=== PATIENT | male | born 1960 | race Caucasian/White ===

== ENCOUNTER 2019-08-05 07:46 | Day surgery (SDC) | payer MEDICARE, OTHER ==
[2019-08-03 12:14] VITALS: BMI 31.7
[~2019-08-05 07:46] MED LIST: LACTATED RINGERS 1,000 ML IV SCH
[2019-08-05 08:16] VITALS: TEMP 98.5
[2019-08-05] MEDS ORDERED: LABETALOL 5 MG/ML VIAL MDV IVP ONE (08:25)
[2019-08-05 08:26] LABS: Glucose,Whole Blood 126 mg/dL (75-99)
[2019-08-05] MEDS ORDERED: PROPOFOL 10 MG/ML 20 ML VIAL IV ONE (08:43)
[2019-08-05 09:18] VITALS: RESP 16
--- NOTE | 2019-08-05 09:23 | P.PCN ---
Date of Procedure: 08/05/19 Description of Procedure: BRIEF HISTORY: Patient is a 59-year-old pleasant male scheduled for an elective colonoscopy as a part of screening for malignant neoplasm of the colon. Last colonoscopy approximately 10 years ago. No change in bowel habits, blood per rectum or abdominal pain. PROCEDURE PERFORMED: Colonoscopy with polypectomy. PREOPERATIVE DIAGNOSIS: Screening for malignant neoplasm of the colon, last colonoscopy 10 years ago. ESTIMATED BLOOD LOSS: Minimal. IV sedation per Anesthesia. PROCEDURE: After informed consent was obtained, the patient, was brought into the endoscopy unit. IV sedation was administered by Anesthesia under continuous monitoring. Digital rectal examination was normal. Initially the Olympus CF-190 flexible video colonoscope was then inserted in the rectum, gradually advanced into the cecum without any difficulty. Careful examination was performed as the scope was gradually being withdrawn. Ileocecal valve and the appendiceal orifice were visualized and appeared normal. Prep was excellent. Mucosa of the cecum, ascending colon, transverse colon, descending colon, sigmoid colon, and rectum appeared normal. Diminutive 1 mm ileocecal valve polyp removed with cold forcep polypectomy. 2 mm sessile transverse colon polyp removed with cold forcep polypectomy. 2 mm sessile splenic flexure polyp removed with cold forcep polypectomy. 3 mm sigmoid colon sessile polyp removed with cold forcep polypectomy. A few small left-sided diverticula noted. Retroflexion was performed in the rectum and no lesions were seen. The patient tolerated the procedure well. IMPRESSION: 4 diminutive polyps measuring 1-3 mm in size removed from the ileocecal valve, transverse colon, splenic flexure and sigmoid with cold forcep polypectomy. Mild left colonic diverticulosis. RECOMMENDATIONS: Findings of this examination were discussed with the patient. Okay to resume diet. Okay to resume medications. Await pathology from polypectomies. Anticipate colonoscopy in 3-5 years pending pathology from polypectomies..
[2019-08-05 09:46] VITALS: BP 137/74; PULSE 82
== END 2019-08-05 10:02 | disposition home or self-care (01) ==
LOC: ORWHC2ENDO 07:46
PROVIDERS: ATTEND Internal Medicine
DX: Z12.11 Encounter for screening for malignant neoplasm of colon (principal); K63.5 Polyp of colon; D12.3 Benign neoplasm of transverse colon; D12.5 Benign neoplasm of sigmoid colon; K57.30 Diverticulosis of large intestine without perforation or abscess without bleeding; I10 Essential (primary) hypertension; E78.5 Hyperlipidemia, unspecified; J44.9 Chronic obstructive pulmonary disease, unspecified; Z87.891 Personal history of nicotine dependence; E11.9 Type 2 diabetes mellitus without complications; F32.9 Major depressive disorder, single episode, unspecified; Z79.899 Other long term (current) drug therapy
CPT/HCPCS: 88305; 45380; J2704

== ENCOUNTER 2021-06-20 09:05 | Inpatient (IN) | payer MEDICARE ==
--- NOTE | 2021-06-20 09:28 | ED ---
SOB HPI - General Chief Complaint: Shortness of Breath Stated Complaint: COPD Source: patient, EMS Mode of arrival: EMS Limitations: no limitations - History of Present Illness Initial Comments: 61-year-old male presents emergency Department with reported shortness of breath. He has a history of COPD, diabetes, hypertension. He reports that he became short of breath yesterday which was worse today. He was around his great grandson who is sick. Patient no longer smokes. Denies any chest pain. No previous history of cardiac disease. He has been using his albuterol inhaler with some improvement in his symptoms. Admits to a cough which is nonproductive. No fevers that he knows of. Upon arrival the patient is found to have a temperature. EMS provided him with 125 of Solu-Medrol into DuoNeb breathing treatments. They did not get an oxygen saturation on room air as the patient was having respiratory distress and was immediately placed on a nonrebreather. No other alleviating, precipitating modifying factors - Related Data Home Medications Medication Instructions Recorded Confirmed Albuterol Sulfate [Proair Hfa] 2 puff INHALATION RT-QID PRN 08/04/15 06/20/21 Atorvastatin [Lipitor] 80 mg PO HS 08/03/19 06/20/21 amLODIPine [Norvasc] 10 mg PO DAILY 08/03/19 06/20/21 Aspirin EC [Ecotrin Low Dose] 81 mg PO DAILY 06/20/21 06/20/21 Atenolol [Tenormin] 25 mg PO DAILY 06/20/21 06/20/21 lisinopriL [Zestril] 2.5 mg PO DAILY 06/20/21 06/20/21 Allergies Allergy/AdvReac Type Severity Reaction Status Date / Time No Known Allergies Allergy Verified 06/20/21 10:50 Review of Systems ROS Statement: Those systems with pertinent positive or pertinent negative responses have been documented in the HPI. ROS Other: All systems not noted in ROS Statement are negative. Past Medical History Past Medical History: COPD, Diabetes Mellitus, Hyperlipidemia, Hypertension Additional Past Medical History / Comment(s): DIET CONTROL DM History of Any Multi-Drug Resistant Organisms: None Reported Past Surgical History: Hernia Repair, Orthopedic Surgery Additional Past Surgical History / Comment(s): RT knee scope. COLONOSCOPY Past Anesthesia/Blood Transfusion Reactions: No Reported Reaction Past Psychological History: Depression Smoking Status: Former smoker Past Alcohol Use History: Occasional Past Drug Use History: None Reported - Past Family History Mother Family Medical History: No Reported History General Exam Limitations: no limitations Course Vital Signs 06/20/21 06/20/21 06/20/21 09:09 09:16 11:47 Temperature 101.3 F H 97.5 F L Pulse Rate 136 H 128 H 102 H Respiratory 28 H 28 H 22 Rate Blood Pressure 126/56 104/52 O2 Sat by Pulse 98 93 L 97 Oximetry 06/20/21 06/20/21 11:48 14:39 Temperature 97.5 F L 97.6 F Pulse Rate 85 Respiratory 22 24 Rate Blood Pressure 107/61 O2 Sat by Pulse 98 Oximetry Medical Decision Making - Medical Decision Making Upon arrival patient was placed into room 1. A thorough history and physical exam is performed. IV is established and laboratory studies were conducted. Patient was given a gram of Tylenol for his fever laboratory studies reviewed and demonstrated a white count of 16.1. D-dimer 2.76. Lactic acid 3.9. Troponin 0.063. BNP 493. Covid not tested. Chest x-ray was originally performed which demonstrates a left lower lobe infiltrate. Because of elevated d-dimer the patient does have a CT of his chest performed which demonstrates no evidence for embolism. Large area of airspace consolidation of the left lower lobe. Blood cultures obtained and the patient is started on Rocephin and azithromycin. I recommended admission to the hospital for breathing treatments, steroids and IV antibiotics for which the patient did agree to. Dr. March agreed to admit the patient. He is currently waiting on the floor in stable condition - Lab Data Result diagrams: 06/20/21 09:28 06/20/21 09:28 Lab Results 06/20/21 06/20/21 06/20/21 Range/Units 09:28 09:28 09:28 WBC 16.1 H (3.8-10.6) k/uL RBC 4.68 (4.30-5.90) m/uL Hgb 12.8 L (13.0-17.5) gm/dL Hct 39.9 (39.0-53.0) % MCV 85.3 (80.0-100.0) fL MCH 27.3 (25.0-35.0) pg MCHC 32.0 (31.0-37.0) g/dL RDW 14.0 (11.5-15.5) % Plt Count 274 (150-450) k/uL MPV 7.8 Neutrophils % 86 % Lymphocytes % 8 % Monocytes % 5 % Eosinophils % 0 % Basophils % 0 % Neutrophils # 13.8 H (1.3-7.7) k/uL Lymphocytes # 1.2 (1.0-4.8) k/uL Monocytes # 0.7 (0-1.0) k/uL Eosinophils # 0.1 (0-0.7) k/uL Basophils # 0.0 (0-0.2) k/uL PT 10.3 (9.0-12.0) sec INR 1.0 (<1.2) APTT 28.6 (22.0-30.0) sec D-Dimer 2.76 H (<0.60) mg/L FEU Sodium 133 L (137-145) mmol/L Potassium 3.8 (3.5-5.1) mmol/L Chloride 101 (98-107) mmol/L Carbon Dioxide 19 L (22-30) mmol/L Anion Gap 13 mmol/L BUN 20 (9-20) mg/dL Creatinine 1.45 H (0.66-1.25) mg/dL Est GFR (CKD-EPI)AfAm 60 (>60 ml/min/1.73 sqM) Est GFR (CKD-EPI)NonAf 52 (>60 ml/min/1.73 sqM) Glucose 243 H (74-99) mg/dL Lactic Ac Sepsis Rflx Plasma Lactic Acid [place] (0.7-2.0) mmol/L Calcium 8.8 (8.4-10.2) mg/dL Magnesium 1.8 (1.6-2.3) mg/dL Total Bilirubin 0.7 (0.2-1.3) mg/dL AST 27 (17-59) U/L ALT 19 (4-49) U/L Alkaline Phosphatase 91 (38-126) U/L Troponin I (0.000-0.034) ng/mL NT-Pro-B Natriuret Pep pg/mL Total Protein 6.3 (6.3-8.2) g/dL Albumin 3.3 L (3.5-5.0) g/dL Influenza Type A (PCR) (Not Detectd) Influenza Type B (PCR) (Not Detectd) RSV (PCR) (Not Detectd) SARS-CoV-2 (PCR) (Not Detectd) 06/20/21 06/20/21 06/20/21 Range/Units 09:28 09:28 09:28 WBC (3.8-10.6) k/uL RBC (4.30-5.90) m/uL Hgb (13.0-17.5) gm/dL Hct (39.0-53.0) % MCV (80.0-100.0) fL MCH (25.0-35.0) pg MCHC (31.0-37.0) g/dL RDW (11.5-15.5) % Plt Count (150-450) k/uL MPV Neutrophils % % Lymphocytes % % Monocytes % % Eosinophils % % Basophils % % Neutrophils # (1.3-7.7) k/uL Lymphocytes # (1.0-4.8) k/uL Monocytes # (0-1.0) k/uL Eosinophils # (0-0.7) k/uL Basophils # (0-0.2) k/uL PT (9.0-12.0) sec INR (<1.2) APTT (22.0-30.0) sec D-Dimer (<0.60) mg/L FEU Sodium (137-145) mmol/L Potassium (3.5-5.1) mmol/L Chloride (98-107) mmol/L Carbon Dioxide (22-30) mmol/L Anion Gap mmol/L BUN (9-20) mg/dL Creatinine (0.66-1.25) mg/dL Est GFR (CKD-EPI)AfAm (>60 ml/min/1.73 sqM) Est GFR (CKD-EPI)NonAf (>60 ml/min/1.73 sqM) Glucose (74-99) mg/dL Lactic Ac Sepsis Rflx Plasma Lactic Acid [place] 3.9 H* (0.7-2.0) mmol/L Calcium (8.4-10.2) mg/dL Magnesium (1.6-2.3) mg/dL Total Bilirubin (0.2-1.3) mg/dL AST (17-59) U/L ALT (4-49) U/L Alkaline Phosphatase (38-126) U/L Troponin I 0.060 H* (0.000-0.034) ng/mL NT-Pro-B Natriuret Pep 493 pg/mL Total Protein (6.3-8.2) g/dL Albumin (3.5-5.0) g/dL Influenza Type A (PCR) (Not Detectd) Influenza Type B (PCR) (Not Detectd) RSV (PCR) (Not Detectd) SARS-CoV-2 (PCR) (Not Detectd) 06/20/21 06/20/21 06/20/21 Range/Units 09:36 10: 13:00 WBC (3.8-10.6) k/uL RBC (4.30-5.90) m/uL Hgb (13.0-17.5) gm/dL Hct (39.0-53.0) % MCV (80.0-100.0) fL MCH (25.0-35.0) pg MCHC (31.0-37.0) g/dL RDW (11.5-15.5) % Plt Count (150-450) k/uL MPV Neutrophils % % Lymphocytes % % Monocytes % % Eosinophils % % Basophils % % Neutrophils # (1.3-7.7) k/uL Lymphocytes # (1.0-4.8) k/uL Monocytes # (0-1.0) k/uL Eosinophils # (0-0.7) k/uL Basophils # (0-0.2) k/uL PT (9.0-12.0) sec INR (<1.2) APTT (22.0-30.0) sec D-Dimer (<0.60) mg/L FEU Sodium (137-145) mmol/L Potassium (3.5-5.1) mmol/L Chloride (98-107) mmol/L Carbon Dioxide (22-30) mmol/L Anion Gap mmol/L BUN (9-20) mg/dL Creatinine (0.66-1.25) mg/dL Est GFR (CKD-EPI)AfAm (>60 ml/min/1.73 sqM) Est GFR (CKD-EPI)NonAf (>60 ml/min/1.73 sqM) Glucose (74-99) mg/dL Lactic Ac Sepsis Rflx Y Plasma Lactic Acid [place] 1.0 (0.7-2.0) mmol/L Calcium (8.4-10.2) mg/dL Magnesium (1.6-2.3) mg/dL Total Bilirubin (0.2-1.3) mg/dL AST (17-59) U/L ALT (4-49) U/L Alkaline Phosphatase (38-126) U/L Troponin I (0.000-0.034) ng/mL NT-Pro-B Natriuret Pep pg/mL Total Protein (6.3-8.2) g/dL Albumin (3.5-5.0) g/dL Influenza Type A (PCR) Not Detected (Not Detectd) Influenza Type B (PCR) Not Detected (Not Detectd) RSV (PCR) Not Detected (Not Detectd) SARS-CoV-2 (PCR) Not Detected (Not Detectd) - EKG Data EKG Comments: EKG demonstrates sinus tachycardia with a ventricular rate of 136. VT interval 1:30. QRS 98. QTC 445. No acute ST segment elevations or depressions. Disposition Clinical Impression: COPD exacerbation, CAP (community acquired pneumonia), NSTEMI (non-ST elevation myocardial infarction) Disposition: ADMITTED IP TO THIS HOSP Condition: Stable Is patient prescribed a controlled substance at d/c from ED?: No Decision to Admit Reason: Admit from EC Decision Date: 06/20/21 Decision Time: 13:20
[2021-06-20] MEDS ORDERED: ACETAMINOPHEN TAB 500 MG TAB PO STA (09:35)
[2021-06-20 09:45] LABS: Basophils % (A) 0 %; Eosinophils # (A) 0.1 k/uL (0-0.7); Eosinophils % (A) 0 %; HCT 39.9 % (39.0-53.0); HGB 12.8 gm/dL (13.0-17.5); Lymphocytes # (A) 1.2 k/uL (1.0-4.8); Lymphocytes % (A) 8 %; MCH 27.3 pg (25.0-35.0); MCV 85.3 fL (80.0-100.0); Mean Platelet Volume 7.8; Monocytes # (A) 0.7 k/uL (0-1.0); Monocytes % (A) 5 %; Neutrophils # (A) 13.8 k/uL (1.3-7.7); Neutrophils % (A) 86 %; Platelet Count 274 k/uL (150-450); RBC 4.68 m/uL (4.30-5.90); WBC 16.1 k/uL (3.8-10.6)
[2021-06-20 09:58] LABS: Albumin 3.3 g/dL (3.5-5.0); Calcium 8.8 mg/dL (8.4-10.2); Magnesium 1.8 mg/dL (1.6-2.3); Partial Thromboplastin Time 28.6 sec (22.0-30.0); Potassium 3.8 mmol/L (3.5-5.1); Prothrombin Time 10.3 sec (9.0-12.0); Total Bilirubin 0.7 mg/dL (0.2-1.3); Total Protein 6.3 g/dL (6.3-8.2)
--- NOTE | 2021-06-20 10:33 | XR ---
EXAMINATION TYPE: XR chest 2V DATE OF EXAM: 06/20/2021 COMPARISON: 08/04/2015 INDICATION: Difficulty breathing TECHNIQUE: Frontal and lateral views of the chest are obtained. FINDINGS: The heart size is normal. The pulmonary vasculature is normal. There is a left lower lobe infiltrate. Silhouetting the diaphragm is present.. IMPRESSION: 1. Left lower lobe infiltrate. Correlate for pneumonia. Follow-up is recommended.
--- NOTE | 2021-06-20 12:41 | CT ---
EXAMINATION TYPE: CT chest angio for PE DATE OF EXAM: 06/20/2021 COMPARISON: None HISTORY: Elevated d-dimer CT DLP: 405.3 mGycm CONTRAST: CT chest with contrast and 3D reconstruction with MIP imaging is performed with IV Contrast, patient injected with 64 mL of Isovue 370. Contrast-enhanced CT of the chest was performed through the course of the pulmonary arteries with maritza g and mediastinal window settings submitted. 3D reconstruction with MIP imaging was also performed. PULMONARY ARTERIES: The pulmonary arteries and their major tributaries are patent. I do not see justice dence for sizable filling defect to suggest pulmonary embolic process. LUNGS: Large area of airspace consolidation left lower lobe may reflect pneumonia or aspiration pneum onia. No evidence for atelectasis. No pulmonary nodule or mass is detected. No pleural effusion. MEDIASTINUM: Thoracic aorta is of normal caliber,however, evaluation is limited given timing of the contrast bolus. If there is concern for thoracic aortic pathology consider CHARLES. Correlate clinicall y . The heart is not enlarged. Subcarinal adenopathy measuring 3 cm. No mediastinal lymph nodes great er than 1cm. HILAR STRUCTURES: No evidence for mass. No hilar lymph nodes greater than 1 cm. UPPER ABDOMEN: No significant abnormality is seen. IMPRESSION: 1. No evidence for Pulmonary embolism at this time. 2.Large area of airspace consolidation left lower lobe may reflect pneumonia or aspiration pneumonia.
[2021-06-20] MEDS ORDERED: SODIUM CHLORIDE 0.9% 500 ML 500 ML IV ONE (13:13)
[2021-06-20] MEDS ORDERED: cefTRIAXone IN SWFI 1,000 MG/10 ML SYRINGE IVP STA (13:18)
[2021-06-20] MEDS ORDERED: AZITHROMYCIN 500 MG in SODIUM CHLORIDE 0.9% 250 ML IVPB STA (13:18)
[2021-06-20] MEDS ORDERED: NALOXONE 0.4 MG/ML 1 ML VIAL IV PRN (13:21)
[2021-06-20] MEDS ORDERED: LACTULOSE 20 GM/30 ML CUP PO PRN (13:33)
[2021-06-20] MEDS ORDERED: ALPRAZolam 0.25 MG TAB PO PRN (13:33)
[2021-06-20] MEDS ORDERED: ACETAMINOPHEN TAB 325 MG TAB PO PRN (13:33)
[2021-06-20] MEDS ORDERED: ONDANSETRON 4 MG/2 ML VIAL IVP PRN (13:33)
[2021-06-20] MEDS ORDERED: MELATONIN 3 MG TABLET PO PRN (13:33)
[2021-06-20] MEDS ORDERED: MAG HYDROX/AL HYDROX/SIMETH 30 ML CUP PO PRN (13:33)
[2021-06-20] MEDS ORDERED: MAGNESIUM HYDROXIDE 2,400 MG/10 ML CUP PO PRN (13:33)
[2021-06-20] MEDS ORDERED: CALCIUM CARBONATE 500 MG CHEWABLE PO PRN (13:33)
--- NOTE | 2021-06-20 13:47 | P.HPIM ---
History of Present Illness H&P Date: 06/20/21 Chief Complaint: Could not breathe This is a 61-year-old patient who follows with Dr. Romero. Chronic stable medical conditions include diabetes, hypertension, hyperlipidemia. Patient is a previous smoker. Non-COPD. Patient presents for 2 days of much worsening short of breath. Cough which is very congested not able to expectorate. Decreased appetite tired rundown. Having fevers. Patient did not take the COVID-19 vaccine. Patient is a complete by his son and [id number]. Feels tired and rundown. Had a fever of 101 in the ER. Review of systems: GEN.: Tired fever decreased appetite EYES: None HEENT: None NECK: None RESPIRATORY: Cough and wheezing short of breath CARDIOVASCULAR: No chest pain GASTROINTESTINAL: None GENITOURINARY: None MUSCULOSKELETAL: None LYMPHATICS: None HEMATOLOGICAL: None PSYCHIATRY: None NEUROLOGICAL: None Past medical history to include: COPD, diabetes, hypertension, 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 Smoked a pack a day for close to 50 years stopped about 2 years ago. Drinks alcohol very heavily on the weekends to the point of passing out Family history: Reviewed, noncontributory to presentation Physical examination: VITAL SIGNS: 101.3, 136, 28, 126/56, 93% on room air GENERAL: BMI 29.5, laying in bed, tired, short of breath. EYES: Pupils equal. Conjunctiva normal. HEENT: External appearance of nose and ears normal, oral cavity grossly normal. NECK: JVD not raised; masses not palpable. HEART: First and second heart sounds are normal; no edema. LUNGS: Respiratory rate increased, not able to speak in full sentences, decreased breath sound coarse crackles left base, wheezing. ABDOMEN: Soft, nontender, liver spleen not palpable, no masses palpable. PSYCH: Alert and oriented x3; mood and affect normal. NEUROLOGICAL: Cranial nerves grossly intact; no facial asymmetry, power and sensation grossly intact. LYMPHATICS: No lymph nodes palpable in the axilla and neck INVESTIGATIONS, reviewed in the clinical context: White count 16.1 hemoglobin 12.8 platelets 274 d-dimer 2.76 potassium 3.8 creatinine 1.45 lactic acid 3.9 Troponin I 0.060 Influenza type A, type B, RSV, COVID-19 [PCR]: I'll not detected EKG tracing personally reviewed by me-sinus tachycardia Chest x-ray film personally reviewed by me-left sided infiltrate CT chest angiogram: Negative for PE large area of airspace consolidation left lower lobe Assessment and plan: -Severe left lower lobe pneumonia, suspect gram-negative organism Start IV cefepime 1 g every 12. Sputum for Gram stain and culture. -Sepsis secondary to pneumonia IV fluids. Blood culture -Acute COPD exacerbation in a previous smoker DuoNeb every 4, IV and inhaled steroids, long-acting beta agonist -Hyperlipidemia Lipitor 80 mg daily at bedtime -Essential hypertension 6-2.5 mg daily, Tenormin 25 mg daily. Hold Norvasc -Likely myocarditis from the bacterial component of pneumonia Patient does not have cardiac symptoms. Order 2-D echocardiogram. IV cefepime. DuoNeb. IV and inhaled steroids. IV Solu-Medrol. Resume home medications. Hold Norvasc. Subcu Lovenox. 2-D echocardiogram. Care was discussed with patient and son at the bedside. Questions answered. Given the complexity and severity of patient's condition expect the patient to be in the hospital at least for 2 overnights Past Medical History Past Medical History: COPD, Diabetes Mellitus, Hyperlipidemia, Hypertension Additional Past Medical History / Comment(s): DIET CONTROL DM History of Any Multi-Drug Resistant Organisms: None Reported Past Surgical History: Hernia Repair, Orthopedic Surgery Additional Past Surgical History / Comment(s): RT knee scope. COLONOSCOPY Past Anesthesia/Blood Transfusion Reactions: No Reported Reaction Past Psychological History: Depression Smoking Status: Former smoker Past Alcohol Use History: Occasional Past Drug Use History: None Reported - Past Family History Mother Family Medical History: No Reported History Medications and Allergies Home Medications Medication Instructions Recorded Confirmed Type Albuterol Sulfate [Proair Hfa] 2 puff INHALATION RT-QID PRN 08/04/15 06/20/21 History Atorvastatin [Lipitor] 80 mg PO HS 08/03/19 06/20/21 History amLODIPine [Norvasc] 10 mg PO DAILY 08/03/19 06/20/21 History Aspirin EC [Ecotrin Low Dose] 81 mg PO DAILY 06/20/21 06/20/21 History Atenolol [Tenormin] 25 mg PO DAILY 06/20/21 06/20/21 History lisinopriL [Zestril] 2.5 mg PO DAILY 06/20/21 06/20/21 History Allergies Allergy/AdvReac Type Severity Reaction Status Date / Time No Known Allergies Allergy Verified 06/20/21 10:50 Physical Exam Vitals: Vital Signs Temp Pulse Resp BP Pulse Ox 06/20/21 11:48 97.5 F L 22 06/20/21 11:47 97.5 F L 102 H 22 104/52 97 06/20/21 09:16 128 H 28 H 93 L 06/20/21 09:09 101.3 F H 136 H 28 H 126/56 98 Intake and Output 06/19/21 06/20/21 06/20/21 22:59 06:59 14:59 Other: Weight 90.718 kg Results CBC & Chem 7: 06/20/21 09:28 06/20/21 09:28 Labs: Abnormal Lab Results - Last 24 Hours (Table) 06/20/21 06/20/21 06/20/21 Range/Units 09:28 09:28 09:28 WBC 16.1 H (3.8-10.6) k/uL Hgb 12.8 L (13.0-17.5) gm/dL Neutrophils # 13.8 H (1.3-7.7) k/uL D-Dimer 2.76 H (<0.60) mg/L FEU Sodium 133 L (137-145) mmol/L Carbon Dioxide 19 L (22-30) mmol/L Creatinine 1.45 H (0.66-1.25) mg/dL Glucose 243 H (74-99) mg/dL Plasma Lactic Acid [place] (0.7-2.0) mmol/L Troponin I (0.000-0.034) ng/mL Albumin 3.3 L (3.5-5.0) g/dL 06/20/21 06/20/21 Range/Units 09:28 09:28 WBC (3.8-10.6) k/uL Hgb (13.0-17.5) gm/dL Neutrophils # (1.3-7.7) k/uL D-Dimer (<0.60) mg/L FEU Sodium (137-145) mmol/L Carbon Dioxide (22-30) mmol/L Creatinine (0.66-1.25) mg/dL Glucose (74-99) mg/dL Plasma Lactic Acid [place] 3.9 H* (0.7-2.0) mmol/L Troponin I 0.060 H* (0.000-0.034) ng/mL Albumin (3.5-5.0) g/dL
[2021-06-20] MEDS: ENOXAPARIN 40 MG/0.4 ML SYRINGE SQ SCH (14:38)
[2021-06-20 14:51] LABS: Glucose,Whole Blood 277 mg/dL (75-99)
--- NOTE | 2021-06-20 14:51 | P.CRDCN ---
History of Present Illness History of present illness: HISTORY OF PRESENTING ILLNESS This is a pleasant 61-year-old male past medical history significant for non- obstructive coronary artery disease, COPD, former nicotine dependence, hypertension, dyslipidemia. He follows in the office with Dr. Wilder. We have been asked to see in consultation for elevated troponin. Patient presents emergency department with shortness of breath for the past 3 days. He also has has a non-productive cough and diaphoresis. He denies any sick contacts. On admission patient with fever 101.3F, tachycardiac 120s-130s, tachypneic, hypoxic on room air requiring oxygen. He denies any chills, chest pain, palpitations, light headedness, dizziness, syncope or near syncope. Denies symptoms of orthopnea or PND. He denies any history of SD, stroke, coronary artery d isease. He denies history of diabetes, Hgb A1C in 2013 5.8. He is a former smoker of 1.5PPD, quit 3 years ago. Occasionally drinks alcohol. DIAGNOSTICS EKG reveals sinus tachycardia, heart rate 136. Telemetry tracings indicate sinus mechanism HR 80s. CT chest was negative for pulmonary embolism, revealed a large area of consolidation left lower lobe may reflect pneumonia or aspiration pneumonia. Chest xray left lower lobe infiltrate Laboratory reviewed, WBC 16.1, hemoglobin 12.8, platelets 274, d-dimer 2.76, sodium 133, potassium 3.6, BUN 20, serum creatinine 1.45, glucose 243, lactate 3.9, troponin 0.06, proBNP 493, viral PCR negative Current home cardiac medications include lisinopril 2.5 mg daily, amlodipine 10 mg daily, atorvastatin 80 mg nightly, atenolol 25 mg daily, aspirin 81 mg daily Echocardiogram 2019 revealed EF of 5055 percent, trace mitral regurgitation, mild tricuspid regurgitation. Lexiscan stress test in the office revealed no evidence of ischemia. REVIEW OF SYSTEMS At the time of my exam: CONSTITUTIONAL: +fever +chills. CARDIOVASCULAR: Positive shortness of breath Denies chest pain, orthopnea, PND or palpitations. RESPIRATORY: +cough. GASTROINTESTINAL: Denies abdominal pain, diarrhea, constipation, nausea or vomiting. MUSCULOSKELETAL: Denies myalgias. NEUROLOGIC: Denies numbness, tingling, headacbe or weakness. ENDOCRINE: Denies fatigue, weight change, polydipsia or polyurina. GENITOURINARY: Denies burning, hematuria or urgency with micturation. HEMATOLOGIC: Denies history of anemia or bleeding. PHYSICAL EXAMINATION Blood pressure 104/52 HR 102, afebrile 97% on 3L nasal cannula CONSTITUTIONAL: No apparent distress, short of breath HEENT: Head is normocephalic. Pupils are equal, round. Sclerae anicteric. Mucous membranes of the mouth are moist. No JVD. No carotid bruit. CHEST EXAMINATION: Lungs are diminished bilateral crackles in bases to auscultation. No chest wall tenderness is noted on palpation or with deep breathing. HEART EXAMINATION: Regular rate and rhythm. S1, S2 heard. No murmurs, gallops or rub. ABDOMEN: Soft, nontender. Positive bowel sounds. EXTREMITIES: 2+ peripheral pulses, no lower extremity edema and no calf ten derness. SKIN: warm, diaphoretic NEUROLOGIC EXAMINATION: Patient is awake, alert and oriented x3. ASSESSMENT Elevated troponin Fever, Diaphoresis Lactic acidosis Elevated D dimer CT negative for PE Leukocytosis Left lower lobe consolidation seen on CT chest COPD Non-obstructive coronary artery disease Former nicotine dependence Hypertension Dyslipidemia PLAN Repeat EKG Trend troponin Obtain 2D echocardiogram Continue home aspirin, atenolol, statin, lisinopril. Further recommendations based on current medical course. Nurse Practitioner note has been reviewed, I agree with a documented findings and plan of care. Patient was seen and examined. Past Medical History Past Medical History: COPD, Diabetes Mellitus, Hyperlipidemia, Hypertension Additional Past Medical History / Comment(s): DIET CONTROL DM History of Any Multi-Drug Resistant Organisms: None Reported Past Surgical History: Hernia Repair, Orthopedic Surgery Additional Past Surgical History / Comment(s): RT knee scope. COLONOSCOPY Past Anesthesia/Blood Transfusion Reactions: No Reported Reaction Past Psychological History: Depression Smoking Status: Former smoker Past Alcohol Use History: Occasional Past Drug Use History: None Reported - Past Family History Mother Family Medical History: No Reported History Medications and Allergies Home Medications Medication Instructions Recorded Confirmed Type Albuterol Sulfate [Proair Hfa] 2 puff INHALATION RT-QID PRN 08/04/15 06/20/21 History Atorvastatin [Lipitor] 80 mg PO HS 08/03/19 06/20/21 History amLODIPine [Norvasc] 10 mg PO DAILY 08/03/19 06/20/21 History Aspirin EC [Ecotrin Low Dose] 81 mg PO DAILY 06/20/21 06/20/21 History Atenolol [Tenormin] 25 mg PO DAILY 06/20/21 06/20/21 History lisinopriL [Zestril] 2.5 mg PO DAILY 06/20/21 06/20/21 History Allergies Allergy/AdvReac Type Severity Reaction Status Date / Time No Known Allergies Allergy Verified 06/20/21 10:50 Physical Exam Vitals: Vital Signs Temp Pulse Resp BP Pulse Ox 06/20/21 11:48 97.5 F L 22 06/20/21 11:47 97.5 F L 102 H 22 104/52 97 06/20/21 09:16 128 H 28 H 93 L 06/20/21 09:09 101.3 F H 136 H 28 H 126/56 98 Intake and Output 06/19/21 06/20/21 06/20/21 22:59 06:59 14:59 Other: Weight 90.718 kg Results 06/20/21 09:28 06/20/21 09:28 Cardiac Enzymes 06/20/21 06/20/21 Range/Units 09:28 09:28 AST 27 (17-59) U/L Troponin I 0.060 H* (0.000-0.034) ng/mL Coagulation 06/20/21 Range/Units 09:28 PT 10.3 (9.0-12.0) sec APTT 28.6 (22.0-30.0) sec CBC 06/20/21 Range/Units 09:28 WBC 16.1 H (3.8-10.6) k/uL RBC 4.68 (4.30-5.90) m/uL Hgb 12.8 L (13.0-17.5) gm/dL Hct 39.9 (39.0-53.0) % Plt Count 274 (150-450) k/uL Comprehensive Metabolic Panel 06/20/21 Range/Units 09:28 Sodium 133 L (137-145) mmol/L Potassium 3.8 (3.5-5.1) mmol/L Chloride 101 (98-107) mmol/L Carbon Dioxide 19 L (22-30) mmol/L BUN 20 (9-20) mg/dL Creatinine 1.45 H (0.66-1.25) mg/dL Glucose 243 H (74-99) mg/dL Calcium 8.8 (8.4-10.2) mg/dL AST 27 (17-59) U/L ALT 19 (4-49) U/L Alkaline Phosphatase 91 (38-126) U/L Total Protein 6.3 (6.3-8.2) g/dL Albumin 3.3 L (3.5-5.0) g/dL Current Medications Generic Name Dose Route Start Last Admin Trade Name Freq PRN Reason Stop Dose Admin Acetaminophen 650 mg 06/20/21 13:33 Acetaminophen Tab 325 Mg Tab PO Q6HR PRN Mild Pain or Fever > 100.5 Al Hydroxide/Mg Hydroxide 15 ml 06/20/21 13:33 Mag Hydrox/Al Hydrox/Simeth 30 Ml Cup PO Q6HR PRN Indigestion Albuterol/Ipratropium 3 ml 06/20/21 16:00 Ipratropium-Albuterol 3 Ml Neb INHALATION RT-Q4H ENDY Albuterol/Ipratropium 3 ml 06/20/21 16:00 Ipratropium-Albuterol 3 Ml Neb INHALATION RT-Q4H ENDY Alprazolam 0.25 mg 06/20/21 13:33 Alprazolam 0.25 Mg Tab PO Q6HR PRN Anxiety Aspirin 81 mg 06/21/21 09:00 Aspirin 81 Mg PO DAILY ENDY Atenolol 25 mg 06/21/21 09:00 Atenolol 25 Mg Tab PO DAILY ENDY Atorvastatin Calcium 80 mg 06/20/21 21:00 Atorvastatin 80 Mg Tab PO HS ENDY Budesonide 1 mg 06/20/21 13:30 Budesonide 1 Mg/2 Ml Nebu INHALATION RT-BID [facility] Calcium Carbonate/Glycine 1,000 mg 06/20/21 13:33 Calcium Carbonate 500 Mg Chewable PO Q4HR PRN Dyspepsia Enoxaparin Sodium 40 mg 06/20/21 13:45 Enoxaparin 40 Mg/0.4 Ml Syringe SQ DAILY ENDY Formoterol Fumarate 20 mcg 06/20/21 13:30 Formoterol Fumarate 20 Mcg/2 Ml Nebu INHALATION RT-BID [facility] Azithromycin 500 mg/ Sodium 250 mls @ 250 mls/hr 06/20/21 13:18 Chloride IVPB 06/20/21 14:17 ONCE STA Cefepime HCl 1 gm/ Sodium 50 mls @ 12.5 mls/hr 06/20/21 16:00 Chloride IVPB Q12H [facility] Lactated Ringer's 1,000 mls @ 125 mls/hr 06/20/21 14:00 Lactated Ringers IV .Q8H [facility] Lactulose 20 gm 06/20/21 13:33 Lactulose 20 Gm/30 Ml Cup PO DAILY PRN Constipation Lisinopril 2.5 mg 06/21/21 09:00 Lisinopril 2.5 Mg Tab PO DAILY [facility] Magnesium Hydroxide 2,400 mg 06/20/21 13:33 Magnesium Hydroxide 2,400 Mg/10 Ml Cup PO DAILY PRN Constipation Melatonin 3 mg 06/20/21 13:33 Melatonin 3 Mg Tablet PO HS PRN Insomnia Methylprednisolone Sodium Succinate 40 mg 06/20/21 16:00 Methylprednisolone Sod Succi 40 Mg/Ml 1 Ml Vial IV Q8HR [facility] Naloxone HCl 0.2 mg 06/20/21 13:21 Naloxone 0.4 Mg/Ml 1 Ml Vial IV Q2M PRN Opioid Reversal Ondansetron HCl 4 mg 06/20/21 13:33 Ondansetron 4 Mg/2 Ml Vial IVP Q8HR PRN Nausea And Vomiting Intake and Output 06/19/21 06/20/21 06/20/21 22:59 06:59 14:59 Other: Weight 90.718 kg Patient Weight 06/21/21 06:59 Weight 90.718 kg 06/20/21 09:28 06/20/21 09:28
[2021-06-20] MEDS: FORMOTEROL FUMARATE 20 MCG/2 ML NEBU INHALATION SCH ×2 (15:26→19:09)
[2021-06-20] MEDS: BUDESONIDE 1 MG/2 ML NEBU INHALATION SCH ×2 (15:26→19:09)
[2021-06-20] MEDS ORDERED: IPRATROPIUM-ALBUTEROL 3 ML NEB INHALATION SCH (16:00)
[2021-06-20] MEDS: IPRATROPIUM-ALBUTEROL 3 ML NEB INHALATION SCH ×2 (16:18→19:09)
[2021-06-20 17:16] LABS: Glucose,Whole Blood 270 mg/dL (75-99)
[2021-06-20] MEDS: INSULIN ASPART (NovoLOG) 100 UNIT/ML VIAL SQ SCH ×2 (18:07→20:08)
[2021-06-20] MEDS: LACTATED RINGERS 1,000 ML IV SCH ×2 (18:36→21:07)
[2021-06-20] MEDS: methylPREDNISolone SOD SUCCI 40 MG/ML 1 ML VIAL IV SCH (18:36)
[2021-06-20] MEDS: CEFEPIME 1 GM in SODIUM CHLORIDE 0.9% 50 ML IVPB SCH (18:36)
--- NOTE | 2021-06-20 19:37 | P.CNPUL ---
History of Present Illness Consult date: 06/20/21 Reason for consult: dyspnea, cough, COPD, hypoxemia Chief complaint: Shortness of breath for 2 days History of present illness: Patient is a 61-year-old with extensive history of smoking and nicotine use stopped smoking 2 years ago otherwise he used to smoke one to 2 packs per day for about 25-30 year history of smoking, have extensive problems associated multiple medical illness, patient progressively got short of breath and last 2 days, started with upper respiratory type infection, started having congestion and cough which is mostly nonproductive, denies any fever or chills, on arrival patient has respiratory distress requiring nonrebreather mask however now currently decreased to 4 L nasal cannula more comfortable now, chest x-ray significant for left lower lobe pneumonia, computed tomography scan of the chest negative for pulmonary embolism however consistent with left lower lobe consolidation and pneumonia, on arrival patient has WBC count is 16,000, d-dimer elevated 2.76, glucose 243, lactic acidosis C.9, troponin 0.06 came down to 0.03 COVID-19 as well as influenza A and B are negative, currently patient is being treated with IV cephapirin and continuation of home medications as well as bronchodilators and IV steroids Review of Systems All systems: negative Past Medical History Past Medical History: COPD, Diabetes Mellitus, Hyperlipidemia, Hypertension Additional Past Medical History / Comment(s): DIET CONTROL DM History of Any Multi-Drug Resistant Organisms: None Reported Past Surgical History: Hernia Repair, Orthopedic Surgery Additional Past Surgical History / Comment(s): RT knee scope. COLONOSCOPY Past Anesthesia/Blood Transfusion Reactions: No Reported Reaction Smoking Status: Former smoker - Past Family History Mother Family Medical History: No Reported History Medications and Allergies Home Medications Medication Instructions Recorded Confirmed Type Albuterol Sulfate [Proair Hfa] 2 puff INHALATION RT-QID PRN 08/04/15 06/20/21 History Atorvastatin [Lipitor] 80 mg PO HS 08/03/19 06/20/21 History amLODIPine [Norvasc] 10 mg PO DAILY 08/03/19 06/20/21 History Aspirin EC [Ecotrin Low Dose] 81 mg PO DAILY 06/20/21 06/20/21 History Atenolol [Tenormin] 25 mg PO DAILY 06/20/21 06/20/21 History lisinopriL [Zestril] 2.5 mg PO DAILY 06/20/21 06/20/21 History Allergies Allergy/AdvReac Type Severity Reaction Status Date / Time No Known Allergies Allergy Verified 06/20/21 10:50 Physical Exam Vitals: Vital Signs Temp Pulse Pulse Resp BP BP Pulse Ox 06/20/21 19:29 82 06/20/21 19:10 82 06/20/21 17:29 96.6 F L 101 H 20 127/65 100 06/20/21 16:28 83 18 06/20/21 16:19 83 18 06/20/21 14:39 97.6 F 85 24 107/61 98 06/20/21 11:48 97.5 F L 22 06/20/21 11:47 97.5 F L 102 H 22 104/52 97 06/20/21 09:16 128 H 28 H 93 L 06/20/21 09:09 101.3 F H 136 H 28 H 126/56 98 Intake and Output 06/20/21 06/20/21 06/20/21 06:59 14:59 22:59 Intake Total 180 Balance 180 Intake: Oral 180 Other: Weight 90.718 kg 90.718 kg - Constitutional General appearance: average body habitus, cooperative, disheveled - EENT Eyes: EOMI, PERRLA Ears: bilateral: normal - Neck Carotids: bilateral: upstroke normal - Respiratory Respiratory: bilateral: diminished - Cardiovascular Rhythm: regular Heart sounds: normal: S1, S2 - Gastrointestinal General gastrointestinal: normal bowel sounds, soft - Neurologic Neurologic: CNII-XII intact - Musculoskeletal Musculoskeletal: gait normal, generalized weakness, strength equal bilaterally - Psychiatric Psychiatric: A&O x's 3, appropriate affect, intact judgment & insight Results - Laboratory Findings CBC and BMP: 06/20/21 09:28 06/20/21 09:28 PT/INR, D-dimer PT 10.3 sec (9.0-12.0) 06/20/21 09:28 INR 1.0 (<1.2) 06/20/21 09:28 D-Dimer 2.76 mg/L FEU (<0.60) H 06/20/21 09:28 Abnormal lab findings: Abnormal Labs 06/20/21 06/20/21 06/20/21 09:28 09:28 09:28 WBC 16.1 H Hgb 12.8 L Neutrophils # 13.8 H D-Dimer 2.76 H Sodium 133 L Carbon Dioxide 19 L Creatinine 1.45 H Glucose 243 H POC Glucose (mg/dL) Plasma Lactic Acid [place] Troponin I Albumin 3.3 L 06/20/21 06/20/21 06/20/21 09:28 09:28 14:50 WBC Hgb Neutrophils # D-Dimer Sodium Carbon Dioxide Creatinine Glucose POC Glucose (mg/dL) 277 H Plasma Lactic Acid [place] 3.9 H* Troponin I 0.060 H* Albumin 06/20/21 06/20/21 15:34 17:14 WBC Hgb Neutrophils # D-Dimer Sodium Carbon Dioxide Creatinine Glucose POC Glucose (mg/dL) 270 H Plasma Lactic Acid [place] Troponin I 0.043 H* Albumin - Diagnostic Findings Chest x-ray: report reviewed, image reviewed CT scan - chest: report reviewed, image reviewed (Finding as noted above) Assessment and Plan Assessment: Left lower lobe pneumonia likely community-acquired Sepsis due to left lower lobe pneumonia COPD Elevated troponin likely demand ischemia Uncontrolled diabetes with hyperglycemia Hypertension hypertensive cardiovascular disease Plan: IV antibiotics IV steroids Breathing treatments Continue home medications Continue sliding scale insulin Further recommendations pending plan of care as per clinical response of the patient would recommend outpatient evaluation for COPD and follow-up on left lower lobe pneumonia Time with Patient: Greater than 30
[2021-06-20 19:43] LABS: Glucose,Whole Blood 267 mg/dL (75-99)
[2021-06-20] MEDS: ATORVASTATIN 80 MG TAB PO SCH (20:08)
[2021-06-20] MEDS ORDERED: methylPREDNISolone SOD SUCCI 40 MG/ML 1 ML VIAL IV SCH (21:00)
[2021-06-21] MEDS: methylPREDNISolone SOD SUCCI 40 MG/ML 1 ML VIAL IV SCH ×2 (00:19→08:45)
[2021-06-21] MEDS: IPRATROPIUM-ALBUTEROL 3 ML NEB INHALATION SCH ×6 (01:44→21:10)
[2021-06-21 03:28] LABS: Chol/HDL Ratio 2.77 Ratio; HDL Cholesterol 35.8 mg/dL (40.00-60.00); LDL Cholesterol,Calculated 47.6 mg/dL (0.0-131.0); Triglycerides 78.3 mg/dL (0.00-149.00); VLDL Calculation 15.66 mg/dL (5.00-40.00)
[2021-06-21] MEDS: CEFEPIME 1 GM in SODIUM CHLORIDE 0.9% 50 ML IVPB SCH ×2 (04:47→17:16)
[2021-06-21] MEDS: LACTATED RINGERS 1,000 ML IV SCH ×3 (04:53→23:03)
[2021-06-21 06:12] LABS: Glucose,Whole Blood 253 mg/dL (75-99)
[2021-06-21] MEDS: INSULIN ASPART (NovoLOG) 100 UNIT/ML VIAL SQ SCH ×4 (06:17→20:07)
[2021-06-21 07:55] LABS: Basophils % (A) 0 %; Eosinophils # (A) 0.1 k/uL (0-0.7); Eosinophils % (A) 0 %; HCT 39.6 % (39.0-53.0); HGB 12.6 gm/dL (13.0-17.5); Lymphocytes # (A) 0.8 k/uL (1.0-4.8); Lymphocytes % (A) 4 %; MCH 27.5 pg (25.0-35.0); MCHC 31.9 g/dL (31.0-37.0); MCV 86.3 fL (80.0-100.0); Mean Platelet Volume 7.9; Monocytes # (A) 0.7 k/uL (0-1.0); Monocytes % (A) 3 %; Neutrophils # (A) 17.8 k/uL (1.3-7.7); Neutrophils % (A) 91 %; Platelet Count 283 k/uL (150-450); RBC 4.59 m/uL (4.30-5.90); RDW 13.9 % (11.5-15.5); WBC 19.6 k/uL (3.8-10.6)
[2021-06-21] MEDS: BUDESONIDE 1 MG/2 ML NEBU INHALATION SCH ×2 (07:55→21:09)
[2021-06-21] MEDS: FORMOTEROL FUMARATE 20 MCG/2 ML NEBU INHALATION SCH ×2 (07:55→21:10)
[2021-06-21 08:43] LABS: African American GFR (CKD) >90 (>60 ml/min/1.73 sqM); Anion Gap 10 mmol/L; Blood Urea Nitrogen 27 mg/dL (9-20); Carbon Dioxide 21 mmol/L (22-30); Chloride 106 mmol/L (98-107); Glucose 249 mg/dL (74-99); Non-African American GFR(CKD) >90 (>60 ml/min/1.73 sqM); Potassium 3.7 mmol/L (3.5-5.1); Sodium 137 mmol/L (137-145)
[2021-06-21] MEDS: ASPIRIN 81 MG PO SCH (08:44)
[2021-06-21] MEDS: atenoloL 25 MG TAB PO SCH (08:44)
[2021-06-21] MEDS: ENOXAPARIN 40 MG/0.4 ML SYRINGE SQ SCH (08:45)
--- NOTE | 2021-06-21 10:12 | ECHOF ---
Referral Reason:Positive troponin MEASUREMENTS -------- HEIGHT: 175.3 cm WEIGHT: 90.7 kg BP: IVSd: 1.1 cm (0.6 - 1.1) LVIDd: 4.0 cm (3.9 - 5.3) LVPWd: 1.7 cm (0.6 - 1.1) IVSs: 1.9 cm LVIDs: 2.5 cm LVPWs: 1.9 cm LAESV Index (A-L): 19.67 ml/m Ao Diam: 3.6 cm (2.0 - 3.7) AV Cusp: 2.0 cm (1.5 - 2.6) LA Diam: 3.0 cm (2.7 - 3.8) MV E Chung: 0.77 m/s MV DecT: 165 ms MV A Chung: 0.88 m/s MV E/A Ratio: 0.88 RAP: 5.00 mmHg RVSP: 21.98 mmHg FINDINGS -------- This was a technically adequate study. The left ventricular size is normal. There is borderline concentric left ventricular hypertrophy. Overall left ventricular systolic function is low-normal with, an EF between 50 - 55 %. The right ventricle is normal in size. The left atrial size is normal. Normal LA size by volume 22+/-6 ml/m2. The right atrial size is normal. The aortic valve is trileaflet and appears structurally normal. The mitral valve is normal. The mitral valve leaflets are mildly thickened. Mild mitral regurgita tion is present. The tricuspid valve appears structurally normal. Mild tricuspid regurgitation present. Right vent ricular systolic pressure is normal at < 35 mmHg. There is no pulmonic regurgitation present. The aortic root size is normal. IVC Not well visulized. There is no pericardial effusion. CONCLUSIONS -------- 1. The left ventricular size is normal. 2. There is borderline concentric left ventricular hypertrophy. 3. Overall left ventricular systolic function is low-normal with, an EF between 50 - 55 %. 4. The mitral valve leaflets are mildly thickened. 5. Mild mitral regurgitation is present. 6. Mild tricuspid regurgitation present. 7. There is no pericardial effusion. IMAGING SCHEDULER: Sarah Cade [facility]
--- NOTE | 2021-06-21 11:28 | P.PN ---
Subjective Progress Note Date: 06/21/21 Principal diagnosis: Left lower lobe pneumonia likely community-acquired Sepsis due to left lower lobe pneumonia COPD Elevated troponin likely demand ischemia Uncontrolled diabetes with hyperglycemia Hypertension hypertensive cardiovascular disease 06/21/2021, patient seen eval examined during the rounds labs reviewed medications reviewed care plan discussed, respiratory status remained stable, oxygen now down to 2 L, less cough and congestion breathing K more easier ho wever does get short of breath on activity and exertion, labs reviewed white cell count is up to 19,600 hemoglobin and hematocrit is 12 and 39 platelet count 2 83,000, sodium is 137 BUN/creatinine 27/0.88, lactic acid is down to 1, troponin normalized, white cell count up likely related to steroids, we will recommend to taper it down to once daily and check chest x-ray tomorrow Patient is a 61-year-old with extensive history of smoking and nicotine use stopped smoking 2 years ago otherwise he used to smoke one to 2 packs per day for about 25-30 year history of smoking, have extensive problems associated multiple medical illness, patient progressively got short of breath and last 2 days, started with upper respiratory type infection, started having congestion and cough which is mostly nonproductive, denies any fever or chills, on arrival patient has respiratory distress requiring nonrebreather mask however now currently decreased to 4 L nasal cannula more comfortable now, chest x-ray s ignificant for left lower lobe pneumonia, computed tomography scan of the chest negative for pulmonary embolism however consistent with left lower lobe consolidation and pneumonia, on arrival patient has WBC count is 16,000, d-dimer elevated 2.76, glucose 243, lactic acidosis C.9, troponin 0.06 came down to 0.03 COVID-19 as well as influenza A and B are negative, currently patient is being treated with IV cephapirin and continuation of home medications as well as bronchodilators and IV steroids Objective - Vital Signs Vital signs: Vital Signs Temp 97.1 F L 06/21/21 08:00 Pulse 104 H 06/21/21 11:12 Resp 22 06/21/21 04:00 BP 125/62 06/21/21 08:00 Pulse Ox 90 L 06/21/21 08:00 Intake & Output 06/20/21 06/21/21 06/21/21 18:59 06:59 18:59 Intake Total 180 118 Output Total 275 Balance 180 -157 Weight 90.718 kg 90 kg Intake: Oral 180 118 Output: Urine 275 Other: Voiding Method Urinal # Voids 1 - Exam - Constitutional General appearance: average body habitus, cooperative, disheveled - EENT Eyes: EOMI, PERRLA Ears: bilateral: normal - Neck Carotids: bilateral: upstroke normal - Respiratory Respiratory: bilateral: diminished - Cardiovascular Rhythm: regular Heart sounds: normal: S1, S2 - Gastrointestinal General gastrointestinal: normal bowel sounds, soft - Neurologic Neurologic: CNII-XII intact - Musculoskeletal Musculoskeletal: gait normal, generalized weakness, strength equal bilaterally - Psychiatric Psychiatric: A&O x's 3, appropriate affect, intact judgment & insight - Labs CBC & Chem 7: 06/21/21 07:30 06/21/21 07:30 Labs: Abnormal Lab Results - Last 24 Hours (Table) 06/20/21 06/20/21 06/20/21 Range/Units 14:50 15:34 15:34 WBC (3.8-10.6) k/uL Hgb (13.0-17.5) gm/dL Neutrophils # (1.3-7.7) k/uL Lymphocytes # (1.0-4.8) k/uL Carbon Dioxide (22-30) mmol/L BUN (9-20) mg/dL Glucose (74-99) mg/dL POC Glucose (mg/dL) 277 H (75-99) mg/dL Hemoglobin A1c 6.9 H (4.0-6.0) % Troponin I 0.043 H* (0.000-0.034) ng/mL HDL Cholesterol (40.00-60.00) mg/dL 06/20/21 06/20/21 06/20/21 Range/Units 15:34 17:14 19:42 WBC (3.8-10.6) k/uL Hgb (13.0-17.5) gm/dL Neutrophils # (1.3-7.7) k/uL Lymphocytes # (1.0-4.8) k/uL Carbon Dioxide (22-30) mmol/L BUN (9-20) mg/dL Glucose (74-99) mg/dL POC Glucose (mg/dL) 270 H 267 H (75-99) mg/dL Hemoglobin A1c (4.0-6.0) % Troponin I (0.000-0.034) ng/mL HDL Cholesterol 35.80 L (40.00-60.00) mg/dL 06/21/21 06/21/21 06/21/21 Range/Units 06:09 07:30 07:30 WBC 19.6 H (3.8-10.6) k/uL Hgb 12.6 L (13.0-17.5) gm/dL Neutrophils # 17.8 H (1.3-7.7) k/uL Lymphocytes # 0.8 L (1.0-4.8) k/uL Carbon Dioxide 21 L (22-30) mmol/L BUN 27 H (9-20) mg/dL Glucose 249 H (74-99) mg/dL POC Glucose (mg/dL) 253 H (75-99) mg/dL Hemoglobin A1c (4.0-6.0) % Troponin I (0.000-0.034) ng/mL HDL Cholesterol (40.00-60.00) mg/dL Assessment and Plan Assessment: Leukocytosis, likely related to steroids were tapered down Left lower lobe pneumonia likely community-acquired Sepsis due to left lower lobe pneumonia COPD Elevated troponin likely demand ischemia Uncontrolled diabetes with hyperglycemia Hypertension hypertensive cardiovascular disease Plan: Check follow-up chest x-ray tomorrow morning IV antibiotics IV steroids Breathing treatments Continue home medications Continue sliding scale insulin Further recommendations pending plan of care as per clinical response of the patient would recommend outpatient evaluation for COPD and follow-up on left lower lobe pneumonia Time with Patient: Greater than 30
[2021-06-21 11:54] LABS: Glucose,Whole Blood 276 mg/dL (75-99)
--- NOTE | 2021-06-21 12:19 | P.PN ---
Subjective This is a pleasant 61-year-old male past medical history significant for non- obstructive coronary artery disease (by Cath in 2000 40% stenosis in the proximal RCA), COPD, former nicotine dependence, hypertension, dyslipidemia. He follows in the office with Dr. Wilder. We have been asked to see in consultation for elevated troponin. Patient presented to the emergency department with shortness of breath, cough, fevers, and diaphoresis for the past 3 days. On admission patient with fever 101.3F, tachycardiac 120s-130s, tachypneic, hypoxic on room air requiring oxygen. Patient seen and examined at bedside, no distress. His breathing has improved. Echocardiogram revealed EF of 5055%, mild mitral and tricuspid regurgitation. Labs reviewed, WBC 19.6, hemoglobin 12.6, platelets 283, sodium 137, potassium 3.7, when necessary 27, serum creatinine 0.8. Troponin trend 0.06, 0.04, 0.023. Patient currently being treated with aspirin 81 mg daily, atenolol 25 mg daily, atorvastatin 80 mg nightly, IV cefepime, lisinopril 2.5 mg daily. Telemetry reviewed patient sinus tachycardia heart rate low 100s PHYSICAL EXAMINATION Blood pressure 125/62, afebrile oxygen saturations 90-95% on 2L nasal cannula CONSTITUTIONAL: No apparent distress, short of breath HEENT: Neck Supple no JVD CHEST EXAMINATION: Lungs are diminished bilateral crackles in bases to auscultation. HEART EXAMINATION: Regular rate and rhythm. S1, S2 heard. No murmurs, gallops or rub. ABDOMEN: Soft, nontender. Positive bowel sounds. EXTREMITIES: 2+ peripheral pulses, no lower extremity edema and no calf tenderness. SKIN: warm, diaphoretic NEUROLOGIC EXAMINATION: Patient is awake, alert and oriented x3. ASSESSMENT Elevated troponin, likely due to hypoxia from left lower lobe pneumonia, not indicative of acute coronary syndrome. Sinus tachycardia, due to infection Fever, Diaphoresis Lactic acidosis Elevated D dimer CT negative for PE Leukocytosis Left lower lobe consolidation seen on CT chest COPD Non-obstructive coronary artery disease Former nicotine dependence Hypertension Dyslipidemia PLAN We will continue present therapy with aspirin, atenolol, statin, lisinopril. From a cardiology perspective, no further workup or cardiac testing at this time. We will follow the patient as needed. Please reach out with any further questions or concerns. Patient to follow up outpatient with Dr. Wilder. Nurse Practitioner note has been reviewed, I agree with a documented findings and plan of care. Patient was seen and examined. Objective - Vital Signs Vital signs: Vital Signs Temp 97.1 F L 06/21/21 08:00 Pulse 105 H 06/21/21 11:29 Resp 22 06/21/21 04:00 BP 125/62 06/21/21 08:00 Pulse Ox 90 L 06/21/21 08:00 Intake & Output 06/20/21 06/21/21 06/21/21 18:59 06:59 18:59 Intake Total 180 118 Output Total 275 Balance 180 -157 Weight 90.718 kg 90 kg Intake: Oral 180 118 Output: Urine 275 Other: Voiding Method Urinal # Voids 1 - Labs CBC & Chem 7: 06/21/21 07:30 06/21/21 07:30 Labs: Abnormal Lab Results - Last 24 Hours (Table) 06/20/21 06/20/21 06/20/21 Range/Units 14:50 15:34 15:34 WBC (3.8-10.6) k/uL Hgb (13.0-17.5) gm/dL Neutrophils # (1.3-7.7) k/uL Lymphocytes # (1.0-4.8) k/uL Carbon Dioxide (22-30) mmol/L BUN (9-20) mg/dL Glucose (74-99) mg/dL POC Glucose (mg/dL) 277 H (75-99) mg/dL Hemoglobin A1c 6.9 H (4.0-6.0) % Troponin I 0.043 H* (0.000-0.034) ng/mL HDL Cholesterol (40.00-60.00) mg/dL 06/20/21 06/20/21 06/20/21 Range/Units 15:34 17:14 19:42 WBC (3.8-10.6) k/uL Hgb (13.0-17.5) gm/dL Neutrophils # (1.3-7.7) k/uL Lymphocytes # (1.0-4.8) k/uL Carbon Dioxide (22-30) mmol/L BUN (9-20) mg/dL Glucose (74-99) mg/dL POC Glucose (mg/dL) 270 H 267 H (75-99) mg/dL Hemoglobin A1c (4.0-6.0) % Troponin I (0.000-0.034) ng/mL HDL Cholesterol 35.80 L (40.00-60.00) mg/dL 06/21/21 06/21/21 06/21/21 Range/Units 06:09 07:30 07:30 WBC 19.6 H (3.8-10.6) k/uL Hgb 12.6 L (13.0-17.5) gm/dL Neutrophils # 17.8 H (1.3-7.7) k/uL Lymphocytes # 0.8 L (1.0-4.8) k/uL Carbon Dioxide 21 L (22-30) mmol/L BUN 27 H (9-20) mg/dL Glucose 249 H (74-99) mg/dL POC Glucose (mg/dL) 253 H (75-99) mg/dL Hemoglobin A1c (4.0-6.0) % Troponin I (0.000-0.034) ng/mL HDL Cholesterol (40.00-60.00) mg/dL Microbiology - Last 24 Hours (Table) 06/20/21 09:28 Blood Culture - Preliminary Blood No Growth after 24 hours
--- NOTE | 2021-06-21 12:32 | P.PN ---
Progress Note - Text Progress Note Date: 06/21/21 Chief Complaint: Could not breathe This is a 61-year-old patient who follows with Dr. Romero. Chronic stable medical conditions include diabetes, hypertension, hyperlipidemia. Patient is a previous smoker. Non-COPD. Patient presents for 2 days of much worsening short of breath. Cough which is very congested not able to expectorate. Decreased appetite tired rundown. Having fevers. Patient did not take the COVID-19 vaccine. Patient is a complete by his son and [id number]. Feels tired and rundown. Had a fever of 101 in the ER. Admitted with left lower lobe pneumonia, COPD exacerbation, sepsis. Started IV cefepime, Solu-Medrol, DuoNeb IV fluids. June 21: Cough shortness of breath present. Shade better. Tired. Appetite improving. Laying in bed. Review of systems: Was done for constitutional, cardiovascular, GI, pulmonary. relevant finding as above Active Medications Acetaminophen (Acetaminophen Tab 325 Mg Tab) 650 mg PO Q6HR PRN PRN Reason: Mild Pain or Fever > 100.5 Al Hydroxide/Mg Hydroxide (Mag Hydrox/Al Hydrox/Simeth 30 Ml Cup) 15 ml PO Q6HR PRN PRN Reason: Indigestion Albuterol/Ipratropium (Ipratropium-Albuterol 3 Ml Neb) 3 ml INHALATION RT-Q4H [facility] Last Admin: 06/21/21 11:10 Dose: 3 ml Documented by: Alprazolam (Alprazolam 0.25 Mg Tab) 0.25 mg PO Q6HR PRN PRN Reason: Anxiety Aspirin (Aspirin 81 Mg) 81 mg PO DAILY [facility] Last Admin: 06/21/21 08:44 Dose: 81 mg Documented by: Atenolol (Atenolol 25 Mg Tab) 25 mg PO DAILY [facility] Last Admin: 06/21/21 08:44 Dose: 25 mg Documented by: Atorvastatin Calcium (Atorvastatin 80 Mg Tab) 80 mg PO HS [facility] Last Admin: 06/20/21 20:08 Dose: 80 mg Documented by: Budesonide (Budesonide 1 Mg/2 Ml Nebu) 1 mg INHALATION RT-BID [facility] Last Admin: 06/21/21 07:55 Dose: 1 mg Documented by: Calcium Carbonate/Glycine (Calcium Carbonate 500 Mg Chewable) 1,000 mg PO Q4HR PRN PRN Reason: Dyspepsia Enoxaparin Sodium (Enoxaparin 40 Mg/0.4 Ml Syringe) 40 mg SQ DAILY [facility] Last Admin: 06/21/21 08:45 Dose: 40 mg Documented by: Formoterol Fumarate (Formoterol Fumarate 20 Mcg/2 Ml Nebu) 20 mcg INHALATION RT-BID [facility] Last Admin: 06/21/21 07:55 Dose: 20 mcg Documented by: Cefepime HCl 1 gm/ Sodium (Chloride) 50 mls @ 12.5 mls/hr IVPB Q12H [facility] Last Admin: 06/21/21 04:47 Dose: 12.5 mls/hr Documented by: Lactated Ringer's (Lactated Ringers) 1,000 mls @ 125 mls/hr IV .Q8H [facility] Last Admin: 06/21/21 12:27 Dose: 125 mls/hr Documented by: Insulin Aspart (Insulin Aspart (Novolog) 100 Unit/Ml Vial) 0 unit SQ ACHS [facility]; Protocol Last Admin: 06/21/21 12:27 Dose: 4 unit Documented by: Lactulose (Lactulose 20 Gm/30 Ml Cup) 20 gm PO DAILY PRN PRN Reason: Constipation Lisinopril (Lisinopril 2.5 Mg Tab) 2.5 mg PO DAILY [facility] Last Admin: 06/21/21 08:44 Dose: 2.5 mg Documented by: Magnesium Hydroxide (Magnesium Hydroxide 2,400 Mg/10 Ml Cup) 2,400 mg PO DAILY PRN PRN Reason: Constipation Melatonin (Melatonin 3 Mg Tablet) 3 mg PO HS PRN PRN Reason: Insomnia Methylprednisolone Sodium Succinate (Methylprednisolone Sod Succi 40 Mg/Ml 1 Ml Vial) 40 mg IV DAILY [facility] Naloxone HCl (Naloxone 0.4 Mg/Ml 1 Ml Vial) 0.2 mg IV Q2M PRN PRN Reason: Opioid Reversal Ondansetron HCl (Ondansetron 4 Mg/2 Ml Vial) 4 mg IVP Q8HR PRN PRN Reason: Nausea And Vomiting Past medical history to include: COPD, diabetes, hypertension, 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 Smoked a pack a day for close to 50 years stopped about 2 years ago. Drinks alcohol very heavily on the weekends to the point of passing out Family history: Reviewed, noncontributory to presentation Physical examination: VITAL SIGNS: 97.1, 128, 22, 125-62, 90% on 2 L GENERAL: Laying in bed, tired, awake EYES: Pupils equal. Conjunctiva normal. HEENT: External appearance of nose and ears normal, oral cavity grossly normal. NECK: JVD not raised; masses not palpable. HEART: First and second heart sounds are normal; no edema. LUNGS: Respiratory rate increased,, decreased breath sound coarse crackles left base, wheezing. ABDOMEN: Soft, nontender, liver spleen not palpable, no masses palpable. PSYCH: Alert and oriented x3; mood and affect normal. INVESTIGATIONS, reviewed in the clinical context: June 21: WBC 19.6 hemoglobin 12.6 platelets 23 potassium 3.7 creatinine 0.8 date Accu-Cheks 276 2-D echocardiogram: EF 55 and 55%. White count 16.1 hemoglobin 12.8 platelets 274 d-dimer 2.76 potassium 3.8 creatinine 1.45 lactic acid 3.9 Troponin I 0.060 Influenza type A, type B, RSV, COVID-19 [PCR]: I'll not detected EKG tracing personally reviewed by me-sinus tachycardia Chest x-ray film personally reviewed by me-left sided infiltrate CT chest angiogram: Negative for PE large area of airspace consolidation left lower lobe Assessment and plan: -Severe left lower lobe pneumonia, suspect gram-negative organism slow to respond IV cefepime 1 g every 12. Sputum for Gram stain and culture. -Sepsis secondary to pneumonia IV fluids. Blood culture -Troponin anemia due to hemodynamic this matched from sepsis. No clinical evidence of acute coronary syndrome 2-D echocardiogram shows no wall motion abnormality. Follow with cardiology -Acute COPD exacerbation in a previous smoker: Slow to respond DuoNeb every 4, IV and inhaled steroids, long-acting beta agonist -Hyperlipidemia Lipitor 80 mg daily at bedtime -Essential hypertension Zestril 2.5 mg daily, Tenormin 25 mg daily. Hold Norvasc -Likely myocarditis from the bacterial component of pneumonia Patient does not have cardiac symptoms. 2-D echo does not show any wall motion abnormalities. IV cefepime. DuoNeb. IV and inhaled steroids. IV Solu-Medrol. Care was discussed with the patient. Sit up in a chair as tolerated.
[2021-06-21 16:41] LABS: Glucose,Whole Blood 325 mg/dL (75-99)
[2021-06-21 19:44] LABS: Glucose,Whole Blood 270 mg/dL (75-99)
[2021-06-21] MEDS: ATORVASTATIN 80 MG TAB PO SCH (20:07)
[2021-06-22] MEDS: IPRATROPIUM-ALBUTEROL 3 ML NEB INHALATION SCH ×7 (00:26→23:08)
[2021-06-22] MEDS: CEFEPIME 1 GM in SODIUM CHLORIDE 0.9% 50 ML IVPB SCH ×2 (03:46→16:27)
[2021-06-22 05:59] LABS: Glucose,Whole Blood 252 mg/dL (75-99)
[2021-06-22] MEDS: INSULIN ASPART (NovoLOG) 100 UNIT/ML VIAL SQ SCH ×4 (06:05→20:38)
--- NOTE | 2021-06-22 07:01 | XR ---
EXAMINATION TYPE: XR chest 1V portable DATE OF EXAM: 06/22/2021 COMPARISON: 06/20/2021 INDICATION: Pneumonia TECHNIQUE: Single frontal view of the chest is obtained. FINDINGS: The heart size is normal. The pulmonary vasculature is normal. Mild infiltrates at the left base. There may be a small left pleural effusion. IMPRESSION: 1. Stable small left pleural effusion and left lower lobe infiltrate. Continued follow-up is recommen ded
[2021-06-22] MEDS: FORMOTEROL FUMARATE 20 MCG/2 ML NEBU INHALATION SCH ×2 (07:20→19:43)
[2021-06-22] MEDS: BUDESONIDE 1 MG/2 ML NEBU INHALATION SCH ×2 (07:20→19:43)
[2021-06-22] MEDS: ASPIRIN 81 MG PO SCH (10:16)
[2021-06-22] MEDS: methylPREDNISolone SOD SUCCI 40 MG/ML 1 ML VIAL IV SCH (10:16)
[2021-06-22] MEDS: ENOXAPARIN 40 MG/0.4 ML SYRINGE SQ SCH (10:16)
[2021-06-22] MEDS: LACTATED RINGERS 1,000 ML IV SCH ×2 (10:16→22:23)
[2021-06-22] MEDS: atenoloL 25 MG TAB PO SCH (10:16)
[2021-06-22 12:08] LABS: Glucose,Whole Blood 260 mg/dL (75-99)
--- NOTE | 2021-06-22 13:48 | P.PN ---
Subjective Progress Note Date: 06/22/21 Principal diagnosis: Left lower lobe pneumonia likely community-acquired Sepsis due to left lower lobe pneumonia COPD Elevated troponin likely demand ischemia Uncontrolled diabetes with hyperglycemia Hypertension hypertensive cardiovascular disease 07/23/2021, patient seen eval reexamined during the rounds labs reviewed medications reviewed care plan discussed, respiratory status remained stable, oxygen however continued to be 94% or greater, denies any chest pain breathing comfortably patient remains on antibiotics, all of chest x-ray revealed continue show a left lower lobe infiltrate and tiny left-sided effusion no plans for aggressive intervention if remains stable patient can be discharged the next 24 hours on oral antibiotics follow up on outpatient 06/21/2021, patient seen eval examined during the rounds labs reviewed medications reviewed care plan discussed, respiratory status remained stable, oxygen now down to 2 L, less cough and congestion breathing K more easier however does get short of breath on activity and exertion, labs reviewed white cell count is up to 19,600 hemoglobin and hematocrit is 12 and 39 platelet count 2 83,000, sodium is 137 BUN/creatinine 27/0.88, lactic acid is down to 1, troponin normalized, white cell count up likely related to steroids, we will recommend to taper it down to once daily and check chest x-ray tomorrow Patient is a 61-year-old with extensive history of smoking and nicotine use stopped smoking 2 years ago otherwise he used to smoke one to 2 packs per day for about 25-30 year history of smoking, have extensive problems associated multiple medical illness, patient progressively got short of breath and last 2 days, started with upper respiratory type infection, started having congestion and cough which is mostly nonproductive, denies any fever or chills, on arrival patient has respiratory distress requiring nonrebreather mask however now currently decreased to 4 L nasal cannula more comfortable now, chest x-ray significant for left lower lobe pneumonia, computed tomography scan of the chest negative for pulmonary embolism however consistent with left lower lobe consolidation and pneumonia, on arrival patient has WBC count is 16,000, d-dimer elevated 2.76, glucose 243, lactic acidosis C.9, troponin 0.06 came down to 0.03 COVID-19 as well as influenza A and B are negative, currently patient is being treated with IV cephapirin and continuation of home medications as well as bronchodilators and IV steroids Objective - Vital Signs Vital signs: Vital Signs Temp 97.9 F 06/22/21 12:00 Pulse 98 06/22/21 12:00 Resp 16 06/22/21 12:00 BP 127/69 06/22/21 12:00 Pulse Ox 94 L 06/22/21 12:00 Intake & Output 06/21/21 06/22/21 06/22/21 18:59 06:59 18:59 Intake Total 1118 960 Output Total 275 400 Balance 843 -400 960 Weight 90.7 kg Intake: Intake, IV Titration 1000 600 Amount Lactated Ringers 1,000 ml 1000 600 @ 125 mls/hr IV .Q8H [facility] Rx#:[id number] Oral 118 360 Output: Urine 275 400 Other: Voiding Method Urinal # Voids 1 - Exam - Constitutional General appearance: average body habitus, cooperative, disheveled - EENT Eyes: EOMI, PERRLA Ears: bilateral: normal - Neck Carotids: bilateral: upstroke normal - Respiratory Respiratory: bilateral: diminished - Cardiovascular Rhythm: regular Heart sounds: normal: S1, S2 - Gastrointestinal General gastrointestinal: normal bowel sounds, soft - Neurologic Neurologic: CNII-XII intact - Musculoskeletal Musculoskeletal: gait normal, generalized weakness, strength equal bilaterally - Psychiatric Psychiatric: A&O x's 3, appropriate affect, intact judgment & insight - Labs CBC & Chem 7: 06/21/21 07:30 06/21/21 07:30 Labs: Abnormal Lab Results - Last 24 Hours (Table) 06/21/21 06/21/21 06/22/21 Range/Units 16:27 19:42 05:57 POC Glucose (mg/dL) 325 H 270 H 252 H (75-99) mg/dL Procalcitonin (0.02-0.09) ng/mL 06/22/21 06/22/21 Range/Units 06:00 11:57 POC Glucose (mg/dL) 260 H (75-99) mg/dL Procalcitonin 4.53 H (0.02-0.09) ng/mL Microbiology - Last 24 Hours (Table) 06/20/21 09:28 Blood Culture - Preliminary Blood No Growth after 48 hours 06/20/21 09:28 Blood Culture - Preliminary Blood No Growth after 48 hours Assessment and Plan Assessment: Leukocytosis, likely related to steroids were tapered down Left lower lobe pneumonia likely community-acquired Sepsis due to left lower lobe pneumonia COPD Elevated troponin likely demand ischemia Uncontrolled diabetes with hyperglycemia Hypertension hypertensive cardiovascular disease Plan: Follow-up chest x-ray reviewed stable infiltrate and tiny effusion IV antibiotics can be switched. The time of discharge IV steroids can be switched to by mouth at this time of discharge Breathing treatments Continue home medications Continue sliding scale insulin Further recommendations pending plan of care as per clinical response of the patient would recommend outpatient evaluation for COPD and follow-up on left lower lobe pneumonia Time with Patient: Greater than 30
[2021-06-22 16:58] LABS: Glucose,Whole Blood 278 mg/dL (75-99)
--- NOTE | 2021-06-22 17:18 | P.PN ---
Progress Note - Text Progress Note Date: 06/22/21 Chief Complaint: Could not breathe This is a 61-year-old patient who follows with Dr. Romero. Chronic stable medical conditions include diabetes, hypertension, hyperlipidemia. Patient is a previous smoker. Non-COPD. Patient presents for 2 days of much worsening short of breath. Cough which is very congested not able to expectorate. Decreased appetite tired rundown. Having fevers. Patient did not take the COVID-19 vaccine. Presents with his son and [id number]. Feels tired and rundown. Had a fever of 101 in the ER. Admitted with left lower lobe pneumonia, COPD exacerbation, sepsis. Started IV cefepime, Solu-Medrol, DuoNeb IV fluids. June 21: Cough shortness of breath present. Shade better. Tired. Appetite improving. Laying in bed. June 22: Feeling better. Decreased cough. Breathing better. Eating some. Review of systems: Was done for constitutional, cardiovascular, GI, pulmonary. relevant finding as above Active Medications Acetaminophen (Acetaminophen Tab 325 Mg Tab) 650 mg PO Q6HR PRN PRN Reason: Mild Pain or Fever > 100.5 Al Hydroxide/Mg Hydroxide (Mag Hydrox/Al Hydrox/Simeth 30 Ml Cup) 15 ml PO Q6HR PRN PRN Reason: Indigestion Albuterol/Ipratropium (Ipratropium-Albuterol 3 Ml Neb) 3 ml INHALATION RT-Q4H [facility] Last Admin: 06/22/21 16:02 Dose: 3 ml Documented by: Alprazolam (Alprazolam 0.25 Mg Tab) 0.25 mg PO Q6HR PRN PRN Reason: Anxiety Aspirin (Aspirin 81 Mg) 81 mg PO DAILY [facility] Last Admin: 06/22/21 10:16 Dose: 81 mg Documented by: Atenolol (Atenolol 25 Mg Tab) 25 mg PO DAILY [facility] Last Admin: 06/22/21 10:16 Dose: 25 mg Documented by: Atorvastatin Calcium (Atorvastatin 80 Mg Tab) 80 mg PO HS [facility] Last Admin: 06/21/21 20:07 Dose: 80 mg Documented by: Budesonide (Budesonide 1 Mg/2 Ml Nebu) 1 mg INHALATION RT-BID [facility] Last Admin: 06/22/21 07:20 Dose: 1 mg Documented by: Calcium Carbonate/Glycine (Calcium Carbonate 500 Mg Chewable) 1,000 mg PO Q4HR PRN PRN Reason: Dyspepsia Enoxaparin Sodium (Enoxaparin 40 Mg/0.4 Ml Syringe) 40 mg SQ DAILY [facility] Last Admin: 06/22/21 10:16 Dose: 40 mg Documented by: Formoterol Fumarate (Formoterol Fumarate 20 Mcg/2 Ml Nebu) 20 mcg INHALATION RT-BID [facility] Last Admin: 06/22/21 07:20 Dose: 20 mcg Documented by: Cefepime HCl 1 gm/ Sodium (Chloride) 50 mls @ 12.5 mls/hr IVPB Q12H [facility] Last Admin: 06/22/21 16:27 Dose: 12.5 mls/hr Documented by: Lactated Ringer's (Lactated Ringers) 1,000 mls @ 125 mls/hr IV .Q8H [facility] Last Admin: 06/22/21 10:16 Dose: Not Given Documented by: Insulin Aspart (Insulin Aspart (Novolog) 100 Unit/Ml Vial) 0 unit SQ ACHS [facility]; Protocol Last Admin: 06/22/21 12:13 Dose: 4 unit Documented by: Lactulose (Lactulose 20 Gm/30 Ml Cup) 20 gm PO DAILY PRN PRN Reason: Constipation Lisinopril (Lisinopril 2.5 Mg Tab) 2.5 mg PO DAILY [facility] Last Admin: 06/22/21 10:16 Dose: 2.5 mg Documented by: Magnesium Hydroxide (Magnesium Hydroxide 2,400 Mg/10 Ml Cup) 2,400 mg PO DAILY PRN PRN Reason: Constipation Melatonin (Melatonin 3 Mg Tablet) 3 mg PO HS PRN PRN Reason: Insomnia Methylprednisolone Sodium Succinate (Methylprednisolone Sod Succi 40 Mg/Ml 1 Ml Vial) 40 mg IV DAILY [facility] Last Admin: 06/22/21 10:16 Dose: 40 mg Documented by: Naloxone HCl (Naloxone 0.4 Mg/Ml 1 Ml Vial) 0.2 mg IV Q2M PRN PRN Reason: Opioid Reversal Ondansetron HCl (Ondansetron 4 Mg/2 Ml Vial) 4 mg IVP Q8HR PRN PRN Reason: Nausea And Vomiting Past medical history to include: COPD, diabetes, hypertension, 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 Smoked a pack a day for close to 50 years stopped about 2 years ago. Drinks alcohol very heavily on the weekends to the point of passing out Family history: Reviewed, noncontributory to presentation Physical examination: VITAL SIGNS: 97.6, 89, 18, 135/71, 94% on 2 L GENERAL: Laying in bed, awake EYES: Pupils equal. Conjunctiva normal. HEENT: External appearance of nose and ears normal, oral cavity grossly normal. NECK: JVD not raised; masses not palpable. HEART: First and second heart sounds are normal; no edema. LUNGS: Respiratory rate increased,, decreased breath sound ABDOMEN: Soft, nontender, liver spleen not palpable, no masses palpable. PSYCH: Alert and oriented x3; mood and affect normal. INVESTIGATIONS, reviewed in the clinical context: June 22: Procalcitonin 4.53 June 21: WBC 19.6 hemoglobin 12.6 platelets 23 potassium 3.7 creatinine 0.8 date Accu-Cheks 276 2-D echocardiogram: EF 55 and 55%. White count 16.1 hemoglobin 12.8 platelets 274 d-dimer 2.76 potassium 3.8 creatinine 1.45 lactic acid 3.9 Troponin I 0.060 Influenza type A, type B, RSV, COVID-19 [PCR]: I'll not detected EKG tracing personally reviewed by me-sinus tachycardia Chest x-ray film personally reviewed by me-left sided infiltrate CT chest angiogram: Negative for PE large area of airspace consolidation left lower lobe Assessment and plan: -Severe left lower lobe pneumonia, suspect gram-negative organism improving IV cefepime 1 g every 12. Sputum for Gram stain and culture.: Pending -Sepsis secondary to pneumonia: Better IV fluids. Blood culture negative -Troponin anemia due to hemodynamic this matched from sepsis. No clinical evidence of acute coronary syndrome 2-D echocardiogram shows no wall motion abnormality. Follow with cardiology -Acute COPD exacerbation in a previous smoker: Improving DuoNeb 4 times a day, IV and inhaled steroids, long-acting beta agonist -Hyperlipidemia Lipitor 80 mg daily at bedtime -Essential hypertension Zestril 2.5 mg daily, Tenormin 25 mg daily. Hold Norvasc -Likely myocarditis from the bacterial component of pneumonia Patient does not have cardiac symptoms. 2-D echo does not show any wall motion abnormalities. IV cefepime. Decreased DuoNeb to 4 times a day. Decrease Solu-Medrol to 40 mg daily. Increase activity. DC IV fluids.
[2021-06-22 19:59] LABS: Glucose,Whole Blood 269 mg/dL (75-99)
[2021-06-22] MEDS: ATORVASTATIN 80 MG TAB PO SCH (20:38)
[2021-06-23] MEDS: CEFEPIME 1 GM in SODIUM CHLORIDE 0.9% 50 ML IVPB SCH ×2 (03:59→15:48)
[2021-06-23] MEDS: IPRATROPIUM-ALBUTEROL 3 ML NEB INHALATION SCH ×6 (04:37→23:16)
[2021-06-23 06:14] LABS: Glucose,Whole Blood 201 mg/dL (75-99)
[2021-06-23] MEDS: INSULIN ASPART (NovoLOG) 100 UNIT/ML VIAL SQ SCH ×4 (06:57→20:22)
[2021-06-23] MEDS: FORMOTEROL FUMARATE 20 MCG/2 ML NEBU INHALATION SCH ×2 (07:28→19:50)
[2021-06-23] MEDS: BUDESONIDE 1 MG/2 ML NEBU INHALATION SCH ×2 (07:28→19:50)
[2021-06-23] MEDS: atenoloL 25 MG TAB PO SCH (08:44)
[2021-06-23] MEDS: ASPIRIN 81 MG PO SCH (08:44)
[2021-06-23] MEDS: ENOXAPARIN 40 MG/0.4 ML SYRINGE SQ SCH (08:44)
[2021-06-23] MEDS: methylPREDNISolone SOD SUCCI 40 MG/ML 1 ML VIAL IV SCH (08:45)
[2021-06-23 09:26] LABS: Basophils % (A) 0 %; Eosinophils % (A) 0 %; HCT 38.2 % (39.0-53.0); HGB 12.2 gm/dL (13.0-17.5); Lymphocytes # (A) 2.2 k/uL (1.0-4.8); Lymphocytes % (A) 14 %; MCH 27.8 pg (25.0-35.0); MCHC 31.9 g/dL (31.0-37.0); Mean Platelet Volume 7.8; Monocytes % (A) 6 %; Neutrophils # (A) 12.4 k/uL (1.3-7.7); Neutrophils % (A) 78 %; Platelet Count 326 k/uL (150-450); RDW 14.3 % (11.5-15.5); WBC 15.9 k/uL (3.8-10.6)
[2021-06-23 12:08] LABS: Glucose,Whole Blood 202 mg/dL (75-99)
--- NOTE | 2021-06-23 15:12 | P.PN ---
Progress Note - Text Progress Note Date: 06/23/21 Chief Complaint: Could not breathe This is a 61-year-old patient who follows with Dr. Romero. Chronic stable medical conditions include diabetes, hypertension, hyperlipidemia. Patient is a previous smoker. Non-COPD. Patient presents for 2 days of much worsening short of breath. Cough which is very congested not able to expectorate. Decreased appetite tired rundown. Having fevers. Patient did not take the COVID-19 vaccine. Presents with his son and [id number]. Feels tired and rundown. Had a fever of 101 in the ER. Admitted with left lower lobe pneumonia, COPD exacerbation, sepsis. Started IV cefepime, Solu-Medrol, DuoNeb IV fluids. June 21: Cough shortness of breath present. Shade better. Tired. Appetite improving. Laying in bed. June 22: Feeling better. Decreased cough. Breathing better. Eating some. June 23: Cough. Not expectorating. Appetite not good. Did walk around the room. [id number] visiting. On 2 L of oxygen. Review of systems: Was done for constitutional, cardiovascular, GI, pulmonary. relevant finding as above Active Medications Acetaminophen (Acetaminophen Tab 325 Mg Tab) 650 mg PO Q6HR PRN PRN Reason: Mild Pain or Fever > 100.5 Al Hydroxide/Mg Hydroxide (Mag Hydrox/Al Hydrox/Simeth 30 Ml Cup) 15 ml PO Q6HR PRN PRN Reason: Indigestion Albuterol/Ipratropium (Ipratropium-Albuterol 3 Ml Neb) 3 ml INHALATION RT-Q4H [facility] Last Admin: 06/23/21 12:20 Dose: Not Given Documented by: Alprazolam (Alprazolam 0.25 Mg Tab) 0.25 mg PO Q6HR PRN PRN Reason: Anxiety Last Admin: 06/22/21 23:21 Dose: 0.25 mg Documented by: Aspirin (Aspirin 81 Mg) 81 mg PO DAILY [facility] Last Admin: 06/23/21 08:44 Dose: 81 mg Documented by: Atenolol (Atenolol 25 Mg Tab) 25 mg PO DAILY [facility] Last Admin: 06/23/21 08:44 Dose: 25 mg Documented by: Atorvastatin Calcium (Atorvastatin 80 Mg Tab) 80 mg PO HS [facility] Last Admin: 06/22/21 20:38 Dose: 80 mg Documented by: Budesonide (Budesonide 1 Mg/2 Ml Nebu) 1 mg INHALATION RT-BID [facility] Last Admin: 06/23/21 07:28 Dose: 1 mg Documented by: Calcium Carbonate/Glycine (Calcium Carbonate 500 Mg Chewable) 1,000 mg PO Q4HR PRN PRN Reason: Dyspepsia Enoxaparin Sodium (Enoxaparin 40 Mg/0.4 Ml Syringe) 40 mg SQ DAILY [facility] Last Admin: 06/23/21 08:44 Dose: 40 mg Documented by: Formoterol Fumarate (Formoterol Fumarate 20 Mcg/2 Ml Nebu) 20 mcg INHALATION RT-BID [facility] Last Admin: 06/23/21 07:28 Dose: 20 mcg Documented by: Cefepime HCl 1 gm/ Sodium (Chloride) 50 mls @ 12.5 mls/hr IVPB Q12H [facility] Last Admin: 06/23/21 03:59 Dose: 12.5 mls/hr Documented by: Insulin Aspart (Insulin Aspart (Novolog) 100 Unit/Ml Vial) 0 unit SQ ACHS [facility]; Protocol Last Admin: 06/23/21 12:19 Dose: 2 unit Documented by: Lactulose (Lactulose 20 Gm/30 Ml Cup) 20 gm PO DAILY PRN PRN Reason: Constipation Lisinopril (Lisinopril 2.5 Mg Tab) 2.5 mg PO DAILY [facility] Last Admin: 06/23/21 08:44 Dose: 2.5 mg Documented by: Magnesium Hydroxide (Magnesium Hydroxide 2,400 Mg/10 Ml Cup) 2,400 mg PO DAILY PRN PRN Reason: Constipation Melatonin (Melatonin 3 Mg Tablet) 3 mg PO HS PRN PRN Reason: Insomnia Methylprednisolone Sodium Succinate (Methylprednisolone Sod Succi 40 Mg/Ml 1 Ml Vial) 40 mg IV DAILY [facility] Last Admin: 06/23/21 08:45 Dose: 40 mg Documented by: Naloxone HCl (Naloxone 0.4 Mg/Ml 1 Ml Vial) 0.2 mg IV Q2M PRN PRN Reason: Opioid Reversal Ondansetron HCl (Ondansetron 4 Mg/2 Ml Vial) 4 mg IVP Q8HR PRN PRN Reason: Nausea And Vomiting Past medical history to include: COPD, diabetes, hypertension, 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 Smoked a pack a day for close to 50 years stopped about 2 years ago. Drinks alcohol very heavily on the weekends to the point of passing out Family history: Reviewed, noncontributory to presentation Physical examination: VITAL SIGNS: 96.9, 73, 18, 140s/69, 93% on 2 L GENERAL: Sitting up in a chair, awake EYES: Pupils equal. Conjunctiva normal. HEENT: External appearance of nose and ears normal, oral cavity grossly normal. NECK: JVD not raised; masses not palpable. HEART: First and second heart sounds are normal; no edema. LUNGS: Respiratory rate normal, decreased breath sound , left basal crackle ABDOMEN: Soft, nontender, liver spleen not palpable, no masses palpable. PSYCH: Alert and oriented x3; mood and affect normal. INVESTIGATIONS, reviewed in the clinical context: June 23: White count 15.9 hemoglobin 12.2 procalcitonin 2.44 June 22: Procalcitonin 4.53 June 21: WBC 19.6 hemoglobin 12.6 platelets 23 potassium 3.7 creatinine 0.8 date Accu-Cheks 276 2-D echocardiogram: EF 55 and 55%. White count 16.1 hemoglobin 12.8 platelets 274 d-dimer 2.76 potassium 3.8 creatinine 1.45 lactic acid 3.9 Troponin I 0.060 Influenza type A, type B, RSV, COVID-19 [PCR]: I'll not detected EKG tracing personally reviewed by me-sinus tachycardia Chest x-ray film personally reviewed by me-left sided infiltrate CT chest angiogram: Negative for PE large area of airspace consolidation left lower lobe Assessment and plan: -Severe left lower lobe pneumonia, suspect gram-negative organism improving IV cefepime 1 g every 12. Sputum for Gram stain and culture.: Pending -Sepsis secondary to pneumonia: Better IV fluids-stopped. Blood culture negative -Troponin anemia due to hemodynamic this matched from sepsis. No clinical evidence of acute coronary syndrome 2-D echocardiogram shows no wall motion abnormality. Follow with cardiology -Acute COPD exacerbation in a previous smoker: Improving DuoNeb 4 times a day, IV and inhaled steroids, long-acting beta agonist -Hyperlipidemia Lipitor 80 mg daily at bedtime -Essential hypertension Zestril 2.5 mg daily, Tenormin 25 mg daily. Hold Norvasc -Likely myocarditis from the bacterial component of pneumonia Patient does not have cardiac symptoms. 2-D echo does not show any wall motion abnormalities. IV cefepime. Continue other medications. Increase activity. We'll check tomorrow morning home oxygen with walking test. Discussed with the patient daughter the bedside.
[2021-06-23 16:47] LABS: Glucose,Whole Blood 263 mg/dL (75-99)
[2021-06-23 20:17] LABS: Glucose,Whole Blood 212 mg/dL (75-99)
[2021-06-23] MEDS: ATORVASTATIN 80 MG TAB PO SCH (20:22)
[2021-06-24 03:45] VITALS: RESP 15
[2021-06-24] MEDS: CEFEPIME 1 GM in SODIUM CHLORIDE 0.9% 50 ML IVPB SCH (03:54)
[2021-06-24] MEDS: IPRATROPIUM-ALBUTEROL 3 ML NEB INHALATION SCH ×3 (04:18→11:44)
[2021-06-24 06:40] VITALS: BP 118/61; TEMP 97.8
[2021-06-24 07:11] LABS: Glucose,Whole Blood 131 mg/dL (75-99)
[2021-06-24] MEDS: atenoloL 25 MG TAB PO SCH (08:06)
[2021-06-24] MEDS: ENOXAPARIN 40 MG/0.4 ML SYRINGE SQ SCH (08:06)
[2021-06-24] MEDS: ASPIRIN 81 MG PO SCH (08:06)
[2021-06-24] MEDS: INSULIN ASPART (NovoLOG) 100 UNIT/ML VIAL SQ SCH ×2 (08:06→12:03)
[2021-06-24] MEDS: methylPREDNISolone SOD SUCCI 40 MG/ML 1 ML VIAL IV SCH (08:07)
[2021-06-24] MEDS: FORMOTEROL FUMARATE 20 MCG/2 ML NEBU INHALATION SCH (08:07)
[2021-06-24] MEDS: BUDESONIDE 1 MG/2 ML NEBU INHALATION SCH (08:07)
[2021-06-24 11:38] LABS: Glucose,Whole Blood 233 mg/dL (75-99)
[2021-06-24 12:03] VITALS: PULSE 104
--- NOTE | 2021-06-24 16:03 | P.DS ---
Providers Date of admission: 06/20/21 13:22 Expected date of discharge: 06/24/21 Attending physician: Raheem March Consults: 06/20/21 13:21 Consult Physician Urgent Consulting Provider: [facility] Consult Reason/Comments: NSTEMI Do you want consulting provider notified?: Yes 06/20/21 13:49 Consult Physician Routine Consulting Provider: Hugo Ochoa Consult Reason/Comments: pneumonia Do you want consulting provider notified?: Yes Primary care physician: Evangelist [facility] Course: Chief Complaint: Could not breathe This is a 61-year-old patient who follows with Dr. Romero. Chronic stable medical conditions include diabetes, hypertension, hyperlipidemia. Patient is a previous smoker. Non-COPD. Patient presents for 2 days of much worsening short of breath. Cough which is very congested not able to expectorate. Decreased appetite tired rundown. Having fevers. Patient did not take the COVID-19 vaccine. Presents with his son and [id number]-mu-hoy. Feels tired and rundown. Had a fever of 101 in the ER. Admitted with left lower lobe pneumonia, COPD exacerbation, sepsis. Started IV cefepime, Solu-Medrol, DuoNeb IV fluids. June 21: Cough shortness of breath present. Shade better. Tired. Appetite improving. Laying in bed. June 22: Feeling better. Decreased cough. Breathing better. Eating some. June 23: Cough. Not expectorating. Appetite not good. Did walk around the room. Crnkllsb-mc-[id number] visiting. On 2 L of oxygen. June 24: Sitting up. Breathing better. Patient has oxygen at home. Eating better. Care was discussed. Questions answered. Discussion and discharge planning more than 35 minutes Consultation: Dr. 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 Smoked a pack a day for close to 50 years stopped about 2 years ago. Drinks alcohol very heavily on the weekends to the point of passing out Family history: Reviewed, noncontributory to presentation Physical examination: VITAL SIGNS: He 7.8, 69, 15, 118/61, 95% on 2 L GENERAL: Sitting up in a chair, awake EYES: Pupils equal. Conjunctiva normal. HEENT: External appearance of nose and ears normal, oral cavity grossly normal. NECK: JVD not raised; masses not palpable. HEART: First and second heart sounds are normal; no edema. LUNGS: Respiratory rate normal, decreased breath sound , mild basal crackles ABDOMEN: Soft, nontender, liver spleen not palpable, no masses palpable. PSYCH: Alert and oriented x3; mood and affect normal. INVESTIGATIONS, reviewed in the clinical context: June 24: Procalcitonin 1.25 June 23: White count 15.9 hemoglobin 12.2 procalcitonin 2.44 June 22: Procalcitonin 4.53 June 21: WBC 19.6 hemoglobin 12.6 platelets 23 potassium 3.7 creatinine 0.8 date Accu-Cheks 276 2-D echocardiogram: EF 55 and 55%. White count 16.1 hemoglobin 12.8 platelets 274 d-dimer 2.76 potassium 3.8 creatinine 1.45 lactic acid 3.9 Troponin I 0.060 Influenza type A, type B, RSV, COVID-19 [PCR]: I'll not detected EKG tracing personally reviewed by me-sinus tachycardia Chest x-ray film personally reviewed by me-left sided infiltrate CT chest angiogram: Negative for PE large area of airspace consolidation left lower lobe Assessment and plan: -Severe left lower lobe pneumonia, suspect gram-negative organism improving IV cefepime 1 g every 12. Ceftin 5 mg twice a day for 5 days -Sepsis secondary to pneumonia: Better IV fluids-stopped. Blood culture negative -Troponin anemia due to hemodynamic this matched from sepsis. No clinical evidence of acute coronary syndrome 2-D echocardiogram shows no wall motion abnormality. Follow with cardiology -Acute COPD exacerbation in a previous smoker: Improving DuoNeb 4 times a day, IV and inhaled steroids, long-acting beta agonist. Discharged on Symbicort, prednisone taper. -Hyperlipidemia Lipitor 80 mg daily at bedtime -Essential hypertension Zestril 2.5 mg daily, Tenormin 25 mg daily. Hold Norvasc -Chronic hypoxic respiratory failure from COPD Has 2 L of oxygen at home -Acute hypoxic respiratory failure, from pneumonia, POA Oxygen supplementation -Likely myocarditis from the bacterial component of pneumonia Patient does not have cardiac symptoms. 2-D echo does not show any wall motion abnormalities. Disposition: Home Patient Condition at Discharge: Stable Plan - Discharge Summary Discharge Rx Participant: No New Discharge Prescriptions: New Cefuroxime Axetil [Ceftin] 500 mg PO BID #10 tab Ipratropium-Albuterol Nebulize [Duoneb 0.5 mg-3 mg/3 ml Soln] 3 ml INHALATION TID #90 ml predniSONE 10 mg PO DAILY #30 tab Budesonide/Formoterol Fumarate [Symbicort 160-4.5 Mcg Inhaler] 1 puff INHALATION BID #10.2 gm Continue Albuterol Sulfate [Proair Hfa] 2 puff INHALATION RT-QID PRN PRN Reason: Shortness Of Breath Atorvastatin [Lipitor] 80 mg PO HS lisinopriL [Zestril] 2.5 mg PO DAILY Atenolol [Tenormin] 25 mg PO DAILY Aspirin EC [Ecotrin Low Dose] 81 mg PO DAILY Discontinued amLODIPine [Norvasc] 10 mg PO DAILY Discharge Medication List Albuterol Sulfate [Proair Hfa] 2 puff INHALATION RT-QID PRN 08/04/15 [History] Atorvastatin [Lipitor] 80 mg PO HS 08/03/19 [History] Aspirin EC [Ecotrin Low Dose] 81 mg PO DAILY 06/20/21 [History] Atenolol [Tenormin] 25 mg PO DAILY 06/20/21 [History] lisinopriL [Zestril] 2.5 mg PO DAILY 06/20/21 [History] Budesonide/Formoterol Fumarate [Symbicort 160-4.5 Mcg Inhaler] 1 puff INHALATION BID #10.2 gm 06/24/21 [Rx] Cefuroxime Axetil [Ceftin] 500 mg PO BID #10 tab 06/24/21 [Rx] Ipratropium-Albuterol Nebulize [Duoneb 0.5 mg-3 mg/3 ml Soln] 3 ml INHALATION TID #90 ml 06/24/21 [Rx] predniSONE 10 mg PO DAILY #30 tab 06/24/21 [Rx] Follow up Appointment(s)/Referral(s): Evangelist Romero DO [Primary Care Provider] - 1-2 days Hugo Ochoa MD [STAFF PHYSICIAN] - 1 Week Christiano Wilder MD [STAFF PHYSICIAN] - 3 Weeks Patient Instructions/Handouts: Heart Attack (DC), Pneumonitis (DC) Discharge Disposition: HOME SELF-CARE
== END 2021-06-24 13:50 | disposition home or self-care (01) | DRG 871 ==
LOC: EC 09:05 → 3SCARD 13:22 → 4SSUR 06-24 03:32
PROVIDERS: ADMIT Hospitalist; ATTEND Hospitalist
DX: A41.9 Sepsis, unspecified organism (principal); J18.9 Pneumonia, unspecified organism; J96.21 Acute and chronic respiratory failure with hypoxia; E87.2 Acidosis; J44.1 Chronic obstructive pulmonary disease with (acute) exacerbation; J44.0 Chronic obstructive pulmonary disease with (acute) lower respiratory infection; Z20.822 Contact with and (suspected) exposure to COVID-19; D64.9 Anemia, unspecified; E11.65 Type 2 diabetes mellitus with hyperglycemia; E78.5 Hyperlipidemia, unspecified; I11.9 Hypertensive heart disease without heart failure; I25.10 Atherosclerotic heart disease of native coronary artery without angina pectoris; Z79.82 Long term (current) use of aspirin; Z79.899 Other long term (current) drug therapy; Z87.891 Personal history of nicotine dependence; T38.0X5A Adverse effect of glucocorticoids and synthetic analogues, initial encounter; I51.4 Myocarditis, unspecified
CPT/HCPCS: 36415; 71045; 71046; 71275; 80048; 80053; 80061; 83036; 83605; 83735; 83880; 84145; 84484; 85025; 85379; 85610; 85730; 87040; 87070; 87077; 87186; 87205; 87636; 93005; 93306; 94640; 94760; 99285

== ENCOUNTER → 2021-08-02 | Outpatient (CLI) | payer MEDICARE ==
--- NOTE | 2021-08-02 08:32 | XR ---
EXAMINATION TYPE: XR chest 2V DATE OF EXAM: 08/02/2021 COMPARISON: 06/22/21 HISTORY: Shortness of breath TECHNIQUE: Frontal and lateral views of the chest are obtained. FINDINGS: Scattered senescent parenchymal changes noted. Hyperinflation compatible with COPD. Perihilar infiltrates. Heart size is stable. Mediastinal structures are stable and grossly unremarkable. No evidence for hilar prominence. Degenerative changes dorsal spine. IMPRESSION: 1. Perihilar infiltrates.
== END | disposition home or self-care (01) ==
LOC: RADXRMAIN 08:03
PROVIDERS: ATTEND Internal Medicine Sleep Medicine
DX: R91.8 Other nonspecific abnormal finding of lung field (principal)
CPT/HCPCS: 71046

== ENCOUNTER → 2021-10-05 | Outpatient (CLI) | payer MEDICARE ==
--- NOTE | 2021-10-05 10:07 | XR ---
EXAMINATION TYPE: XR chest 2V DATE OF EXAM: 10/05/2021 COMPARISON: 08/02/2021 INDICATION: History of pneumonia TECHNIQUE: Frontal and lateral views of the chest are obtained. FINDINGS: The heart size is normal. The pulmonary vasculature is normal. Minimal infiltrates near the left costophrenic angle. This may be a chronic change. Hyperinflation fl attening the diaphragms is present compatible with COPD.. IMPRESSION: 1. COPD. 2. Minimal increased density at the left costophrenic angle is present. This could be chronic scarrin g or small pleural effusion. Atelectasis could be considered. Follow-up can be performed as clinicall y indicated.
== END | disposition home or self-care (01) ==
LOC: RADXRMAIN 08:23
PROVIDERS: ATTEND Internal Medicine Sleep Medicine
DX: J44.9 Chronic obstructive pulmonary disease, unspecified (principal); R91.8 Other nonspecific abnormal finding of lung field
CPT/HCPCS: 71046

== ENCOUNTER → 2021-11-05 | Outpatient (CLI) | payer MEDICARE ==
--- NOTE | 2021-11-05 22:11 | CT ---
EXAMINATION TYPE: CT chest wo con DATE OF EXAM: 11/05/2021 COMPARISON: Chest x-ray October 05, 2021 and older studies. HISTORY: abnormal cxr CT DLP: 642 mGycm. Automated Exposure Control for Dose Reduction was Utilized. TECHNIQUE: CT scan of the thorax is performed without IV contrast. FINDINGS: LUNGS: Moderate underlying emphysematous change greatest in the upper lungs is redemonstrated. Mild t o moderate left greater than right bibasilar linear scarring is seen. Small nonspecific focus groundg lass opacity posterior right upper lung axial image 25. No pleural effusion or pneumothorax seen bila terally. No suspicious pulmonary masses. MEDIASTINUM: Lack of IV contrast is noted to limit evaluation for mediastinal and especially hilar ad enopathy. There are no definitive greater than 1 cm mediastinal lymph nodes. No cardiomegaly or per icardial effusion is seen. Coronary artery calcification is present which is noted marker for underly ing coronary artery disease. Enlarged main pulmonary artery at 3.3 cm suggesting underlying pulmonary artery hypertension is again seen. OTHER: Mild multilevel spurring in the spine. IMPRESSION: Moderate emphysematous change with [id number] left greater than right bibasilar mansoor ear scarring. Small focus of groundglass opacity posterior right upper lung could reflect acute infec tious process or developing infiltrate in the appropriate clinical setting. Correlate clinically.
== END | disposition home or self-care (01) ==
LOC: RADCTMAIN 18:03
PROVIDERS: ATTEND Internal Medicine Sleep Medicine
DX: J43.9 Emphysema, unspecified (principal); J98.4 Other disorders of lung
CPT/HCPCS: 71250

== ENCOUNTER 2021-12-09 17:27 | Inpatient (IN) | payer MEDICARE ==
[2021-12-09 17:39] LABS: Glucose,Whole Blood 127 mg/dL (75-99)
[2021-12-09] MEDS ORDERED: IPRATROPIUM-ALBUTEROL 3 ML NEB INHALATION STA (17:53)
[2021-12-09] MEDS ORDERED: SODIUM CHLORIDE 0.9% 2,000 ML IV ONE (17:53)
[2021-12-09] MEDS ORDERED: methylPREDNISolone SOD SUCCI 125 MG/2 ML VIAL IV STA (17:54)
[2021-12-09] MEDS ORDERED: MAGNESIUM SULFATE-D5W PMX 1 GM in DEXTROSE/WATER 1 100ML.BAG IVPB STA (17:54)
[2021-12-09] MEDS ORDERED: SODIUM CHLORIDE 0.9% 1,000 ML IV STA (17:54)
[2021-12-09] MEDS: NOREPINEPHRINE 4 MG in SODIUM CHLORIDE 0.9% 250 ML IV SCH (18:03)
[2021-12-09 18:13] LABS: HCT 44.1 % (39.0-53.0); HGB 13.9 gm/dL (13.0-17.5); Hypochromasia Slight; MCH 28.4 pg (25.0-35.0); MCHC 31.5 g/dL (31.0-37.0); MCV 90.2 fL (80.0-100.0); Mean Platelet Volume 8.1; Platelet Count 299 k/uL (150-450); RBC 4.89 m/uL (4.30-5.90); RDW 14.9 % (11.5-15.5); WBC 22.5 k/uL (3.8-10.6)
[2021-12-09 18:15] LABS: Albumin 3.4 g/dL (3.5-5.0); Calcium 7.7 mg/dL (8.4-10.2); Magnesium 1.9 mg/dL (1.6-2.3); Potassium 5.7 mmol/L (3.5-5.1); Total Bilirubin 0.7 mg/dL (0.2-1.3); Total Protein 6.2 g/dL (6.3-8.2)
[2021-12-09 18:21] LABS: Partial Thromboplastin Time 26.9 sec (22.0-30.0)
[2021-12-09] MEDS: SODIUM CHLORIDE 0.9% 1,000 ML IV SCH (18:30)
--- NOTE | 2021-12-09 18:35 | XR ---
EXAMINATION TYPE: XR chest 1V portable DATE OF EXAM: 12/09/2021 COMPARISON: 10/05/2021 HISTORY: Respiratory distress TECHNIQUE: Single view FINDINGS: There is a 6 cm patch of airspace infiltrate in the right mid lung field. There is also reuben e patchy infiltrate and atelectasis left lung base. There is elevated left diaphragm. There is mild b lunting of left costophrenic angle. Heart size is normal. No heart failure. IMPRESSION: Increasing bilateral infiltrates compared to old recent exam. This is likely related to p neumonia. No heart failure seen.
[2021-12-09] MEDS ORDERED: INSULIN REGULAR 100 UNIT/ML VIAL (IV) IV ONE (18:57)
[2021-12-09] MEDS ORDERED: DEXTROSE 50% SYRINGE 50 ML IVP STA (18:57)
[2021-12-09] MEDS ORDERED: SODIUM BICARB 8.4% 50 ML SYR (1 MEQ/ML) IV STA (18:58)
[2021-12-09 19:14] LABS: Band Neutrophils % 22 %; Lymphocytes # (M) 2.03 k/uL (1.0-4.8); Metamyelocytes # (M) 0.68 k/uL (0); Metamyelocytes % 3 %; Monocytes # (M) 2.25 k/uL (0-1.0); Neutrophils % (M) 57 %; Nucleated Red Blood Cells 0 /100 WBC (0-0); Total Cells Counted 200
[2021-12-09 19:15] LABS: Large Platelets Present; Poikilocytosis (M) Present; Toxic Vacuolation Present
[2021-12-09] MEDS ORDERED: AZITHROMYCIN 500 MG in SODIUM CHLORIDE 0.9% 250 ML IVPB STA (19:19)
[2021-12-09] MEDS ORDERED: cefTRIAXone IN SWFI 1,000 MG/10 ML SYRINGE IVP STA (19:19)
[2021-12-09 19:39] LABS: Amorphous Sediment,Urine Rare /hpf; Appearance,Urine Turbid (Clear); Bacteria,Urine Rare /hpf; Bilirubin,Urine Negative (Negative); Blood,Urine Small (Negative); Color,Urine Yellow; Glucose,Urine (UA) Trace (Negative); Ketones,Urine 1+ (Negative); Leukocyte Esterase,Urine Trace (Negative); Mucus,Urine Rare /hpf; Nitrite,Urine Negative (Negative); Protein,Urine 2+ (Negative); RBC,Urine 2 /hpf (0-5); Specific Gravity,Urine 1.027 (1.001-1.035); Urobilinogen,Urine <2.0 mg/dL (<2.0); WBC,Urine 11 /hpf (0-5)
--- NOTE | 2021-12-09 20:01 | ED ---
SOB HPI - General Chief Complaint: Shortness of Breath Stated Complaint: SOB Time Seen by Provider: 12/09/21 17:30 Source: EMS Mode of arrival: EMS Limitations: altered mental status - History of Present Illness Initial Comments: 61-year-old male with past medical history of COPD presents to the emergency room in with worsening shortness of breath. Family is at bedside and states that they last saw him well on Friday. Since the patient has been decompensating. He has been not getting out of bed, having worsening shortness of breath. EMS was called. Patient was on 2 L and found to be saturating 62%. EMS was unable to obtain a blood pressure on the patient's. He was minimally conscious and therefore bagged en route to the hospital. They additionally gave the patient's 0.3 mg of epi. Patient had a bronch on the by Dr. Ochoa. Family states he hasn't been eating, drinking or getting up to urinate. No fevers. No other alleviating, precipitating or modifying factors - Related Data Home Medications Medication Instructions Recorded Confirmed Albuterol Sulfate [Proair Hfa] 2 puff INHALATION RT-QID PRN 08/04/15 12/09/21 Atorvastatin [Lipitor] 80 mg PO HS 08/03/19 12/09/21 Aspirin EC [Ecotrin Low Dose] 81 mg PO DAILY 06/20/21 12/09/21 Atenolol [Tenormin] 25 mg PO DAILY 06/20/21 12/09/21 lisinopriL [Zestril] 2.5 mg PO DAILY 06/20/21 12/09/21 Ascorbic Acid [Vitamin C] 1,000 mg PO DAILY 11/28/21 12/09/21 Cholecalciferol (Vitamin D3) 75 mcg PO DAILY 11/28/21 12/10/21 [Vitamin D3 (3000 Iu)] Famotidine 20 mg PO BID 11/28/21 12/09/21 Ipratropium-Albuterol Nebulize 3 ml INHALATION RT-Q4H PRN 11/28/21 12/10/21 [Duoneb 0.5 mg-3 mg/3 ml Soln] Tiotropium Br/Olodaterol HCl 2 puff INHALATION RT-DAILY 11/28/21 12/10/21 [Stiolto Respimat Inhal [place]] metFORMIN HCL 500 mg PO BID 11/28/21 12/09/21 amLODIPine [Norvasc] 10 mg PO DAILY 12/09/21 12/09/21 Allergies Allergy/AdvReac Type Severity Reaction Status Date / Time No Known Allergies Allergy Verified 12/09/21 17:53 Review of Systems ROS Statement: Those systems with pertinent positive or pertinent negative responses have been documented in the HPI. ROS Other: All systems not noted in ROS Statement are negative. Past Medical History Past Medical History: COPD, Diabetes Mellitus, GERD/Reflux, Hyperlipidemia, Hypertension, Pneumonia Additional Past Medical History / Comment(s): DIET CONTROL DM, 2020 AND WAS HOSPITALIZED History of Any Multi-Drug Resistant Organisms: None Reported Past Surgical History: Hernia Repair, Orthopedic Surgery Additional Past Surgical History / Comment(s): RT knee scope. COLONOSCOPY Past Anesthesia/Blood Transfusion Reactions: No Reported Reaction Past Psychological History: Depression Smoking Status: Former smoker, Second hand smoke exposure Past Alcohol Use History: Occasional Past Drug Use History: None Reported - Past Family History Mother Family Medical History: No Reported History General Exam Limitations: altered mental status General appearance: lethargic, in distress Head exam: Present: atraumatic, normocephalic, normal inspection Eye exam: Present: normal appearance, PERRL, EOMI. Absent: scleral icterus, conjunctival injection, periorbital swelling ENT exam: Present: mucous membranes dry Neck exam: Present: normal inspection. Absent: tenderness, meningismus, lymphadenopathy Respiratory exam: Present: respiratory distress, rales, accessory muscle use, decreased breath sounds Cardiovascular Exam: Present: regular rate, normal rhythm, normal heart sounds. Absent: systolic murmur, diastolic murmur, rubs, gallop, clicks GI/Abdominal exam: Present: distended, tenderness (generalized) Extremities exam: Present: normal inspection, full ROM, normal capillary refill. Absent: tenderness, pedal edema, joint swelling, calf tenderness Back exam: Present: normal inspection Skin exam: Present: pallor, mottled (on abdomen) Course Vital Signs 12/09/21 12/09/21 12/09/21 17:28 17:40 17:44 Temperature Pulse Rate 90 89 87 Pulse Rate [ Software Requirements Engineer ] Respiratory 24 34 H 25 H Rate Blood Pressure 56/42 87/38 100/75 Blood Pressure [Right Arm] O2 Sat by Pulse 90 L 90 L Oximetry 12/09/21 12/09/21 12/09/21 17:55 17:58 17:59 Temperature Pulse Rate 84 Pulse Rate [ Software Requirements Engineer ] Respiratory Rate Blood Pressure 68/33 57/30 Blood Pressure [Right Arm] O2 Sat by Pulse Oximetry 12/09/21 12/09/21 12/09/21 18:05 18:14 18:30 Temperature Pulse Rate 82 85 86 Pulse Rate [ Software Requirements Engineer ] Respiratory 34 H 32 H 34 H Rate Blood Pressure 100/73 60/24 71/45 Blood Pressure [Right Arm] O2 Sat by Pulse 92 L 91 L 99 Oximetry 12/09/21 12/09/21 12/09/21 18:40 18:55 19:15 Temperature 96.4 F L Pulse Rate 85 83 93 Pulse Rate [ Software Requirements Engineer ] Respiratory 34 H 32 H 28 H Rate Blood Pressure 78/48 90/48 97/57 Blood Pressure [Right Arm] O2 Sat by Pulse 97 94 L 97 Oximetry 12/09/21 12/09/21 12/09/21 19:32 20:00 20:30 Temperature Pulse Rate 90 84 87 Pulse Rate [ Software Requirements Engineer ] Respiratory 35 H 35 H 40 H Rate Blood Pressure 81/56 87/61 84/66 Blood Pressure [Right Arm] O2 Sat by Pulse 97 95 94 L Oximetry 12/09/21 12/09/21 12/09/21 20:36 20:50 21:20 Temperature 98.4 F Pulse Rate 81 85 Pulse Rate [ 84 Software Requirements Engineer ] Respiratory 33 H 35 H 32 H Rate Blood Pressure 74/56 87/61 Blood Pressure 95/70 [Right Arm] O2 Sat by Pulse 93 L 94 L Oximetry 12/09/21 12/09/21 21:35 22:37 Temperature Pulse Rate 85 83 Pulse Rate [ Software Requirements Engineer ] Respiratory 35 H 36 H Rate Blood Pressure 79/61 99/57 Blood Pressure [Right Arm] O2 Sat by Pulse 94 L 94 L Oximetry Procedures - Central Line Placement Right Femoral Consent Obtained: verbal consent, emergent situation Patient Placed on Monitor/Pulse Ox: Yes Prep: mask, gown, gloves Central Line Prep: Chlorhexidine scrub Local Anesthesia Used: Lidocaine 1% Amount of Anesthesia Used (mls): 8 Ultrasound Used for Placement: Yes Central Line Lumen Inserted: triple Bloods Obtained for Lab: Yes Central Line Position: good blood return, all ports aspirated, flushed, capped, sutured in place with nylon Dressing Applied: Tegaderm Patient Tolerated Procedure: well, no complications Complications: none Medical Decision Making - Medical Decision Making Upon arrival patient was placed into trauma 1. A thorough history and physical exam was performed. Patient is being bagged by EMS. Evaluation does demonstrate that he is responsive to stimuli. will open his eyes. He does appear to be appropriate for BiPAP at this time which she is placed on. 2 IVs are established, 1 using US guidance in the right upper extremity. Patient is bolused 2 L of normal saline as he has no history of congestive heart failure. Accu-Chek is obtained. Patient is given a push doses of epi due to low blood pressure. Patient has a transient improvement in blood pressure with the fluid administration however blood pressures drop again. Labs are obtained and a chest x-ray is performed which demonstrates increasing bilateral infiltrates compared to old recent exam. Central line is placed in the right groin. Patient is started on levophed. Labs demonstrate a white count of 22.5. Blood cultures are obtained and the patient was given a dose of Rocephin and azithromycin. D-dimer is elevated at 3.57 however creatinine is [address] not able to be performed at this time. Page is placed. Patient continues on 103 mL of normal saline per hour. Potassium is 5.7. He is given 10 units of insulin and an amp of dextrose. One amp of bicarb additionally administered. Lactic acid is 8.1. Troponin 0.063. BNP 53,000. Patient reevaluated has marked improvement in mentation. Up and speaking with family. Appropriate at this time. He does report to some abdominal pain and therefore CT is performed without contrast which demonstrates dilated small bowel subjective of ileus or partial mechanical obstruction. Spoke Dr. March who agreed to admit the patient. Additionally spoke with Dr. Redman for ICU admission. Recent bronchitis demonstrates a few Gaby however Dr. Redman does not feel that the patient needs IV fungals. Dr. Montgomery placed on consult for small bowel obstruction. Patient admitted to the floor in stable condition with guarded prognosis. - Lab Data Result diagrams: 12/16/21 07:46 12/16/21 07:46 Lab Results 12/09/21 12/09/21 12/09/21 Range/Units 17:38 17:57 17:57 WBC 22.5 H (3.8-10.6) k/uL RBC 4.89 (4.30-5.90) m/uL Hgb 13.9 (13.0-17.5) gm/dL Hct 44.1 (39.0-53.0) % MCV 90.2 (80.0-100.0) fL MCH 28.4 (25.0-35.0) pg MCHC 31.5 (31.0-37.0) g/dL RDW 14.9 (11.5-15.5) % Plt Count 299 (150-450) k/uL MPV 8.1 Neutrophils % (Manual) 57 % Band Neuts % (Manual) 22 % Lymphocytes % (Manual) 9 % Monocytes % (Manual) 10 % Metamyelocytes % 3 % Neutrophils # (Manual) 17.70 H (1.3-7.7) k/uL Lymphocytes # (Manual) 2.03 (1.0-4.8) k/uL Monocytes # (Manual) 2.25 H (0-1.0) k/uL Metamyelocytes # (Man) 0.68 H (0) k/uL Nucleated RBCs 0 (0-0) /100 WBC Manual Slide Review Performed Toxic Vacuolation Present Large Platelets Present Hypochromasia Slight Poikilocytosis (manual Present PT 11.0 (9.0-12.0) sec INR 1.0 (<1.2) APTT 26.9 (22.0-30.0) sec D-Dimer 3.57 H (<0.60) mg/L FEU Sodium (137-145) mmol/L Potassium (3.5-5.1) mmol/L Chloride (98-107) mmol/L Carbon Dioxide (22-30) mmol/L Anion Gap mmol/L BUN (9-20) mg/dL Creatinine (0.66-1.25) mg/dL Est GFR (CKD-EPI)AfAm (>60 ml/min/1.73 sqM) Est GFR (CKD-EPI)NonAf (>60 ml/min/1.73 sqM) Glucose (74-99) mg/dL POC Glucose (mg/dL) 127 H (75-99) mg/dL POC Glu Rn Appeals ID McNeice, Nisa Lactic Ac Sepsis Rflx Plasma Lactic Acid [place] (0.7-2.0) mmol/L Calcium (8.4-10.2) mg/dL Magnesium (1.6-2.3) mg/dL Total Bilirubin (0.2-1.3) mg/dL AST (17-59) U/L ALT (4-49) U/L Alkaline Phosphatase (38-126) U/L Troponin I (0.000-0.034) ng/mL NT-Pro-B Natriuret Pep pg/mL Total Protein (6.3-8.2) g/dL Albumin (3.5-5.0) g/dL Urine Color Urine Appearance (Clear) Urine pH (5.0-8.0) Ur Specific [place] (1.001-1.035) Urine Protein (Negative) Urine Glucose (UA) (Negative) Urine Ketones (Negative) Urine Blood (Negative) Urine Nitrite (Negative) Urine Bilirubin (Negative) Urine Urobilinogen (<2.0) mg/dL Ur Leukocyte Esterase (Negative) Urine RBC (0-5) /hpf Urine WBC (0-5) /hpf Urine WBC Clumps (None) /hpf Amorphous Sediment (None) /hpf Urine Bacteria (None) /hpf Urine Mucus (None) /hpf 12/09/21 12/09/21 12/09/21 Range/Units 17:57 17:57 17:57 WBC (3.8-10.6) k/uL RBC (4.30-5.90) m/uL Hgb (13.0-17.5) gm/dL Hct (39.0-53.0) % MCV (80.0-100.0) fL MCH (25.0-35.0) pg MCHC (31.0-37.0) g/dL RDW (11.5-15.5) % Plt Count (150-450) k/uL MPV Neutrophils % (Manual) % Band Neuts % (Manual) % Lymphocytes % (Manual) % Monocytes % (Manual) % Metamyelocytes % % Neutrophils # (Manual) (1.3-7.7) k/uL Lymphocytes # (Manual) (1.0-4.8) k/uL Monocytes # (Manual) (0-1.0) k/uL Metamyelocytes # (Man) (0) k/uL Nucleated RBCs (0-0) /100 WBC Manual Slide Review Toxic Vacuolation Large Platelets Hypochromasia Poikilocytosis (manual PT (9.0-12.0) sec INR (<1.2) APTT (22.0-30.0) sec D-Dimer (<0.60) mg/L FEU Sodium 136 L (137-145) mmol/L Potassium 5.7 H (3.5-5.1) mmol/L Chloride 98 (98-107) mmol/L Carbon Dioxide 17 L (22-30) mmol/L Anion Gap 21 mmol/L BUN 60 H (9-20) mg/dL Creatinine 5.04 H (0.66-1.25) mg/dL Est GFR (CKD-EPI)AfAm 13 (>60 ml/min/1.73 sqM) Est GFR (CKD-EPI)NonAf 11 (>60 ml/min/1.73 sqM) Glucose 132 H (74-99) mg/dL POC Glucose (mg/dL) (75-99) mg/dL POC Glu Rn Appeals ID Lactic Ac Sepsis Rflx Plasma Lactic Acid [place] 8.1 H* (0.7-2.0) mmol/L Calcium 7.7 L (8.4-10.2) mg/dL Magnesium 1.9 (1.6-2.3) mg/dL Total Bilirubin 0.7 (0.2-1.3) mg/dL AST 47 (17-59) U/L ALT 30 (4-49) U/L Alkaline Phosphatase 126 (38-126) U/L Troponin I 0.063 H* (0.000-0.034) ng/mL NT-Pro-B Natriuret Pep pg/mL Total Protein 6.2 L (6.3-8.2) g/dL Albumin 3.4 L (3.5-5.0) g/dL Urine Color Urine Appearance (Clear) Urine pH (5.0-8.0) Ur Specific [place] (1.001-1.035) Urine Protein (Negative) Urine Glucose (UA) (Negative) Urine Ketones (Negative) Urine Blood (Negative) Urine Nitrite (Negative) Urine Bilirubin (Negative) Urine Urobilinogen (<2.0) mg/dL Ur Leukocyte Esterase (Negative) Urine RBC (0-5) /hpf Urine WBC (0-5) /hpf Urine WBC Clumps (None) /hpf Amorphous Sediment (None) /hpf Urine Bacteria (None) /hpf Urine Mucus (None) /hpf 12/09/21 12/09/21 12/09/21 Range/Units 17:57 18:31 19:20 WBC (3.8-10.6) k/uL RBC (4.30-5.90) m/uL Hgb (13.0-17.5) gm/dL Hct (39.0-53.0) % MCV (80.0-100.0) fL MCH (25.0-35.0) pg MCHC (31.0-37.0) g/dL RDW (11.5-15.5) % Plt Count (150-450) k/uL MPV Neutrophils % (Manual) % Band Neuts % (Manual) % Lymphocytes % (Manual) % Monocytes % (Manual) % Metamyelocytes % % Neutrophils # (Manual) (1.3-7.7) k/uL Lymphocytes # (Manual) (1.0-4.8) k/uL Monocytes # (Manual) (0-1.0) k/uL Metamyelocytes # (Man) (0) k/uL Nucleated RBCs (0-0) /100 WBC Manual Slide Review Toxic Vacuolation Large Platelets Hypochromasia Poikilocytosis (manual PT (9.0-12.0) sec INR (<1.2) APTT (22.0-30.0) sec D-Dimer (<0.60) mg/L FEU Sodium (137-145) mmol/L Potassium (3.5-5.1) mmol/L Chloride (98-107) mmol/L Carbon Dioxide (22-30) mmol/L Anion Gap mmol/L BUN (9-20) mg/dL Creatinine (0.66-1.25) mg/dL Est GFR (CKD-EPI)AfAm (>60 ml/min/1.73 sqM) Est GFR (CKD-EPI)NonAf (>60 ml/min/1.73 sqM) Glucose (74-99) mg/dL POC Glucose (mg/dL) (75-99) mg/dL POC Glu Rn Appeals ID Lactic Ac Sepsis Rflx Y Plasma Lactic Acid [place] (0.7-2.0) mmol/L Calcium (8.4-10.2) mg/dL Magnesium (1.6-2.3) mg/dL Total Bilirubin (0.2-1.3) mg/dL AST (17-59) U/L ALT (4-49) U/L Alkaline Phosphatase (38-126) U/L Troponin I (0.000-0.034) ng/mL NT-Pro-B Natriuret Pep 64044 pg/mL Total Protein (6.3-8.2) g/dL Albumin (3.5-5.0) g/dL Urine Color Yellow Urine Appearance Turbid (Clear) Urine pH 5.0 (5.0-8.0) Ur Specific [place] 1.027 (1.001-1.035) Urine Protein 2+ H (Negative) Urine Glucose (UA) Trace H (Negative) Urine Ketones 1+ H (Negative) Urine Blood Small H (Negative) Urine Nitrite Negative (Negative) Urine Bilirubin Negative (Negative) Urine Urobilinogen <2.0 (<2.0) mg/dL Ur Leukocyte Esterase Trace H (Negative) Urine RBC 2 (0-5) /hpf Urine WBC 11 H (0-5) /hpf Urine WBC Clumps Few H (None) /hpf Amorphous Sediment Rare H (None) /hpf Urine Bacteria Rare H (None) /hpf Urine Mucus Rare H (None) /hpf - EKG Data EKG Comments: EKG demonstrates sinus rhythm with a rate of 90. OR interval 167. QRS 110. QTC 433. No acute ST segment elevations or depressions Critical Care Time Critical Care Time: Yes Critical Care Time: 46 minutes Disposition Clinical Impression: NSTEMI (non-ST elevation myocardial infarction), BiPAP (biphasic positive airway pressure) dependence, CAP (community acquired pneumonia), Hypoxia, Severe sepsis, Lactic acidosis, Leukocytosis, COPD (chronic obstructive pulmonary disease), RAYMON (acute kidney injury) Disposition: ADMITTED IP TO THIS [facility] Condition: Serious Is patient prescribed a controlled substance at d/c from ED?: No Decision to Admit Reason: Admit from EC Decision Date: 12/09/21 Decision Time: 20:12
[2021-12-09] MEDS ORDERED: ACETAMINOPHEN TAB 325 MG TAB PO PRN (20:12)
[2021-12-09] MEDS ORDERED: NALOXONE 0.4 MG/ML 1 ML VIAL IV PRN (20:12)
[2021-12-09 21:22] LABS: ABG HCO3 19 mmol/L (21-25); ABG Oxygen Saturation 95.8 % (94-97); ABG PCO2 56 mmHg (35-45); ABG PO2 100 mmHg (83-108); ABG TCO2 21 mmol/L (19-24); Allen Test Performed? Yes
[2021-12-09 21:25] LABS: ABG PH 7.14 (7.35-7.45)
[2021-12-09] MEDS: PANTOPRAZOLE 40 MG/10 ML VIAL IVP SCH (22:29)
[2021-12-09] MEDS: PIPERACILLIN-TAZOBACTAM 3.375 GM in SODIUM CHLORIDE 0.9% 100 ML IVPB SCH (22:29)
--- NOTE | 2021-12-09 22:42 | CT ---
EXAMINATION TYPE: CT ChestAbdPelvis wo con DATE OF EXAM: 12/09/2021 COMPARISON: Chest CT scan 11/05/2021 HISTORY: Difficulty breathing. CT DLP: 1076.8 mGycm Automated exposure control for dose reduction was used. There is some patchy airspace consolidation and atelectasis right lung base. There is some mild atele ctasis and infiltrate left lung base. No pleural effusion. Heart size is fairly normal. No pericardia l effusion. There are no hilar masses. There is no mediastinal adenopathy. Thoracic aorta is atheroma tous. No pneumothorax. Liver spleen stomach pancreas and gallbladder appear intact. Bile ducts are not dilated. There is no adrenal mass. Kidneys show normal size and contour. There is no hydronephrosis. Ureters are not dilat ed. There is no retroperitoneal adenopathy. The bladder distends smoothly. There is Page catheter in the urinary bladder. Appendix is inferior and appears normal. There are multiple fluid-filled dilated small bowel loops in the midabdomen. Small bowel measures up to 4.1 cm. The terminal ileum does not appear dilated. Transition point not seen. The lumbar and thoracic vertebra. Tach. No compression fractures. Sternum is intact. The bony pelvis is intact. Hip joints are intact. No free air. There is no ascites. IMPRESSION: Patchy airspace consolidation consistent with multifocal pneumonia mainly in the right lower lobe. At herosclerotic vascular disease. Pulmonary infiltrates mostly new compared to old exam. Dilated small bowel suggestive of ileus or partial mechanical obstruction. Transition point not seen.
[2021-12-09 22:45] LABS: Potassium 4.5 mmol/L (3.5-5.1)
[2021-12-09 22:54] LABS: Calcium 5.8 mg/dL (8.4-10.2)
[2021-12-09 23:33] LABS: Glucose,Whole Blood 138 mg/dL (75-99)
[2021-12-09] MEDS: NOREPINEPHRINE 32 MG in SODIUM CHLORIDE 0.9% 218 ML IV SCH ×2 (23:52→23:53)
[2021-12-10] MEDS ORDERED: SODIUM BICARB 8.4% 50 ML SYR (1 MEQ/ML) IV STA (00:31)
[2021-12-10] MEDS: methylPREDNISolone SOD SUCCI 125 MG/2 ML VIAL IV SCH ×5 (00:48→23:32)
--- NOTE | 2021-12-10 00:53 | XR ---
EXAMINATION TYPE: XR chest 1V portable DATE OF EXAM: 12/10/2021 COMPARISON: Yesterday HISTORY: Respiratory distress TECHNIQUE: FINDINGS: There is patchy infiltrate and atelectasis at both lung bases. There are chest leads. Heart size is normal. Thoracic aorta is atheromatous. Bony thorax is intact. IMPRESSION: There is a changing pattern of patchy infiltrates in the lower lung valero which overall appear slightly worse than exam yesterday.
[2021-12-10] MEDS: SODIUM CHLORIDE 0.9% 1,000 ML IV SCH ×2 (03:11→10:45)
[2021-12-10 03:31] LABS: HCT 44.3 % (39.0-53.0); HGB 13.2 gm/dL (13.0-17.5); Hypochromasia Moderate; MCH 27.4 pg (25.0-35.0); MCHC 29.8 g/dL (31.0-37.0); Mean Platelet Volume 8.2; Platelet Count 300 k/uL (150-450); RBC 4.82 m/uL (4.30-5.90); RDW 14.8 % (11.5-15.5)
[2021-12-10 03:46] LABS: Band Neutrophils % 36 %; Neutrophils % (M) 56 %; Nucleated Red Blood Cells 0 /100 WBC (0-0); Total Cells Counted 200
[2021-12-10 03:47] LABS: Toxic Granulation Present
[2021-12-10 03:52] LABS: Calcium 6.5 mg/dL (8.4-10.2)
[2021-12-10 04:12] LABS: Potassium 6.4 mmol/L (3.5-5.1)
[2021-12-10] MEDS ORDERED: INSULIN REGULAR 100 UNIT/ML VIAL (IV) IV ONE ×2 (05:15→11:20)
[2021-12-10] MEDS ORDERED: CALCIUM GLUCONATE IN NACL 1 GM in SALINE 1 100ML.BAG IVPB ONE (05:15)
[2021-12-10] MEDS ORDERED: DEXTROSE 50% SYRINGE 50 ML IVP STA (05:15)
[2021-12-10 05:54] LABS: Glucose,Whole Blood 246 mg/dL (75-99)
[2021-12-10] MEDS: INSULIN ASPART (NovoLOG) 100 UNIT/ML VIAL SQ SCH ×4 (06:05→23:32)
--- NOTE | 2021-12-10 07:10 | XR ---
EXAMINATION TYPE: XR chest 1V portable DATE OF EXAM: 12/10/2021 HISTORY: Shortness of breath. COMPARISON: 12/10/2021 TECHNIQUE: Single view of the chest is submitted. FINDINGS: Demonstrated are scattered senescent parenchymal change. NG tube is seen coursing into the stomach. Basilar infiltrates persist without change. The heart is stable. Hilar and mediastinal structures are within normal limits. Degenerative changes are seen of the dorsal spine. IMPRESSION: 1. Basilar infiltrates persist without change.
[2021-12-10] MEDS: IPRATROPIUM-ALBUTEROL 3 ML NEB INHALATION PRN (08:22)
[2021-12-10] MEDS: NOREPINEPHRINE 4 MG in SODIUM CHLORIDE 0.9% 250 ML IV SCH (09:41)
--- NOTE | 2021-12-10 10:04 | P.CNPUL ---
History of Present Illness Consult date: 12/10/21 Requesting physician: Raheem March Reason for consult: dyspnea (shawn), COPD, hypoxemia, pneumonia, abnormal CXR/CT Chief complaint: Shortness of breath, pneumonia, acute kidney injury, sepsis, non-STEMI History of present illness: Pulmonary consult dated 12/10/2021. 61-year-old male, seen in the emergency department, on December 09. He apparently presented with mental status changes, and shortness of breath. The patient was last seen doing relatively well by his family, on last Friday. Apparently since the day after, , which was December 06, he been decompensating. He had worsening shortness of breath. Finally EMS was called. The patient was on 2 L, and his saturation was found to be 62%. There is no blood pressure that could be obtained on this patient. He was minimally conscious, and brought to the hospital. He received some epinephrine in route. Recently, he been seen by Dr. Ochoa and had a bronchoscopy. The patient is a heavy smoker and drinker. Currently, he is on saline at 130 mL an hour, and norepinephrine at about 28 mcg/m. He is receiving Zosyn. He is on BiPAP at 14/6 and 50%. I asked him about intubation and mechanical ventilation, he again said that he would not want those modalities. He has a history of COPD, diabetes, GERD, hyperlipidemia, hypertension, and pneumonia. Laboratory data includes a white count of 20, hemoglobin 13.2, and a normal platelet count. Sodium 137, potassium 6.4, chlorides 105, CO2 16, anion gap 16, BUN 68, and creatinine 4.61. His most recent lactic acid is 2.6. Calcium is 6.5. Chest x-ray shows some bibasilar infiltrates. CAT scan shows primarily patchy pneumonia in the right lower lobe. Review of Systems REVIEW OF SYSTEMS: CONSTITUTIONAL: Weakness. NEUROLOGIC: Mental status changes. HEENT: [ Negative.] CARDIAC: [Negative.] PULMONARY: Shortness of breath. GI: Poor oral intake. : [Negative.] RHEUMATOLOGIC: [ Negative.] IMMUNOLOGIC: [ Negative.] ENDOCRINE: [Negative. ] DERMATOLOGIC: [Negative.] Past Medical History Past Medical History: COPD, Diabetes Mellitus, GERD/Reflux, Hyperlipidemia, Hypertension, Pneumonia Additional Past Medical History / Comment(s): DIET CONTROL DM, 2020 AND WAS HOSPITALIZED History of Any Multi-Drug Resistant Organisms: None Reported Past Surgical History: Hernia Repair, Orthopedic Surgery Additional Past Surgical History / Comment(s): RT knee scope. COLONOSCOPY Past Anesthesia/Blood Transfusion Reactions: No Reported Reaction Past Psychological History: Depression Smoking Status: Former smoker, Second hand smoke exposure Past Alcohol Use History: Occasional Past Drug Use History: None Reported - Past Family History Mother Family Medical History: No Reported History Medications and Allergies Home Medications Medication Instructions Recorded Confirmed Type Albuterol Sulfate [Proair Hfa] 2 puff INHALATION RT-QID PRN 08/04/15 12/09/21 Hi story Atorvastatin [Lipitor] 80 mg PO HS 08/03/19 12/09/21 History Aspirin EC [Ecotrin Low Dose] 81 mg PO DAILY 06/20/21 12/09/21 History Atenolol [Tenormin] 25 mg PO DAILY 06/20/21 12/09/21 History lisinopriL [Zestril] 2.5 mg PO DAILY 06/20/21 12/09/21 History Ascorbic Acid [Vitamin C] 1,000 mg PO DAILY 11/28/21 12/09/21 History Cholecalciferol (Vitamin D3) 75 mcg PO DAILY 11/28/21 12/10/21 History [Vitamin D3 (3000 Iu)] Famotidine 20 mg PO BID 11/28/21 12/09/21 History Ipratropium-Albuterol Nebulize 3 ml INHALATION RT-Q4H PRN 11/28/21 12/10/21 History [Duoneb 0.5 mg-3 mg/3 ml Soln] Tiotropium Br/Olodaterol HCl 2 puff INHALATION RT-DAILY 11/28/21 12/10/21 History [Stiolto Respimat Inhal [place]] metFORMIN HCL 500 mg PO BID 11/28/21 12/09/21 History amLODIPine [Norvasc] 10 mg PO DAILY 12/09/21 12/09/21 History Allergies Allergy/AdvReac Type Severity Reaction Status Date / Time No Known Allergies Allergy Verified 12/09/21 17:53 Physical Exam Osteopathic Statement: *. No significant issues noted on an osteopathic structural exam other than those noted in the History and Physical/Consult. Vitals: Vital Signs Temp Pulse Pulse Resp BP BP Pulse Ox 12/10/21 09:41 83 19 107/63 94 L 12/10/21 08:29 80 12/10/21 08:22 83 12/10/21 04:00 98.7 F 80 33 H 98/56 96 12/10/21 00:10 98.4 F 83 31 H 92/45 94 L 12/09/21 22:37 83 36 H 99/57 94 L 12/09/21 21:35 85 35 H 79/61 94 L 12/09/21 21:20 85 32 H 87/61 94 L 12/09/21 20:50 81 35 H 74/56 93 L 12/09/21 20:36 98.4 F 84 33 H 95/70 12/09/21 20:30 87 40 H 84/66 94 L 12/09/21 20:00 84 35 H 87/61 95 12/09/21 19:32 90 35 H 81/56 97 12/09/21 19:15 96.4 F L 93 28 H 97/57 97 12/09/21 18:55 83 32 H 90/48 94 L 12/09/21 18:40 85 34 H 78/48 97 12/09/21 18:30 86 34 H 71/45 99 12/09/21 18:14 85 32 H 60/24 91 L 12/09/21 18:05 82 34 H 100/73 92 L 12/09/21 17:59 57/30 12/09/21 17:58 84 12/09/21 17:55 68/33 12/09/21 17:44 87 25 H 100/75 12/09/21 17:40 89 34 H 87/38 90 L 12/09/21 17:28 90 24 56/42 90 L Intake and Output 12/09/21 12/10/21 12/10/21 22:59 06:59 14:59 Intake Total 321.747 7131.171 260 Output Total 420 5 Balance 247.829 626.171 255 Intake: IV 1040 260 Sodium Chloride 0.9% 1, 1040 260 000 ml @ 130 mls/hr IV . Q7H42M [facility] Rx#:[id number] Intake, IV Titration 247.829 6.171 Amount Norepinephrine 4 mg In 247.829 6.171 Sodium Chloride 0.9% 250 ml @ 0.05 MCG/KG/MIN 16. 783 mls/hr IV .Q15H9M [facility] Rx#:[id number] Output: Gastric Drainage 300 Urine 120 5 Other: Voiding Method Indwelling Catheter Weight 88.1 kg 95 kg No acute distress, oriented 3. Currently on BiPAP. HEENT examination is grossly unremarkable. Neck supple. Full range of motion. No adenopathy thyromegaly or neck vein distention. Cardiovascular examination reveals regular rhythm rate. S1-S2 normal. No S3 or S4. No discernible murmur noted. Heart sounds are distant. Heart rate 83 bpm. Lungs reveal coarse diffuse rhonchi. Breath sounds equal. No wheezes. No crackles. Abdomen nontender. Slightly distended and tympanitic on percussion. Extremities are intact. No cyanosis clubbing or edema. Skin is without rash or lesion. Neurologic examination is brief but nonfocal. Results - Laboratory Findings CBC and BMP: 12/10/21 02:56 12/10/21 02:56 ABG ABG pH 7.14 (7.35-7.45) L* 12/09/21 21:15 ABG pCO2 56 mmHg (35-45) H 12/09/21 21:15 ABG pO2 100 mmHg (83-108) 12/09/21 21:15 ABG O2 Saturation 95.8 % (94-97) 12/09/21 21:15 PT/INR, D-dimer PT 11.0 sec (9.0-12.0) 12/09/21 17:57 INR 1.0 (<1.2) 12/09/21 17:57 D-Dimer 3.57 mg/L FEU (<0.60) H 12/09/21 17:57 Abnormal lab findings: Abnormal Labs 12/09/21 12/09/21 12/09/21 17:38 17:57 17:57 WBC 22.5 H MCHC Neutrophils # (Manual) 17.70 H Monocytes # (Manual) 2.25 H Metamyelocytes # (Man) 0.68 H D-Dimer 3.57 H ABG pH ABG pCO2 ABG HCO3 Sodium Potassium Chloride Carbon Dioxide BUN Creatinine Glucose POC Glucose (mg/dL) 127 H Plasma Lactic Acid [place] Calcium Troponin I Total Protein Albumin Urine Protein Urine Glucose (UA) Urine Ketones Urine Blood Ur Leukocyte Esterase Urine WBC Urine WBC Clumps Amorphous Sediment Urine Bacteria Urine Mucus 12/09/21 12/09/21 12/09/21 17:57 17:57 17:57 WBC MCHC Neutrophils # (Manual) Monocytes # (Manual) Metamyelocytes # (Man) D-Dimer ABG pH ABG pCO2 ABG HCO3 Sodium 136 L Potassium 5.7 H Chloride Carbon Dioxide 17 L BUN 60 H Creatinine 5.04 H Glucose 132 H POC Glucose (mg/dL) Plasma Lactic Acid [place] 8.1 H* Calcium 7.7 L Troponin I 0.063 H* Total Protein 6.2 L Albumin 3.4 L Urine Protein Urine Glucose (UA) Urine Ketones Urine Blood Ur Leukocyte Esterase Urine WBC Urine WBC Clumps Amorphous Sediment Urine Bacteria Urine Mucus 12/09/21 12/09/21 12/09/21 19:20 20:50 21:15 WBC MCHC Neutrophils # (Manual) Monocytes # (Manual) Metamyelocytes # (Man) D-Dimer ABG pH 7.14 L* ABG pCO2 56 H ABG HCO3 19 L Sodium Potassium Chloride Carbon Dioxide BUN Creatinine Glucose POC Glucose (mg/dL) Plasma Lactic Acid [place] 5.7 H* Calcium Troponin I Total Protein Albumin Urine Protein 2+ H Urine Glucose (UA) Trace H Urine Ketones 1+ H Urine Blood Small H Ur Leukocyte Esterase Trace H Urine WBC 11 H Urine WBC Clumps Few H Amorphous Sediment Rare H Urine Bacteria Rare H Urine Mucus Rare H 12/09/21 12/09/21 12/09/21 22:10 23:31 23:50 WBC MCHC Neutrophils # (Manual) Monocytes # (Manual) Metamyelocytes # (Man) D-Dimer ABG pH ABG pCO2 ABG HCO3 Sodium Potassium Chloride 108 H Carbon Dioxide 18 L BUN 56 H Creatinine 4.19 H Glucose 124 H POC Glucose (mg/dL) 138 H Plasma Lactic Acid [place] 4.5 H* Calcium 5.8 L* Troponin I Total Protein Albumin Urine Protein Urine Glucose (UA) Urine Ketones Urine Blood Ur Leukocyte Esterase Urine WBC Urine WBC Clumps Amorphous Sediment Urine Bacteria Urine Mucus 12/10/21 12/10/21 12/10/21 02:56 02:56 02:56 WBC 20.0 H MCHC 29.8 L Neutrophils # (Manual) 18.40 H Monocytes # (Manual) Metamyelocytes # (Man) D-Dimer ABG pH ABG pCO2 ABG HCO3 Sodium Potassium 6.4 H* Chloride Carbon Dioxide 16 L BUN 68 H Creatinine 4.61 H Glucose 167 H POC Glucose (mg/dL) Plasma Lactic Acid [place] 3.0 H* Calcium 6.5 L Troponin I Total Protein Albumin Urine Protein Urine Glucose (UA) Urine Ketones Urine Blood Ur Leukocyte Esterase Urine WBC Urine WBC Clumps Amorphous Sediment Urine Bacteria Urine Mucus 12/10/21 12/10/21 05:51 06:17 WBC MCHC Neutrophils # (Manual) Monocytes # (Manual) Metamyelocytes # (Man) D-Dimer ABG pH ABG pCO2 ABG HCO3 Sodium Potassium Chloride Carbon Dioxide BUN Creatinine Glucose POC Glucose (mg/dL) 246 H Plasma Lactic Acid [place] 2.6 H* Calcium Troponin I Total Protein Albumin Urine Protein Urine Glucose (UA) Urine Ketones Urine Blood Ur Leukocyte Esterase Urine WBC Urine WBC Clumps Amorphous Sediment Urine Bacteria Urine Mucus - Diagnostic Findings Chest x-ray: image reviewed CT scan - chest: image reviewed Assessment and Plan Assessment: Acute hypoxemic respiratory failure secondary to COPD exacerbation complicated by primarily right lower lobe pneumonia/questionable aspiration. Acute sepsis with septic shock. Acute kidney injury. Possible non-ST segment elevation myocardial infarction. Possible bowel obstruction. History of COPD with chronic hypoxemic respiratory failure. History of hyperlipidemia. History of hypertension. History of diabetes mellitus. History of depression. History of alcohol abuse. Plan: Plan dated 12/10/2021. Currently, the patient is getting BiPAP. In addition, he is getting Solu- Medrol, and antibiotics in the form of Zosyn. The patient has been seen by nephrology. The patient's on norepinephrine is at nearly 30 mcg/m, because of low blood pressure. The patient is getting GI and DVT prophylaxis. Additional recommendations and suggestions are forthcoming. His overall prognosis is poor. I did ask again about his CODE STATUS. He prefers not to be intubated or mech anically ventilated. Additional recommendations are forthcoming. Time with Patient: Greater than 30
[2021-12-10] MEDS: ENOXAPARIN 30 MG/0.3 ML SYRINGE SQ SCH (10:31)
[2021-12-10] MEDS: PANTOPRAZOLE 40 MG/10 ML VIAL IVP SCH (10:31)
[2021-12-10] MEDS: PIPERACILLIN-TAZOBACTAM 3.375 GM in SODIUM CHLORIDE 0.9% 100 ML IVPB SCH ×2 (10:31→20:34)
[2021-12-10] MEDS ORDERED: FUROSEMIDE 10 MG/ML 10 ML VIAL IV STA (10:53)
[2021-12-10 11:11] LABS: Glucose,Whole Blood 211 mg/dL (75-99)
[2021-12-10] MEDS: SODIUM CHLORIDE 0.45% 1,000 ML with SODIUM BICARB (1 MEQ/ML) 100 ML IV SCH ×2 (12:14)
--- NOTE | 2021-12-10 12:37 | P.GSCN ---
History of Present Illness Consult date: 12/10/21 History of present illness: The patient's a 61-year-old man who presented to the emergency room with decreased level of consciousness and shortness of breath. Evidently EMS was called and the patient was found to be markedly hypoxic and hypotensive. Severe lactic acidosis in the ER. Patient was treated medically and became more lucid. At that time he admitted to some abdominal discomfort. Family had stated that he wasn't eating and drinking well. A computed tomography scan of the abdomen was performed. This showed either ileus or partial bowel obstruction. The patient is answering appropriately today. He denies any abdominal pain. He is not sure whether he was having pain prior to admission. The patient has denied any pain to his nurse Review of Systems All systems: negative Past Medical History Past Medical History: COPD, Diabetes Mellitus, GERD/Reflux, Hyperlipidemia, Hypertension, Pneumonia Additional Past Medical History / Comment(s): DIET CONTROL DM, 2020 AND WAS HOSPITALIZED History of Any Multi-Drug Resistant Organisms: None Reported Past Surgical History: Hernia Repair, Orthopedic Surgery Additional Past Surgical History / Comment(s): RT knee scope. COLONOSCOPY Past Anesthesia/Blood Transfusion Reactions: No Reported Reaction Past Psychological History: Depression Smoking Status: Former smoker, Second hand smoke exposure Past Alcohol Use History: Occasional Past Drug Use History: None Reported - Past Family History Mother Family Medical History: No Reported History Medications and Allergies Home Medications Medication Instructions Recorded Confirmed Type Albuterol Sulfate [Proair Hfa] 2 puff INHALATION RT-QID PRN 08/04/15 12/09/21 History Atorvastatin [Lipitor] 80 mg PO HS 08/03/19 12/09/21 History Aspirin EC [Ecotrin Low Dose] 81 mg PO DAILY 06/20/21 12/09/21 History Atenolol [Tenormin] 25 mg PO DAILY 06/20/21 12/09/21 History lisinopriL [Zestril] 2.5 mg PO DAILY 06/20/21 12/09/21 History Ascorbic Acid [Vitamin C] 1,000 mg PO DAILY 11/28/21 12/09/21 History Cholecalciferol (Vitamin D3) 75 mcg PO DAILY 11/28/21 12/10/21 History [Vitamin D3 (3000 Iu)] Famotidine 20 mg PO BID 11/28/21 12/09/21 History Ipratropium-Albuterol Nebulize 3 ml INHALATION RT-Q4H PRN 11/28/21 12/10/21 History [Duoneb 0.5 mg-3 mg/3 ml Soln] Tiotropium Br/Olodaterol HCl 2 puff INHALATION RT-DAILY 11/28/21 12/10/21 History [Stiolto Respimat Inhal [place]] metFORMIN HCL 500 mg PO BID 11/28/21 12/09/21 History amLODIPine [Norvasc] 10 mg PO DAILY 12/09/21 12/09/21 History Allergies Allergy/AdvReac Type Severity Reaction Status Date / Time No Known Allergies Allergy Verified 12/09/21 17:53 Surgical - Exam Osteopathic Statement: *. No significant issues noted on an osteopathic structural exam other than those noted in the History and Physical/Consult. Vital Signs Pulse Resp BP Pulse Ox 90 24 56/42 90 L 12/09/21 17:28 12/09/21 17:28 12/09/21 17:28 12/09/21 17:28 - General Cooperative on BiPAP no distress - Neck trachea midline - Respiratory Rhonchi bilaterally without wheezing normal expansion - Cardiovascular Rhythm: regular Abnormal Heart Sounds: no systolic murmur - Abdomen Abdomen: soft, non tender, bowel sounds, no guarding, no rigid, no rebound, no distended - Psychiatric oriented to time, oriented to person, oriented to place, speech is normal Results - Labs 12/10/21 02:56 12/10/21 10:36 Abnormal Lab Results - Last 24 Hours (Table) 12/09/21 12/09/21 12/09/21 Range/Units 17:38 17:57 17:57 WBC 22.5 H (3.8-10.6) k/uL MCHC (31.0-37.0) g/dL Neutrophils # (Manual) 17.70 H (1.3-7.7) k/uL Monocytes # (Manual) 2.25 H (0-1.0) k/uL Metamyelocytes # (Man) 0.68 H (0) k/uL D-Dimer 3.57 H (<0.60) mg/L FEU ABG pH (7.35-7.45) ABG pCO2 (35-45) mmHg ABG HCO3 (21-25) mmol/L Sodium (137-145) mmol/L Potassium (3.5-5.1) mmol/L Chloride (98-107) mmol/L Carbon Dioxide (22-30) mmol/L BUN (9-20) mg/dL Creatinine (0.66-1.25) mg/dL Glucose (74-99) mg/dL POC Glucose (mg/dL) 127 H (75-99) mg/dL Plasma Lactic Acid [place] (0.7-2.0) mmol/L Calcium (8.4-10.2) mg/dL Troponin I (0.000-0.034) ng/mL Total Protein (6.3-8.2) g/dL Albumin (3.5-5.0) g/dL Urine Protein (Negative) Urine Glucose (UA) (Negative) Urine Ketones (Negative) Urine Blood (Negative) Ur Leukocyte Esterase (Negative) Urine WBC (0-5) /hpf Urine WBC Clumps (None) /hpf Amorphous Sediment (None) /hpf Urine Bacteria (None) /hpf Urine Mucus (None) /hpf 12/09/21 12/09/21 12/09/21 Range/Units 17:57 17:57 17:57 WBC (3.8-10.6) k/uL MCHC (31.0-37.0) g/dL Neutrophils # (Manual) (1.3-7.7) k/uL Monocytes # (Manual) (0-1.0) k/uL Metamyelocytes # (Man) (0) k/uL D-Dimer (<0.60) mg/L FEU ABG pH (7.35-7.45) ABG pCO2 (35-45) mmHg ABG HCO3 (21-25) mmol/L Sodium 136 L (137-145) mmol/L Potassium 5.7 H (3.5-5.1) mmol/L Chloride (98-107) mmol/L Carbon Dioxide 17 L (22-30) mmol/L BUN 60 H (9-20) mg/dL Creatinine 5.04 H (0.66-1.25) mg/dL Glucose 132 H (74-99) mg/dL POC Glucose (mg/dL) (75-99) mg/dL Plasma Lactic Acid [place] 8.1 H* (0.7-2.0) mmol/L Calcium 7.7 L (8.4-10.2) mg/dL Troponin I 0.063 H* (0.000-0.034) ng/mL Total Protein 6.2 L (6.3-8.2) g/dL Albumin 3.4 L (3.5-5.0) g/dL Urine Protein (Negative) Urine Glucose (UA) (Negative) Urine Ketones (Negative) Urine Blood (Negative) Ur Leukocyte Esterase (Negative) Urine WBC (0-5) /hpf Urine WBC Clumps (None) /hpf Amorphous Sediment (None) /hpf Urine Bacteria (None) /hpf Urine Mucus (None) /hpf 12/09/21 12/09/21 12/09/21 Range/Units 19:20 20:50 21:15 WBC (3.8-10.6) k/uL MCHC (31.0-37.0) g/dL Neutrophils # (Manual) (1.3-7.7) k/uL Monocytes # (Manual) (0-1.0) k/uL Metamyelocytes # (Man) (0) k/uL D-Dimer (<0.60) mg/L FEU ABG pH 7.14 L* (7.35-7.45) ABG pCO2 56 H (35-45) mmHg ABG HCO3 19 L (21-25) mmol/L Sodium (137-145) mmol/L Potassium (3.5-5.1) mmol/L Chloride (98-107) mmol/L Carbon Dioxide (22-30) mmol/L BUN (9-20) mg/dL Creatinine (0.66-1.25) mg/dL Glucose (74-99) mg/dL POC Glucose (mg/dL) (75-99) mg/dL Plasma Lactic Acid [place] 5.7 H* (0.7-2.0) mmol/L Calcium (8.4-10.2) mg/dL Troponin I (0.000-0.034) ng/mL Total Protein (6.3-8.2) g/dL Albumin (3.5-5.0) g/dL Urine Protein 2+ H (Negative) Urine Glucose (UA) Trace H (Negative) Urine Ketones 1+ H (Negative) Urine Blood Small H (Negative) Ur Leukocyte Esterase Trace H (Negative) Urine WBC 11 H (0-5) /hpf Urine WBC Clumps Few H (None) /hpf Amorphous Sediment Rare H (None) /hpf Urine Bacteria Rare H (None) /hpf Urine Mucus Rare H (None) /hpf 12/09/21 12/09/21 12/09/21 Range/Units 22:10 23:31 23:50 WBC (3.8-10.6) k/uL MCHC (31.0-37.0) g/dL Neutrophils # (Manual) (1.3-7.7) k/uL Monocytes # (Manual) (0-1.0) k/uL Metamyelocytes # (Man) (0) k/uL D-Dimer (<0.60) mg/L FEU ABG pH (7.35-7.45) ABG pCO2 (35-45) mmHg ABG HCO3 (21-25) mmol/L Sodium (137-145) mmol/L Potassium (3.5-5.1) mmol/L Chloride 108 H (98-107) mmol/L Carbon Dioxide 18 L (22-30) mmol/L BUN 56 H (9-20) mg/dL Creatinine 4.19 H (0.66-1.25) mg/dL Glucose 124 H (74-99) mg/dL POC Glucose (mg/dL) 138 H (75-99) mg/dL Plasma Lactic Acid [place] 4.5 H* (0.7-2.0) mmol/L Calcium 5.8 L* (8.4-10.2) mg/dL Troponin I (0.000-0.034) ng/mL Total Protein (6.3-8.2) g/dL Albumin (3.5-5.0) g/dL Urine Protein (Negative) Urine Glucose (UA) (Negative) Urine Ketones (Negative) Urine Blood (Negative) Ur Leukocyte Esterase (Negative) Urine WBC (0-5) /hpf Urine WBC Clumps (None) /hpf Amorphous Sediment (None) /hpf Urine Bacteria (None) /hpf Urine Mucus (None) /hpf 12/10/21 12/10/21 12/10/21 Range/Units 02:56 02:56 02:56 WBC 20.0 H (3.8-10.6) k/uL MCHC 29.8 L (31.0-37.0) g/dL Neutrophils # (Manual) 18.40 H (1.3-7.7) k/uL Monocytes # (Manual) (0-1.0) k/uL Metamyelocytes # (Man) (0) k/uL D-Dimer (<0.60) mg/L FEU ABG pH (7.35-7.45) ABG pCO2 (35-45) mmHg ABG HCO3 (21-25) mmol/L Sodium (137-145) mmol/L Potassium 6.4 H* (3.5-5.1) mmol/L Chloride (98-107) mmol/L Carbon Dioxide 16 L (22-30) mmol/L BUN 68 H (9-20) mg/dL Creatinine 4.61 H (0.66-1.25) mg/dL Glucose 167 H (74-99) mg/dL POC Glucose (mg/dL) (75-99) mg/dL Plasma Lactic Acid [place] 3.0 H* (0.7-2.0) mmol/L Calcium 6.5 L (8.4-10.2) mg/dL Troponin I (0.000-0.034) ng/mL Total Protein (6.3-8.2) g/dL Albumin (3.5-5.0) g/dL Urine Protein (Negative) Urine Glucose (UA) (Negative) Urine Ketones (Negative) Urine Blood (Negative) Ur Leukocyte Esterase (Negative) Urine WBC (0-5) /hpf Urine WBC Clumps (None) /hpf Amorphous Sediment (None) /hpf Urine Bacteria (None) /hpf Urine Mucus (None) /hpf 12/10/21 12/10/21 12/10/21 Range/Units 05:51 06:17 10:36 WBC (3.8-10.6) k/uL MCHC (31.0-37.0) g/dL Neutrophils # (Manual) (1.3-7.7) k/uL Monocytes # (Manual) (0-1.0) k/uL Metamyelocytes # (Man) (0) k/uL D-Dimer (<0.60) mg/L FEU ABG pH (7.35-7.45) ABG pCO2 (35-45) mmHg ABG HCO3 (21-25) mmol/L Sodium (137-145) mmol/L Potassium 5.3 H (3.5-5.1) mmol/L Chloride (98-107) mmol/L Carbon Dioxide (22-30) mmol/L BUN (9-20) mg/dL Creatinine (0.66-1.25) mg/dL Glucose (74-99) mg/dL POC Glucose (mg/dL) 246 H (75-99) mg/dL Plasma Lactic Acid [place] 2.6 H* (0.7-2.0) mmol/L Calcium (8.4-10.2) mg/dL Troponin I (0.000-0.034) ng/mL Total Protein (6.3-8.2) g/dL Albumin (3.5-5.0) g/dL Urine Protein (Negative) Urine Glucose (UA) (Negative) Urine Ketones (Negative) Urine Blood (Negative) Ur Leukocyte Esterase (Negative) Urine WBC (0-5) /hpf Urine WBC Clumps (None) /hpf Amorphous Sediment (None) /hpf Urine Bacteria (None) /hpf Urine Mucus (None) /hpf 12/10/21 Range/Units 11:10 WBC (3.8-10.6) k/uL MCHC (31.0-37.0) g/dL Neutrophils # (Manual) (1.3-7.7) k/uL Monocytes # (Manual) (0-1.0) k/uL Metamyelocytes # (Man) (0) k/uL D-Dimer (<0.60) mg/L FEU ABG pH (7.35-7.45) ABG pCO2 (35-45) mmHg ABG HCO3 (21-25) mmol/L Sodium (137-145) mmol/L Potassium (3.5-5.1) mmol/L Chloride (98-107) mmol/L Carbon Dioxide (22-30) mmol/L BUN (9-20) mg/dL Creatinine (0.66-1.25) mg/dL Glucose (74-99) mg/dL POC Glucose (mg/dL) 211 H (75-99) mg/dL Plasma Lactic Acid [place] (0.7-2.0) mmol/L Calcium (8.4-10.2) mg/dL Troponin I (0.000-0.034) ng/mL Total Protein (6.3-8.2) g/dL Albumin (3.5-5.0) g/dL Urine Protein (Negative) Urine Glucose (UA) (Negative) Urine Ketones (Negative) Urine Blood (Negative) Ur Leukocyte Esterase (Negative) Urine WBC (0-5) /hpf Urine WBC Clumps (None) /hpf Amorphous Sediment (None) /hpf Urine Bacteria (None) /hpf Urine Mucus (None) /hpf Diabetes panel 12/09/21 12/09/21 12/10/21 Range/Units 17:57 22:10 02:56 Sodium 136 L 139 137 (137-145) mmol/L Potassium 5.7 H 4.5 6.4 H* (3.5-5.1) mmol/L Chloride 98 108 H 105 (98-107) mmol/L Carbon Dioxide 17 L 18 L 16 L (22-30) mmol/L BUN 60 H 56 H 68 H (9-20) mg/dL Creatinine 5.04 H 4.19 H 4.61 H (0.66-1.25) mg/dL Glucose 132 H 124 H 167 H (74-99) mg/dL Calcium 7.7 L 5.8 L* 6.5 L (8.4-10.2) mg/dL AST 47 (17-59) U/L ALT 30 (4-49) U/L Alkaline Phosphatase 126 (38-126) U/L Total Protein 6.2 L (6.3-8.2) g/dL Albumin 3.4 L (3.5-5.0) g/dL 12/10/21 Range/Units 10:36 Sodium (137-145) mmol/L Potassium 5.3 H (3.5-5.1) mmol/L Chloride (98-107) mmol/L Carbon Dioxide (22-30) mmol/L BUN (9-20) mg/dL Creatinine (0.66-1.25) mg/dL Glucose (74-99) mg/dL Calcium (8.4-10.2) mg/dL AST (17-59) U/L ALT (4-49) U/L Alkaline Phosphatase (38-126) U/L Total Protein (6.3-8.2) g/dL Albumin (3.5-5.0) g/dL Calcium panel 12/09/21 12/09/21 12/10/21 Range/Units 17:57 22:10 02:56 Calcium 7.7 L 5.8 L* 6.5 L (8.4-10.2) mg/dL Albumin 3.4 L (3.5-5.0) g/dL Pituitary panel 12/09/21 12/09/21 12/10/21 Range/Units 17:57 22:10 02:56 Sodium 136 L 139 137 (137-145) mmol/L Potassium 5.7 H 4.5 6.4 H* (3.5-5.1) mmol/L Chloride 98 108 H 105 (98-107) mmol/L Carbon Dioxide 17 L 18 L 16 L (22-30) mmol/L BUN 60 H 56 H 68 H (9-20) mg/dL Creatinine 5.04 H 4.19 H 4.61 H (0.66-1.25) mg/dL Glucose 132 H 124 H 167 H (74-99) mg/dL Calcium 7.7 L 5.8 L* 6.5 L (8.4-10.2) mg/dL 12/10/21 Range/Units 10:36 Sodium (137-145) mmol/L Potassium 5.3 H (3.5-5.1) mmol/L Chloride (98-107) mmol/L Carbon Dioxide (22-30) mmol/L BUN (9-20) mg/dL Creatinine (0.66-1.25) mg/dL Glucose (74-99) mg/dL Calcium (8.4-10.2) mg/dL Adrenal panel 12/09/21 12/09/21 12/10/21 Range/Units 17:57 22:10 02:56 Sodium 136 L 139 137 (137-145) mmol/L Potassium 5.7 H 4.5 6.4 H* (3.5-5.1) mmol/L Chloride 98 108 H 105 (98-107) mmol/L Carbon Dioxide 17 L 18 L 16 L (22-30) mmol/L BUN 60 H 56 H 68 H (9-20) mg/dL Creatinine 5.04 H 4.19 H 4.61 H (0.66-1.25) mg/dL Glucose 132 H 124 H 167 H (74-99) mg/dL Calcium 7.7 L 5.8 L* 6.5 L (8.4-10.2) mg/dL Total Bilirubin 0.7 (0.2-1.3) mg/dL AST 47 (17-59) U/L ALT 30 (4-49) U/L Alkaline Phosphatase 126 (38-126) U/L Total Protein 6.2 L (6.3-8.2) g/dL Albumin 3.4 L (3.5-5.0) g/dL 12/10/21 Range/Units 10:36 Sodium (137-145) mmol/L Potassium 5.3 H (3.5-5.1) mmol/L Chloride (98-107) mmol/L Carbon Dioxide (22-30) mmol/L BUN (9-20) mg/dL Creatinine (0.66-1.25) mg/dL Glucose (74-99) mg/dL Calcium (8.4-10.2) mg/dL Total Bilirubin (0.2-1.3) mg/dL AST (17-59) U/L ALT (4-49) U/L Alkaline Phosphatase (38-126) U/L Total Protein (6.3-8.2) g/dL Albumin (3.5-5.0) g/dL - Imaging CT scan - abdomen: report reviewed, image reviewed Assessment and Plan (1) Pneumonia Current Visit: Yes Status: Acute Code(s): J18.9 - PNEUMONIA, UNSPECIFIED ORGANISM SNOMED Code(s): 169135000 (2) Ileus Current Visit: Yes Status: Acute Code(s): K56.7 - ILEUS, UNSPECIFIED SNOMED Code(s): 875865726 (3) RAYMON (acute kidney injury) Current Visit: Yes Status: Acute Code(s): N17.9 - ACUTE KIDNEY FAILURE, UNSPECIFIED SNOMED Code(s): 56701737 (4) Hypoxia Current Visit: Yes Status: Acute Code(s): R09.02 - HYPOXEMIA SNOMED Code(s): 290095457 (5) Lactic acidosis Current Visit: Yes Status: Acute Code(s): E87.2 - ACIDOSIS SNOMED Code(s): 56401269 (6) Severe sepsis Current Visit: Yes Status: Acute Code(s): A41.9 - SEPSIS, UNSPECIFIED ORGANISM; R65.20 - SEVERE SEPSIS WITHOUT SEPTIC SHOCK SNOMED Code(s): 54719459 (7) COPD exacerbation Current Visit: No Status: Acute Code(s): J44.1 - CHRONIC OBSTRUCTIVE PULMONARY DISEASE W (ACUTE) EXACERBATION SNOMED Code(s): 613946403 Plan: His abdomen is currently benign. The ileus seen on computed tomography scan is likely reactive to his pneumonia and severe sepsis. Recommend continue NG tube decompression until he medically stabilizes further. Patient's being treated appropriately medically. Currently nonsurgical. I will follow with you
--- NOTE | 2021-12-10 14:46 | P.NPCON ---
History of Present Illness - Reason for Consult acute renal failure - History of Present Illness Patient is a 61-year-old male who was admitted to the hospital with complaints of shortness of breath as well as mental status changes. Patient has been hypoxic and hypotensive. Currently maintained on levo fed No significant urine output noted Lactic acid has been elevated. Chest x-ray shows right lower lobe pneumonia Patient has received about 3 L of fluid bolus. He is currently maintained on BiPAP. CODE STATUS is no code no intubation. Serum creatinine was 4.6 mg/dL and potassium was elevated at 6.4. Patient has received IV treatment for hyperkalemia. Discussed renal replacement therapy with patient if needed and he is agreeable. Review of Systems As per HPI Past Medical History Past Medical History: COPD, Diabetes Mellitus, GERD/Reflux, Hyperlipidemia, Hypertension, Pneumonia Additional Past Medical History / Comment(s): DIET CONTROL DM, 2020 AND WAS HOSPITALIZED History of Any Multi-Drug Resistant Organisms: None Reported Past Surgical History: Hernia Repair, Orthopedic Surgery Additional Past Surgical History / Comment(s): RT knee scope. COLONOSCOPY Past Anesthesia/Blood Transfusion Reactions: No Reported Reaction Past Psychological History: Depression Smoking Status: Former smoker, Second hand smoke exposure Past Alcohol Use History: Occasional Past Drug Use History: None Reported - Past Family History Mother Family Medical History: No Reported History Medications and Allergies Home Medications Medication Instructions Recorded Confirmed Type Albuterol Sulfate [Proair Hfa] 2 puff INHALATION RT-QID PRN 08/04/15 12/09/21 History Atorvastatin [Lipitor] 80 mg PO HS 08/03/19 12/09/21 History Aspirin EC [Ecotrin Low Dose] 81 mg PO DAILY 06/20/21 12/09/21 History Atenolol [Tenormin] 25 mg PO DAILY 06/20/21 12/09/21 History lisinopriL [Zestril] 2.5 mg PO DAILY 06/20/21 12/09/21 History Ascorbic Acid [Vitamin C] 1,000 mg PO DAILY 11/28/21 12/09/21 History Cholecalciferol (Vitamin D3) 75 mcg PO DAILY 11/28/21 12/10/21 History [Vitamin D3 (3000 Iu)] Famotidine 20 mg PO BID 11/28/21 12/09/21 History Ipratropium-Albuterol Nebulize 3 ml INHALATION RT-Q4H PRN 11/28/21 12/10/21 History [Duoneb 0.5 mg-3 mg/3 ml Soln] Tiotropium Br/Olodaterol HCl 2 puff INHALATION RT-DAILY 11/28/21 12/10/21 History [Stiolto Respimat Inhal [place]] metFORMIN HCL 500 mg PO BID 11/28/21 12/09/21 History amLODIPine [Norvasc] 10 mg PO DAILY 12/09/21 12/09/21 History Allergies Allergy/AdvReac Type Severity Reaction Status Date / Time No Known Allergies Allergy Verified 12/09/21 17:53 Physical Exam Vitals: Vital Signs Temp Pulse Pulse Resp BP BP Pulse Ox 12/10/21 13:00 87 30 H 103/60 93 L 12/10/21 12:00 98.2 F 81 23 107/71 93 L 12/10/21 11:00 84 31 H 100/65 94 L 12/10/21 10:00 85 30 H 107/63 94 L 12/10/21 09:41 83 19 107/63 94 L 12/10/21 08:29 80 12/10/21 08:22 83 12/10/21 08:00 94 L 12/10/21 04:00 98.7 F 80 33 H 98/56 96 12/10/21 00:10 98.4 F 83 31 H 92/45 94 L 12/09/21 22:37 83 36 H 99/57 94 L 12/09/21 21:35 85 35 H 79/61 94 L 12/09/21 21:20 85 32 H 87/61 94 L 12/09/21 20:50 81 35 H 74/56 93 L 12/09/21 20:36 98.4 F 84 33 H 95/70 12/09/21 20:30 87 40 H 84/66 94 L 12/09/21 20:00 84 35 H 87/61 95 12/09/21 19:32 90 35 H 81/56 97 12/09/21 19:15 96.4 F L 93 28 H 97/57 97 12/09/21 18:55 83 32 H 90/48 94 L 12/09/21 18:40 85 34 H 78/48 97 12/09/21 18:30 86 34 H 71/45 99 12/09/21 18:14 85 32 H 60/24 91 L 12/09/21 18:05 82 34 H 100/73 92 L 12/09/21 17:59 57/30 12/09/21 17:58 84 12/09/21 17:55 68/33 12/09/21 17:44 87 25 H 100/75 12/09/21 17:40 89 34 H 87/38 90 L 12/09/21 17:28 90 24 56/42 90 L Intake and Output 12/09/21 12/10/21 12/10/21 22:59 06:59 14:59 Intake Total 868.795 4855.171 670 Output Total 420 30 Balance 247.829 626.171 640 Intake: IV 1040 670 Sodium Chloride 0.45% 1, 150 000 ml @ 75 mls/hr IV . [id number] ENDY with Sodium Bicarb (1 Meq/ml) 100 ml Rx#:[id number] Sodium Chloride 0.9% 1, 1040 520 000 ml @ 130 mls/hr IV . Q7H42M ENDY Rx#:[id number] Intake, IV Titration 247.829 6.171 Amount Norepinephrine 4 mg In 247.829 6.171 Sodium Chloride 0.9% 250 ml @ 0.05 MCG/KG/MIN 16. 783 mls/hr IV .Q15H9M ENDY Rx#:[id number] Output: Gastric Drainage 300 Urine 120 30 Other: Voiding Method Indwelling Catheter Indwelling Catheter Weight 88.1 kg 95 kg Patient is awake, currently on BiPAP Oriented 3 Examination of the heart S1 and S2 Examination lungs bilateral breath sounds are heard, decreased breath sounds at the bases Abdomen is soft nontender Examination lower extremities shows no evidence of edema. DATA SUPPORT ANALYST exam grossly intact Results - Lab Results Most recent lab results ABG pH 7.14 (7.35-7.45) L* 12/09/21 21:15 ABG pCO2 56 mmHg (35-45) H 12/09/21 21:15 ABG pO2 100 mmHg (83-108) 12/09/21 21:15 ABG HCO3 19 mmol/L (21-25) L 12/09/21 21:15 ABG O2 Saturation 95.8 % (94-97) 12/09/21 21:15 Calcium 6.5 mg/dL (8.4-10.2) L 12/10/21 02:56 Magnesium 1.9 mg/dL (1.6-2.3) 12/09/21 17:57 12/10/21 02:56 12/10/21 10:36 Assessment and Plan Assessment: 1. Acute kidney injury oliguric ATN, associated with hypotension and sepsis. Patient will need renal replacement therapy if he remains hyperkalemic. No obstruction noted on CT of the abdomen and pelvis 2. Metabolic acidosis associated with hypotension and sepsis, lactic acidosis and acute kidney injury 3. Lactic acidosis associated with hypoperfusion as well as possibly related to metformin. 4. Right lung pneumonia maintained on antibiotics 5. Acute hypoxic respiratory failure from pneumonia 6. History of COPD with chronic hypoxemic respiratory failure 7. Hyperkalemia associated with acute kidney injury and metabolic acidosis and THERESA inhibitor as prior to admission Plan: Start bicarb drip IV Lasix 1 Repeat labs later on today Patient will need renal replacement therapy if serum potassium remains significantly elevated with poor urine output.
--- NOTE | 2021-12-10 14:58 | PCN ---
PROCEDURE NOTE PROCEDURE: Placement of left radial arterial line. PREOPERATIVE DIAGNOSIS: Frequent blood draws and blood gas monitoring. POSTOPERATIVE DIAGNOSIS: Frequent blood draws and blood gas monitoring. OPERATORS: 1. Dr. Lay. 2. Dr. Richardson. PROCEDURE DESCRIPTION: There was informed consent. A universal time-out was completed verifying correct patient, procedure, site, positioning, and implant(s) or special equipment if applicable. Carlos A's test was performed to ensure adequate perfusion. The patient's left wrist was prepped and draped in sterile fashion. 1% Lidocaine was used to anesthetize the area. An 18G [place] arterial line was introduced into the left radial artery. The catheter was threaded over the guide wire and the needle was removed with appropriate pulsatile blood return. There was good waveform and blood pressure reading. Blood loss was minimal. The catheter was then sutured in place to the skin and a sterile dressing applied by the nurse. Perfusion to the extremity distal to the point of catheter insertion was checked and found to be adequate. The patient tolerated the procedure well and there were no immediate complications. MMODL / IJN: [id number] /
[2021-12-10 17:47] LABS: ABG Base Excess -9.9 mmol/L; ABG HCO3 18 mmol/L (21-25); ABG Oxygen Saturation 98.8 % (94-97); ABG PCO2 42 mmHg (35-45); ABG PH 7.23 (7.35-7.45); ABG PO2 85 mmHg (83-108); ABG TCO2 19 mmol/L (19-24); Allen Test Performed? Yes
[2021-12-10] MEDS ORDERED: FUROSEMIDE 10 MG/ML 10 ML VIAL IV ONE (18:00)
[2021-12-10] MEDS: DEXMEDETOMIDINE/0.9% NACL(PMX) 400 MCG in EMPTY BAG 1 BAG IV SCH (18:02)
[2021-12-10 18:15] LABS: Glucose,Whole Blood 168 mg/dL (75-99)
--- NOTE | 2021-12-10 19:33 | P.HPIM ---
History of Present Illness H&P Date: 12/10/21 Chief Complaint: Short of breath This is a 61-year-old patient who follows with Dr. Romero. Chronic stable medical conditions include diabetes, hypertension, hyperlipidemia. previous smoker/-COPD. Patient presented to the ER with increasing shortness of breath. Family i nformed ER physician that that is not seen in bed on Friday. Since patient has been getting worse. Not getting out of bed and breathing progressively getting worse. Patient on 2 L was saturating 62%. EMS was not able to get a blood pressure. Patient was minimally conscious. It had to be bagged and brought to the hospital. Patient did receive 1 dose of appendectomy. Patient has not been eating or drinking. No fever. Patient on November 28 underwent bronchoscopy and lavage by Dr. Consuelo Ochoa from pulmonary. On the right side patient's found to have extensive purulent secretions filling of the airways. BAL was performed. No mass was noted. Cultures were positive for Gaby albicans. Patient is put on BiPAP. This morning BiPAP set at 14/6. 50%. Patient on levo fed drip. Tired. Review of systems: Difficult opportunist patient is on a BiPAP. Short of breath Past medical history to include: COPD, diabetes, hypertension, 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 Smoked a pack a day for close to 50 years stopped about 2 years ago. Drinks alcohol very heavily on the weekends to the point of passing out Family history: Reviewed, noncontributory to presentation Physical examination: VITAL SIGNS: Afebrile, 90, 34, 56/42, 90% on BiPAP upon presentation GENERAL: BMI 28.4, laying in bed, short of breath on BiPAP. EYES: Pupils equal. Conjunctiva normal. HEENT: External appearance of nose and ears normal, oral cavity unable to assess. NECK: JVD unable to assess masses not palpable. HEART: First and second heart sounds are normal; no edema. LUNGS: Respiratory rate increased; accessory muscles awoken, not able to speak in full sentences, diminished breath sounds prolonged expiration. ABDOMEN: Soft, nontender, liver spleen not palpable, no masses palpable. PSYCH: Difficult to assess, tired and lethargicl. MUSCULOSKELETAL:No Clubbing/cyanosis;muscles-grossly intact NEUROLOGICAL: Cranial nerves grossly intact; no facial asymmetry, power and sensation grossly intact. LYMPHATICS: No lymph nodes palpable in the axilla and neck INVESTIGATIONS, reviewed in the clinical context: December 10: White count 20 hemoglobin 13.2 platelets 300 potassium 6.4 BUN 68 creatinine 4.61 Admission labs: White count 22.5 hemoglobin 13.9 platelets 299 sodium 136 potassium 5.7 BUN 60 creatinine 5.04 lactic acid 8.1 troponin I 0.063 proBNP 88554 EKG tracing personally reviewed by me-normal sinus rhythm. Rate 90 Chest x-ray film personally reviewed by me-infiltrate especially right base CT chest abdomen pelvis: Patchy area of his consolidation consistent multifocal pneumonia may need the right lower lobe. Dilated small bowel. No transition point. Previous labs: Creatinine on May 2021: 0.88 Assessment and plan: -Severe multilobar pneumonia predominantly right lower lobe, suspect gram- negative organism IV Zosyn. -Sepsis secondary to pneumonia IV , IV Zosyn -Troponinemia due to hemodynamic mass matched from sepsis. No clinical evidence of acute coronary syndrome -Septic shock IV fluids. IV levo fed -Acute COPD exacerbation in a previous smoker DuoNeb every 4 hours, IV and inhaled steroids, -Acute severe hypoxic respiratory failure from pneumonia/COPD BiPAP -Hyperlipidemia Lipitor 80 mg daily at bedtime -Essential hypertension, currently hypotensive Hold antihypertensives -Chronic hypoxic respiratory failure from COPD Has 2 L of oxygen at home -Acute hypoxic respiratory failure, from pneumonia, POA Oxygen supplementation -Acute medical debility from sepsis pneumonia COPD exacerbation -Acute lactic acidosis from sepsis -Acute kidney injury from ATN from sepsis and prerenal IV fluids. Nephrology consulted -Acute metabolic acidosis from renal failure IV bicarbonate drip. -Full code Patient admitted to ICU. BiPAP. IV levo fed. IV fluids. IV Zosyn. IV bicarbonate drip. DuoNeb. Steroids. Consultation to nephrology, bow repairer custom. Given the complexity and severity of patient's condition expect the patient to be in the hospital at least for 2 overnights Past Medical History Past Medical History: COPD, Diabetes Mellitus, GERD/Reflux, Hyperlipidemia, Hypertension, Pneumonia Additional Past Medical History / Comment(s): DIET CONTROL DM, 2020 AND WAS HOSPITALIZED History of Any Multi-Drug Resistant Organisms: None Reported Past Surgical History: Hernia Repair, Orthopedic Surgery Additional Past Surgical History / Comment(s): RT knee scope. COLONOSCOPY Past Anesthesia/Blood Transfusion Reactions: No Reported Reaction Past Psychological History: Depression Smoking Status: Former smoker, Second hand smoke exposure Past Alcohol Use History: Occasional Past Drug Use History: None Reported - Past Family History Mother Family Medical History: No Reported History Medications and Allergies Home Medications Medication Instructions Recorded Confirmed Type Albuterol Sulfate [Proair Hfa] 2 puff INHALATION RT-QID PRN 08/04/15 12/09/21 History Atorvastatin [Lipitor] 80 mg PO HS 08/03/19 12/09/21 History Aspirin EC [Ecotrin Low Dose] 81 mg PO DAILY 06/20/21 12/09/21 History Atenolol [Tenormin] 25 mg PO DAILY 06/20/21 12/09/21 History lisinopriL [Zestril] 2.5 mg PO DAILY 06/20/21 12/09/21 History Ascorbic Acid [Vitamin C] 1,000 mg PO DAILY 11/28/21 12/09/21 History Cholecalciferol (Vitamin D3) 75 mcg PO DAILY 11/28/21 12/10/21 History [Vitamin D3 (3000 Iu)] Famotidine 20 mg PO BID 11/28/21 12/09/21 History Ipratropium-Albuterol Nebulize 3 ml INHALATION RT-Q4H PRN 11/28/21 12/10/21 History [Duoneb 0.5 mg-3 mg/3 ml Soln] Tiotropium Br/Olodaterol HCl 2 puff INHALATION RT-DAILY 11/28/21 12/10/21 History [Stiolto Respimat Inhal [place]] metFORMIN HCL 500 mg PO BID 11/28/21 12/09/21 History amLODIPine [Norvasc] 10 mg PO DAILY 12/09/21 12/09/21 History Allergies Allergy/AdvReac Type Severity Reaction Status Date / Time No Known Allergies Allergy Verified 12/09/21 17:53 Physical Exam Vitals: Vital Signs Temp Pulse Pulse Resp BP BP Pulse Ox 12/10/21 18:15 85 27 H 95 12/10/21 18:00 85 29 H 94 L 12/10/21 17:45 84 26 H 95 12/10/21 17:30 92 26 H 94 L 12/10/21 17:15 87 24 93 L 12/10/21 17:00 82 29 H 94 L 12/10/21 16:45 81 27 H 94 L 12/10/21 16:30 80 25 H 109/57 95 12/10/21 16:15 82 28 H 96 12/10/21 16:00 97.8 F 82 26 H 96 12/10/21 15:45 79 24 94 L 12/10/21 15:30 93 24 95 12/10/21 15:15 79 26 H 95 12/10/21 15:00 79 31 H 95 12/10/21 14:45 81 27 H 93 L 12/10/21 14:30 81 29 H 94 L 12/10/21 14:15 81 29 H 94 L 12/10/21 14:00 81 30 H 94 L 12/10/21 13:45 85 24 107/58 94 L 12/10/21 13:30 81 30 H 94 L 12/10/21 13:15 80 33 H 93 L 12/10/21 13:00 87 30 H 103/60 93 L 12/10/21 12:00 98.2 F 81 23 107/71 93 L 12/10/21 11:00 84 31 H 100/65 94 L 12/10/21 10:00 85 30 H 107/63 94 L 12/10/21 09:41 83 19 107/63 94 L 12/10/21 08:29 80 12/10/21 08:22 83 12/10/21 08:00 94 L 12/10/21 04:00 98.7 F 80 33 H 98/56 96 12/10/21 00:10 98.4 F 83 31 H 92/45 94 L 12/09/21 22:37 83 36 H 99/57 94 L 12/09/21 21:35 85 35 H 79/61 94 L 12/09/21 21:20 85 32 H 87/61 94 L 12/09/21 20:50 81 35 H 74/56 93 L 12/09/21 20:36 98.4 F 84 33 H 95/70 12/09/21 20:30 87 40 H 84/66 94 L 12/09/21 20:00 84 35 H 87/61 95 12/09/21 19:32 90 35 H 81/56 97 12/09/21 19:15 96.4 F L 93 28 H 97/57 97 Intake and Output 12/10/21 12/10/21 12/10/21 06:59 14:59 22:59 Intake Total 1046.171 745 309 Output Total 420 130 60 Balance 626.171 615 249 Intake: IV 1040 745 309 Sodium Chloride 0.45% 1, 225 300 000 ml @ 75 mls/hr IV . [id number] [facility] with Sodium Bicarb (1 Meq/ml) 100 ml Rx#:[id number] Sodium Chloride 0.9% 1, 1040 520 000 ml @ 130 mls/hr IV . Q7H42M [facility] Rx#:[id number] pressure bag 9 Intake, IV Titration 6.171 Amount Norepinephrine 4 mg In 6.171 Sodium Chloride 0.9% 250 ml @ 0.05 MCG/KG/MIN 16. 783 mls/hr IV .Q15H9M [facility] Rx#:[id number] Output: Gastric Drainage 300 Urine 120 130 60 Other: Voiding Method Indwelling Catheter Indwelling Catheter Indwelling Catheter Weight 95 kg ABP, PAP, CO, CI - Last 8 Hours Arterial Blood Pressure 104/52 Arterial Blood Pressure 98/50 Arterial Blood Pressure 108/50 Arterial Blood Pressure 104/51 Arterial Blood Pressure 107/54 Arterial Blood Pressure 103/52 Arterial Blood Pressure 101/51 Arterial Blood Pressure 94/49 Arterial Blood Pressure 101/51 Arterial Blood Pressure 105/52 Arterial Blood Pressure 100/49 Arterial Blood Pressure 101/50 Arterial Blood Pressure 102/50 Arterial Blood Pressure 91/48 Arterial Blood Pressure 91/48 Arterial Blood Pressure 104/51 Arterial Blood Pressure 101/50 Arterial Blood Pressure 104/50 Arterial Blood Pressure 106/52 Arterial Blood Pressure 96/53 Arterial Blood Pressure 97/52 Results CBC & Chem 7: 12/10/21 02:56 12/10/21 15:12 Labs: Abnormal Lab Results - Last 24 Hours (Table) 12/09/21 12/09/21 12/09/21 Range/Units 17:57 19:20 20:50 WBC (3.8-10.6) k/uL MCHC (31.0-37.0) g/dL Neutrophils # (Manual) 17.70 H (1.3-7.7) k/uL Monocytes # (Manual) 2.25 H (0-1.0) k/uL Metamyelocytes # (Man) 0.68 H (0) k/uL ABG pH (7.35-7.45) ABG pCO2 (35-45) mmHg ABG HCO3 (21-25) mmol/L ABG O2 Saturation (94-97) % Potassium (3.5-5.1) mmol/L Chloride (98-107) mmol/L Carbon Dioxide (22-30) mmol/L BUN (9-20) mg/dL Creatinine (0.66-1.25) mg/dL Glucose (74-99) mg/dL POC Glucose (mg/dL) (75-99) mg/dL Plasma Lactic Acid [place] 5.7 H* (0.7-2.0) mmol/L Calcium (8.4-10.2) mg/dL Urine Protein 2+ H (Negative) Urine Glucose (UA) Trace H (Negative) Urine Ketones 1+ H (Negative) Urine Blood Small H (Negative) Ur Leukocyte Esterase Trace H (Negative) Urine WBC 11 H (0-5) /hpf Urine WBC Clumps Few H (None) /hpf Amorphous Sediment Rare H (None) /hpf Urine Bacteria Rare H (None) /hpf Urine Mucus Rare H (None) /hpf 12/09/21 12/09/21 12/09/21 Range/Units 21:15 22:10 23:31 WBC (3.8-10.6) k/uL MCHC (31.0-37.0) g/dL Neutrophils # (Manual) (1.3-7.7) k/uL Monocytes # (Manual) (0-1.0) k/uL Metamyelocytes # (Man) (0) k/uL ABG pH 7.14 L* (7.35-7.45) ABG pCO2 56 H (35-45) mmHg ABG HCO3 19 L (21-25) mmol/L ABG O2 Saturation (94-97) % Potassium (3.5-5.1) mmol/L Chloride 108 H (98-107) mmol/L Carbon Dioxide 18 L (22-30) mmol/L BUN 56 H (9-20) mg/dL Creatinine 4.19 H (0.66-1.25) mg/dL Glucose 124 H (74-99) mg/dL POC Glucose (mg/dL) 138 H (75-99) mg/dL Plasma Lactic Acid [place] (0.7-2.0) mmol/L Calcium 5.8 L* (8.4-10.2) mg/dL Urine Protein (Negative) Urine Glucose (UA) (Negative) Urine Ketones (Negative) Urine Blood (Negative) Ur Leukocyte Esterase (Negative) Urine WBC (0-5) /hpf Urine WBC Clumps (None) /hpf Amorphous Sediment (None) /hpf Urine Bacteria (None) /hpf Urine Mucus (None) /hpf 12/09/21 12/10/21 12/10/21 Range/Units 23:50 02:56 02:56 WBC 20.0 H (3.8-10.6) k/uL MCHC 29.8 L (31.0-37.0) g/dL Neutrophils # (Manual) 18.40 H (1.3-7.7) k/uL Monocytes # (Manual) (0-1.0) k/uL Metamyelocytes # (Man) (0) k/uL ABG pH (7.35-7.45) ABG pCO2 (35-45) mmHg ABG HCO3 (21-25) mmol/L ABG O2 Saturation (94-97) % Potassium 6.4 H* (3.5-5.1) mmol/L Chloride (98-107) mmol/L Carbon Dioxide 16 L (22-30) mmol/L BUN 68 H (9-20) mg/dL Creatinine 4.61 H (0.66-1.25) mg/dL Glucose 167 H (74-99) mg/dL POC Glucose (mg/dL) (75-99) mg/dL Plasma Lactic Acid [place] 4.5 H* (0.7-2.0) mmol/L Calcium 6.5 L (8.4-10.2) mg/dL Urine Protein (Negative) Urine Glucose (UA) (Negative) Urine Ketones (Negative) Urine Blood (Negative) Ur Leukocyte Esterase (Negative) Urine WBC (0-5) /hpf Urine WBC Clumps (None) /hpf Amorphous Sediment (None) /hpf Urine Bacteria (None) /hpf Urine Mucus (None) /hpf 12/10/21 12/10/21 12/10/21 Range/Units 02:56 05:51 06:17 WBC (3.8-10.6) k/uL MCHC (31.0-37.0) g/dL Neutrophils # (Manual) (1.3-7.7) k/uL Monocytes # (Manual) (0-1.0) k/uL Metamyelocytes # (Man) (0) k/uL ABG pH (7.35-7.45) ABG pCO2 (35-45) mmHg ABG HCO3 (21-25) mmol/L ABG O2 Saturation (94-97) % Potassium (3.5-5.1) mmol/L Chloride (98-107) mmol/L Carbon Dioxide (22-30) mmol/L BUN (9-20) mg/dL Creatinine (0.66-1.25) mg/dL Glucose (74-99) mg/dL POC Glucose (mg/dL) 246 H (75-99) mg/dL Plasma Lactic Acid [place] 3.0 H* 2.6 H* (0.7-2.0) mmol/L Calcium (8.4-10.2) mg/dL Urine Protein (Negative) Urine Glucose (UA) (Negative) Urine Ketones (Negative) Urine Blood (Negative) Ur Leukocyte Esterase (Negative) Urine WBC (0-5) /hpf Urine WBC Clumps (None) /hpf Amorphous Sediment (None) /hpf Urine Bacteria (None) /hpf Urine Mucus (None) /hpf 12/10/21 12/10/21 12/10/21 Range/Units 10:36 11:10 17:45 WBC (3.8-10.6) k/uL MCHC (31.0-37.0) g/dL Neutrophils # (Manual) (1.3-7.7) k/uL Monocytes # (Manual) (0-1.0) k/uL Metamyelocytes # (Man) (0) k/uL ABG pH 7.23 L (7.35-7.45) ABG pCO2 (35-45) mmHg ABG HCO3 18 L (21-25) mmol/L ABG O2 Saturation 98.8 H (94-97) % Potassium 5.3 H (3.5-5.1) mmol/L Chloride (98-107) mmol/L Carbon Dioxide (22-30) mmol/L BUN (9-20) mg/dL Creatinine (0.66-1.25) mg/dL Glucose (74-99) mg/dL POC Glucose (mg/dL) 211 H (75-99) mg/dL Plasma Lactic Acid [place] (0.7-2.0) mmol/L Calcium (8.4-10.2) mg/dL Urine Protein (Negative) Urine Glucose (UA) (Negative) Urine Ketones (Negative) Urine Blood (Negative) Ur Leukocyte Esterase (Negative) Urine WBC (0-5) /hpf Urine WBC Clumps (None) /hpf Amorphous Sediment (None) /hpf Urine Bacteria (None) /hpf Urine Mucus (None) /hpf 12/10/21 Range/Units 18:13 WBC (3.8-10.6) k/uL MCHC (31.0-37.0) g/dL Neutrophils # (Manual) (1.3-7.7) k/uL Monocytes # (Manual) (0-1.0) k/uL Metamyelocytes # (Man) (0) k/uL ABG pH (7.35-7.45) ABG pCO2 (35-45) mmHg ABG HCO3 (21-25) mmol/L ABG O2 Saturation (94-97) % Potassium (3.5-5.1) mmol/L Chloride (98-107) mmol/L Carbon Dioxide (22-30) mmol/L BUN (9-20) mg/dL Creatinine (0.66-1.25) mg/dL Glucose (74-99) mg/dL POC Glucose (mg/dL) 168 H (75-99) mg/dL Plasma Lactic Acid [place] (0.7-2.0) mmol/L Calcium (8.4-10.2) mg/dL Urine Protein (Negative) Urine Glucose (UA) (Negative) Urine Ketones (Negative) Urine Blood (Negative) Ur Leukocyte Esterase (Negative) Urine WBC (0-5) /hpf Urine WBC Clumps (None) /hpf Amorphous Sediment (None) /hpf Urine Bacteria (None) /hpf Urine Mucus (None) /hpf Thrombosis Risk Factor Assmnt - Choose All That Apply Each Factor Represents 1 point: Sepsis (< 1month) Each Risk Factor Represents 2 Points: Age 61-74 years, Central venous access Thrombosis Risk Factor Assessment Total Risk Factor Score: 5 Thrombosis Risk Factor Assessment Level: High Risk
[2021-12-10] MEDS: IPRATROPIUM-ALBUTEROL 3 ML NEB INHALATION SCH (20:07)
[2021-12-10] MEDS: BUDESONIDE 1 MG/2 ML NEBU INHALATION SCH (20:07)
[2021-12-10] MEDS: NOREPINEPHRINE 32 MG in SODIUM CHLORIDE 0.9% 218 ML IV SCH ×2 (20:35→21:15)
[2021-12-10 23:29] LABS: Glucose,Whole Blood 188 mg/dL (75-99)
[2021-12-11] MEDS: IPRATROPIUM-ALBUTEROL 3 ML NEB INHALATION SCH ×7 (00:19→23:00)
[2021-12-11] MEDS: SODIUM CHLORIDE 0.45% 1,000 ML with SODIUM BICARB (1 MEQ/ML) 100 ML IV SCH ×6 (04:24→17:19)
[2021-12-11 05:13] LABS: Glucose,Whole Blood 197 mg/dL (75-99)
[2021-12-11] MEDS: methylPREDNISolone SOD SUCCI 125 MG/2 ML VIAL IV SCH ×3 (05:17→17:20)
[2021-12-11] MEDS: INSULIN ASPART (NovoLOG) 100 UNIT/ML VIAL SQ SCH ×3 (05:18→17:21)
[2021-12-11 05:40] LABS: HCT 37.1 % (39.0-53.0); HGB 11.5 gm/dL (13.0-17.5); Hypochromasia Slight; MCH 27.9 pg (25.0-35.0); MCHC 31.1 g/dL (31.0-37.0); MCV 89.7 fL (80.0-100.0); Mean Platelet Volume 8.7; Platelet Count 271 k/uL (150-450); RBC 4.13 m/uL (4.30-5.90); RDW 14.9 % (11.5-15.5); WBC 19.7 k/uL (3.8-10.6)
[2021-12-11 05:45] LABS: Albumin 2.6 g/dL (3.5-5.0); Calcium 6.5 mg/dL (8.4-10.2); Total Bilirubin 0.5 mg/dL (0.2-1.3); Total Protein 5.2 g/dL (6.3-8.2)
[2021-12-11] MEDS: NOREPINEPHRINE 32 MG in SODIUM CHLORIDE 0.9% 218 ML IV SCH ×2 (06:37→20:04)
[2021-12-11] MEDS: BUDESONIDE 1 MG/2 ML NEBU INHALATION SCH ×2 (08:00→19:24)
--- NOTE | 2021-12-11 08:23 | XR ---
EXAMINATION TYPE: XR chest 1V DATE OF EXAM: 12/11/2021 COMPARISON: 12/10/2021 INDICATION: Short of breath TECHNIQUE: Single frontal view of the chest is obtained. FINDINGS: The heart size is normal. The pulmonary vasculature is normal. There is mild increased lung markings in the perihilar and right lower lobe. Some mild infiltrate may be at the left costophrenic angle. Findings are slightly worsened over the interval. Correlate for a telectasis or pneumonia. IMPRESSION: 1. Bibasilar infiltrates and mild right perihilar infiltrate. Correlate for atelectasis and pneumonia . Continued follow-up is recommended.
[2021-12-11] MEDS: PANTOPRAZOLE 40 MG/10 ML VIAL IVP SCH (08:25)
[2021-12-11] MEDS: ENOXAPARIN 30 MG/0.3 ML SYRINGE SQ SCH (08:25)
[2021-12-11] MEDS: PIPERACILLIN-TAZOBACTAM 3.375 GM in SODIUM CHLORIDE 0.9% 100 ML IVPB SCH ×2 (08:25→20:37)
--- NOTE | 2021-12-11 09:12 | P.PN ---
Subjective Progress Note Date: 12/11/21 The patient is seen on rounds. Remains on BiPAP. Has had no specific complaints for his nurse. Denies any abdominal pain to me. Objective - Vital Signs Vital signs: Vital Signs Temp 98.2 F 12/11/21 08:00 Pulse 73 12/11/21 09:00 Resp 15 12/11/21 09:00 BP 111/65 12/11/21 08:15 Pulse Ox 96 12/11/21 09:00 Intake & Output 12/10/21 12/11/21 12/11/21 18:59 06:59 18:59 Intake Total 1054 1567.458 178 Output Total 190 410 30 Balance 864 1157.458 148 Weight 99.4 kg Intake: IV 1054 1114 178 Piperacillin-Tazobactam 3 100 100 .375 gm In Sodium Chloride 0.9% 100 ml @ 25 mls/hr IVPB Q12HR [facility] Rx #:[id number] Sodium Chloride 0.45% 1, 525 975 75 000 ml @ 75 mls/hr IV . [id number] [facility] with Sodium Bicarb (1 Meq/ml) 100 ml Rx#:[id number] Sodium Chloride 0.9% 1, 520 000 ml @ 130 mls/hr IV . Q7H42M [facility] Rx#:[id number] pressure bag 9 39 3 Intake, IV Titration 453.458 Amount Dexmedetomidine/0.9% NaCl 19.496 (Pmx) 400 mcg In Empty Bag 1 bag @ 0.2 MCG/KG/HR 4.75 mls/hr IV .Q21H4M [facility] Rx#:[id number] Norepinephrine 32 mg In 433.962 Sodium Chloride 0.9% 218 ml @ 0.05 MCG/KG/MIN 2. 065 mls/hr IV .Q24H [facility] Rx#:[id number] Output: Urine 190 410 30 Other: Voiding Method Indwelling Catheter Indwelling Catheter Indwelling Catheter ABP, PAP, CO, CI - Last Documented Arterial Blood Pressure 77/55 - Constitutional General appearance: Present: cooperative - Gastrointestinal General gastrointestinal: Present: absent bowel sounds, distended. Absent: tenderness (No guarding or rebound) - Labs CBC & Chem 7: 12/11/21 05:10 12/11/21 05:10 Labs: Abnormal Lab Results - Last 24 Hours (Table) 12/10/21 12/10/21 12/10/21 Range/Units 10:36 11:10 17:45 WBC (3.8-10.6) k/uL RBC (4.30-5.90) m/uL Hgb (13.0-17.5) gm/dL Hct (39.0-53.0) % ABG pH 7.23 L (7.35-7.45) ABG HCO3 18 L (21-25) mmol/L ABG O2 Saturation 98.8 H (94-97) % Potassium 5.3 H (3.5-5.1) mmol/L Carbon Dioxide (22-30) mmol/L BUN (9-20) mg/dL Creatinine (0.66-1.25) mg/dL Glucose (74-99) mg/dL POC Glucose (mg/dL) 211 H (75-99) mg/dL Calcium (8.4-10.2) mg/dL AST (17-59) U/L Total Protein (6.3-8.2) g/dL Albumin (3.5-5.0) g/dL 12/10/21 12/10/21 12/11/21 Range/Units 18:13 23:27 05:10 WBC 19.7 H (3.8-10.6) k/uL RBC 4.13 L (4.30-5.90) m/uL Hgb 11.5 L (13.0-17.5) gm/dL Hct 37.1 L (39.0-53.0) % ABG pH (7.35-7.45) ABG HCO3 (21-25) mmol/L ABG O2 Saturation (94-97) % Potassium (3.5-5.1) mmol/L Carbon Dioxide (22-30) mmol/L BUN (9-20) mg/dL Creatinine (0.66-1.25) mg/dL Glucose (74-99) mg/dL POC Glucose (mg/dL) 168 H 188 H (75-99) mg/dL Calcium (8.4-10.2) mg/dL AST (17-59) U/L Total Protein (6.3-8.2) g/dL Albumin (3.5-5.0) g/dL 12/11/21 12/11/21 Range/Units 05:10 05:11 WBC (3.8-10.6) k/uL RBC (4.30-5.90) m/uL Hgb (13.0-17.5) gm/dL Hct (39.0-53.0) % ABG pH (7.35-7.45) ABG HCO3 (21-25) mmol/L ABG O2 Saturation (94-97) % Potassium (3.5-5.1) mmol/L Carbon Dioxide 17 L (22-30) mmol/L BUN 95 H (9-20) mg/dL Creatinine 6.32 H (0.66-1.25) mg/dL Glucose 206 H (74-99) mg/dL POC Glucose (mg/dL) 197 H (75-99) mg/dL Calcium 6.5 L (8.4-10.2) mg/dL AST 63 H (17-59) U/L Total Protein 5.2 L (6.3-8.2) g/dL Albumin 2.6 L (3.5-5.0) g/dL Microbiology - Last 24 Hours (Table) 12/09/21 19:32 Blood Culture - Preliminary Blood No Growth after 24 hours Assessment and Plan (1) Pneumonia Current Visit: Yes Status: Acute Code(s): J18.9 - PNEUMONIA, UNSPECIFIED ORGANISM SNOMED Code(s): 734581056 (2) Ileus Current Visit: Yes Status: Acute Code(s): K56.7 - ILEUS, UNSPECIFIED SNOMED Code(s): 007625990 (3) RAYMON (acute kidney injury) Current Visit: Yes Status: Acute Code(s): N17.9 - ACUTE KIDNEY FAILURE, UNSPECIFIED SNOMED Code(s): 57087284 (4) Hypoxia Current Visit: Yes Status: Acute Code(s): R09.02 - HYPOXEMIA SNOMED Code(s): 854581104 (5) Lactic acidosis Current Visit: Yes Status: Acute Code(s): E87.2 - ACIDOSIS SNOMED Code(s): 61117808 (6) Severe sepsis Current Visit: Yes Status: Acute Code(s): A41.9 - SEPSIS, UNSPECIFIED ORGANISM; R65.20 - SEVERE SEPSIS WITHOUT SEPTIC SHOCK SNOMED Code(s): 05088289 (7) COPD exacerbation Current Visit: No Status: Acute Code(s): J44.1 - CHRONIC OBSTRUCTIVE PULMONARY DISEASE W (ACUTE) EXACERBATION SNOMED Code(s): 608206094 Plan: Patient has had scant output from the NG tube but remains distended with rare bowel sounds. I would continue NG tube decompression. Medical care. Currently nonsurgical.
--- NOTE | 2021-12-11 10:11 | P.PN ---
Subjective Progress Note Date: 12/11/21 Principal diagnosis: Respiratory failure. Pulmonary consult dated 12/10/2021. 61-year-old male, seen in the emergency department, on December 09. He apparently presented with mental status changes, and shortness of breath. The patient was last seen doing relatively well by his family, on last Friday. Apparently since the day after, , which was December 06, he been decompensating. He had worsening shortness of breath. Finally EMS was called. The patient was on 2 L, and his saturation was found to be 62%. There is no blood pressure that could be obtained on this patient. He was minimally conscious, and brought to the hospital. He received some epinephrine in route. Recently, he been seen by Dr. Ochoa and had a bronchoscopy. The patient is a heavy smoker and drinker. Currently, he is on saline at 130 mL an hour, and norepinephrine at about 28 mcg/m. He is receiving Zosyn. He is on BiPAP at 14/6 and 50%. I asked him about intubation and mechanical ventilation, he again said that he would not want those modalities. He has a history of COPD, diabetes, GERD, hyperlipidemia, hypertension, and pneumonia. Laboratory data includes a white count of 20, hemoglobin 13.2, and a normal platelet count. Sodium 137, potassium 6.4, chlorides 105, CO2 16, anion gap 16, BUN 68, and creatinine 4.61. His most recent lactic acid is 2.6. Calcium is 6.5. Chest x-ray shows some bibasilar infiltrates. CAT scan shows primarily patchy pneumonia in the right lower lobe. Progress note dated 12/11/2021. This is a 61-year-old male that I saw yesterday in consultation. Initially was seen in the emergency department on December 09. He apparently came in with francisco j rtness of breath and mental status changes. The patient is currently on BiPAP, with settings of 14/6, and 50% FiO2. The patient is on dexmedetomidine at 0.1 mcg/kg/h, norepinephrine at 0.45 mcg/kg/m, and a sodium bicarbonate drip, with 2 ampules of sodium bicarbonate and D5W at 75 mL an hour. The patient was bit agitated yesterday was pulling off his BiPAP mask, which is why the patient was placed on dexmedetomidine. He seems a bit more comfortable today. Blood gases were done yesterday were adequate. White count 19.7, hemoglobin 11.5, hematocrit 37.1, platelet count 271,000. Sodium 140, potassium 5, chlorides 107, CO2 17, BUN 95, with creatinine of 6.32. Blood cultures are currently pending or negative. Chest x-ray show some diffuse bilateral patchy infiltrates. Objective - Vital Signs Vital signs: Vital Signs Temp 98.2 F 12/11/21 08:00 Pulse 73 12/11/21 09:00 Resp 15 12/11/21 09:00 BP 111/65 12/11/21 08:15 Pulse Ox 96 12/11/21 09:00 Intake & Output 12/10/21 12/11/21 12/11/21 18:59 06:59 18:59 Intake Total 1054 1567.458 178 Output Total 190 410 30 Balance 864 1157.458 148 Weight 99.4 kg Intake: IV 1054 1114 178 Piperacillin-Tazobactam 3 100 100 .375 gm In Sodium Chloride 0.9% 100 ml @ 25 mls/hr IVPB Q12HR [facility] Rx #:[id number] Sodium Chloride 0.45% 1, 525 975 75 000 ml @ 75 mls/hr IV . [id number] [facility] with Sodium Bicarb (1 Meq/ml) 100 ml Rx#:[id number] Sodium Chloride 0.9% 1, 520 000 ml @ 130 mls/hr IV . Q7H42M [facility] Rx#:[id number] pressure bag 9 39 3 Intake, IV Titration 453.458 Amount Dexmedetomidine/0.9% NaCl 19.496 (Pmx) 400 mcg In Empty Bag 1 bag @ 0.2 MCG/KG/HR 4.75 mls/hr IV .Q21H4M [facility] Rx#:[id number] Norepinephrine 32 mg In 433.962 Sodium Chloride 0.9% 218 ml @ 0.05 MCG/KG/MIN 2. 065 mls/hr IV .Q24H [facility] Rx#:[id number] Output: Urine 190 410 30 Other: Voiding Method Indwelling Catheter Indwelling Catheter Indwelling Catheter ABP, PAP, CO, CI - Last Documented Arterial Blood Pressure 77/55 - Exam No acute distress, oriented 3. Currently on BiPAP. Saturations are 96%. HEENT examination is grossly unremarkable. Neck supple. Full range of motion. No adenopathy thyromegaly or neck vein distention. Cardiovascular examination reveals regular rhythm rate. S1-S2 normal. No S3 or S4. No discernible murmur noted. Heart sounds are distant. Heart rate 73 bpm. Lungs reveal coarse diffuse rhonchi. Breath sounds equal. No wheezes. No crackles. Abdomen nontender. Slightly distended and tympanitic on percussion. Extremities are intact. No cyanosis clubbing or edema. Skin is without rash or lesion. Neurologic examination is brief but nonfocal. - Labs CBC & Chem 7: 12/11/21 05:10 12/11/21 05:10 Labs: Abnormal Lab Results - Last 24 Hours (Table) 12/10/21 12/10/21 12/10/21 Range/Units 10:36 11:10 17:45 WBC (3.8-10.6) k/uL RBC (4.30-5.90) m/uL Hgb (13.0-17.5) gm/dL Hct (39.0-53.0) % ABG pH 7.23 L (7.35-7.45) ABG HCO3 18 L (21-25) mmol/L ABG O2 Saturation 98.8 H (94-97) % Potassium 5.3 H (3.5-5.1) mmol/L Carbon Dioxide (22-30) mmol/L BUN (9-20) mg/dL Creatinine (0.66-1.25) mg/dL Glucose (74-99) mg/dL POC Glucose (mg/dL) 211 H (75-99) mg/dL Calcium (8.4-10.2) mg/dL AST (17-59) U/L Total Protein (6.3-8.2) g/dL Albumin (3.5-5.0) g/dL 12/10/21 12/10/21 12/11/21 Range/Units 18:13 23:27 05:10 WBC 19.7 H (3.8-10.6) k/uL RBC 4.13 L (4.30-5.90) m/uL Hgb 11.5 L (13.0-17.5) gm/dL Hct 37.1 L (39.0-53.0) % ABG pH (7.35-7.45) ABG HCO3 (21-25) mmol/L ABG O2 Saturation (94-97) % Potassium (3.5-5.1) mmol/L Carbon Dioxide (22-30) mmol/L BUN (9-20) mg/dL Creatinine (0.66-1.25) mg/dL Glucose (74-99) mg/dL POC Glucose (mg/dL) 168 H 188 H (75-99) mg/dL Calcium (8.4-10.2) mg/dL AST (17-59) U/L Total Protein (6.3-8.2) g/dL Albumin (3.5-5.0) g/dL 12/11/21 12/11/21 Range/Units 05:10 05:11 WBC (3.8-10.6) k/uL RBC (4.30-5.90) m/uL Hgb (13.0-17.5) gm/dL Hct (39.0-53.0) % ABG pH (7.35-7.45) ABG HCO3 (21-25) mmol/L ABG O2 Saturation (94-97) % Potassium (3.5-5.1) mmol/L Carbon Dioxide 17 L (22-30) mmol/L BUN 95 H (9-20) mg/dL Creatinine 6.32 H (0.66-1.25) mg/dL Glucose 206 H (74-99) mg/dL POC Glucose (mg/dL) 197 H (75-99) mg/dL Calcium 6.5 L (8.4-10.2) mg/dL AST 63 H (17-59) U/L Total Protein 5.2 L (6.3-8.2) g/dL Albumin 2.6 L (3.5-5.0) g/dL Microbiology - Last 24 Hours (Table) 12/09/21 19:32 Blood Culture - Preliminary Blood No Growth after 24 hours Assessment and Plan Assessment: Acute hypoxemic respiratory failure secondary to COPD exacerbation complicated by primarily right lower lobe pneumonia/questionable aspiration. Acute sepsis with septic shock. Acute kidney injury/ATN. Possible non-ST segment elevation myocardial infarction. Possible bowel obstruction. History of COPD with chronic hypoxemic respiratory failure. History of hyperlipidemia. History of hypertension. History of diabetes mellitus. History of depression. History of alcohol abuse. Plan: Plan dated 12/10/2021. Currently, the patient is getting BiPAP. In addition, he is getting Solu- Medrol, and antibiotics in the form of Zosyn. The patient has been seen by nephrology. The patient's on norepinephrine is at nearly 30 mcg/m, because of low blood pressure. The patient is getting GI and DVT prophylaxis. Additional recommendations and suggestions are forthcoming. His overall prognosis is poor. I did ask again about his CODE STATUS. He prefers not to be intubated or mechanically ventilated. Additional recommendations are forthcoming. Plan dated 12/11/2021. The patient currently remains on BiPAP. We added dexmedetomidine for his agitation. He remains on good antibiotics. The patient is still on norepineph rine at 0.45 mcg/kg/m. The patient's sodium bicarbonate drip. He has been seen by nephrology. He may require hemodialysis. He is getting GI and DVT prophylaxis. Culture data is as far negative. Additional recommendations and suggestions are forthcoming. Prognosis is guarded. We will continue to follow and make recommendations where appropriate. Time with Patient: Greater than 30
[2021-12-11 11:20] LABS: Glucose,Whole Blood 197 mg/dL (75-99)
--- NOTE | 2021-12-11 12:05 | P.PN ---
Progress Note - Text Progress Note Date: 12/11/21 Chief Complaint: Short of breath This is a 61-year-old patient who follows with Dr. Romero. Chronic stable medical conditions include diabetes, hypertension, hyperlipidemia. previous smoker/-COPD. Patient presented to the ER with increasing shortness of breath. Family informed ER physician that that is not seen in bed on Friday. Since patient has been getting worse. Not getting out of bed and breathing progressively getting worse. Patient on 2 L was saturating 62%. EMS was not able to get a blood pressure. Patient was minimally conscious. It had to be bagged and brought to the hospital. Patient did receive 1 dose of appendectomy. Patient has not been eating or drinking. No fever. Patient on November 28 underwent bronchoscopy and lavage by Dr. Consuelo Ochoa from pulmonary. On the right side patient's found to have extensive purulent secretions filling of the airways. BAL was performed. No mass was noted. Cultures were positive for Gaby albicans. Patient is put on BiPAP. This morning BiPAP set at 14/6. 50%. Patient on levo fed drip. Tired. Admitted with bilateral multilobar pneumonia, IV Zosyn, IV sepsis IV fluids, septic shock and IV levo fed,'s acute COPD exacerbation on DuoNeb steroids, acute hypoxic respiratory failure on BiPAP, acute kidney injury from ATN, acute metabolic acidosis from which she received IV bicarbonate drip. Also acute ileus from sepsis pneumonia for which NG tube to suction started. December 11: ICU: NG tube to suction. BiPAP setting at 14/6 at 50%. Tired. Answering questions. Laying in bed. DuoNeb, IV levo fed, IV Zosyn, sodium bicarbonate drip IV steroids Active Medications Acetaminophen (Acetaminophen Tab 325 Mg Tab) 650 mg PO Q4HR PRN PRN Reason: Fever and/or Mild Pain Albuterol/Ipratropium (Ipratropium-Albuterol 3 Ml Neb) 3 ml INHALATION RT-Q4H PRN PRN Reason: Shortness Of Breath Or Wheezing Last Admin: 12/10/21 08:22 Dose: 3 ml Documented by: Albuterol/Ipratropium (Ipratropium-Albuterol 3 Ml Neb) 3 ml INHALATION RT-Q4H [facility] Last Admin: 12/11/21 11:25 Dose: 3 ml Documented by: Budesonide (Budesonide 1 Mg/2 Ml Nebu) 1 mg INHALATION RT-BID [facility] Last Admin: 12/11/21 08:00 Dose: 1 mg Documented by: Enoxaparin Sodium (Enoxaparin 30 Mg/0.3 Ml Syringe) 30 mg SQ DAILY [facility] Last Admin: 12/11/21 08:25 Dose: 30 mg Documented by: Formoterol Fumarate (Formoterol Fumarate 20 Mcg/2 Ml Nebu) 20 mcg INHALATION RT-BID [facility] Norepinephrine Bitartrate 32 (mg/ Sodium Chloride) 250 mls @ 2.065 mls/hr IV .Q24H [facility]; Protocol Last Titration: 12/11/21 11:03 Dose: 0.43 mcg/kg/min, 17.758 mls/hr Documented by: Piperacillin Sod/Tazobactam (Sod 3.375 gm/ Sodium Chloride) 100 mls @ 25 mls/hr IVPB Q12HR [facility]; Protocol Last Admin: 12/11/21 08:25 Dose: 25 mls/hr Documented by: Sodium Bicarbonate 100 ml/ (Sodium Chloride) 1,100 mls @ 75 mls/hr IV .[id number] [facility] Last Admin: 12/11/21 04:25 Dose: Not Given Documented by: Dexmedetomidine HCl 400 mcg/ (IV Solution) 100 mls @ 4.75 mls/hr IV .Q21H4M [facility]; Protocol Last Titration: 12/11/21 11:58 Dose: 0 mcg/kg/hr, 0 mls/hr Documented by: Insulin Aspart (Insulin Aspart (Novolog) 100 Unit/Ml Vial) 0 unit SQ Q6H [facility]; Protocol Last Admin: 12/11/21 11:55 Dose: 5 unit Documented by: Methylprednisolone Sodium Succinate (Methylprednisolone Sod Succi 125 Mg/2 Ml Vial) 60 mg IV Q6HR [facility] Last Admin: 12/11/21 11:54 Dose: 60 mg Documented by: Naloxone HCl (Naloxone 0.4 Mg/Ml 1 Ml Vial) 0.2 mg IV Q2M PRN PRN Reason: Opioid Reversal Pantoprazole Sodium (Pantoprazole 40 Mg/10 Ml Vial) 40 mg IVP DAILY [facility] Last Admin: 12/11/21 08:25 Dose: 40 mg Documented by: Past medical history to include: COPD, diabetes, hypertension, 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 Smoked a pack a day for close to 50 years stopped about 2 years ago. Drinks alcohol very heavily on the weekends to the point of passing out Family history: Reviewed, noncontributory to presentation Physical examination: VITAL SIGNS: Afebrile, 85, 21, 85/63, 96% on BiPAP GENERAL: laying in bed, short of breath on BiPAP. EYES: Pupils equal. Conjunctiva normal. HEENT: External appearance of nose and ears normal, oral cavity unable to assess. NECK: JVD unable to assess masses not palpable. HEART: First and second heart sounds are normal; no edema. LUNGS: Respiratory rate increased; diminished breath sounds prolonged expiration. ABDOMEN: Soft, nontender, liver spleen not palpable, no masses palpable. PSYCH: Difficult to assess, tired MUSCULOSKELETAL:No Clubbing/cyanosis;muscles-grossly intact NEUROLOGICAL: Cranial nerves grossly intact; no facial asymmetry, power and sensation grossly intact. Moving limbs INVESTIGATIONS, reviewed in the clinical context: December 11: White count 19.7 hemoglobin 11.5 platelets 271 potassium 5 BUN 95 creatinine 6.3 to December 10: White count 20 hemoglobin 13.2 platelets 300 potassium 6.4 BUN 68 creatinine 4.61 Admission labs: White count 22.5 hemoglobin 13.9 platelets 299 sodium 136 potassium 5.7 BUN 60 creatinine 5.04 lactic acid 8.1 troponin I 0.063 proBNP 10544 EKG tracing personally reviewed by me-normal sinus rhythm. Rate 90 Chest x-ray film personally reviewed by me-infiltrate especially right base CT chest abdomen pelvis: Patchy area of his consolidation consistent multifocal pneumonia may need the right lower lobe. Dilated small bowel. No transition point. Previous labs: Creatinine on May 2021: 0.88 Assessment and plan: -Severe multilobar pneumonia predominantly right lower lobe, suspect gram- negative organism: Slow to respond IV Zosyn. -Sepsis secondary to pneumonia IV fluids , IV Zosyn -Troponinemia due to hemodynamic mass matched from sepsis. No clinical evidence of acute coronary syndrome -Septic shock: Slow to respond IV fluids. IV levo fed -Acute COPD exacerbation in a previous smoker: Slow to respond DuoNeb every 4 hours, IV and inhaled steroids, -Acute severe hypoxic respiratory failure from pneumonia/COPD: Slow to respond BiPAP -Hyperlipidemia Lipitor 80 mg daily at bedtime -Essential hypertension, currently hypotensive Hold antihypertensives -Chronic hypoxic respiratory failure from COPD Has 2 L of oxygen at home -Acute hypoxic respiratory failure, from pneumonia, POA: Slow to respond BiPAP -Acute medical debility from sepsis pneumonia COPD exacerbation -Acute lactic acidosis from sepsis -Acute kidney injury from ATN from sepsis and prerenal: Worsening IV fluids. Follow with nephrology -Acute metabolic acidosis from renal failure: Slow to respond IV bicarbonate drip. -Full code ICU. BiPAP. IV levo fed. IV fluids. IV Zosyn. IV bicarbonate drip. DuoNeb. Steroids. Follow-up with nephrology tong setter.
--- NOTE | 2021-12-11 12:09 | P.PN ---
Subjective Patient is seen for follow-up for acute kidney injury. He remains on BiPAP. Patient is maintained on high-dose levo fed close to 38 mics. Urine output has improved to about 40-50 mL an hour now. Serum creatinine increased significantly to 6.3 mg/dL. Patient is maintained on IV bicarb. Potassium is 5.0 today This morning patient is awake he is able to communicate with the BiPAP. He appears slightly improved from yesterday. Objective - Vital Signs Vital signs: Vital Signs Temp 98.2 F 12/11/21 08:00 Pulse 86 12/11/21 11:33 Resp 20 12/11/21 11:00 BP 113/59 12/11/21 10:15 Pulse Ox 79 L 12/11/21 11:00 Intake & Output 12/10/21 12/11/21 12/11/21 18:59 06:59 18:59 Intake Total 1054 1567.458 454.870 Output Total 190 410 120 Balance 864 1157.458 334.870 Weight 99.4 kg Intake: IV 1054 1114 334 Piperacillin-Tazobactam 3 100 100 .375 gm In Sodium Chloride 0.9% 100 ml @ 25 mls/hr IVPB Q12HR [facility] Rx #:[id number] Sodium Chloride 0.45% 1, 525 975 225 000 ml @ 75 mls/hr IV . [id number] [facility] with Sodium Bicarb (1 Meq/ml) 100 ml Rx#:[id number] Sodium Chloride 0.9% 1, 520 000 ml @ 130 mls/hr IV . Q7H42M [facility] Rx#:[id number] pressure bag 9 39 9 Intake, IV Titration 453.458 120.870 Amount Dexmedetomidine/0.9% NaCl 19.496 29.331 (Pmx) 400 mcg In Empty Bag 1 bag @ 0.2 MCG/KG/HR 4.75 mls/hr IV .Q21H4M [facility] Rx#:[id number] Norepinephrine 32 mg In 433.962 91.539 Sodium Chloride 0.9% 218 ml @ 0.05 MCG/KG/MIN 2. 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 - Labs CBC & Chem 7: 12/11/21 05:10 12/11/21 05:10 Labs: Abnormal Lab Results - Last 24 Hours (Table) 12/10/21 12/10/21 12/10/21 Range/Units 17:45 18:13 23:27 WBC (3.8-10.6) k/uL RBC (4.30-5.90) m/uL Hgb (13.0-17.5) gm/dL Hct (39.0-53.0) % ABG pH 7.23 L (7.35-7.45) ABG HCO3 18 L (21-25) mmol/L ABG O2 Saturation 98.8 H (94-97) % Carbon Dioxide (22-30) mmol/L BUN (9-20) mg/dL Creatinine (0.66-1.25) mg/dL Glucose (74-99) mg/dL POC Glucose (mg/dL) 168 H 188 H (75-99) mg/dL Calcium (8.4-10.2) mg/dL AST (17-59) U/L Total Protein (6.3-8.2) g/dL Albumin (3.5-5.0) g/dL 12/11/21 12/11/21 12/11/21 Range/Units 05:10 05:10 05:11 WBC 19.7 H (3.8-10.6) k/uL RBC 4.13 L (4.30-5.90) m/uL Hgb 11.5 L (13.0-17.5) gm/dL Hct 37.1 L (39.0-53.0) % ABG pH (7.35-7.45) ABG HCO3 (21-25) mmol/L ABG O2 Saturation (94-97) % Carbon Dioxide 17 L (22-30) mmol/L BUN 95 H (9-20) mg/dL Creatinine 6.32 H (0.66-1.25) mg/dL Glucose 206 H (74-99) mg/dL POC Glucose (mg/dL) 197 H (75-99) mg/dL Calcium 6.5 L (8.4-10.2) mg/dL AST 63 H (17-59) U/L Total Protein 5.2 L (6.3-8.2) g/dL Albumin 2.6 L (3.5-5.0) g/dL 12/11/21 Range/Units 11:19 WBC (3.8-10.6) k/uL RBC (4.30-5.90) m/uL Hgb (13.0-17.5) gm/dL Hct (39.0-53.0) % ABG pH (7.35-7.45) ABG HCO3 (21-25) mmol/L ABG O2 Saturation (94-97) % Carbon Dioxide (22-30) mmol/L BUN (9-20) mg/dL Creatinine (0.66-1.25) mg/dL Glucose (74-99) mg/dL POC Glucose (mg/dL) 197 H (75-99) mg/dL Calcium (8.4-10.2) mg/dL AST (17-59) U/L Total Protein (6.3-8.2) g/dL Albumin (3.5-5.0) g/dL Microbiology - Last 24 Hours (Table) 12/09/21 19:32 Blood Culture - Preliminary Blood No Growth after 24 hours Assessment and Plan Assessment: 1. Acute kidney injury oliguric ATN, associated with hypotension and sepsis. Patient will need renal replacement therapy in the next 24-48 hours. Urine output has improved from yesterday. No obstruction noted on CT of the abdomen a nd pelvis 2. Metabolic acidosis associated with hypotension and sepsis, lactic acidosis and acute kidney injury 3. Lactic acidosis associated with hypoperfusion as well as possibly related to metformin. 4. Right lung pneumonia maintained on antibiotics 5. Acute hypoxic respiratory failure from pneumonia 6. History of COPD with chronic hypoxemic respiratory failure 7. Hyperkalemia associated with acute kidney injury and metabolic acidosis and THERESA inhibitor as prior to admission Plan: Increase IV bicarb We'll switch to D5W base for the bicarb drip tomorrow if metabolic acidosis is not further improved. Currently using 100 mEq of sodium bicarb in half normal s pradeep. Continue with antibiotics Proceed with dialysis catheter placement tomorrow if renal function is worse. Continue to avoid nephrotoxic agents
[2021-12-11] MEDS: DEXMEDETOMIDINE/0.9% NACL(PMX) 400 MCG in EMPTY BAG 1 BAG IV SCH ×2 (15:34→21:12)
[2021-12-11 17:22] LABS: Glucose,Whole Blood 226 mg/dL (75-99)
[2021-12-11 19:06] LABS: ABG Base Excess -6.2 mmol/L; ABG HCO3 21 mmol/L (21-25); ABG Oxygen Saturation 97.4 % (94-97); ABG PCO2 44 mmHg (35-45); ABG PH 7.28 (7.35-7.45); ABG PO2 108 mmHg (83-108); ABG TCO2 22 mmol/L (19-24)
[2021-12-11] MEDS: FORMOTEROL FUMARATE 20 MCG/2 ML NEBU INHALATION SCH (19:24)
[2021-12-11 19:34] LABS: Allen Test Performed? No
[2021-12-12 00:20] LABS: Glucose,Whole Blood 201 mg/dL (75-99)
[2021-12-12] MEDS: methylPREDNISolone SOD SUCCI 125 MG/2 ML VIAL IV SCH ×2 (00:30→06:27)
[2021-12-12] MEDS: INSULIN ASPART (NovoLOG) 100 UNIT/ML VIAL SQ SCH ×5 (00:31→23:57)
[2021-12-12] MEDS: SODIUM CHLORIDE 0.45% 1,000 ML with SODIUM BICARB (1 MEQ/ML) 100 ML IV SCH ×2 (02:45)
[2021-12-12] MEDS: IPRATROPIUM-ALBUTEROL 3 ML NEB INHALATION SCH ×5 (03:51→21:08)
[2021-12-12 06:15] LABS: Glucose,Whole Blood 219 mg/dL (75-99)
[2021-12-12] MEDS: BUDESONIDE 1 MG/2 ML NEBU INHALATION SCH ×2 (07:31→21:08)
[2021-12-12] MEDS: FORMOTEROL FUMARATE 20 MCG/2 ML NEBU INHALATION SCH ×2 (07:31→21:08)
[2021-12-12] MEDS: PANTOPRAZOLE 40 MG/10 ML VIAL IVP SCH (07:57)
[2021-12-12] MEDS: PIPERACILLIN-TAZOBACTAM 3.375 GM in SODIUM CHLORIDE 0.9% 100 ML IVPB SCH ×2 (07:57→20:56)
[2021-12-12] MEDS: ENOXAPARIN 30 MG/0.3 ML SYRINGE SQ SCH (07:57)
[2021-12-12] MEDS: DEXMEDETOMIDINE/0.9% NACL(PMX) 400 MCG in EMPTY BAG 1 BAG IV SCH (08:57)
[2021-12-12 09:31] LABS: HCT 36.9 % (39.0-53.0); HGB 11.6 gm/dL (13.0-17.5); MCH 27.9 pg (25.0-35.0); MCHC 31.4 g/dL (31.0-37.0); MCV 89.1 fL (80.0-100.0); Mean Platelet Volume 8.3; Platelet Count 200 k/uL (150-450); RBC 4.14 m/uL (4.30-5.90); RDW 14.9 % (11.5-15.5)
[2021-12-12 09:46] LABS: Calcium 6.5 mg/dL (8.4-10.2); Potassium 4.6 mmol/L (3.5-5.1)
--- NOTE | 2021-12-12 10:15 | P.PN ---
Subjective Progress Note Date: 12/12/21 Principal diagnosis: Respiratory failure. Pulmonary consult dated 12/10/2021. 61-year-old male, seen in the emergency department, on December 09. He apparently presented with mental status changes, and shortness of breath. The patient was last seen doing relatively well by his family, on last Friday. Apparently since the day after, , which was December 06, he been decompensating. He had worsening shortness of breath. Finally EMS was called. The patient was on 2 L, and his saturation was found to be 62%. There is no blood pressure that could be obtained on this patient. He was minimally conscious, and brought to the hospital. He received some epinephrine in route. Recently, he been seen by Dr. Ochoa and had a bronchoscopy. The patient is a heavy smoker and drinker. Currently, he is on saline at 130 mL an hour, and norepinephrine at about 28 mcg/m. He is receiving Zosyn. He is on BiPAP at 14/6 and 50%. I asked him about intubation and mechanical ventilation, he again said that he would not want those modalities. He has a history of COPD, diabetes, GERD, hyperlipidemia, hypertension, and pneumonia. Laboratory data includes a white count of 20, hemoglobin 13.2, and a normal platelet count. Sodium 137, potassium 6.4, chlorides 105, CO2 16, anion gap 16, BUN 68, and creatinine 4.61. His most recent lactic acid is 2.6. Calcium is 6.5. Chest x-ray shows some bibasilar infiltrates. CAT scan shows primarily patchy pneumonia in the right lower lobe. Progress note dated 12/11/2021. This is a 61-year-old male that I saw yesterday in consultation. Initially was seen in the emergency department on December 09. He apparently came in with francisco j rtness of breath and mental status changes. The patient is currently on BiPAP, with settings of 14/6, and 50% FiO2. The patient is on dexmedetomidine at 0.1 mcg/kg/h, norepinephrine at 0.45 mcg/kg/m, and a sodium bicarbonate drip, with 2 ampules of sodium bicarbonate and D5W at 75 mL an hour. The patient was bit agitated yesterday was pulling off his BiPAP mask, which is why the patient was placed on dexmedetomidine. He seems a bit more comfortable today. Blood gases were done yesterday were adequate. White count 19.7, hemoglobin 11.5, hematocrit 37.1, platelet count 271,000. Sodium 140, potassium 5, chlorides 107, CO2 17, BUN 95, with creatinine of 6.32. Blood cultures are currently pending or negative. Chest x-ray show some diffuse bilateral patchy infiltrates. Progress note dated 12/12/2021. 61-year-old male with a history of respiratory failure. He remains in the intensive care unit, room 266. He remains on BiPAP at 14/6, with an FiO2 of 50%. The patient remains on dexmedetomidine at 0.35 mcg/kg/h, norepinephrine at about 27 mcg/m, and 2 ampules of sodium bicarbonate and half-normal saline, at 125 mL an hour. Nephrology is not be any decisions about hemodialysis at this point. The patient appears relatively calm. For much of the day yesterday, he was off of dexmedetomidine. White count 19, hemoglobin 0.6, hematocrit 36.9, platelet count 200,000. Sodium 146, potassium 4.6, chlorides 108, CO2 23, anion gap 15, BUN 128, and creatinine 6.82. There was no chest x-ray today. Microbiology is currently negative. Objective - Vital Signs Vital signs: Vital Signs Temp 98.3 F 12/12/21 08:00 Pulse 58 L 12/12/21 09:00 Resp 11 L 12/12/21 09:00 BP 99/51 12/12/21 09:00 Pulse Ox 96 12/12/21 09:00 Intake & Output 12/11/21 12/12/21 12/12/21 18:59 06:59 18:59 Intake Total 2150.415 8570.472 672.562 Output Total 460 795 225 Balance 1213.898 964.472 447.562 Weight 98.8 kg Intake: IV 1436 1558 509 Piperacillin-Tazobactam 3 100 150 125 .375 gm In Sodium Chloride 0.9% 100 ml @ 25 mls/hr IVPB Q12HR [facility] Rx #:[id number] Sodium Chloride 0.45% 1, 1300 1375 375 000 ml @ 125 mls/hr IV . Q8H48M [facility] with Sodium Bicarb (1 Meq/ml) 100 ml Rx#:[id number] pressure bag 36 33 9 Intake, IV Titration 237.898 201.472 163.562 Amount Dexmedetomidine/0.9% NaCl 30.044 21.415 108.431 (Pmx) 400 mcg In Empty Bag 1 bag @ 0.2 MCG/KG/HR 4.75 mls/hr IV .Q21H4M [facility] Rx#:[id number] Norepinephrine 32 mg In 207.854 180.057 55.131 Sodium Chloride 0.9% 218 ml @ 0.05 MCG/KG/MIN 2. 065 mls/hr IV .Q24H [facility] Rx#:[id number] Output: Urine 460 795 225 Other: Voiding Method Indwelling Catheter Indwelling Catheter Indwelling Catheter ABP, PAP, CO, CI - Last Documented Arterial Blood Pressure 66/60 - Exam No acute distress, oriented 3. Currently on BiPAP. Saturations are 97%. HEENT examination is grossly unremarkable. Neck supple. Full range of motion. No adenopathy thyromegaly or neck vein distention. Cardiovascular examination reveals regular rhythm rate. S1-S2 normal. No S3 or S4. No discernible murmur noted. Heart sounds are distant. Heart rate 58 bpm. Lungs reveal coarse diffuse rhonchi. Breath sounds equal. No wheezes. No crackles. Respiratory rate is about 15 breaths per minute. Abdomen nontender. Slightly distended and tympanitic on percussion. Extremities are intact. No cyanosis clubbing or edema. Skin is without rash or lesion. Neurologic examination is brief but nonfocal. - Labs CBC & Chem 7: 12/12/21 09:14 12/12/21 09:14 Labs: Abnormal Lab Results - Last 24 Hours (Table) 12/11/21 12/11/21 12/11/21 Range/Units 11:19 17:21 19:04 WBC (3.8-10.6) k/uL RBC (4.30-5.90) m/uL Hgb (13.0-17.5) gm/dL Hct (39.0-53.0) % ABG pH 7.28 L (7.35-7.45) ABG O2 Saturation 97.4 H (94-97) % Sodium (137-145) mmol/L Chloride (98-107) mmol/L BUN (9-20) mg/dL Creatinine (0.66-1.25) mg/dL Glucose (74-99) mg/dL POC Glucose (mg/dL) 197 H 226 H (75-99) mg/dL Calcium (8.4-10.2) mg/dL 12/12/21 12/12/21 12/12/21 Range/Units 00:18 06:14 09:14 WBC 19.0 H (3.8-10.6) k/uL RBC 4.14 L (4.30-5.90) m/uL Hgb 11.6 L (13.0-17.5) gm/dL Hct 36.9 L (39.0-53.0) % ABG pH (7.35-7.45) ABG O2 Saturation (94-97) % Sodium (137-145) mmol/L Chloride (98-107) mmol/L BUN (9-20) mg/dL Creatinine (0.66-1.25) mg/dL Glucose (74-99) mg/dL POC Glucose (mg/dL) 201 H 219 H (75-99) mg/dL Calcium (8.4-10.2) mg/dL 12/12/21 Range/Units 09:14 WBC (3.8-10.6) k/uL RBC (4.30-5.90) m/uL Hgb (13.0-17.5) gm/dL Hct (39.0-53.0) % ABG pH (7.35-7.45) ABG O2 Saturation (94-97) % Sodium 146 H (137-145) mmol/L Chloride 108 H (98-107) mmol/L BUN 128 H* (9-20) mg/dL Creatinine 6.82 H (0.66-1.25) mg/dL Glucose 241 H (74-99) mg/dL POC Glucose (mg/dL) (75-99) mg/dL Calcium 6.5 L (8.4-10.2) mg/dL Microbiology - Last 24 Hours (Table) 12/09/21 19:32 Blood Culture - Preliminary Blood No Growth after 48 hours Assessment and Plan Assessment: Acute hypoxemic respiratory failure secondary to COPD exacerbation complicated by primarily right lower lobe pneumonia/questionable aspiration. Acute sepsis with septic shock. Acute kidney injury/ATN. Possible non-ST segment elevation myocardial infarction. Possible bowel obstruction. History of COPD with chronic hypoxemic respiratory failure. History of hyperlipidemia. History of hypertension. History of diabetes mellitus. History of depression. History of alcohol abuse. Plan: Plan dated 12/10/2021. Currently, the patient is getting BiPAP. In addition, he is getting Solu- Medrol, and antibiotics in the form of Zosyn. The patient has been seen by ne phrology. The patient's on norepinephrine is at nearly 30 mcg/m, because of low blood pressure. The patient is getting GI and DVT prophylaxis. Additional recommendations and suggestions are forthcoming. His overall prognosis is poor. I did ask again about his CODE STATUS. He prefers not to be intubated or mechanically ventilated. Additional recommendations are forthcoming. Plan dated 12/11/2021. The patient currently remains on BiPAP. We added dexmedetomidine for his agitation. He remains on good antibiotics. The patient is still on norepinephrine at 0.45 mcg/kg/m. The patient's sodium bicarbonate drip. He has been seen by nephrology. He may require hemodialysis. He is getting GI and DVT prophylaxis. Culture data is as far negative. Additional recommendations and suggestions are forthcoming. Prognosis is guarded. We will continue to follow and make recommendations where appropriate. Plan dated 12/12/2021. The patient remains on BiPAP therapy. He also remains on dexmedetomidine, for agitation. He also is on antibiotics. The patient is still receiving norepinep hrine, at 27 g per. The patient is also getting a sodium bicarbonate drip. FiO2 is 50%. Labs, x-rays, and medications are reviewed. Overall prognosis remains guarded. Nephrology is making decisions about hemodialysis. We will continue to follow make recommendations where appropriate. Time with Patient: Greater than 30
[2021-12-12 11:20] LABS: Glucose,Whole Blood 247 mg/dL (75-99)
[2021-12-12] MEDS: SODIUM CHLORIDE 0.45% 1,000 ML IV SCH (12:10)
--- NOTE | 2021-12-12 13:32 | P.PN ---
Subjective Patient is seen for follow-up for acute kidney injury. Patient continues to have good urine output. This morning he is awake. Patient remains on BiPAP. Last night patient was confused and pulled out his NG tube. Mentation is much improved today. Levo fed is significantly decreased by about half since yesterday Serum creatinine at 6.8 today which is only slightly higher than yesterday when it was 6.3. Objective - Vital Signs Vital signs: Vital Signs Temp 97.9 F 12/12/21 12:00 Pulse 82 12/12/21 12:15 Resp 17 12/12/21 12:15 BP 98/53 12/12/21 12:15 Pulse Ox 98 12/12/21 12:15 Intake & Output 12/11/21 12/12/21 12/12/21 18:59 06:59 18:59 Intake Total 8759.919 4948.472 964.172 Output Total 460 795 365 Balance 1213.898 964.472 599.172 Weight 98.8 kg Intake: IV 1436 1558 777 Piperacillin-Tazobactam 3 100 150 125 .375 gm In Sodium Chloride 0.9% 100 ml @ 25 mls/hr IVPB Q12HR [facility] Rx #:[id number] Sodium Chloride 0.45% 1, 1300 1375 500 000 ml @ 125 mls/hr IV . Q8H48M [facility] with Sodium Bicarb (1 Meq/ml) 100 ml Rx#:[id number] Sodium Chloride 0.45% 1, 140 000 ml @ 70 mls/hr IV . [id number] [facility] Rx#:[id number] pressure bag 36 33 12 Intake, IV Titration 237.898 201.472 187.172 Amount Dexmedetomidine/0.9% NaCl 30.044 21.415 110.925 (Pmx) 400 mcg In Empty Bag 1 bag @ 0.2 MCG/KG/HR 4.75 mls/hr IV .Q21H4M [facility] Rx#:[id number] Norepinephrine 32 mg In 207.854 180.057 76.247 Sodium Chloride 0.9% 218 ml @ 0.05 MCG/KG/MIN 2. 065 mls/hr IV .Q24H [facility] Rx#:[id number] Output: Urine 460 795 365 Other: Voiding Method Indwelling Catheter Indwelling Catheter Indwelling Catheter ABP, PAP, CO, CI - Last Documented Arterial Blood Pressure 66/60 - Exam Patient is awake, on BiPAP, comfortable Examination of the heart S1 and S2 Exertion lungs bilateral breath sounds are heard Abdomen is soft nontender Examination lower extremity shows no evidence of edema TAR CHASER exam grossly intact - Labs CBC & Chem 7: 12/12/21 09:14 12/12/21 09:14 Labs: Abnormal Lab Results - Last 24 Hours (Table) 12/11/21 12/11/21 12/12/21 Range/Units 17:21 19:04 00:18 WBC (3.8-10.6) k/uL RBC (4.30-5.90) m/uL Hgb (13.0-17.5) gm/dL Hct (39.0-53.0) % ABG pH 7.28 L (7.35-7.45) ABG O2 Saturation 97.4 H (94-97) % Sodium (137-145) mmol/L Chloride (98-107) mmol/L BUN (9-20) mg/dL Creatinine (0.66-1.25) mg/dL Glucose (74-99) mg/dL POC Glucose (mg/dL) 226 H 201 H (75-99) mg/dL Calcium (8.4-10.2) mg/dL 12/12/21 12/12/21 12/12/21 Range/Units 06:14 09:14 09:14 WBC 19.0 H (3.8-10.6) k/uL RBC 4.14 L (4.30-5.90) m/uL Hgb 11.6 L (13.0-17.5) gm/dL Hct 36.9 L (39.0-53.0) % ABG pH (7.35-7.45) ABG O2 Saturation (94-97) % Sodium 146 H (137-145) mmol/L Chloride 108 H (98-107) mmol/L BUN 128 H* (9-20) mg/dL Creatinine 6.82 H (0.66-1.25) mg/dL Glucose 241 H (74-99) mg/dL POC Glucose (mg/dL) 219 H (75-99) mg/dL Calcium 6.5 L (8.4-10.2) mg/dL 12/12/21 Range/Units 11:18 WBC (3.8-10.6) k/uL RBC (4.30-5.90) m/uL Hgb (13.0-17.5) gm/dL Hct (39.0-53.0) % ABG pH (7.35-7.45) ABG O2 Saturation (94-97) % Sodium (137-145) mmol/L Chloride (98-107) mmol/L BUN (9-20) mg/dL Creatinine (0.66-1.25) mg/dL Glucose (74-99) mg/dL POC Glucose (mg/dL) 247 H (75-99) mg/dL Calcium (8.4-10.2) mg/dL Microbiology - Last 24 Hours (Table) 12/09/21 19:32 Blood Culture - Preliminary Blood No Growth after 48 hours Assessment and Plan Assessment: 1. Acute kidney injury oliguric ATN, associated with hypotension and sepsis. Urine output has improved. No obstruction noted on CT of the abdomen and pelvis. Serum creatinine is slightly higher but the delta gap is much smaller as creatinine only increased to 6.8 from 6.3 yesterday. Potassium is not e levated. B UN is disproportionately elevated secondary to steroids. 2. Metabolic acidosis associated with hypotension and sepsis, lactic acidosis and acute kidney injury 3. Lactic acidosis associated with hypoperfusion as well as possibly related to metformin. 4. Right lung pneumonia maintained on antibiotics 5. Acute hypoxic respiratory failure from pneumonia 6. History of COPD with chronic hypoxemic respiratory failure 7. Hyperkalemia associated with acute kidney injury and metabolic acidosis and THERESA inhibitor as prior to admission, improved 8. Mild hypernatremia Plan: DC bicarb drip Switch IV fluids to half-normal saline Continue to hold off on dialysis Consider decreasing steroids Repeat labs in a.m. Continue to evaluate for need for renal replacement therapy on a daily basis
--- NOTE | 2021-12-12 14:30 | P.PN ---
Subjective Progress Note Date: 12/12/21 The patient is seen on rounds. He is more alert today. He did become very confused through the night and removed his NG tube. He has no specific complaints per nursing. The patient denies any abdominal pain when questioning and examining him Objective - Vital Signs Vital signs: Vital Signs Temp 97.9 F 12/12/21 12:00 Pulse 81 12/12/21 13:30 Resp 10 L 12/12/21 13:30 BP 112/62 12/12/21 13:30 Pulse Ox 98 12/12/21 13:30 Intake & Output 12/11/21 12/12/21 12/12/21 18:59 06:59 18:59 Intake Total 5540.966 1988.472 1052.080 Output Total 460 795 405 Balance 1213.898 964.472 647.080 Weight 98.8 kg Intake: IV 1436 1558 847 Piperacillin-Tazobactam 3 100 150 125 .375 gm In Sodium Chloride 0.9% 100 ml @ 25 mls/hr IVPB Q12HR [facility] Rx #:[id number] Sodium Chloride 0.45% 1, 1300 1375 500 000 ml @ 125 mls/hr IV . Q8H48M [facility] with Sodium Bicarb (1 Meq/ml) 100 ml Rx#:[id number] Sodium Chloride 0.45% 1, 210 000 ml @ 70 mls/hr IV . [id number] [facility] Rx#:[id number] pressure bag 36 33 12 Intake, IV Titration 237.898 201.472 205.080 Amount Dexmedetomidine/0.9% NaCl 30.044 21.415 110.925 (Pmx) 400 mcg In Empty Bag 1 bag @ 0.2 MCG/KG/HR 4.75 mls/hr IV .Q21H4M [facility] Rx#:[id number] Norepinephrine 32 mg In 207.854 180.057 94.155 Sodium Chloride 0.9% 218 ml @ 0.05 MCG/KG/MIN 2. 065 mls/hr IV .Q24H [facility] Rx#:[id number] Output: Urine 460 795 405 Other: Voiding Method Indwelling Catheter Indwelling Catheter Indwelling Catheter ABP, PAP, CO, CI - Last Documented Arterial Blood Pressure 66/60 - Constitutional General appearance: Present: cooperative, no acute distress - Gastrointestinal General gastrointestinal: Present: decreased bowel sounds, distended - Labs CBC & Chem 7: 12/12/21 09:14 12/12/21 09:14 Labs: Abnormal Lab Results - Last 24 Hours (Table) 12/11/21 12/11/21 12/12/21 Range/Units 17:21 19:04 00:18 WBC (3.8-10.6) k/uL RBC (4.30-5.90) m/uL Hgb (13.0-17.5) gm/dL Hct (39.0-53.0) % ABG pH 7.28 L (7.35-7.45) ABG O2 Saturation 97.4 H (94-97) % Sodium (137-145) mmol/L Chloride (98-107) mmol/L BUN (9-20) mg/dL Creatinine (0.66-1.25) mg/dL Glucose (74-99) mg/dL POC Glucose (mg/dL) 226 H 201 H (75-99) mg/dL Calcium (8.4-10.2) mg/dL 12/12/21 12/12/21 12/12/21 Range/Units 06:14 09:14 09:14 WBC 19.0 H (3.8-10.6) k/uL RBC 4.14 L (4.30-5.90) m/uL Hgb 11.6 L (13.0-17.5) gm/dL Hct 36.9 L (39.0-53.0) % ABG pH (7.35-7.45) ABG O2 Saturation (94-97) % Sodium 146 H (137-145) mmol/L Chloride 108 H (98-107) mmol/L BUN 128 H* (9-20) mg/dL Creatinine 6.82 H (0.66-1.25) mg/dL Glucose 241 H (74-99) mg/dL POC Glucose (mg/dL) 219 H (75-99) mg/dL Calcium 6.5 L (8.4-10.2) mg/dL 12/12/21 Range/Units 11:18 WBC (3.8-10.6) k/uL RBC (4.30-5.90) m/uL Hgb (13.0-17.5) gm/dL Hct (39.0-53.0) % ABG pH (7.35-7.45) ABG O2 Saturation (94-97) % Sodium (137-145) mmol/L Chloride (98-107) mmol/L BUN (9-20) mg/dL Creatinine (0.66-1.25) mg/dL Glucose (74-99) mg/dL POC Glucose (mg/dL) 247 H (75-99) mg/dL Calcium (8.4-10.2) mg/dL Microbiology - Last 24 Hours (Table) 12/09/21 19:32 Blood Culture - Preliminary Blood No Growth after 48 hours Assessment and Plan (1) Pneumonia Current Visit: Yes Status: Acute Code(s): J18.9 - PNEUMONIA, UNSPECIFIED ORGANISM SNOMED Code(s): 357076977 (2) Ileus Current Visit: Yes Status: Acute Code(s): K56.7 - ILEUS, UNSPECIFIED SNOMED Code(s): 221681731 (3) RAYMON (acute kidney injury) Current Visit: Yes Status: Acute Code(s): N17.9 - ACUTE KIDNEY FAILURE, UNSPECIFIED SNOMED Code(s): 93280993 (4) Hypoxia Current Visit: Yes Status: Acute Code(s): R09.02 - HYPOXEMIA SNOMED Code(s): 558845876 (5) Lactic acidosis Current Visit: Yes Status: Acute Code(s): E87.2 - ACIDOSIS SNOMED Code(s): 20875875 (6) Severe sepsis Current Visit: Yes Status: Acute Code(s): A41.9 - SEPSIS, UNSPECIFIED ORGANISM; R65.20 - SEVERE SEPSIS WITHOUT SEPTIC SHOCK SNOMED Code(s): 80300823 (7) COPD exacerbation Current Visit: No Status: Acute Code(s): J44.1 - CHRONIC OBSTRUCTIVE PULMONARY DISEASE W (ACUTE) EXACERBATION SNOMED Code(s): 128756745 Plan: His ileus seems to be improving. Instructed the nurses he can have small amounts of clear liquids as tolerated with his BiPAP. Currently nonsurgical.
[2021-12-12] MEDS: methylPREDNISolone SOD SUCCI 40 MG/ML 1 ML VIAL IV SCH ×2 (15:24→23:58)
[2021-12-12 16:51] LABS: Glucose,Whole Blood 198 mg/dL (75-99)
[2021-12-12] MEDS: NOREPINEPHRINE 32 MG in SODIUM CHLORIDE 0.9% 218 ML IV SCH (18:58)
[2021-12-12 23:45] LABS: Glucose,Whole Blood 223 mg/dL (75-99)
[2021-12-13] MEDS: IPRATROPIUM-ALBUTEROL 3 ML NEB INHALATION SCH ×7 (00:41→23:35)
[2021-12-13 06:43] LABS: Glucose,Whole Blood 156 mg/dL (75-99)
[2021-12-13] MEDS: INSULIN ASPART (NovoLOG) 100 UNIT/ML VIAL SQ SCH ×4 (06:56→23:31)
--- NOTE | 2021-12-13 07:12 | P.PN ---
Subjective This is a 61-year-old patient who follows with Dr. Romero. Chronic stable medical conditions include diabetes, hypertension, hyperlipidemia. previous smoker/-COPD. Patient presented to the ER with increasing shortness of breath. Family inform ed ER physician that that is not seen in bed on Friday. Since patient has been getting worse. Not getting out of bed and breathing progressively getting worse. Patient on 2 L was saturating 62%. EMS was not able to get a blood pressure. Patient was minimally conscious. It had to be bagged and brought to the hospital. Patient did receive 1 dose of appendectomy. Patient has not been eating or drinking. No fever. Patient on November 28 underwent bronchoscopy and lavage by Dr. Consuelo Ochoa from pulmonary. On the right side patient's found to have extensive purulent secretions filling of the airways. BAL was performed. No mass was noted. Cultures were positive for Gaby albicans. Patient is put on BiPAP. This morning BiPAP set at 14/6. 50%. Patient on levo fed drip. Tired. Admitted with bilateral multilobar pneumonia, IV Zosyn, IV sepsis IV fluids, septic shock and IV levo fed,'s acute COPD exacerbation on DuoNeb steroids, acute hypoxic respiratory failure on BiPAP, acute kidney injury from ATN, acute metabolic acidosis from which she received IV bicarbonate drip. Also acute ileus from sepsis pneumonia for which NG tube to suction started. December 11: ICU: NG tube to suction. BiPAP setting at 14/6 at 50%. Tired. Answering questions. Laying in bed. DuoNeb, IV levo fed, IV Zosyn, sodium bicarbonate drip IV steroids 12/12/2021 Patient remains in the ICU, currently fully awake and oriented, he follows commands. Distal on mild to moderate respiratory distress. He remains on BiPAP machine with a setting of 14/6 and FiO2 50%. Patient states that at home he uses BiPAP at night and he is on 3 L/m of oxygen. Patient also has a Page, and NG tube with mild abdominal distention which is improving. Still also on the per scissors. He denies chest pain or dyspnea. On exam he has decreased air entry on both sides of the chest which looks barrel shaped. Blood pressure is borderline which looks like his baseline and is asymptomatic. 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 As well as surgery team and critical care team. Patient remains on IV Solu-Medrol, levophed, Zosyn and half-normal saline at 70 mL/h Review of systems CONSTITUTIONAL: No fever, no malaise, no fatigue. HEENT: No recent visual problems or hearing problems. Denied any sore throat. CARDIOVASCULAR: No orthopnea, PND, no palpitations, no syncope. PULMONARY: No chest wall tenderness, no hemoptysis. GASTROINTESTINAL: No diarrhea, no nausea, no vomiting, no abdominal pain. Normoactive bowel sounds. NEUROLOGICAL: No headaches, no weakness, no numbness. Active Medications Generic Name Dose Route Start Last Admin Trade Name Freq PRN Reason Stop Dose Admin Acetaminophen 650 mg 12/09/21 20:12 Acetaminophen Tab 325 Mg Tab PO Q4HR PRN Fever and/or Mild Pain Albuterol/Ipratropium 3 ml 12/09/21 20:12 12/10/21 08:22 Ipratropium-Albuterol 3 Ml Neb INHALATION 3 ml RT-Q4H PRN Administration Shortness Of Breath Or Wheezing Albuterol/Ipratropium 3 ml 12/10/21 20:00 12/13/21 04:36 Ipratropium-Albuterol 3 Ml Neb INHALATION 3 ml RT-Q4H [facility] Administration Budesonide 1 mg 12/10/21 20:00 12/12/21 21:08 Budesonide 1 Mg/2 Ml Nebu INHALATION 1 mg RT-BID [facility] Administration Enoxaparin Sodium 30 mg 12/10/21 09:00 12/12/21 07:57 Enoxaparin 30 Mg/0.3 Ml Syringe SQ 30 mg DAILY [facility] Administration Formoterol Fumarate 20 mcg 12/11/21 20:00 12/12/21 21:08 Formoterol Fumarate 20 Mcg/2 Ml Nebu INHALATION 20 mcg RT-BID [facility] Administration Norepinephrine Bitartrate 32 250 mls @ 2.065 mls/hr 12/09/21 18:30 12/12/21 18:58 mg/ Sodium Chloride IV Not Given .Q24H [facility] Protocol 0.05 MCG/KG/MIN Piperacillin Sod/Tazobactam 100 mls @ 25 mls/hr 12/09/21 21:00 12/12/21 20:56 Sod 3.375 gm/ Sodium Chloride IVPB 25 mls/hr Q12HR [facility] Administration Protocol Dexmedetomidine HCl 400 mcg/ 100 mls @ 4.75 mls/hr 12/10/21 17:41 12/12/21 10:43 IV Solution IV 0 mcg/kg/hr .Q21H4M [facility] 0 mls/hr Titration Protocol 0.2 MCG/KG/HR Sodium Chloride 1,000 mls @ 70 mls/hr 12/12/21 11:00 12/12/21 12:10 Saline 0.45% IV 70 mls/hr .[id number] [facility] Administration Insulin Aspart 0 unit 12/10/21 06:00 12/13/21 06:56 Insulin Aspart (Novolog) 100 Unit/Ml Vial SQ 1 unit Q6H [facility] Administration Protocol Methylprednisolone Sodium Succinate 40 mg 12/12/21 16:00 12/12/21 23:58 Methylprednisolone Sod Succi 40 Mg/Ml 1 Ml Vial IV 40 mg Q8HR [facility] Administration Naloxone HCl 0.2 mg 12/09/21 20:12 Naloxone 0.4 Mg/Ml 1 Ml Vial IV Q2M PRN Opioid Reversal Pantoprazole Sodium 40 mg 12/09/21 21:00 12/12/21 07:57 Pantoprazole 40 Mg/10 Ml Vial IVP 40 mg DAILY [facility] Administration Objective - Vital Signs Vital signs: Vital Signs Temp 98.7 F 12/12/21 04:00 Pulse 78 12/12/21 07:50 Resp 21 12/12/21 07:00 BP 111/64 12/12/21 07:00 Pulse Ox 97 12/12/21 07:00 Intake & Output 12/11/21 12/12/21 12/12/21 18:59 06:59 18:59 Intake Total 8034.880 9299.472 308.131 Output Total 460 795 75 Balance 1213.898 964.472 233.131 Weight 98.8 kg Intake: IV 1436 1558 153 Piperacillin-Tazobactam 3 100 150 25 .375 gm In Sodium Chloride 0.9% 100 ml @ 25 mls/hr IVPB Q12HR [facility] Rx #:[id number] Sodium Chloride 0.45% 1, 1300 1375 125 000 ml @ 125 mls/hr IV . Q8H48M [facility] with Sodium Bicarb (1 Meq/ml) 100 ml Rx#:[id number] pressure bag 36 33 3 Intake, IV Titration 237.898 201.472 155.131 Amount Dexmedetomidine/0.9% NaCl 30.044 21.415 100 (Pmx) 400 mcg In Empty Bag 1 bag @ 0.2 MCG/KG/HR 4.75 mls/hr IV .Q21H4M [facility] Rx#:[id number] Norepinephrine 32 mg In 207.854 180.057 55.131 Sodium Chloride 0.9% 218 ml @ 0.05 MCG/KG/MIN 2. 065 mls/hr IV .Q24H [facility] Rx#:[id number] Output: Urine 460 795 75 Other: Voiding Method Indwelling Catheter Indwelling Catheter ABP, PAP, CO, CI - Last Documented Arterial Blood Pressure 143/106 - Exam GENERAL: The patient is alert and oriented x3, not in any acute distress. Well developed, well nourished. HEENT: Pupils are round and equally reacting to light. EOMI. No scleral icterus. No conjunctival pallor. Normocephalic, atraumatic. No pharyngeal erythema. No thyromegaly. CARDIOVASCULAR: S1 and S2 present. No murmurs, rubs, or gallops. -PULMONARY: Chest is clear to auscultation, no crackles. Decreased air entry on both sides with scattered wheezing ABDOMEN: Soft, nontender, nondistended, normoactive bowel sounds. No palpable organomegaly. MUSCULOSKELETAL: No joint swelling or deformity. EXTREMITIES: No cyanosis, clubbing, or pedal edema. NEUROLOGICAL: Gross neurological examination did not reveal any focal deficits. SKIN: No rashes. no petechiae. - Labs CBC & Chem 7: 12/12/21 09:14 12/12/21 09:14 Labs: Abnormal Lab Results - Last 24 Hours (Table) 12/11/21 12/11/21 12/11/21 Range/Units 11:19 17:21 19:04 ABG pH 7.28 L (7.35-7.45) ABG O2 Saturation 97.4 H (94-97) % POC Glucose (mg/dL) 197 H 226 H (75-99) mg/dL 12/12/21 12/12/21 Range/Units 00:18 06:14 ABG pH (7.35-7.45) ABG O2 Saturation (94-97) % POC Glucose (mg/dL) 201 H 219 H (75-99) mg/dL Microbiology - Last 24 Hours (Table) 12/09/21 19:32 Blood Culture - Preliminary Blood No Growth after 48 hours Assessment and Plan Assessment: -Severe multilobar pneumonia predominantly right lower lobe, suspect gram- negative organism: Slow to respond IV Zosyn. -Sepsis secondary to pneumonia IV fluids , IV Zosyn -Septic shock: Slow to respond IV fluids. IV levo fed -Acute COPD exacerbation in a previous smoker: Slow to respond DuoNeb every 4 hours, IV and inhaled steroids, BiPAP -Acute severe hypoxic respiratory failure from pneumonia/COPD: Slow to respond BiPAP -Acute kidney injury from ATN from sepsis and prerenal: Worsening IV fluids. Follow with nephrology -Hyperlipidemia Lipitor 80 mg daily at bedtime -Essential hypertension, currently hypotensive Hold antihypertensives -Chronic hypoxic respiratory failure from COPD Has 2-3 L/m of oxygen at home -Acute hypoxic respiratory failure, from pneumonia, POA: Slow to respond BiPAP -Acute medical debility from sepsis pneumonia COPD exacerbation -Acute lactic acidosis from sepsis -Full code
[2021-12-13] MEDS: FORMOTEROL FUMARATE 20 MCG/2 ML NEBU INHALATION SCH ×2 (07:28→20:15)
[2021-12-13] MEDS: BUDESONIDE 1 MG/2 ML NEBU INHALATION SCH ×2 (07:28→20:15)
[2021-12-13] MEDS: ENOXAPARIN 30 MG/0.3 ML SYRINGE SQ SCH (09:19)
[2021-12-13] MEDS: PIPERACILLIN-TAZOBACTAM 3.375 GM in SODIUM CHLORIDE 0.9% 100 ML IVPB SCH ×2 (09:19→20:20)
[2021-12-13] MEDS: PANTOPRAZOLE 40 MG/10 ML VIAL IVP SCH (09:19)
[2021-12-13] MEDS: methylPREDNISolone SOD SUCCI 40 MG/ML 1 ML VIAL IV SCH ×3 (09:19→23:31)
[2021-12-13] MEDS: SODIUM CHLORIDE 0.45% 1,000 ML IV SCH ×2 (09:20→17:19)
--- NOTE | 2021-12-13 10:13 | P.PN ---
Subjective Progress Note Date: 12/13/21 Principal diagnosis: Respiratory failure. Pulmonary consult dated 12/10/2021. 61-year-old male, seen in the emergency department, on December 09. He apparently presented with mental status changes, and shortness of breath. The patient was last seen doing relatively well by his family, on last Friday. Apparently since the day after, , which was December 06, he been decompensating. He had worsening shortness of breath. Finally EMS was called. The patient was on 2 L, and his saturation was found to be 62%. There is no blood pressure that could be obtained on this patient. He was minimally conscious, and brought to the hospital. He received some epinephrine in route. Recently, he been seen by Dr. Ochoa and had a bronchoscopy. The patient is a heavy smoker and drinker. Currently, he is on saline at 130 mL an hour, and norepinephrine at about 28 mcg/m. He is receiving Zosyn. He is on BiPAP at 14/6 and 50%. I asked him about intubation and mechanical ventilation, he again said that he would not want those modalities. He has a history of COPD, diabetes, GERD, hyperlipidemia, hypertension, and pneumonia. Laboratory data includes a white count of 20, hemoglobin 13.2, and a normal platelet count. Sodium 137, potassium 6.4, chlorides 105, CO2 16, anion gap 16, BUN 68, and creatinine 4.61. His most recent lactic acid is 2.6. Calcium is 6.5. Chest x-ray shows some bibasilar infiltrates. CAT scan shows primarily patchy pneumonia in the right lower lobe. Progress note dated 12/11/2021. This is a 61-year-old male that I saw yesterday in consultation. Initially was seen in the emergency department on December 09. He apparently came in with francisco j rtness of breath and mental status changes. The patient is currently on BiPAP, with settings of 14/6, and 50% FiO2. The patient is on dexmedetomidine at 0.1 mcg/kg/h, norepinephrine at 0.45 mcg/kg/m, and a sodium bicarbonate drip, with 2 ampules of sodium bicarbonate and D5W at 75 mL an hour. The patient was bit agitated yesterday was pulling off his BiPAP mask, which is why the patient was placed on dexmedetomidine. He seems a bit more comfortable today. Blood gases were done yesterday were adequate. White count 19.7, hemoglobin 11.5, hematocrit 37.1, platelet count 271,000. Sodium 140, potassium 5, chlorides 107, CO2 17, BUN 95, with creatinine of 6.32. Blood cultures are currently pending or negative. Chest x-ray show some diffuse bilateral patchy infiltrates. Progress note dated 12/12/2021. 61-year-old male with a history of respiratory failure. He remains in the intensive care unit, room 266. He remains on BiPAP at 14/6, with an FiO2 of 50%. The patient remains on dexmedetomidine at 0.35 mcg/kg/h, norepinephrine at about 27 mcg/m, and 2 ampules of sodium bicarbonate and half-normal saline, at 125 mL an hour. Nephrology is not be any decisions about hemodialysis at this point. The patient appears relatively calm. For much of the day yesterday, he was off of dexmedetomidine. White count 19, hemoglobin 0.6, hematocrit 36.9, platelet count 200,000. Sodium 146, potassium 4.6, chlorides 108, CO2 23, anion gap 15, BUN 128, and creatinine 6.82. There was no chest x-ray today. Microbiology is currently negative. Progress note dated 12/13/2021. 61-year-old male, with a history of respiratory failure. He remains in the intensive care unit, room 266. Currently, the patient is on 12 L high flow nasal cannula. At nighttime, he was on BiPAP at 14/6 and 50%. He looks a lot more stable and better today than he did yesterday. He is getting half-normal s pradeep at 70 mL an hour. No decision has been made about hemodialysis at this time. I don't see any new lab work from today. No chest x-ray from today as yet. The patient remains on Zosyn. Microbiology is currently negative or pending. Objective - Vital Signs Vital signs: Vital Signs Temp 98.6 F 12/13/21 08:00 Pulse 95 12/13/21 10:00 Resp 14 12/13/21 10:00 BP 119/76 12/13/21 10:00 Pulse Ox 91 L 12/13/21 10:00 Intake & Output 12/12/21 12/13/21 12/13/21 18:59 06:59 18:59 Intake Total 4658.217 9956 380 Output Total 690 1155 395 Balance 718.881 365 -15 Weight 99.7 kg Intake: IV 1197 940 380 Piperacillin-Tazobactam 3 125 100 100 .375 gm In Sodium Chloride 0.9% 100 ml @ 25 mls/hr IVPB Q12HR [facility] Rx #:[id number] Sodium Chloride 0.45% 1, 500 000 ml @ 125 mls/hr IV . Q8H48M [facility] with Sodium Bicarb (1 Meq/ml) 100 ml Rx#:[id number] Sodium Chloride 0.45% 1, 560 840 280 000 ml @ 70 mls/hr IV . [id number] [facility] Rx#:[id number] pressure bag 12 Intake, IV Titration 211.881 Amount Dexmedetomidine/0.9% NaCl 110.925 (Pmx) 400 mcg In Empty Bag 1 bag @ 0.2 MCG/KG/HR 4.75 mls/hr IV .Q21H4M [facility] Rx#:[id number] Norepinephrine 32 mg In 100.956 Sodium Chloride 0.9% 218 ml @ 0.05 MCG/KG/MIN 2. 065 mls/hr IV .Q24H [facility] Rx#:[id number] Oral 580 Output: Urine 690 1155 395 Other: Voiding Method Indwelling Catheter Indwelling Catheter ABP, PAP, CO, CI - Last Documented Arterial Blood Pressure 66/60 - Exam No acute distress, oriented 3. Currently on nasal cannula. Saturations are in the low 90s. L. HEENT examination is grossly unremarkable. Neck supple. Full range of motion. No adenopathy thyromegaly or neck vein distention. Cardiovascular examination reveals regular rhythm rate. S1-S2 normal. No S3 or S4. No discernible murmur noted. Heart sounds are distant. Heart rate 95 bpm. Lungs reveal coarse diffuse rhonchi. Breath sounds equal. No wheezes. No crackles. Respiratory rate is about 14 breaths per minute. Abdomen nontender. Slightly distended and tympanitic on percussion. Extremities are intact. No cyanosis clubbing or edema. Skin is without rash or lesion. Neurologic examination is brief but nonfocal. - Labs CBC & Chem 7: 12/12/21 09:14 12/12/21 09:14 Labs: Abnormal Lab Results - Last 24 Hours (Table) 12/12/21 12/12/21 12/12/21 Range/Units 11:18 16:49 23:44 POC Glucose (mg/dL) 247 H 198 H 223 H (75-99) mg/dL 12/13/21 Range/Units 06:41 POC Glucose (mg/dL) 156 H (75-99) mg/dL Microbiology - Last 24 Hours (Table) 12/09/21 19:32 Blood Culture - Preliminary Blood No Growth after 72 hours Assessment and Plan Assessment: Acute hypoxemic respiratory failure secondary to COPD exacerbation complicated by primarily right lower lobe pneumonia/questionable aspiration. Acute sepsis with septic shock. Acute kidney injury/ATN. Possible non-ST segment elevation myocardial infarction. Possible bowel obstruction. History of COPD with chronic hypoxemic respiratory failure. History of hyperlipidemia. History of hypertension. History of diabetes mellitus. History of depression. History of alcohol abuse. Plan: Plan dated 12/10/2021. Currently, the patient is getting BiPAP. In addition, he is getting Solu- Medrol, and antibiotics in the form of Zosyn. The patient has been seen by nephrology. The patient's on norepinephrine is at nearly 30 mcg/m, because of low blood pressure. The patient is getting GI and DVT prophylaxis. Additional recommendations and suggestions are forthcoming. His overall prognosis is poor. I did ask again about his CODE STATUS. He prefers not to be intubated or mechanically ventilated. Additional recommendations are forthcoming. Plan dated 12/11/2021. The patient currently remains on BiPAP. We added dexmedetomidine for his agit ation. He remains on good antibiotics. The patient is still on norepinephrine at 0.45 mcg/kg/m. The patient's sodium bicarbonate drip. He has been seen by nephrology. He may require hemodialysis. He is getting GI and DVT prophylaxis. Culture data is as far negative. Additional recommendations and suggestions are forthcoming. Prognosis is guarded. We will continue to follow and make recommendations where appropriate. Plan dated 12/12/2021. The patient remains on BiPAP therapy. He also remains on dexmedetomidine, for agitation. He also is on antibiotics. The patient is still receiving norepinephrine, at 27 g per. The patient is also getting a sodium bicarbonate drip. FiO2 is 50%. Labs, x-rays, and medications are reviewed. Overall prognosis remains guarded. Nephrology is making decisions about hemodialysis. We will continue to follow make recommendations where appropriate. Plan dated 12/13/2021. Currently, the patient's doing better. He's currently on high flow nasal cannula. Vital signs are relatively stable. He's no longer requiring dexmedetomidine or norepinephrine. No decision has been made final about hemodialysis. There is no actual blood work today. We'll make sure that he gets ordered. No chest x-ray today. He remains on Zosyn empirically. P currysis is guarded. We will continue to follow make recommendations where appropriate. Time with Patient: Less than 30
--- NOTE | 2021-12-13 10:39 | P.PN ---
Subjective This is a 61-year-old patient who follows with Dr. Romero. Chronic stable medical conditions include diabetes, hypertension, hyperlipidemia. previous smoker/-COPD. Patient presented to the ER with increasing shortness of breath. Family inform ed ER physician that that is not seen in bed on Friday. Since patient has been getting worse. Not getting out of bed and breathing progressively getting worse. Patient on 2 L was saturating 62%. EMS was not able to get a blood pressure. Patient was minimally conscious. It had to be bagged and brought to the hospital. Patient did receive 1 dose of appendectomy. Patient has not been eating or drinking. No fever. Patient on November 28 underwent bronchoscopy and lavage by Dr. Consuelo Ochoa from pulmonary. On the right side patient's found to have extensive purulent secretions filling of the airways. BAL was performed. No mass was noted. Cultures were positive for Gaby albicans. Patient is put on BiPAP. This morning BiPAP set at 14/6. 50%. Patient on levo fed drip. Tired. Admitted with bilateral multilobar pneumonia, IV Zosyn, IV sepsis IV fluids, septic shock and IV levo fed,'s acute COPD exacerbation on DuoNeb steroids, acute hypoxic respiratory failure on BiPAP, acute kidney injury from ATN, acute metabolic acidosis from which she received IV bicarbonate drip. Also acute ileus from sepsis pneumonia for which NG tube to suction started. December 11: ICU: NG tube to suction. BiPAP setting at 14/6 at 50%. Tired. Answering questions. Laying in bed. DuoNeb, IV levo fed, IV Zosyn, sodium bicarbonate drip IV steroids 12/12/2021 Patient remains in the ICU, currently fully awake and oriented, he follows commands. Distal on mild to moderate respiratory distress. He remains on BiPAP machine with a setting of 14/6 and FiO2 50%. Patient states that at home he uses BiPAP at night and he is on 3 L/m of oxygen. Patient also has a Page, and NG tube with mild abdominal distention which is improving. Still also on the per scissors. He denies chest pain or dyspnea. On exam he has decreased air entry on both sides of the chest which looks barrel shaped. Blood pressure is borderline which looks like his baseline and is asymptomatic. WBC is 19,000, hemoglobin 11.6, creatinine elevated to admission and currently 6.8, electromechanical equipment assembler of the case. As well as surgery team and critical care team. Patient remains on IV Solu-Medrol, levophed, Zosyn and half-normal saline at 70 mL/h 12/14/2011 Patient is doing better in the ICU. He was BiPAP overnight but the placed on high flow nasal cannula 12 L/m this morning. Patient feels himself breathing easier. Preoperative Vitas looks stable. No labs from today. He continued on saline Medrol 40 mg, no pressors needed today. Also he is on Zosyn and half-normal saline at 70 mL per hour. Objective - Vital Signs Vital signs: Vital Signs Temp 98.6 F 12/13/21 08:00 Pulse 86 12/13/21 09:00 Resp 14 12/13/21 09:00 BP 116/61 12/13/21 09:00 Pulse Ox 84 L 12/13/21 09:00 Intake & Output 12/12/21 12/13/21 12/13/21 18:59 06:59 18:59 Intake Total 8938.216 0188 210 Output Total 690 1155 325 Balance 718.881 365 -115 Weight 99.7 kg Intake: IV 1197 940 210 Piperacillin-Tazobactam 3 125 100 .375 gm In Sodium Chloride 0.9% 100 ml @ 25 mls/hr IVPB Q12HR [facility] Rx #:[id number] Sodium Chloride 0.45% 1, 500 000 ml @ 125 mls/hr IV . Q8H48M [facility] with Sodium Bicarb (1 Meq/ml) 100 ml Rx#:[id number] Sodium Chloride 0.45% 1, 560 840 210 000 ml @ 70 mls/hr IV . [id number] [facility] Rx#:[id number] pressure bag 12 Intake, IV Titration 211.881 Amount Dexmedetomidine/0.9% NaCl 110.925 (Pmx) 400 mcg In Empty Bag 1 bag @ 0.2 MCG/KG/HR 4.75 mls/hr IV .Q21H4M [facility] Rx#:[id number] Norepinephrine 32 mg In 100.956 Sodium Chloride 0.9% 218 ml @ 0.05 MCG/KG/MIN 2. 065 mls/hr IV .Q24H [facility] Rx#:[id number] Oral 580 Output: Urine 690 1155 325 Other: Voiding Method Indwelling Catheter Indwelling Catheter ABP, PAP, CO, CI - Last Documented Arterial Blood Pressure 66/60 - Exam GENERAL: The patient is alert and oriented x3, not in any acute distress. Well developed, well nourished. HEENT: Pupils are round and equally reacting to light. EOMI. No scleral icterus. No conjunctival pallor. Normocephalic, atraumatic. No pharyngeal erythema. No thyromegaly. CARDIOVASCULAR: S1 and S2 present. No murmurs, rubs, or gallops. -PULMONARY: Chest is clear to auscultation, no crackles. Decreased air entry on both sides with scattered wheezing ABDOMEN: Soft, nontender, nondistended, normoactive bowel sounds. No palpable organomegaly. MUSCULOSKELETAL: No joint swelling or deformity. EXTREMITIES: No cyanosis, clubbing, or pedal edema. NEUROLOGICAL: Gross neurological examination did not reveal any focal deficits. SKIN: No rashes. no petechiae. - Labs CBC & Chem 7: 12/12/21 09:14 12/12/21 09:14 Labs: Abnormal Lab Results - Last 24 Hours (Table) 12/12/21 12/12/21 12/12/21 Range/Units 09:14 11:18 16:49 Sodium 146 H (137-145) mmol/L Chloride 108 H (98-107) mmol/L BUN 128 H* (9-20) mg/dL Creatinine 6.82 H (0.66-1.25) mg/dL Glucose 241 H (74-99) mg/dL POC Glucose (mg/dL) 247 H 198 H (75-99) mg/dL Calcium 6.5 L (8.4-10.2) mg/dL 12/12/21 12/13/21 Range/Units 23:44 06:41 Sodium (137-145) mmol/L Chloride (98-107) mmol/L BUN (9-20) mg/dL Creatinine (0.66-1.25) mg/dL Glucose (74-99) mg/dL POC Glucose (mg/dL) 223 H 156 H (75-99) mg/dL Calcium (8.4-10.2) mg/dL Microbiology - Last 24 Hours (Table) 12/09/21 19:32 Blood Culture - Preliminary Blood No Growth after 72 hours Assessment and Plan Assessment: -Severe multilobar pneumonia predominantly right lower lobe, suspect gram- negative organism: Slow to respond IV Zosyn. -Sepsis secondary to pneumonia IV fluids , IV Zosyn -Septic shock: Improved and patient is off pressors IV fluids. IV levo fed when necessary -Acute COPD exacerbation in a previous smoker: Slow to respond DuoNeb every 4 hours, IV and inhaled steroids, BiPAP when necessary. Continue with IV Solu-Medrol -Acute severe hypoxic respiratory failure from pneumonia/COPD: Slow to respond BiPAP, high flow nasal cannula. -Ileus, surgery team on the case. Patient's kept on liquid diet for now -Acute kidney injury from ATN from sepsis and prerenal IV fluids. Follow with nephrology -Hyperlipidemia Lipitor 80 mg daily at bedtime -Essential hypertension, currently hypotensive Hold antihypertensives -Chronic hypoxic respiratory failure from COPD Has 2-3 L/m of oxygen at home -Acute hypoxic respiratory failure, from pneumonia, POA: Slow to respond BiPAP -Acute medical debility from sepsis pneumonia COPD exacerbation -Acute lactic acidosis from sepsis -Full code
[2021-12-13 10:42] LABS: Basophils % (A) 0 %; Eosinophils % (A) 0 %; HCT 35.9 % (39.0-53.0); HGB 11.3 gm/dL (13.0-17.5); Lymphocytes # (A) 0.6 k/uL (1.0-4.8); Lymphocytes % (A) 4 %; MCH 27.8 pg (25.0-35.0); MCHC 31.6 g/dL (31.0-37.0); MCV 87.9 fL (80.0-100.0); Mean Platelet Volume 8.6; Monocytes # (A) 0.7 k/uL (0-1.0); Monocytes % (A) 5 %; Neutrophils # (A) 12.5 k/uL (1.3-7.7); Neutrophils % (A) 89 %; Platelet Count 174 k/uL (150-450); RBC 4.08 m/uL (4.30-5.90); RDW 14.9 % (11.5-15.5)
[2021-12-13 10:52] LABS: Calcium 6.8 mg/dL (8.4-10.2); Potassium 4.4 mmol/L (3.5-5.1)
[2021-12-13 11:58] LABS: Glucose,Whole Blood 338 mg/dL (75-99)
[2021-12-13] MEDS: LINAGLIPTIN 5 MG TABLET PO SCH (12:31)
--- NOTE | 2021-12-13 12:50 | P.PN ---
Subjective Patient is seen for follow-up for acute kidney injury. Patient continues to have good urine output. Patient is off of BiPAP. He is awake comfortable. Patient continues to have good urine output Serum creatinine is actually lower today. Patient is off of levo fed. Objective - Vital Signs Vital signs: Vital Signs Temp 98.3 F 12/13/21 12:00 Pulse 92 12/13/21 12:00 Resp 22 12/13/21 12:00 BP 110/57 12/13/21 12:00 Pulse Ox 90 L 12/13/21 12:00 Intake & Output 12/12/21 12/13/21 12/13/21 18:59 06:59 18:59 Intake Total 8134.907 3033 520 Output Total 690 1155 620 Balance 718.881 365 -100 Weight 99.7 kg Intake: IV 1197 940 520 Piperacillin-Tazobactam 3 125 100 100 .375 gm In Sodium Chloride 0.9% 100 ml @ 25 mls/hr IVPB Q12HR [facility] Rx #:[id number] Sodium Chloride 0.45% 1, 500 000 ml @ 125 mls/hr IV . [id number] [facility] with Sodium Bicarb (1 Meq/ml) 100 ml Rx#:[id number] Sodium Chloride 0.45% 1, 560 840 420 000 ml @ 70 mls/hr IV . [id number] [facility] Rx#:[id number] pressure bag 12 Intake, IV Titration 211.881 Amount Dexmedetomidine/0.9% NaCl 110.925 (Pmx) 400 mcg In Empty Bag 1 bag @ 0.2 MCG/KG/HR 4.75 mls/hr IV .Q21H4M [facility] Rx#:[id number] Norepinephrine 32 mg In 100.956 Sodium Chloride 0.9% 218 ml @ 0.05 MCG/KG/MIN 2. 065 mls/hr IV .Q24H [facility] Rx#:[id number] Oral 580 Output: Urine 690 1155 620 Other: Voiding Method Indwelling Catheter Indwelling Catheter Indwelling Catheter ABP, PAP, CO, CI - Last Documented Arterial Blood Pressure 66/60 - Exam Patient is awake, comfortable. Alert oriented 3 Examination of the heart S1 and S2 Exertion lungs bilateral breath sounds are heard Abdomen is soft nontender Examination lower extremity shows no evidence of edema [employer] exam grossly intact - Labs CBC & Chem 7: 12/13/21 10:22 12/13/21 10:22 Labs: Abnormal Lab Results - Last 24 Hours (Table) 12/12/21 12/12/21 12/12/21 Range/Units 09:14 16:49 23:44 WBC (3.8-10.6) k/uL RBC (4.30-5.90) m/uL Hgb (13.0-17.5) gm/dL Hct (39.0-53.0) % Neutrophils # (1.3-7.7) k/uL Lymphocytes # (1.0-4.8) k/uL BUN (9-20) mg/dL Creatinine (0.66-1.25) mg/dL Glucose (74-99) mg/dL POC Glucose (mg/dL) 198 H 223 H (75-99) mg/dL Hemoglobin A1c 7.8 H (0.0-6.0) % Calcium (8.4-10.2) mg/dL 12/13/21 12/13/21 12/13/21 Range/Units 06:41 10:22 10:22 WBC 14.0 H (3.8-10.6) k/uL RBC 4.08 L (4.30-5.90) m/uL Hgb 11.3 L (13.0-17.5) gm/dL Hct 35.9 L (39.0-53.0) % Neutrophils # 12.5 H (1.3-7.7) k/uL Lymphocytes # 0.6 L (1.0-4.8) k/uL BUN 138 H* (9-20) mg/dL Creatinine 5.64 H (0.66-1.25) mg/dL Glucose 288 H (74-99) mg/dL POC Glucose (mg/dL) 156 H (75-99) mg/dL Hemoglobin A1c (0.0-6.0) % Calcium 6.8 L (8.4-10.2) mg/dL 12/13/21 Range/Units 11:56 WBC (3.8-10.6) k/uL RBC (4.30-5.90) m/uL Hgb (13.0-17.5) gm/dL Hct (39.0-53.0) % Neutrophils # (1.3-7.7) k/uL Lymphocytes # (1.0-4.8) k/uL BUN (9-20) mg/dL Creatinine (0.66-1.25) mg/dL Glucose (74-99) mg/dL POC Glucose (mg/dL) 338 H (75-99) mg/dL Hemoglobin A1c (0.0-6.0) % Calcium (8.4-10.2) mg/dL Microbiology - Last 24 Hours (Table) 12/09/21 19:32 Blood Culture - Preliminary Blood No Growth after 72 hours Assessment and Plan Assessment: 1. Acute kidney injury oliguric ATN, associated with hypotension and sepsis. Urine output has improved. No obstruction noted on CT of the abdomen and pelvis. Creatinine has decreased today. B UN is disproportionately elevated secondary to steroids. 2. Metabolic acidosis associated with hypotension and sepsis, lactic acidosis and acute kidney injury 3. Lactic acidosis associated with hypoperfusion as well as possibly related to metformin. 4. Right lung pneumonia maintained on antibiotics 5. Acute hypoxic respiratory failure from pneumonia 6. History of COPD with chronic hypoxemic respiratory failure 7. Hyperkalemia associated with acute kidney injury and metabolic acidosis and THERESA inhibitor as prior to admission, improved 8. Mild hypernatremia, improved Plan: Continue half-normal saline Continue to hold dialysis for now Repeat labs in a.m.
[2021-12-13 17:17] LABS: Glucose,Whole Blood 220 mg/dL (75-99)
[2021-12-13] MEDS ORDERED: bisacodyL 5 MG TABLET.DR PO SCH ×2 (18:15→18:33)
[2021-12-13] MEDS: bisacodyL 5 MG TABLET.DR PO SCH (18:44)
[2021-12-13] MEDS: NOREPINEPHRINE 32 MG in SODIUM CHLORIDE 0.9% 218 ML IV SCH (20:14)
[2021-12-13 23:25] LABS: Glucose,Whole Blood 191 mg/dL (75-99)
[2021-12-14] MEDS: IPRATROPIUM-ALBUTEROL 3 ML NEB INHALATION SCH ×5 (03:51→20:45)
[2021-12-14 05:24] LABS: Glucose,Whole Blood 190 mg/dL (75-99)
[2021-12-14] MEDS: INSULIN ASPART (NovoLOG) 100 UNIT/ML VIAL SQ SCH ×4 (05:29→23:30)
[2021-12-14] MEDS: FORMOTEROL FUMARATE 20 MCG/2 ML NEBU INHALATION SCH ×2 (07:41→20:45)
[2021-12-14] MEDS: BUDESONIDE 1 MG/2 ML NEBU INHALATION SCH ×2 (07:41→20:45)
[2021-12-14 08:02] LABS: Basophils % (A) 0 %; Eosinophils % (A) 0 %; HCT 37.1 % (39.0-53.0); Lymphocytes # (A) 0.6 k/uL (1.0-4.8); Lymphocytes % (A) 5 %; MCH 28.1 pg (25.0-35.0); MCHC 32.2 g/dL (31.0-37.0); Mean Platelet Volume 7.9; Monocytes # (A) 0.6 k/uL (0-1.0); Monocytes % (A) 5 %; Neutrophils # (A) 10.5 k/uL (1.3-7.7); Neutrophils % (A) 89 %; Platelet Count 204 k/uL (150-450); RBC 4.27 m/uL (4.30-5.90); RDW 15.2 % (11.5-15.5); WBC 11.9 k/uL (3.8-10.6)
--- NOTE | 2021-12-14 08:11 | XR ---
EXAMINATION TYPE: XR chest 1V portable DATE OF EXAM: 12/14/2021 COMPARISON: 12/11/2021 INDICATION: Follow-up exam TECHNIQUE: Single frontal view of the chest is obtained. FINDINGS: The heart size is normal. The pulmonary vasculature is normal. Mild infiltrates at the right base. Correlate for atelectasis or pneumonia. Some mild stable infiltra nathan at the left base. IMPRESSION: 1. Bibasilar infiltrates. Correlate for atelectasis or pneumonia.
[2021-12-14 08:24] LABS: Calcium 7.6 mg/dL (8.4-10.2); Potassium 4.3 mmol/L (3.5-5.1)
[2021-12-14] MEDS: DEXMEDETOMIDINE/0.9% NACL(PMX) 400 MCG in EMPTY BAG 1 BAG IV SCH (08:29)
[2021-12-14] MEDS: ENOXAPARIN 30 MG/0.3 ML SYRINGE SQ SCH (10:00)
[2021-12-14] MEDS: PIPERACILLIN-TAZOBACTAM 3.375 GM in SODIUM CHLORIDE 0.9% 100 ML IVPB SCH ×2 (10:00→21:17)
[2021-12-14] MEDS: PANTOPRAZOLE 40 MG/10 ML VIAL IVP SCH (10:00)
[2021-12-14] MEDS: methylPREDNISolone SOD SUCCI 40 MG/ML 1 ML VIAL IV SCH (10:00)
[2021-12-14] MEDS: LINAGLIPTIN 5 MG TABLET PO SCH (10:01)
[2021-12-14] MEDS: bisacodyL 5 MG TABLET.DR PO SCH (10:01)
--- NOTE | 2021-12-14 11:06 | P.PN ---
Subjective Progress Note Date: 12/14/21 Principal diagnosis: Respiratory failure. Pulmonary consult dated 12/10/2021. 61-year-old male, seen in the emergency department, on December 09. He apparently presented with mental status changes, and shortness of breath. The patient was last seen doing relatively well by his family, on last Friday. Apparently since the day after, , which was December 06, he been decompensating. He had worsening shortness of breath. Finally EMS was called. The patient was on 2 L, and his saturation was found to be 62%. There is no blood pressure that could be obtained on this patient. He was minimally conscious, and brought to the hospital. He received some epinephrine in route. Recently, he been seen by Dr. Ochoa and had a bronchoscopy. The patient is a heavy smoker and drinker. Currently, he is on saline at 130 mL an hour, and norepinephrine at about 28 mcg/m. He is receiving Zosyn. He is on BiPAP at 14/6 and 50%. I asked him about intubation and mechanical ventilation, he again said that he would not want those modalities. He has a history of COPD, diabetes, GERD, hyperlipidemia, hypertension, and pneumonia. Laboratory data includes a white count of 20, hemoglobin 13.2, and a normal platelet count. Sodium 137, potassium 6.4, chlorides 105, CO2 16, anion gap 16, BUN 68, and creatinine 4.61. His most recent lactic acid is 2.6. Calcium is 6.5. Chest x-ray shows some bibasilar infiltrates. CAT scan shows primarily patchy pneumonia in the right lower lobe. Progress note dated 12/11/2021. This is a 61-year-old male that I saw yesterday in consultation. Initially was seen in the emergency department on December 09. He apparently came in with francisco j rtness of breath and mental status changes. The patient is currently on BiPAP, with settings of 14/6, and 50% FiO2. The patient is on dexmedetomidine at 0.1 mcg/kg/h, norepinephrine at 0.45 mcg/kg/m, and a sodium bicarbonate drip, with 2 ampules of sodium bicarbonate and D5W at 75 mL an hour. The patient was bit agitated yesterday was pulling off his BiPAP mask, which is why the patient was placed on dexmedetomidine. He seems a bit more comfortable today. Blood gases were done yesterday were adequate. White count 19.7, hemoglobin 11.5, hematocrit 37.1, platelet count 271,000. Sodium 140, potassium 5, chlorides 107, CO2 17, BUN 95, with creatinine of 6.32. Blood cultures are currently pending or negative. Chest x-ray show some diffuse bilateral patchy infiltrates. Progress note dated 12/12/2021. 61-year-old male with a history of respiratory failure. He remains in the intensive care unit, room 266. He remains on BiPAP at 14/6, with an FiO2 of 50%. The patient remains on dexmedetomidine at 0.35 mcg/kg/h, norepinephrine at about 27 mcg/m, and 2 ampules of sodium bicarbonate and half-normal saline, at 125 mL an hour. Nephrology is not be any decisions about hemodialysis at this point. The patient appears relatively calm. For much of the day yesterday, he was off of dexmedetomidine. White count 19, hemoglobin 0.6, hematocrit 36.9, platelet count 200,000. Sodium 146, potassium 4.6, chlorides 108, CO2 23, anion gap 15, BUN 128, and creatinine 6.82. There was no chest x-ray today. Microbiology is currently negative. Progress note dated 12/13/2021. 61-year-old male, with a history of respiratory failure. He remains in the intensive care unit, room 266. Currently, the patient is on 12 L high flow nasal cannula. At nighttime, he was on BiPAP at 14/6 and 50%. He looks a lot more stable and better today than he did yesterday. He is getting half-normal s pradeep at 70 mL an hour. No decision has been made about hemodialysis at this time. I don't see any new lab work from today. No chest x-ray from today as yet. The patient remains on Zosyn. Microbiology is currently negative or pending. Progress note dated 12/14/2021. 61-year-old male with history of respiratory failure, seen again in room 266. The patient is currently been weaned down to 8 L high flow nasal cannula. He is getting half-normal saline at 70 mL an hour. He did not used to BiPAP last night. He is clinically much more stable. Today we did drop the prednisone dose down to 20 mg a day. White count 11.9, hemoglobin 12, hematocrit 37.1, and platelet count 304,000. Sodium 144, potassium 0.3, chlorides 107, CO2 26, BUN 134, and creatinine 4.69. Chest x-ray is consistent with bibasilar infiltrates, either with fluid overload, pneumonia, and/or atelectasis. Objective - Vital Signs Vital signs: Vital Signs Temp 97.9 F 12/14/21 04:00 Pulse 105 H 12/14/21 08:02 Resp 17 12/14/21 07:00 BP 119/64 12/14/21 07:00 Pulse Ox 95 12/14/21 07:00 Intake & Output 12/13/21 12/14/21 12/14/21 18:59 06:59 18:59 Intake Total 940 840 70 Output Total 1395 1525 130 Balance -455 -685 -60 Weight 99.3 kg Intake: IV 940 840 70 Piperacillin-Tazobactam 3 100 .375 gm In Sodium Chloride 0.9% 100 ml @ 25 mls/hr IVPB Q12HR [facility] Rx #:[id number] Sodium Chloride 0.45% 1, 840 840 70 000 ml @ 70 mls/hr IV . [id number] [facility] Rx#:[id number] Output: Urine 1395 1525 130 Other: Voiding Method Indwelling Catheter Indwelling Catheter ABP, PAP, CO, CI - Last Documented Arterial Blood Pressure 66/60 - Exam No acute distress, oriented 3. Currently on 8 L nasal cannula. Saturations are in the low 90s. L. HEENT examination is grossly unremarkable. Neck supple. Full range of motion. No adenopathy thyromegaly or neck vein distention. Cardiovascular examination reveals regular rhythm rate. S1-S2 normal. No S3 or S4. No discernible murmur noted. Heart sounds are distant. Heart rate 105 bpm. Lungs reveal coarse diffuse rhonchi. Breath sounds equal. No wheezes. No crackles. Respiratory rate is about 16 breaths per minute. Abdomen nontender. Slightly distended and tympanitic on percussion. Extremities are intact. No cyanosis clubbing or edema. Skin is without rash or lesion. Neurologic examination is brief but nonfocal. - Labs CBC & Chem 7: 12/14/21 07:29 12/14/21 07:29 Labs: Abnormal Lab Results - Last 24 Hours (Table) 12/13/21 12/13/21 12/13/21 Range/Units 10:22 11:56 17:16 WBC (3.8-10.6) k/uL RBC (4.30-5.90) m/uL Hgb (13.0-17.5) gm/dL Hct (39.0-53.0) % Neutrophils # (1.3-7.7) k/uL Lymphocytes # (1.0-4.8) k/uL BUN 138 H* (9-20) mg/dL Creatinine 5.64 H (0.66-1.25) mg/dL Glucose 288 H (74-99) mg/dL POC Glucose (mg/dL) 338 H 220 H (75-99) mg/dL Calcium 6.8 L (8.4-10.2) mg/dL 12/13/21 12/14/21 12/14/21 Range/Units 23:23 05:22 07:29 WBC (3.8-10.6) k/uL RBC (4.30-5.90) m/uL Hgb (13.0-17.5) gm/dL Hct (39.0-53.0) % Neutrophils # (1.3-7.7) k/uL Lymphocytes # (1.0-4.8) k/uL BUN 134 H* (9-20) mg/dL Creatinine 4.69 H (0.66-1.25) mg/dL Glucose 189 H (74-99) mg/dL POC Glucose (mg/dL) 191 H 190 H (75-99) mg/dL Calcium 7.6 L (8.4-10.2) mg/dL 12/14/21 Range/Units 07:29 WBC 11.9 H (3.8-10.6) k/uL RBC 4.27 L (4.30-5.90) m/uL Hgb 12.0 L (13.0-17.5) gm/dL Hct 37.1 L (39.0-53.0) % Neutrophils # 10.5 H (1.3-7.7) k/uL Lymphocytes # 0.6 L (1.0-4.8) k/uL BUN (9-20) mg/dL Creatinine (0.66-1.25) mg/dL Glucose (74-99) mg/dL POC Glucose (mg/dL) (75-99) mg/dL Calcium (8.4-10.2) mg/dL Microbiology - Last 24 Hours (Table) 12/09/21 19:32 Blood Culture - Preliminary Blood No Growth after 96 hours Assessment and Plan Assessment: Acute hypoxemic respiratory failure secondary to COPD exacerbation complicated by primarily right lower lobe pneumonia/questionable aspiration, and possible interstitial edema secondary to ATN/acute kidney injury. Acute sepsis with septic shock. Acute kidney injury/ATN. Possible non-ST segment elevation myocardial infarction. Possible bowel obstruction. History of COPD with chronic hypoxemic respiratory failure. History of hyperlipidemia. History of hypertension. History of diabetes mellitus. History of depression. History of alcohol abuse. Plan: Plan dated 12/10/2021. Currently, the patient is getting BiPAP. In addition, he is getting Solu- Medrol, and antibiotics in the form of Zosyn. The patient has been seen by nephrology. The patient's on norepinephrine is at nearly 30 mcg/m, because of low blood pressure. The patient is getting GI and DVT prophylaxis. Additional recommendations and suggestions are forthcoming. His overall prognosis is poor. I did ask again about his CODE STATUS. He prefers not to be intubated or mechanically ventilated. Additional recommendations are forthcoming. Plan dated 12/11/2021. The patient currently remains on BiPAP. We added dexmedetomidine for his agitation. He remains on good antibiotics. The patient is still on norepin ephrine at 0.45 mcg/kg/m. The patient's sodium bicarbonate drip. He has been seen by nephrology. He may require hemodialysis. He is getting GI and DVT prophylaxis. Culture data is as far negative. Additional recommendations and suggestions are forthcoming. Prognosis is guarded. We will continue to follow and make recommendations where appropriate. Plan dated 12/12/2021. The patient remains on BiPAP therapy. He also remains on dexmedetomidine, for agitation. He also is on antibiotics. The patient is still receiving norepinephrine, at 27 g per. The patient is also getting a sodium bicarbonate drip. FiO2 is 50%. Labs, x-rays, and medications are reviewed. Overall prognosis remains guarded. Nephrology is making decisions about hemodialysis. We will continue to follow make recommendations where appropriate. Plan dated 12/13/2021. Currently, the patient's doing better. He's currently on high flow nasal cannula. Vital signs are relatively stable. He's no longer requiring dexmedetomidine or norepinephrine. No decision has been made final about hemodialysis. There is no actual blood work today. We'll make sure that he gets ordered. No chest x-ray today. He remains on Zosyn empirically. Prognosis is guarded. We will continue to follow make recommendations where appropriate. Plan dated 12/14/2021. The patient is doing much better. The patient's prednisone dose is reduced on the 20 mg a day. The patient's chest x-rays reviewed. Labs, and medications a re reviewed. The patient has not had any hemodialysis as yet. Nephrology is trying to hold off. He remains on Zosyn empirically. We will continue to follow the patient and make recommendations where appropriate. Prognosis is certainly guarded. Time with Patient: Less than 30
[2021-12-14 12:08] LABS: Glucose,Whole Blood 226 mg/dL (75-99)
--- NOTE | 2021-12-14 16:05 | P.PN ---
Subjective Patient is seen for follow-up for acute kidney injury. Patient continues to have good urine output. Patient is off of BiPAP. He is awake comfortable. Patient continues to have good urine output Serum creatinine continues to improve. Patient is off of levo fed. Objective - Vital Signs Vital signs: Vital Signs Temp 98.1 F 12/14/21 12:00 Pulse 93 12/14/21 14:00 Resp 19 12/14/21 14:00 BP 121/70 12/14/21 14:00 Pulse Ox 90 L 12/14/21 14:00 Intake & Output 12/13/21 12/14/21 12/14/21 18:59 06:59 18:59 Intake Total 940 840 660 Output Total 1395 1525 890 Balance -455 -245 -230 Weight 99.3 kg 99.3 kg Intake: IV 940 840 660 Piperacillin-Tazobactam 3 100 100 .375 gm In Sodium Chloride 0.9% 100 ml @ 25 mls/hr IVPB Q12HR [facility] Rx #:[id number] Sodium Chloride 0.45% 1, 840 840 560 000 ml @ 70 mls/hr IV . [id number] [facility] Rx#:[id number] Output: Urine 1395 1525 890 Other: Voiding Method Indwelling Catheter Indwelling Catheter Indwelling Catheter ABP, PAP, CO, CI - Last Documented Arterial Blood Pressure 66/60 - Exam Patient is awake, comfortable. Alert oriented 3 Examination of the heart S1 and S2 Exertion lungs bilateral breath sounds are heard Abdomen is soft nontender Examination lower extremity shows no evidence of edema [employer] exam grossly intact - Labs CBC & Chem 7: 12/14/21 07:29 12/14/21 07:29 Labs: Abnormal Lab Results - Last 24 Hours (Table) 12/13/21 12/13/21 12/14/21 Range/Units 17:16 23:23 05:22 WBC (3.8-10.6) k/uL RBC (4.30-5.90) m/uL Hgb (13.0-17.5) gm/dL Hct (39.0-53.0) % Neutrophils # (1.3-7.7) k/uL Lymphocytes # (1.0-4.8) k/uL BUN (9-20) mg/dL Creatinine (0.66-1.25) mg/dL Glucose (74-99) mg/dL POC Glucose (mg/dL) 220 H 191 H 190 H (75-99) mg/dL Calcium (8.4-10.2) mg/dL 12/14/21 12/14/21 12/14/21 Range/Units 07:29 07:29 12:06 WBC 11.9 H (3.8-10.6) k/uL RBC 4.27 L (4.30-5.90) m/uL Hgb 12.0 L (13.0-17.5) gm/dL Hct 37.1 L (39.0-53.0) % Neutrophils # 10.5 H (1.3-7.7) k/uL Lymphocytes # 0.6 L (1.0-4.8) k/uL BUN 134 H* (9-20) mg/dL Creatinine 4.69 H (0.66-1.25) mg/dL Glucose 189 H (74-99) mg/dL POC Glucose (mg/dL) 226 H (75-99) mg/dL Calcium 7.6 L (8.4-10.2) mg/dL Microbiology - Last 24 Hours (Table) 12/09/21 19:32 Blood Culture - Preliminary Blood No Growth after 96 hours Assessment and Plan Assessment: 1. Acute kidney injury oliguric ATN, associated with hypotension and sepsis. Urine output has improved. No obstruction noted on CT of the abdomen and pelvis. Renal function is improving. BUN is disproportionately elevated secondary to steroids. 2. Metabolic acidosis associated with hypotension and sepsis, lactic acidosis and acute kidney injury 3. Lactic acidosis associated with hypoperfusion as well as possibly related to metformin. 4. Right lung pneumonia maintained on antibiotics 5. Acute hypoxic respiratory failure from pneumonia 6. History of COPD with chronic hypoxemic respiratory failure 7. Hyperkalemia associated with acute kidney injury and metabolic acidosis and THERESA inhibitor as prior to admission, improved 8. Mild hypernatremia, improved Plan: Continue half-normal saline Continue to hold dialysis for now Repeat labs in a.m. Consider decreasing steroids further
--- NOTE | 2021-12-14 16:15 | P.PN ---
Subjective This is a 61-year-old patient who follows with Dr. Romero. Chronic stable medical conditions include diabetes, hypertension, hyperlipidemia. previous smoker/-COPD. Patient presented to the ER with increasing shortness of breath. Family inform ed ER physician that that is not seen in bed on Friday. Since patient has been getting worse. Not getting out of bed and breathing progressively getting worse. Patient on 2 L was saturating 62%. EMS was not able to get a blood pressure. Patient was minimally conscious. It had to be bagged and brought to the hospital. Patient did receive 1 dose of appendectomy. Patient has not been eating or drinking. No fever. Patient on November 28 underwent bronchoscopy and lavage by Dr. Consuelo Ochoa from pulmonary. On the right side patient's found to have extensive purulent secretions filling of the airways. BAL was performed. No mass was noted. Cultures were positive for Gaby albicans. Patient is put on BiPAP. This morning BiPAP set at 14/6. 50%. Patient on levo fed drip. Tired. Admitted with bilateral multilobar pneumonia, IV Zosyn, IV sepsis IV fluids, septic shock and IV levo fed,'s acute COPD exacerbation on DuoNeb steroids, acute hypoxic respiratory failure on BiPAP, acute kidney injury from ATN, acute metabolic acidosis from which she received IV bicarbonate drip. Also acute ileus from sepsis pneumonia for which NG tube to suction started. December 11: ICU: NG tube to suction. BiPAP setting at 14/6 at 50%. Tired. Answering questions. Laying in bed. DuoNeb, IV levo fed, IV Zosyn, sodium bicarbonate drip IV steroids 12/12/2021 Patient remains in the ICU, currently fully awake and oriented, he follows commands. Distal on mild to moderate respiratory distress. He remains on BiPAP machine with a setting of 14/6 and FiO2 50%. Patient states that at home he uses BiPAP at night and he is on 3 L/m of oxygen. Patient also has a Page, and NG tube with mild abdominal distention which is improving. Still also on the per scissors. He denies chest pain or dyspnea. On exam he has decreased air entry on both sides of the chest which looks barrel shaped. Blood pressure is borderline which looks like his baseline and is asymptomatic. WBC is 19,000, hemoglobin 11.6, creatinine elevated to admission and currently 6.8, chief cruiser of the case. As well as surgery team and critical care team. Patient remains on IV Solu-Medrol, levophed, Zosyn and half-normal saline at 70 mL/h 12/13/2021 Patient is doing better in the ICU. He was BiPAP overnight but the placed on high flow nasal cannula 12 L/m this morning. Patient feels himself breathing easier. Preoperative Vitas looks stable. No labs from today. He continued on saline Medrol 40 mg, no pressors needed today. Also he is on Zosyn and half-normal saline at 70 mL per hour. 12/14/2021 Patient breathing is improving, he did not use his BiPAP last night. His oxygen requirements down from 12 yesterday down to 10 and later on to 8 L/h. Patient breathing easy compared to yesterday. His IV Solu-Medrol is a switched to prednisone 20 mg WBC 11.9, hemoglobin 12, creatinine improving 4.6. Cellar Supervisor team following the patient for his acute kidney injury. Also he is on Zosyn and half-normal saline at 70 mL/h Objective - Vital Signs Vital signs: Vital Signs Temp 98.1 F 12/14/21 12:00 Pulse 93 12/14/21 14:00 Resp 19 12/14/21 14:00 BP 121/70 12/14/21 14:00 Pulse Ox 90 L 12/14/21 14:00 Intake & Output 12/13/21 12/14/21 12/14/21 18:59 06:59 18:59 Intake Total 940 840 660 Output Total 1395 1525 890 Balance -455 -515 -230 Weight 99.3 kg 99.3 kg Intake: IV 940 840 660 Piperacillin-Tazobactam 3 100 100 .375 gm In Sodium Chloride 0.9% 100 ml @ 25 mls/hr IVPB Q12HR [facility] Rx #:[id number] Sodium Chloride 0.45% 1, 840 840 560 000 ml @ 70 mls/hr IV . [id number] [facility] Rx#:[id number] Output: Urine 1395 1525 890 Other: Voiding Method Indwelling Catheter Indwelling Catheter Indwelling Catheter ABP, PAP, CO, CI - Last Documented Arterial Blood Pressure 66/60 - Exam GENERAL: The patient is alert and oriented x3, not in any acute distress. Well developed, well nourished. HEENT: Pupils are round and equally reacting to light. EOMI. No scleral icterus. No conjunctival pallor. Normocephalic, atraumatic. No pharyngeal erythema. No thyromegaly. CARDIOVASCULAR: S1 and S2 present. No murmurs, rubs, or gallops. -PULMONARY: Chest is clear to auscultation, no crackles. Decreased air entry on both sides with scattered wheezing ABDOMEN: Soft, nontender, nondistended, normoactive bowel sounds. No palpable organomegaly. MUSCULOSKELETAL: No joint swelling or deformity. EXTREMITIES: No cyanosis, clubbing, or pedal edema. NEUROLOGICAL: Gross neurological examination did not reveal any focal deficits. SKIN: No rashes. no petechiae. - Labs CBC & Chem 7: 12/14/21 07:29 12/14/21 07:29 Labs: Abnormal Lab Results - Last 24 Hours (Table) 12/13/21 12/13/21 12/14/21 Range/Units 17:16 23:23 05:22 WBC (3.8-10.6) k/uL RBC (4.30-5.90) m/uL Hgb (13.0-17.5) gm/dL Hct (39.0-53.0) % Neutrophils # (1.3-7.7) k/uL Lymphocytes # (1.0-4.8) k/uL BUN (9-20) mg/dL Creatinine (0.66-1.25) mg/dL Glucose (74-99) mg/dL POC Glucose (mg/dL) 220 H 191 H 190 H (75-99) mg/dL Calcium (8.4-10.2) mg/dL 12/14/21 12/14/21 12/14/21 Range/Units 07:29 07:29 12:06 WBC 11.9 H (3.8-10.6) k/uL RBC 4.27 L (4.30-5.90) m/uL Hgb 12.0 L (13.0-17.5) gm/dL Hct 37.1 L (39.0-53.0) % Neutrophils # 10.5 H (1.3-7.7) k/uL Lymphocytes # 0.6 L (1.0-4.8) k/uL BUN 134 H* (9-20) mg/dL Creatinine 4.69 H (0.66-1.25) mg/dL Glucose 189 H (74-99) mg/dL POC Glucose (mg/dL) 226 H (75-99) mg/dL Calcium 7.6 L (8.4-10.2) mg/dL Microbiology - Last 24 Hours (Table) 12/09/21 19:32 Blood Culture - Preliminary Blood No Growth after 96 hours Assessment and Plan Assessment: -Severe multilobar pneumonia predominantly right lower lobe, suspect gram- negative organism: Slow to respond IV Zosyn. -Sepsis secondary to pneumonia IV fluids , IV Zosyn -Septic shock: Improved and patient is off pressors IV fluids. IV levo fed when necessary -Acute COPD exacerbation in a previous smoker: Slow to respond prednisone -Acute severe hypoxic respiratory failure from pneumonia/COPD: Slow to respond BiPAP when necessary , high flow nasal cannula. -Ileus, surgery team on the case. Patient's kept on liquid diet for now -Acute kidney injury from ATN from sepsis and prerenal IV fluids. Follow with nephrology -Hyperlipidemia Lipitor 80 mg daily at bedtime -Essential hypertension, currently hypotensive Hold antihypertensives -Chronic hypoxic respiratory failure from COPD Has 2-3 L/m of oxygen at home -Acute hypoxic respiratory failure, from pneumonia, POA: Slow to respond BiPAP -Acute medical debility from sepsis pneumonia COPD exacerbation -Acute lactic acidosis from sepsis -Full code
[2021-12-14 17:19] LABS: Glucose,Whole Blood 236 mg/dL (75-99)
[2021-12-14] MEDS: NOREPINEPHRINE 32 MG in SODIUM CHLORIDE 0.9% 218 ML IV SCH (17:31)
[2021-12-14] MEDS: SODIUM CHLORIDE 0.45% 1,000 ML IV SCH ×2 (17:31→21:16)
[2021-12-14 23:28] LABS: Glucose,Whole Blood 150 mg/dL (75-99)
[2021-12-15] MEDS: IPRATROPIUM-ALBUTEROL 3 ML NEB INHALATION SCH ×6 (01:28→20:06)
[2021-12-15 05:41] LABS: Glucose,Whole Blood 100 mg/dL (75-99)
[2021-12-15] MEDS: DEXMEDETOMIDINE/0.9% NACL(PMX) 400 MCG in EMPTY BAG 1 BAG IV SCH (05:56)
[2021-12-15] MEDS: INSULIN ASPART (NovoLOG) 100 UNIT/ML VIAL SQ SCH ×4 (05:59→23:23)
[2021-12-15 06:38] LABS: Basophils % (A) 0 %; Eosinophils % (A) 0 %; HCT 40.6 % (39.0-53.0); HGB 12.7 gm/dL (13.0-17.5); Lymphocytes # (A) 1.3 k/uL (1.0-4.8); Lymphocytes % (A) 7 %; MCH 27.2 pg (25.0-35.0); MCHC 31.2 g/dL (31.0-37.0); MCV 87.2 fL (80.0-100.0); Mean Platelet Volume 8.2; Monocytes # (A) 1.1 k/uL (0-1.0); Monocytes % (A) 6 %; Neutrophils # (A) 16.8 k/uL (1.3-7.7); Neutrophils % (A) 86 %; Platelet Count 237 k/uL (150-450); RBC 4.66 m/uL (4.30-5.90); RDW 14.5 % (11.5-15.5); WBC 19.5 k/uL (3.8-10.6)
[2021-12-15 06:55] LABS: Calcium 8.3 mg/dL (8.4-10.2); Potassium 4.5 mmol/L (3.5-5.1)
[2021-12-15] MEDS: BUDESONIDE 1 MG/2 ML NEBU INHALATION SCH ×2 (07:44→20:05)
[2021-12-15] MEDS: FORMOTEROL FUMARATE 20 MCG/2 ML NEBU INHALATION SCH ×2 (07:44→20:06)
[2021-12-15] MEDS ORDERED: ONDANSETRON 4 MG/2 ML VIAL IVP PRN (08:22)
--- NOTE | 2021-12-15 08:53 | XR ---
Abdomen HISTORY: Distention Frontal view the abdomen on 2 images, correlation to CT scan dated 12/09/2021 Dilated loops of small bowel are present throughout the abdomen. Page catheter is in place, there is a right femoral venous catheter present. Patient is rotated. There are overlying leads. NG tube is i n place. Stomach is distended with gas. Patchy basilar density present within the lungs. No evident p neumoperitoneum. IMPRESSION: Correlate for small bowel obstruction, basilar pneumonia.
[2021-12-15] MEDS ORDERED: predniSONE 20 MG TAB PO SCH (09:00)
--- NOTE | 2021-12-15 09:17 | P.PN ---
Subjective Progress Note Date: 12/15/21 Principal diagnosis: Respiratory failure. Pulmonary consult dated 12/10/2021. 61-year-old male, seen in the emergency department, on December 09. He apparently presented with mental status changes, and shortness of breath. The patient was last seen doing relatively well by his family, on last Friday. Apparently since the day after, , which was December 06, he been decompensating. He had worsening shortness of breath. Finally EMS was called. The patient was on 2 L, and his saturation was found to be 62%. There is no blood pressure that could be obtained on this patient. He was minimally conscious, and brought to the hospital. He received some epinephrine in route. Recently, he been seen by Dr. Ochoa and had a bronchoscopy. The patient is a heavy smoker and drinker. Currently, he is on saline at 130 mL an hour, and norepinephrine at about 28 mcg/m. He is receiving Zosyn. He is on BiPAP at 14/6 and 50%. I asked him about intubation and mechanical ventilation, he again said that he would not want those modalities. He has a history of COPD, diabetes, GERD, hyperlipidemia, hypertension, and pneumonia. Laboratory data includes a white count of 20, hemoglobin 13.2, and a normal platelet count. Sodium 137, potassium 6.4, chlorides 105, CO2 16, anion gap 16, BUN 68, and creatinine 4.61. His most recent lactic acid is 2.6. Calcium is 6.5. Chest x-ray shows some bibasilar infiltrates. CAT scan shows primarily patchy pneumonia in the right lower lobe. Progress note dated 12/11/2021. This is a 61-year-old male that I saw yesterday in consultation. Initially was seen in the emergency department on December 09. He apparently came in with francisco j rtness of breath and mental status changes. The patient is currently on BiPAP, with settings of 14/6, and 50% FiO2. The patient is on dexmedetomidine at 0.1 mcg/kg/h, norepinephrine at 0.45 mcg/kg/m, and a sodium bicarbonate drip, with 2 ampules of sodium bicarbonate and D5W at 75 mL an hour. The patient was bit agitated yesterday was pulling off his BiPAP mask, which is why the patient was placed on dexmedetomidine. He seems a bit more comfortable today. Blood gases were done yesterday were adequate. White count 19.7, hemoglobin 11.5, hematocrit 37.1, platelet count 271,000. Sodium 140, potassium 5, chlorides 107, CO2 17, BUN 95, with creatinine of 6.32. Blood cultures are currently pending or negative. Chest x-ray show some diffuse bilateral patchy infiltrates. Progress note dated 12/12/2021. 61-year-old male with a history of respiratory failure. He remains in the intensive care unit, room 266. He remains on BiPAP at 14/6, with an FiO2 of 50%. The patient remains on dexmedetomidine at 0.35 mcg/kg/h, norepinephrine at about 27 mcg/m, and 2 ampules of sodium bicarbonate and half-normal saline, at 125 mL an hour. Nephrology is not be any decisions about hemodialysis at this point. The patient appears relatively calm. For much of the day yesterday, he was off of dexmedetomidine. White count 19, hemoglobin 0.6, hematocrit 36.9, platelet count 200,000. Sodium 146, potassium 4.6, chlorides 108, CO2 23, anion gap 15, BUN 128, and creatinine 6.82. There was no chest x-ray today. Microbiology is currently negative. Progress note dated 12/13/2021. 61-year-old male, with a history of respiratory failure. He remains in the intensive care unit, room 266. Currently, the patient is on 12 L high flow nasal cannula. At nighttime, he was on BiPAP at 14/6 and 50%. He looks a lot more stable and better today than he did yesterday. He is getting half-normal s pradeep at 70 mL an hour. No decision has been made about hemodialysis at this time. I don't see any new lab work from today. No chest x-ray from today as yet. The patient remains on Zosyn. Microbiology is currently negative or pending. Progress note dated 12/14/2021. 61-year-old male with history of respiratory failure, seen again in room 266. The patient is currently been weaned down to 8 L high flow nasal cannula. He is getting half-normal saline at 70 mL an hour. He did not used to BiPAP last night. He is clinically much more stable. Today we did drop the prednisone dose down to 20 mg a day. White count 11.9, hemoglobin 12, hematocrit 37.1, and platelet count 304,000. Sodium 144, potassium 0.3, chlorides 107, CO2 26, BUN 134, and creatinine 4.69. Chest x-ray is consistent with bibasilar infiltrates, either with fluid overload, pneumonia, and/or atelectasis. Progress note dated 12/15/2021. 61-year-old male with history of respiratory failure. Seen in room 266. The p atient's doing much better. Currently on 8 L high flow nasal cannula. He did develop some bile emesis, and also some abdominal distention. A flatplate shows gastroparesis, and a very dilated stomach. An NG tube was placed. He is getting half-normal saline at 70 mL an hour. White count 19.5, hemoglobin 12.7, hematocrit 40.6, platelet count 237,000. Sodium 145, potassium 4.5, chlorides 109, CO2 29, BUN 114, and creatinine 3.92. Calcium is 8.3. Flatplate of the abdomen shows possible small bowel obstruction. Also, there is some bibasilar atelectasis or infiltrate. Objective - Vital Signs Vital signs: Vital Signs Temp 97.8 F 12/15/21 08:00 Pulse 100 12/15/21 08:00 Resp 18 12/15/21 08:00 BP 125/67 12/15/21 08:00 Pulse Ox 93 L 12/15/21 08:00 Intake & Output 12/14/21 12/15/21 12/15/21 18:59 06:59 18:59 Intake Total 1010 840 70 Output Total 1460 1530 175 Balance -450 -690 -105 Weight 99.3 kg 99 kg Intake: IV 1010 840 70 Piperacillin-Tazobactam 3 100 .375 gm In Sodium Chloride 0.9% 100 ml @ 25 mls/hr IVPB Q12HR [facility] Rx #:[id number] Sodium Chloride 0.45% 1, 910 840 70 000 ml @ 70 mls/hr IV . [id number] [facility] Rx#:[id number] Output: Urine 1460 1480 175 Emesis 50 Other: Voiding Method Indwelling Catheter Indwelling Catheter ABP, PAP, CO, CI - Last Documented Arterial Blood Pressure 66/60 - Exam No acute distress, oriented 3. Currently on 8 L nasal cannula. Saturations are in the low 90s. L. HEENT examination is grossly unremarkable. Neck supple. Full range of motion. No adenopathy thyromegaly or neck vein distention. Cardiovascular examination reveals regular rhythm rate. S1-S2 normal. No S3 or S4. No discernible murmur noted. Heart sounds are distant. Heart rate 100 bpm. Lungs reveal coarse diffuse rhonchi. Breath sounds equal. No wheezes. No crackles. Respiratory rate is about 16 breaths per minute. Abdomen distended, and tympanitic. No bowel sounds are noted. Extremities are intact. No cyanosis clubbing or edema. Skin is without rash or lesion. Neurologic examination is brief but nonfocal. - Labs CBC & Chem 7: 12/15/21 05:54 12/15/21 05:54 Labs: Abnormal Lab Results - Last 24 Hours (Table) 12/14/21 12/14/21 12/14/21 Range/Units 12:06 17:17 23:27 WBC (3.8-10.6) k/uL Hgb (13.0-17.5) gm/dL Neutrophils # (1.3-7.7) k/uL Monocytes # (0-1.0) k/uL Chloride (98-107) mmol/L BUN (9-20) mg/dL Creatinine (0.66-1.25) mg/dL Glucose (74-99) mg/dL POC Glucose (mg/dL) 226 H 236 H 150 H (75-99) mg/dL Calcium (8.4-10.2) mg/dL 12/15/21 12/15/21 12/15/21 Range/Units 05:39 05:54 05:54 WBC 19.5 H (3.8-10.6) k/uL Hgb 12.7 L (13.0-17.5) gm/dL Neutrophils # 16.8 H (1.3-7.7) k/uL Monocytes # 1.1 H (0-1.0) k/uL Chloride 109 H (98-107) mmol/L BUN 114 H* (9-20) mg/dL Creatinine 3.92 H (0.66-1.25) mg/dL Glucose 109 H (74-99) mg/dL POC Glucose (mg/dL) 100 H (75-99) mg/dL Calcium 8.3 L (8.4-10.2) mg/dL Microbiology - Last 24 Hours (Table) 12/09/21 19:32 Blood Culture - Preliminary Blood No Growth after 120 hours Assessment and Plan Assessment: Acute hypoxemic respiratory failure secondary to COPD exacerbation complicated by primarily right lower lobe pneumonia/questionable aspiration, and possible interstitial edema secondary to ATN/acute kidney injury. Abdominal distention, with discomfort, rule out small bowel obstruction. Acute sepsis with septic shock. Acute kidney injury/ATN. Possible non-ST segment elevation myocardial infarction. History of COPD with chronic hypoxemic respiratory failure. History of hyperlipidemia. History of hypertension. History of diabetes mellitus. History of depression. History of alcohol abuse. Plan: Plan dated 12/10/2021. Currently, the patient is getting BiPAP. In addition, he is getting Solu- Medrol, and antibiotics in the form of Zosyn. The patient has been seen by nephrology. The patient's on norepinephrine is at nearly 30 mcg/m, because of low blood pressure. The patient is getting GI and DVT prophylaxis. Additional recommendations and suggestions are forthcoming. His overall prognosis is poor. I did ask again about his CODE STATUS. He prefers not to be intubated or mechanically ventilated. Additional recommendations are forthcoming. Plan dated 12/11/2021. The patient currently remains on BiPAP. We added dexmedetomidine for his agitation. He remains on good antibiotics. The patient is still on norepinephrine at 0.45 mcg/kg/m. The patient's sodium bicarbonate drip. He has been seen by nephrology. He may require hemodialysis. He is getting GI and DVT prophylaxis. Culture data is as far negative. Additional recommendations and suggestions are forthcoming. Prognosis is guarded. We will continue to follow and make recommendations where appropriate. Plan dated 12/12/2021. The patient remains on BiPAP therapy. He also remains on dexmedetomidine, for agitation. He also is on antibiotics. The patient is still receiving norepinephrine, at 27 g per. The patient is also getting a sodium bicarbonate drip. FiO2 is 50%. Labs, x-rays, and medications are reviewed. Overall prognosis remains guarded. Nephrology is making decisions about hemodialysis. We will continue to follow make recommendations where appropriate. Plan dated 12/13/2021. Currently, the patient's doing better. He's currently on high flow nasal cannula. Vital signs are relatively stable. He's no longer requiring dexmedetomidine or norepinephrine. No decision has been made final about hemodialysis. There is no actual blood work today. We'll make sure that he gets ordered. No chest x-ray today. He remains on Zosyn empirically. Prognosis is guarded. We will continue to follow make recommendations where appropriate. Plan dated 12/14/2021. The patient is doing much better. The patient's prednisone dose is reduced on the 20 mg a day. The patient's chest x-rays reviewed. Labs, and medications are reviewed. The patient has not had any hemodialysis as yet. Nephrology is trying to hold off. He remains on Zosyn empirically. We will continue to follow the patient and make recommendations where appropriate. Prognosis is certainly guarded. Plan dated 12/15/2021. The patient's prednisone was converted to Solu-Medrol. An NG tube was placed. A flat plate of the abdomen shows a possible small bowel obstruction. Surgery has been reconsulted. Labs, x-rays, and medications are reviewed. Prognosis is guarded. He remains on Zosyn. Cultures are thus far negative. His pulmonary status is now being compromised by his intra-abdominal process. We will continue to follow and make recommendations where appropriate. Time with Patient: Less than 30
[2021-12-15] MEDS: bisacodyL 5 MG TABLET.DR PO SCH (10:04)
[2021-12-15] MEDS: LINAGLIPTIN 5 MG TABLET PO SCH (10:04)
[2021-12-15] MEDS: ENOXAPARIN 30 MG/0.3 ML SYRINGE SQ SCH (10:32)
[2021-12-15] MEDS: PANTOPRAZOLE 40 MG/10 ML VIAL IVP SCH (10:32)
[2021-12-15] MEDS: methylPREDNISolone SOD SUCCI 40 MG/ML 1 ML VIAL IV SCH ×2 (10:32→20:24)
[2021-12-15] MEDS: PIPERACILLIN-TAZOBACTAM 3.375 GM in SODIUM CHLORIDE 0.9% 100 ML IVPB SCH ×2 (10:33→20:25)
[2021-12-15 12:49] LABS: Glucose,Whole Blood 132 mg/dL (75-99)
--- NOTE | 2021-12-15 13:25 | P.PN ---
Subjective Progress Note Date: 12/15/21 Principal diagnosis: This is a 61 old male with acute kidney injury secondary to pneumonia and sepsis blood cultures are negative. He is improving from a renal standpoint but this morning was nauseated and in NG tube has been placed. Denies any abdominal pain. No diarrhea. No fever chills. Known with diabetes mellitus, history of alcohol use, hypertension, GERD, former smoker. Previous creatinine was 0.88 on 06/21/2021 he came in with a creatinine of 5.04, worsened to 6.8-1 12/12/2021, subsequently has been improving slowly to 3.9 to this morning Objective - Vital Signs Vital signs: Vital Signs Temp 97.8 F 12/15/21 12:00 Pulse 77 12/15/21 12:00 Resp 15 12/15/21 12:00 BP 131/69 12/15/21 12:00 Pulse Ox 98 12/15/21 12:00 Intake & Output 12/14/21 12/15/21 12/15/21 18:59 06:59 18:59 Intake Total 1010 840 450 Output Total 1460 1530 1850 Balance -450 -690 -1400 Weight 99.3 kg 99 kg Intake: IV 1010 840 450 Piperacillin-Tazobactam 3 100 100 .375 gm In Sodium Chloride 0.9% 100 ml @ 25 mls/hr IVPB Q12HR [facility] Rx #:[id number] Sodium Chloride 0.45% 1, 910 840 350 000 ml @ 70 mls/hr IV . [id number] [facility] Rx#:[id number] Output: Gastric Drainage 1200 Urine 1460 1480 650 Emesis 50 Other: Voiding Method Indwelling Catheter Indwelling Catheter ABP, PAP, CO, CI - Last Documented Arterial Blood Pressure 66/60 On examination is awake alert oriented has an NG tube in the nasal cannula oxygen No JVP noted No aches facial asymmetry Lungs are significant for normal breath sounds although he has a pneumonia by x- ray Heart sounds unremarkable for any murmur rub gallop Abdomen soft nontender Extremity exam no edema Neurologically awake alert oriented - Labs CBC & Chem 7: 12/15/21 05:54 12/15/21 05:54 Labs: Abnormal Lab Results - Last 24 Hours (Table) 12/14/21 12/14/21 12/15/21 Range/Units 17:17 23:27 05:39 WBC (3.8-10.6) k/uL Hgb (13.0-17.5) gm/dL Neutrophils # (1.3-7.7) k/uL Monocytes # (0-1.0) k/uL Chloride (98-107) mmol/L BUN (9-20) mg/dL Creatinine (0.66-1.25) mg/dL Glucose (74-99) mg/dL POC Glucose (mg/dL) 236 H 150 H 100 H (75-99) mg/dL Calcium (8.4-10.2) mg/dL 12/15/21 12/15/21 12/15/21 Range/Units 05:54 05:54 12:47 WBC 19.5 H (3.8-10.6) k/uL Hgb 12.7 L (13.0-17.5) gm/dL Neutrophils # 16.8 H (1.3-7.7) k/uL Monocytes # 1.1 H (0-1.0) k/uL Chloride 109 H (98-107) mmol/L BUN 114 H* (9-20) mg/dL Creatinine 3.92 H (0.66-1.25) mg/dL Glucose 109 H (74-99) mg/dL POC Glucose (mg/dL) 132 H (75-99) mg/dL Calcium 8.3 L (8.4-10.2) mg/dL Microbiology - Last 24 Hours (Table) 12/09/21 19:32 Blood Culture - Preliminary Blood No Growth after 120 hours Assessment and Plan Assessment: Impression 1. Acute kidney injury secondary to pneumonia and slowly improving 2. Pneumonia. 3. Nausea vomiting this morning has an NG tube today. 4. History of alcohol use. Recommendation 1. Maintain half-normal saline at 70 an hour. 2. We'll continue to monitor his labs. 3. Patient has NG tube this morning F nausea vomiting watch for volume depletion.
[2021-12-15] MEDS: SODIUM CHLORIDE 0.45% 1,000 ML IV SCH (13:54)
--- NOTE | 2021-12-15 14:36 | P.PN ---
Subjective Progress Note Date: 12/15/21 Principal diagnosis: right-sided pneumonia, presenting sepsis, ileus versus small bowel obstruction general surgery was reconsult at today due to progressive abdominal distention, nausea and emesis this morning. Nasogastric tube was placed with around 2000 mL of dark bilious aspirate thus far. Patient is presently comfortable, denies abdominal pain, nausea is improved but not completely resolved. He denies bowel movement or flatus, Page is in place with clear urine output. Abdominal x-ray from today shows findings consistent with ileus versus obstruction, no obvious free air. Follow-up chest x-ray within the past 48 hours shows bibasilar infiltrates. The patient's presenting computed tomography scan of chest and pelvis was reviewed showing a somewhat severe right basilar pneumonia and abdominal findings consistent with a degree of ileus with moderate distention of small bowel, no discrete mechanical transition point seen. There is some diffuse atherosclerotic calcifications, some of which involve the celiac and SMA takeoff. It appears the images were obtained without IV contrast so degree of stenosis is difficult to ascertain but there does appear to be distal patency. Laboratory studies show a new leukocytosis of 19,000, patient's renal function showing gradual improvement with creatinine trending down. Objective - Vital Signs Vital signs: Vital Signs Temp 97.8 F 12/15/21 12:00 Pulse 98 12/15/21 13:00 Resp 17 12/15/21 13:00 BP 133/75 12/15/21 13:00 Pulse Ox 94 L 12/15/21 13:00 Intake & Output 12/14/21 12/15/21 12/15/21 18:59 06:59 18:59 Intake Total 1010 840 520 Output Total 1460 1530 2050 Balance -450 -690 -1530 Weight 99.3 kg 99 kg Intake: IV 1010 840 520 Piperacillin-Tazobactam 3 100 100 .375 gm In Sodium Chloride 0.9% 100 ml @ 25 mls/hr IVPB Q12HR [facility] Rx #:[id number] Sodium Chloride 0.45% 1, 910 840 420 000 ml @ 70 mls/hr IV . [id number] [facility] Rx#:[id number] Output: Gastric Drainage 1200 Urine 1460 1480 850 Emesis 50 Other: Voiding Method Indwelling Catheter Indwelling Catheter ABP, PAP, CO, CI - Last Documented Arterial Blood Pressure 66/60 - Constitutional General appearance: Present: no acute distress, obese - EENT Eyes: Present: EOMI, PERRLA ENT: Present: hearing grossly normal - Respiratory Respiratory: right: diminished - Cardiovascular Rhythm: regular - Gastrointestinal General gastrointestinal: Present: decreased bowel sounds, distended - Neurologic Neurologic: Present: CNII-XII intact - Psychiatric Psychiatric: Present: A&O x's 3, appropriate affect, intact judgment & insight - Labs CBC & Chem 7: 12/15/21 05:54 12/15/21 05:54 Labs: Abnormal Lab Results - Last 24 Hours (Table) 12/14/21 12/14/21 12/15/21 Range/Units 17:17 23:27 05:39 WBC (3.8-10.6) k/uL Hgb (13.0-17.5) gm/dL Neutrophils # (1.3-7.7) k/uL Monocytes # (0-1.0) k/uL Chloride (98-107) mmol/L BUN (9-20) mg/dL Creatinine (0.66-1.25) mg/dL Glucose (74-99) mg/dL POC Glucose (mg/dL) 236 H 150 H 100 H (75-99) mg/dL Calcium (8.4-10.2) mg/dL 12/15/21 12/15/21 12/15/21 Range/Units 05:54 05:54 12:47 WBC 19.5 H (3.8-10.6) k/uL Hgb 12.7 L (13.0-17.5) gm/dL Neutrophils # 16.8 H (1.3-7.7) k/uL Monocytes # 1.1 H (0-1.0) k/uL Chloride 109 H (98-107) mmol/L BUN 114 H* (9-20) mg/dL Creatinine 3.92 H (0.66-1.25) mg/dL Glucose 109 H (74-99) mg/dL POC Glucose (mg/dL) 132 H (75-99) mg/dL Calcium 8.3 L (8.4-10.2) mg/dL Microbiology - Last 24 Hours (Table) 12/09/21 19:32 Blood Culture - Preliminary Blood No Growth after 120 hours - Imaging and Cardiology Chest x-ray: report reviewed Abdominal x-ray: report reviewed, image reviewed CT scan - abdomen: report reviewed, image reviewed CT scan - chest: report reviewed, image reviewed CT scan - pelvis: report reviewed, image reviewed Assessment and Plan Assessment: 61-year-old gentleman with right-sided pneumonia, presenting degree of sepsis which would appear to be improved compared to initial presentation. Associated ileus versus possible obstruction. Presenting computed tomography scan shows no discrete transition point. Abdominal exam today was essentially benign, mild distention without tympany, no abdominal tenderness, no guarding or rebound. Abdominal x-ray today shows no discrete free air. Leukocytosis today, I suspect he may have suffered with an aspiration based on aforementioned history. Plan: continue with nasogastric decompression, aspiration precautions with head of the bed at 30 at all times, nothing by mouth except via oral medications. If he doesn't start to show improvement by early next week will anticipate repeat computed tomography scan abdomen and pelvis with oral contrast to assess for persistent obstruction. Will follow. Time with Patient: Greater than 30
--- NOTE | 2021-12-15 18:04 | US ---
EXAMINATION TYPE: US venous doppler duplex LE BI DATE OF EXAM: 12/15/2021 5:51 PM COMPARISON: NONE CLINICAL HISTORY: dvt. ICU patient SIDE PERFORMED: Bilateral TECHNIQUE: The lower extremity deep venous system is examined utilizing real time linear array sonog aren with graded compression, doppler sonography and color-flow sonography. VESSELS IMAGED: Common Femoral Vein Deep Femoral Vein Greater Saphenous Vein * Femoral Vein Popliteal Vein Small Saphenous Vein * Proximal Calf Veins (* superficial vessels) Right Leg: no evidence of DVT. unable to visualize groin vessels due to tubes/bandages Left Leg: no evidence of DVT as visualized IMPRESSION: No evidence of deep vein thrombosis in both legs.
[2021-12-15 18:09] LABS: Glucose,Whole Blood 182 mg/dL (75-99)
[2021-12-15] MEDS: NOREPINEPHRINE 32 MG in SODIUM CHLORIDE 0.9% 218 ML IV SCH (18:34)
--- NOTE | 2021-12-15 19:35 | PN ---
PROGRESS NOTE DATE OF SERVICE: 12/15/2021 This 61-year-old gentleman who was admitted after severe multilobar pneumonia also had features of sepsis. Patient is being closely monitored in ICU. There is no history of any fever, rigor or chills at this time. Past medical history reviewed. REVIEW OF SYSTEMS: CARDIOVASCULAR SYSTEM: No angina. RESPIRATION: As mentioned earlier. GI: As mentioned earlier. : No dysuria. NERVOUS SYSTEM: No numbness, weakness. MEDICATIONS: Reviewed. They include Tylenol, DuoNeb. Doses and other medications are also reviewed. PHYSICAL EXAMINATION: Pulse is 84, blood pressure 140/60, respiration 14. HEENT: Conjunctivae normal. NECK: No jugular venous distention. CARDIOVASCULAR: S1, S2 muffled. RESPIRATION: Bilateral scattered rhonchi and crackles. ABDOMEN: Soft, nontender. LEGS: No edema. No swelling. NERVOUS SYSTEM: No focal deficit. LABS: Labs are noted. Pulse ox 94% on 8 L high-flow oxygen cannula. Creatinine is 2.92. ASSESSMENT: 1. Severe acute multilobar pneumonia. 2. Sepsis. 3. Septic shock. 4. Chronic obstructive pulmonary disease, acute exacerbation. 5. Ileus. 6. Acute kidney injury. 7. Hyperlipidemia. 8. Hypertension. 9. Chronic hypoxic respiratory failure. RECOMMENDATIONS AND DISCUSSION: I recommend to continue current medications, continue with the monitoring, symptomatic treatment. I would recommend repeat labs. Incentive spirometry. Continue the bronchodilators, IV steroids. Monitor creatinine closely. Continue the oxygen. Please note oxygen requirement has increased. Most recent chest x-ray was reviewed personally by me. Prognosis is extremely guarded because of multiple complex medical issues. Further recommendations to follow. I also recommend a D-dimer and ultrasound of both legs. MMODL / IJN: [id number] /
[2021-12-15 20:07] LABS: Glucose,Whole Blood 185 mg/dL (75-99)
[2021-12-15] MEDS: INSULIN DETEMIR (LEVEMIR) 100 UNIT/ML SYR SQ SCH (20:25)
[2021-12-15 23:20] LABS: Glucose,Whole Blood 209 mg/dL (75-99)
[2021-12-16] MEDS: IPRATROPIUM-ALBUTEROL 3 ML NEB INHALATION SCH ×6 (00:55→20:55)
[2021-12-16 05:21] LABS: Glucose,Whole Blood 174 mg/dL (75-99)
[2021-12-16] MEDS: SODIUM CHLORIDE 0.45% 1,000 ML IV SCH (05:21)
[2021-12-16] MEDS: INSULIN ASPART (NovoLOG) 100 UNIT/ML VIAL SQ SCH ×3 (05:24→18:15)
[2021-12-16 08:02] LABS: Basophils % (A) 0 %; Eosinophils % (A) 0 %; HCT 39.1 % (39.0-53.0); HGB 12.1 gm/dL (13.0-17.5); Lymphocytes # (A) 0.5 k/uL (1.0-4.8); Lymphocytes % (A) 4 %; MCH 27.3 pg (25.0-35.0); Mean Platelet Volume 9.3; Monocytes # (A) 0.5 k/uL (0-1.0); Monocytes % (A) 4 %; Neutrophils % (A) 91 %; Platelet Count 202 k/uL (150-450); RBC 4.44 m/uL (4.30-5.90); RDW 14.3 % (11.5-15.5)
[2021-12-16 08:06] LABS: Calcium 7.8 mg/dL (8.4-10.2)
[2021-12-16] MEDS: FORMOTEROL FUMARATE 20 MCG/2 ML NEBU INHALATION SCH ×2 (08:06→20:55)
[2021-12-16] MEDS: BUDESONIDE 1 MG/2 ML NEBU INHALATION SCH ×2 (08:06→20:55)
[2021-12-16] MEDS: bisacodyL 5 MG TABLET.DR PO SCH (08:46)
[2021-12-16] MEDS: PIPERACILLIN-TAZOBACTAM 3.375 GM in SODIUM CHLORIDE 0.9% 100 ML IVPB SCH ×2 (09:15→17:26)
[2021-12-16] MEDS: ENOXAPARIN 30 MG/0.3 ML SYRINGE SQ SCH (09:15)
[2021-12-16] MEDS: PANTOPRAZOLE 40 MG/10 ML VIAL IVP SCH (09:15)
[2021-12-16] MEDS: methylPREDNISolone SOD SUCCI 40 MG/ML 1 ML VIAL IV SCH ×2 (09:15→20:06)
--- NOTE | 2021-12-16 11:15 | P.PN ---
Subjective Progress Note Date: 12/16/21 Principal diagnosis: Respiratory failure. Pulmonary consult dated 12/10/2021. 61-year-old male, seen in the emergency department, on December 09. He apparently presented with mental status changes, and shortness of breath. The patient was last seen doing relatively well by his family, on last Friday. Apparently since the day after, , which was December 06, he been decompensating. He had worsening shortness of breath. Finally EMS was called. The patient was on 2 L, and his saturation was found to be 62%. There is no blood pressure that could be obtained on this patient. He was minimally conscious, and brought to the hospital. He received some epinephrine in route. Recently, he been seen by Dr. Ochoa and had a bronchoscopy. The patient is a heavy smoker and drinker. Currently, he is on saline at 130 mL an hour, and norepinephrine at about 28 mcg/m. He is receiving Zosyn. He is on BiPAP at 14/6 and 50%. I asked him about intubation and mechanical ventilation, he again said that he would not want those modalities. He has a history of COPD, diabetes, GERD, hyperlipidemia, hypertension, and pneumonia. Laboratory data includes a white count of 20, hemoglobin 13.2, and a normal platelet count. Sodium 137, potassium 6.4, chlorides 105, CO2 16, anion gap 16, BUN 68, and creatinine 4.61. His most recent lactic acid is 2.6. Calcium is 6.5. Chest x-ray shows some bibasilar infiltrates. CAT scan shows primarily patchy pneumonia in the right lower lobe. Progress note dated 12/11/2021. This is a 61-year-old male that I saw yesterday in consultation. Initially was seen in the emergency department on December 09. He apparently came in with francisco j rtness of breath and mental status changes. The patient is currently on BiPAP, with settings of 14/6, and 50% FiO2. The patient is on dexmedetomidine at 0.1 mcg/kg/h, norepinephrine at 0.45 mcg/kg/m, and a sodium bicarbonate drip, with 2 ampules of sodium bicarbonate and D5W at 75 mL an hour. The patient was bit agitated yesterday was pulling off his BiPAP mask, which is why the patient was placed on dexmedetomidine. He seems a bit more comfortable today. Blood gases were done yesterday were adequate. White count 19.7, hemoglobin 11.5, hematocrit 37.1, platelet count 271,000. Sodium 140, potassium 5, chlorides 107, CO2 17, BUN 95, with creatinine of 6.32. Blood cultures are currently pending or negative. Chest x-ray show some diffuse bilateral patchy infiltrates. Progress note dated 12/12/2021. 61-year-old male with a history of respiratory failure. He remains in the intensive care unit, room 266. He remains on BiPAP at 14/6, with an FiO2 of 50%. The patient remains on dexmedetomidine at 0.35 mcg/kg/h, norepinephrine at about 27 mcg/m, and 2 ampules of sodium bicarbonate and half-normal saline, at 125 mL an hour. Nephrology is not be any decisions about hemodialysis at this point. The patient appears relatively calm. For much of the day yesterday, he was off of dexmedetomidine. White count 19, hemoglobin 0.6, hematocrit 36.9, platelet count 200,000. Sodium 146, potassium 4.6, chlorides 108, CO2 23, anion gap 15, BUN 128, and creatinine 6.82. There was no chest x-ray today. Microbiology is currently negative. Progress note dated 12/13/2021. 61-year-old male, with a history of respiratory failure. He remains in the intensive care unit, room 266. Currently, the patient is on 12 L high flow nasal cannula. At nighttime, he was on BiPAP at 14/6 and 50%. He looks a lot more stable and better today than he did yesterday. He is getting half-normal s pradeep at 70 mL an hour. No decision has been made about hemodialysis at this time. I don't see any new lab work from today. No chest x-ray from today as yet. The patient remains on Zosyn. Microbiology is currently negative or pending. Progress note dated 12/14/2021. 61-year-old male with history of respiratory failure, seen again in room 266. The patient is currently been weaned down to 8 L high flow nasal cannula. He is getting half-normal saline at 70 mL an hour. He did not used to BiPAP last night. He is clinically much more stable. Today we did drop the prednisone dose down to 20 mg a day. White count 11.9, hemoglobin 12, hematocrit 37.1, and platelet count 304,000. Sodium 144, potassium 0.3, chlorides 107, CO2 26, BUN 134, and creatinine 4.69. Chest x-ray is consistent with bibasilar infiltrates, either with fluid overload, pneumonia, and/or atelectasis. Progress note dated 12/15/2021. 61-year-old male with history of respiratory failure. Seen in room 266. The p atient's doing much better. Currently on 8 L high flow nasal cannula. He did develop some bile emesis, and also some abdominal distention. A flatplate shows gastroparesis, and a very dilated stomach. An NG tube was placed. He is getting half-normal saline at 70 mL an hour. White count 19.5, hemoglobin 12.7, hematocrit 40.6, platelet count 237,000. Sodium 145, potassium 4.5, chlorides 109, CO2 29, BUN 114, and creatinine 3.92. Calcium is 8.3. Flatplate of the abdomen shows possible small bowel obstruction. Also, there is some bibasilar atelectasis or infiltrate. Progress note dated 12/16/2021. 61-year-old male, with a history of respiratory failure, seen again in room 266. From the pulmonary standpoint, the patient's doing much better. He does remain on 8 L high flow oxygen. He is getting half-normal saline at 70 mL an hour. Dopplers of the lower extremities were negative. There was no chest x-ray today. He is nothing by mouth. He's got an NG tube in place. White count is 11, hemoglobin 12.1, and platelet count is normal. Sodium 148, potassium 5, chlorides 113, CO2 31, BUN 107, and creatinine 2.73. Objective - Vital Signs Vital signs: Vital Signs Temp 97.6 F 12/16/21 08:00 Pulse 94 12/16/21 10:00 Resp 17 12/16/21 10:00 BP 136/53 12/16/21 10:00 Pulse Ox 95 12/16/21 10:00 Intake & Output 12/15/21 12/16/21 12/16/21 18:59 06:59 18:59 Intake Total 870 840 140 Output Total 2945 1945 325 Balance -2805 -1105 -185 Weight 97.2 kg Intake: IV 870 840 140 Piperacillin-Tazobactam 3 100 .375 gm In Sodium Chloride 0.9% 100 ml @ 25 mls/hr IVPB Q12HR [facility] Rx #:[id number] Sodium Chloride 0.45% 1, 770 840 140 000 ml @ 70 mls/hr IV . [id number] [facility] Rx#:[id number] Output: Gastric Drainage 2200 Urine 1475 1595 325 Emesis 350 Other: Voiding Method Indwelling Catheter Indwelling Catheter Indwelling Catheter ABP, PAP, CO, CI - Last Documented Arterial Blood Pressure 66/60 - Exam No acute distress, oriented 3. Currently on 8 L nasal cannula. Saturations are 95%. HEENT examination is grossly unremarkable. NG tube in place. Neck supple. Full range of motion. No adenopathy thyromegaly or neck vein distention. Cardiovascular examination reveals regular rhythm rate. S1-S2 normal. No S3 or S4. No discernible murmur noted. Heart sounds are distant. Heart rate 94 bpm. Lungs reveal coarse diffuse rhonchi. Breath sounds equal. No wheezes. No crackles. Respiratory rate is about 17 breaths per minute. Abdomen distended, and tympanitic. No bowel sounds are noted. Abdomen is nontender. Extremities are intact. No cyanosis clubbing or edema. Skin is without rash or lesion. Neurologic examination is brief but nonfocal. - Labs CBC & Chem 7: 12/16/21 07:46 12/16/21 07:46 Labs: Abnormal Lab Results - Last 24 Hours (Table) 12/15/21 12/15/21 12/15/21 Range/Units 12:47 18:08 18:08 WBC (3.8-10.6) k/uL Hgb (13.0-17.5) gm/dL Neutrophils # (1.3-7.7) k/uL Lymphocytes # (1.0-4.8) k/uL D-Dimer 14.36 H (<0.60) mg/L FEU Sodium (137-145) mmol/L Chloride (98-107) mmol/L Carbon Dioxide (22-30) mmol/L BUN (9-20) mg/dL Creatinine (0.66-1.25) mg/dL Glucose (74-99) mg/dL POC Glucose (mg/dL) 132 H 182 H (75-99) mg/dL Calcium (8.4-10.2) mg/dL 12/15/21 12/15/21 12/16/21 Range/Units 20:05 23:19 05:19 WBC (3.8-10.6) k/uL Hgb (13.0-17.5) gm/dL Neutrophils # (1.3-7.7) k/uL Lymphocytes # (1.0-4.8) k/uL D-Dimer (<0.60) mg/L FEU Sodium (137-145) mmol/L Chloride (98-107) mmol/L Carbon Dioxide (22-30) mmol/L BUN (9-20) mg/dL Creatinine (0.66-1.25) mg/dL Glucose (74-99) mg/dL POC Glucose (mg/dL) 185 H 209 H 174 H (75-99) mg/dL Calcium (8.4-10.2) mg/dL 12/16/21 12/16/21 Range/Units 07:46 07:46 WBC 11.0 H (3.8-10.6) k/uL Hgb 12.1 L (13.0-17.5) gm/dL Neutrophils # 10.0 H (1.3-7.7) k/uL Lymphocytes # 0.5 L (1.0-4.8) k/uL D-Dimer (<0.60) mg/L FEU Sodium 148 H (137-145) mmol/L Chloride 113 H (98-107) mmol/L Carbon Dioxide 31 H (22-30) mmol/L BUN 107 H* (9-20) mg/dL Creatinine 2.73 H (0.66-1.25) mg/dL Glucose 164 H (74-99) mg/dL POC Glucose (mg/dL) (75-99) mg/dL Calcium 7.8 L (8.4-10.2) mg/dL Microbiology - Last 24 Hours (Table) 12/09/21 19:32 Blood Culture - Final Blood No Growth after 144 hours Assessment and Plan Assessment: Acute hypoxemic respiratory failure secondary to COPD exacerbation complicated by primarily right lower lobe pneumonia/questionable aspiration, and possible interstitial edema secondary to ATN/acute kidney injury. Abdominal distention, with discomfort, rule out small bowel obstruction. Acute sepsis with septic shock. Acute kidney injury/ATN. Possible non-ST segment elevation myocardial infarction. History of COPD with chronic hypoxemic respiratory failure. History of hyperlipidemia. History of hypertension. History of diabetes mellitus. History of depression. History of alcohol abuse. Plan: Plan dated 12/10/2021. Currently, the patient is getting BiPAP. In addition, he is getting Solu-Medrol , and antibiotics in the form of Zosyn. The patient has been seen by nephrology. The patient's on norepinephrine is at nearly 30 mcg/m, because of low blood pressure. The patient is getting GI and DVT prophylaxis. Additional recommendations and suggestions are forthcoming. His overall prognosis is poor. I did ask again about his CODE STATUS. He prefers not to be intubated or mechanically ventilated. Additional recommendations are forthcoming. Plan dated 12/11/2021. The patient currently remains on BiPAP. We added dexmedetomidine for his agitation. He remains on good antibiotics. The patient is still on norepinephrine at 0.45 mcg/kg/m. The patient's sodium bicarbonate drip. He has been seen by nephrology. He may require hemodialysis. He is getting GI and DVT prophylaxis. Culture data is as far negative. Additional recommendations and suggestions are forthcoming. Prognosis is guarded. We will continue to follow and make recommendations where appropriate. Plan dated 12/12/2021. The patient remains on BiPAP therapy. He also remains on dexmedetomidine, for agitation. He also is on antibiotics. The patient is still receiving norepinephrine, at 27 g per. The patient is also getting a sodium bicarbonate drip. FiO2 is 50%. Labs, x-rays, and medications are reviewed. Overall prognosis remains guarded. Nephrology is making decisions about hemodialysis. We will continue to follow make recommendations where appropriate. Plan dated 12/13/2021. Currently, the patient's doing better. He's currently on high flow nasal cannula. Vital signs are relatively stable. He's no longer requiring dexmedetomidine or norepinephrine. No decision has been made final about hemodialysis. There is no actual blood work today. We'll make sure that he gets ordered. No chest x-ray today. He remains on Zosyn empirically. Prognosis is guarded. We will continue to follow make recommendations where appropriate. Plan dated 12/14/2021. The patient is doing much better. The patient's prednisone dose is reduced on the 20 mg a day. The patient's chest x-rays reviewed. Labs, and medications are reviewed. The patient has not had any hemodialysis as yet. Nephrology is trying to hold off. He remains on Zosyn empirically. We will continue to follow the patient and make recommendations where appropriate. Prognosis is certainly guarded. Plan dated 12/15/2021. The patient's prednisone was converted to Solu-Medrol. An NG tube was placed. A flat plate of the abdomen shows a possible small bowel obstruction. Surgery has been reconsulted. Labs, x-rays, and medications are reviewed. Prognosis is guarded. He remains on Zosyn. Cultures are thus far negative. His pulmonary status is now being compromised by his intra-abdominal process. We will cont inue to follow and make recommendations where appropriate. Plan dated 12/16/2021. The patient has an NG tube in place. The patient is seen and examined in room 266. His abdomen is distended. It is not tender on palpation. Labs, x-rays, and medications are all reviewed. Dopplers of the lower extremities were negative. We will continue to follow the patient make recommendations were appropriate. I'm probably going to change his fluids from half normal saline to D5W, at 100 mL an hour. He remains on Zosyn. Time with Patient: Less than 30
[2021-12-16] MEDS ORDERED: DEXTROSE 5% IN WATER 1,000 ML IV ONE (11:18)
[2021-12-16 11:59] LABS: Glucose,Whole Blood 144 mg/dL (75-99)
--- NOTE | 2021-12-16 13:01 | P.PN ---
Subjective Progress Note Date: 12/16/21 Principal diagnosis: This is a 61 old male with acute kidney injury secondary to pneumonia and sepsis blood cultures are negative. He is improving from a renal standpoint but this morning was nauseated and in NG tube has been placed. The NG tube suction output was 2200 and urine output was 307 0 mL. Denies any abdominal pain. No diarrhea. No fever chills. Known with diabetes mellitus, history of alcohol use, hypertension, GERD, former smoker. Previous creatinine was 0.88 on 06/21/2021 he came in with a creatinine of 5.04, worsened to 6.8-1 12/12/2021, subsequently has been improving slowly to 2.73. Objective - Vital Signs Vital signs: Vital Signs Temp 97.8 F 12/16/21 12:00 Pulse 99 12/16/21 12:45 Resp 20 12/16/21 12:00 BP 138/61 12/16/21 12:00 Pulse Ox 93 L 12/16/21 12:00 Intake & Output 12/15/21 12/16/21 12/16/21 18:59 06:59 18:59 Intake Total 870 840 380 Output Total 3675 1945 635 Balance -2805 -1105 -255 Weight 97.2 kg Intake: IV 870 840 380 Dextrose 5% in Water 1, 100 000 ml @ 100 mls/hr IV . Q10H [facility] Rx#:[id number] Piperacillin-Tazobactam 3 100 .375 gm In Sodium Chloride 0.9% 100 ml @ 25 mls/hr IVPB Q12HR [facility] Rx #:[id number] Sodium Chloride 0.45% 1, 770 840 280 000 ml @ 70 mls/hr IV . [id number] [facility] Rx#:[id number] Output: Gastric Drainage 2200 Urine 1475 1595 635 Emesis 350 Other: Voiding Method Indwelling Catheter Indwelling Catheter Indwelling Catheter ABP, PAP, CO, CI - Last Documented Arterial Blood Pressure 66/60 Examination is awake alert oriented comfortable He has an NG tube hooked to the suction. No JVP neck is supple no facial asymmetry Lungs clear to auscultation good air entry bilaterally Heart sounds unremarkable for any murmur rub gallop Abdomen soft nontender nondistended Extremity examination reveals minimal edema Neurologically awake alert oriented - Labs CBC & Chem 7: 12/16/21 07:46 12/16/21 07:46 Labs: Abnormal Lab Results - Last 24 Hours (Table) 12/15/21 12/15/21 12/15/21 Range/Units 18:08 18:08 20:05 WBC (3.8-10.6) k/uL Hgb (13.0-17.5) gm/dL Neutrophils # (1.3-7.7) k/uL Lymphocytes # (1.0-4.8) k/uL D-Dimer 14.36 H (<0.60) mg/L FEU Sodium (137-145) mmol/L Chloride (98-107) mmol/L Carbon Dioxide (22-30) mmol/L BUN (9-20) mg/dL Creatinine (0.66-1.25) mg/dL Glucose (74-99) mg/dL POC Glucose (mg/dL) 182 H 185 H (75-99) mg/dL Calcium (8.4-10.2) mg/dL 12/15/21 12/16/21 12/16/21 Range/Units 23:19 05:19 07:46 WBC (3.8-10.6) k/uL Hgb (13.0-17.5) gm/dL Neutrophils # (1.3-7.7) k/uL Lymphocytes # (1.0-4.8) k/uL D-Dimer (<0.60) mg/L FEU Sodium 148 H (137-145) mmol/L Chloride 113 H (98-107) mmol/L Carbon Dioxide 31 H (22-30) mmol/L BUN 107 H* (9-20) mg/dL Creatinine 2.73 H (0.66-1.25) mg/dL Glucose 164 H (74-99) mg/dL POC Glucose (mg/dL) 209 H 174 H (75-99) mg/dL Calcium 7.8 L (8.4-10.2) mg/dL 12/16/21 12/16/21 Range/Units 07:46 11:58 WBC 11.0 H (3.8-10.6) k/uL Hgb 12.1 L (13.0-17.5) gm/dL Neutrophils # 10.0 H (1.3-7.7) k/uL Lymphocytes # 0.5 L (1.0-4.8) k/uL D-Dimer (<0.60) mg/L FEU Sodium (137-145) mmol/L Chloride (98-107) mmol/L Carbon Dioxide (22-30) mmol/L BUN (9-20) mg/dL Creatinine (0.66-1.25) mg/dL Glucose (74-99) mg/dL POC Glucose (mg/dL) 144 H (75-99) mg/dL Calcium (8.4-10.2) mg/dL Microbiology - Last 24 Hours (Table) 12/09/21 19:32 Blood Culture - Final Blood No Growth after 144 hours Assessment and Plan Assessment: Impression 1. Acute kidney injury secondary to pneumonia and slowly improving 2. Pneumonia. 3. Nausea vomiting this morning has an NG tube today. Large amount of NG output, cause of ileus unclear 4. History of alcohol use. 5. Mild degree of hyponatremia is sodium is 148, secondary to NG suctioning Recommendation 1. He is on D5 W 100 and hour, watch sodium closely. 2. We'll continue to monitor his labs. 3. Patient has NG tube this morning F nausea vomiting watch for volume depletion.
--- NOTE | 2021-12-16 13:40 | P.PN ---
Subjective Progress Note Date: 12/16/21 Principal diagnosis: right-sided pneumonia, presenting sepsis, ileus versus small bowel obstruction Patient seen and examined at bedside. Feeling better today than yesterday. De nies abdominal pain, nausea or vomiting. Starting to feel hungry and thirsty. Nasogastric tube remains in place with around 1000 mL dark bilious output charted overnight. Denies flatus, denies bowel movement. Adequate urine output. Leukocytosis is normalizing, renal function is improving. A bilateral lower extremity venous duplex from yesterday showed no obvious DVT. Objective - Vital Signs Vital signs: Vital Signs Temp 97.8 F 12/16/21 12:00 Pulse 102 H 12/16/21 13:00 Resp 19 12/16/21 13:00 BP 138/62 12/16/21 13:00 Pulse Ox 92 L 12/16/21 13:00 Intake & Output 12/15/21 12/16/21 12/16/21 18:59 06:59 18:59 Intake Total 870 840 380 Output Total 3675 1945 635 Balance -2805 -1105 -255 Weight 97.2 kg Intake: IV 870 840 380 Dextrose 5% in Water 1, 100 000 ml @ 100 mls/hr IV . Q10H [facility] Rx#:[id number] Piperacillin-Tazobactam 3 100 .375 gm In Sodium Chloride 0.9% 100 ml @ 25 mls/hr IVPB Q12HR COUNT INCLUDES THE [facility] Rx #:[id number] Sodium Chloride 0.45% 1, 770 840 280 000 ml @ 70 mls/hr IV . [id number] COUNT INCLUDES THE [facility] Rx#:[id number] Output: Gastric Drainage 2200 Urine 1475 1595 635 Emesis 350 Other: Voiding Method Indwelling Catheter Indwelling Catheter Indwelling Catheter ABP, PAP, CO, CI - Last Documented Arterial Blood Pressure 66/60 - Constitutional General appearance: Present: cooperative, no acute distress, obese - EENT Eyes: Present: PERRLA ENT: Present: NA/AT - Respiratory Respiratory: right: diminished - Cardiovascular Rhythm: regular - Gastrointestinal Gastrointestinal Comment(s): Abdomen is soft, nontender to palpation, abdominal distention improved compared to yesterday. No guarding or rebound. General gastrointestinal: Present: decreased bowel sounds - Neurologic Neurologic: Present: CNII-XII intact - Psychiatric Psychiatric: Present: A&O x's 3, appropriate affect, intact judgment & insight - Labs CBC & Chem 7: 12/16/21 07:46 12/16/21 07:46 Labs: Abnormal Lab Results - Last 24 Hours (Table) 12/15/21 12/15/21 12/15/21 Range/Units 18:08 18:08 20:05 WBC (3.8-10.6) k/uL Hgb (13.0-17.5) gm/dL Neutrophils # (1.3-7.7) k/uL Lymphocytes # (1.0-4.8) k/uL D-Dimer 14.36 H (<0.60) mg/L FEU Sodium (137-145) mmol/L Chloride (98-107) mmol/L Carbon Dioxide (22-30) mmol/L BUN (9-20) mg/dL Creatinine (0.66-1.25) mg/dL Glucose (74-99) mg/dL POC Glucose (mg/dL) 182 H 185 H (75-99) mg/dL Calcium (8.4-10.2) mg/dL 12/15/21 12/16/21 12/16/21 Range/Units 23:19 05:19 07:46 WBC (3.8-10.6) k/uL Hgb (13.0-17.5) gm/dL Neutrophils # (1.3-7.7) k/uL Lymphocytes # (1.0-4.8) k/uL D-Dimer (<0.60) mg/L FEU Sodium 148 H (137-145) mmol/L Chloride 113 H (98-107) mmol/L Carbon Dioxide 31 H (22-30) mmol/L BUN 107 H* (9-20) mg/dL Creatinine 2.73 H (0.66-1.25) mg/dL Glucose 164 H (74-99) mg/dL POC Glucose (mg/dL) 209 H 174 H (75-99) mg/dL Calcium 7.8 L (8.4-10.2) mg/dL 12/16/21 12/16/21 Range/Units 07:46 11:58 WBC 11.0 H (3.8-10.6) k/uL Hgb 12.1 L (13.0-17.5) gm/dL Neutrophils # 10.0 H (1.3-7.7) k/uL Lymphocytes # 0.5 L (1.0-4.8) k/uL D-Dimer (<0.60) mg/L FEU Sodium (137-145) mmol/L Chloride (98-107) mmol/L Carbon Dioxide (22-30) mmol/L BUN (9-20) mg/dL Creatinine (0.66-1.25) mg/dL Glucose (74-99) mg/dL POC Glucose (mg/dL) 144 H (75-99) mg/dL Calcium (8.4-10.2) mg/dL Microbiology - Last 24 Hours (Table) 12/09/21 19:32 Blood Culture - Final Blood No Growth after 144 hours Assessment and Plan Assessment: 61-year-old gentleman with right-sided pneumonia, presenting degree of sepsis which would appear to be improved compared to initial presentation. Associated ileus versus possible obstruction. Showing slow clinical improvement. Presenting computed tomography scan shows no discrete transition point. Abdominal exam today was essentially benign, mild distention without tympany, no abdominal tenderness, no guarding or rebound. I suspect he may have suffered with an aspiration based on aforementioned history, leukocytosis is normalizing. Plan: continue with nasogastric decompression, aspiration precautions with head of the bed at 30 at all times, nothing by mouth except via oral medications. Repeat CT abdomen and pelvis tomorrow with oral contrast via nasogastric tube to assess for mechanical obstruction. If contrast clears to the cecum we can consider discontinuing nasogastric tube and advancing to clear liquids. If he shows a mechanical obstruction will need to entertain plans for surgery. If findings are indeterminate will anticipate a 24-hour follow-up abdominal x-ray. Will follow. Time with Patient: Greater than 30
[2021-12-16 17:40] LABS: Glucose,Whole Blood 230 mg/dL (75-99)
--- NOTE | 2021-12-16 19:01 | PN ---
PROGRESS NOTE DATE OF SERVICE: 12/16/2021 This 61-year-old gentleman admitted with multilobar pneumonia also had severe sepsis and acute hypoxic respiratory failure. Patient is on 8 L of high-flow oxygen. The patient has also had abdominal distention. NG tube has to be reinserted. Patient is being closely monitored in ICU at this time. Past medical history reviewed. REVIEW OF SYSTEMS: Fourteen-point review of systems negative except as mentioned earlier. CURRENT MEDICATIONS: Reviewed. They include Tylenol, DuoNeb. Doses are reviewed. PHYSICAL EXAMINATION: Pulse is 105, blood pressure 128/60, respiration 20. HEENT: Conjunctivae normal. NECK: No jugular venous distention. CARDIOVASCULAR: S1, S2 muffled. RESPIRATION: Breath sounds diminished at the bases. A few scattered rhonchi and crackles. ABDOMEN: Soft, nontender. LEGS: No edema. No swelling. NERVOUS SYSTEM: No focal deficit. LABS: WBC 11, hemoglobin 12.1. Sodium 148, creatinine is 2.73. ASSESSMENT: 1. Acute multilobar pneumonia with acute hypoxic respiratory failure. 2. Sepsis. 3. Septic shock. 4. Chronic obstructive pulmonary disease, acute exacerbation. 5. Ileus, on NG tube. 6. Acute kidney injury. 7. Hyperlipidemia. 8. Hypertension. 9. Chronic hypoxic respiratory failure. RECOMMENDATIONS AND DISCUSSION: I recommend to continue current medications, continue symptomatic treatment. Continue with bronchodilators. Continue with antibiotics. Monitor creatinine closely. Repeat labs in the morning. Prognosis guarded. Monitor in ICU. See orders for further details. Discussed with staff. Further recommendations to follow. MMODL / IJN: [id number] /
[2021-12-16] MEDS: NOREPINEPHRINE 32 MG in SODIUM CHLORIDE 0.9% 218 ML IV SCH (19:59)
[2021-12-16 20:38] LABS: Glucose,Whole Blood 207 mg/dL (75-99)
[2021-12-16] MEDS: INSULIN DETEMIR (LEVEMIR) 100 UNIT/ML SYR SQ SCH (20:38)
[2021-12-17 00:01] LABS: Glucose,Whole Blood 203 mg/dL (75-99)
[2021-12-17] MEDS: INSULIN ASPART (NovoLOG) 100 UNIT/ML VIAL SQ SCH ×4 (00:23→17:55)
[2021-12-17] MEDS: PIPERACILLIN-TAZOBACTAM 3.375 GM in SODIUM CHLORIDE 0.9% 100 ML IVPB SCH ×3 (00:32→15:53)
[2021-12-17] MEDS: IPRATROPIUM-ALBUTEROL 3 ML NEB INHALATION SCH ×4 (07:16→21:12)
[2021-12-17] MEDS: FORMOTEROL FUMARATE 20 MCG/2 ML NEBU INHALATION SCH ×2 (07:16→21:12)
[2021-12-17] MEDS: BUDESONIDE 1 MG/2 ML NEBU INHALATION SCH ×2 (07:16→21:12)
[2021-12-17 10:45] LABS: Glucose,Whole Blood 194 mg/dL (75-99)
[2021-12-17 11:21] LABS: Glucose,Whole Blood 156 mg/dL (75-99)
[2021-12-17] MEDS: PANTOPRAZOLE 40 MG/10 ML VIAL IVP SCH (11:32)
[2021-12-17] MEDS: methylPREDNISolone SOD SUCCI 40 MG/ML 1 ML VIAL IV SCH ×2 (11:32→20:27)
[2021-12-17] MEDS: ENOXAPARIN 30 MG/0.3 ML SYRINGE SQ SCH (11:32)
[2021-12-17] MEDS: bisacodyL 5 MG TABLET.DR PO SCH (11:32)
[2021-12-17] MEDS: IOPAMIDOL CONTRAST (ORAL USE) VIAL PO PRN ×2 (11:56→12:56)
--- NOTE | 2021-12-17 12:27 | P.PN ---
Subjective Patient is seen in follow-up for acute kidney injury and hypernatremia. Currently does not have an NG tube. Scheduled for CAT scan of the abdomen and pelvis today. Labs from today are pending. Denies chest pain or shortness of breath. Currently on 8 L high flow cannula. Blood pressure stable. Not on any IV fluids at this time. Vital signs are stable. General: Resting in bed. No acute distress. HEENT: On nasal cannula. LUNGS: Breath sounds decreased. HEART: Rate and Rhythm are regular. ABDOMEN: Soft, nontender. EXTREMITITES: No edema. Objective - Vital Signs Vital signs: Vital Signs Temp 98.1 F 12/17/21 12:00 Pulse 102 H 12/17/21 12:00 Resp 18 12/17/21 12:00 BP 134/65 12/17/21 12:00 Pulse Ox 95 12/17/21 12:00 Intake & Output 12/16/21 12/17/21 12/17/21 18:59 06:59 18:59 Intake Total 1050 1100 800 Output Total 1410 2075 550 Balance -360 -975 250 Intake: IV 1050 1100 200 0.9Ns 100 Dextrose 5% in Water 1, 600 1000 000 ml @ 100 mls/hr IV . Q10H [facility] Rx#:[id number] Piperacillin-Tazobactam 3 100 100 100 .375 gm In Sodium Chloride 0.9% 100 ml @ 25 mls/hr IVPB Q12HR [facility] Rx #:[id number] Sodium Chloride 0.45% 1, 350 000 ml @ 70 mls/hr IV . [id number] [facility] Rx#:[id number] Oral 600 Output: Urine 1410 2075 550 Other: Voiding Method Indwelling Catheter Indwelling Catheter ABP, PAP, CO, CI - Last Documented Arterial Blood Pressure 66/60 - Labs CBC & Chem 7: 12/16/21 07:46 12/16/21 07:46 Labs: Abnormal Lab Results - Last 24 Hours (Table) 12/16/21 12/16/21 12/17/21 Range/Units 17:38 20:37 00:00 POC Glucose (mg/dL) 230 H 207 H 203 H (75-99) mg/dL 12/17/21 12/17/21 Range/Units 06:08 11:19 POC Glucose (mg/dL) 194 H 156 H (75-99) mg/dL Assessment and Plan Plan: Assessment: 1. Acute kidney injury mostly prerenal secondary to infection. Improving. Creatinine was 5.04 on admission and peaked at 6.82 - 2.73 today. Creatinine in May 2021 was 0.88. No hydronephrosis noted on CAT scan. 2. Hypernatremia from lack of oral water intake. 3. Pneumonia on antibiotics. 4. Ileus versus bowel obstruction. Pulled out NG tube last night. CAT scan pending. 5. Diabetes mellitus. 6. Acute hypoxic respiratory failure secondary to pneumonia and COPD. 7. History of vocal abuse. Plan: Check labs now. If still hypernatremic, will resume D5W. Continue to monitor renal function and urine output. Avoid nephrotoxins.
--- NOTE | 2021-12-17 13:28 | P.PN ---
Subjective Progress Note Date: 12/17/21 On 12/17/2021, I'm seeing the patient for a follow-up. The patient is awake and alert and communicating. The patient is post acute hypoxic respiratory failure secondary to COPD exacerbation right lower lobe pneumonia/aspiration. The patient also had an acute kidney injury and abdominal distention secondary to an ileus. In terms of the pneumonia, the patient continues to have a congested cough. No follow-up chest x-rays available. Noted the patient is post bronchoscopy that was done by Dr. Ochoa on 11/28/2021 and the cultures were essentially negative for any microbial growth. He has known to grow pseudomonas in the sputum back in 06/22/2021. The patient currently is on IV Zosyn. The patient is also on DuoNeb nebulized treatments around the clock and IV Solu Medrol for malignancy 12 hours. The patient was taken off the BiPAP and the patient is currently on 8 L of oxygen by nasal cannula to maintain a saturation around 97%. At the same time, the patient had developed an ileus. NG tube was initially inserted and the patient put out approximately 2200s of gastric output. Subsequently, they and she output dropped and the patient pulled out his tube today. CAT scan of the abdomen is to follow. No abdominal pain. His abdomen remains slightly distended and tympanic on today's examination. He leans that he is passing flatus for now. The patient has also an acute kidney injury. The sodium level was at 148 and the creatinine was at 2.7 from yesterday with a BUN of 107. Serum bicarbs at 31. Potassium level is at 5.0. Repeat blood work and electrodes are still pending from today. The patient has no specific complaints. IV fluids are currently at KVO. He remains on IV Zosyn. The neck fluid balance over the past 24 hours is been -3.9 m that the patient is producing excellent urine output. The patient remains on bronchodilators. The patient on Levemir insulin along with a sliding scale coverage. No pressors for now. Objective - Vital Signs Vital signs: Vital Signs Temp 98.1 F 12/17/21 12:00 Pulse 102 H 12/17/21 12:00 Resp 18 12/17/21 12:00 BP 134/65 12/17/21 12:00 Pulse Ox 95 12/17/21 12:00 Intake & Output 12/16/21 12/17/21 12/17/21 18:59 06:59 18:59 Intake Total 1050 1100 800 Output Total 1410 2075 550 Balance -360 -975 250 Intake: IV 1050 1100 200 0.9Ns 100 Dextrose 5% in Water 1, 600 1000 000 ml @ 100 mls/hr IV . Q10H [facility] Rx#:[id number] Piperacillin-Tazobactam 3 100 100 100 .375 gm In Sodium Chloride 0.9% 100 ml @ 25 mls/hr IVPB Q12HR [facility] Rx #:[id number] Sodium Chloride 0.45% 1, 350 000 ml @ 70 mls/hr IV . [id number] [facility] Rx#:[id number] Oral 600 Output: Urine 1410 2075 550 Other: Voiding Method Indwelling Catheter Indwelling Catheter Indwelling Catheter ABP, PAP, CO, CI - Last Documented Arterial Blood Pressure 66/60 - Exam No acute distress, oriented 3. Currently on 8 L nasal cannula. the NG tube has been removed HEENT examination is grossly unremarkable. Neck supple. Full range of motion. No adenopathy thyromegaly or neck vein distention. Cardiovascular examination reveals regular rhythm rate. S1-S2 normal. No S3 or S4. No discernible murmur noted. Heart sounds are distant. Lungs reveal coarse diffuse rhonchi. Breath sounds equal. No wheezes. No cr ackles. . Abdomen distended, and tympanic. No bowel sounds are noted. Abdomen is nontender. Extremities are intact. No cyanosis clubbing or edema. Skin is without rash or lesion. Neurologic examination is brief but nonfocal. - Labs CBC & Chem 7: 12/16/21 07:46 12/16/21 07:46 Labs: Abnormal Lab Results - Last 24 Hours (Table) 12/16/21 12/16/21 12/17/21 Range/Units 17:38 20:37 00:00 POC Glucose (mg/dL) 230 H 207 H 203 H (75-99) mg/dL 12/17/21 12/17/21 Range/Units 06:08 11:19 POC Glucose (mg/dL) 194 H 156 H (75-99) mg/dL Assessment and Plan Assessment: Acute hypoxemic respiratory failure secondary to COPD exacerbation complicated by primarily right lower lobe pneumonia/questionable aspiration, and possible interstitial edema secondary to ATN/acute kidney injury.clinically improving and the patient is currently on 8 L of O2 by nasal cannula. The patient remains on IV Zosyn. Acute COPD exacerbation secondary to above Abdominal distention, with discomfort, rule out small bowel obstruction/ileus, improving and the patient's NG tube has been taken out today. CAT scan of the abdomen is still pending. Acute sepsis with septic shock. Acute kidney injury/ATN, the patient is producing excellent amount of urine output in the creatinine is also improving, awaiting labs from today Possible non-ST segment elevation myocardial infarction. History of COPD with chronic hypoxemic respiratory failure. History of hyperlipidemia. History of hypertension. History of diabetes mellitus. History of depression. History of alcohol abuse. Plan Wean down the FiO2 as tolerated to maintain saturation above 90%, currently at 8 L Continue bronchodilators Continue steroids CAT scan of the abdomen and pelvis today Avoid IV contrast Awaiting labs from today Increase his mobility as tolerated Keep the NG tube out Continue IV Zosyn We'll continue to follow General surgery and nephrology are both on the case.
[2021-12-17 13:33] LABS: Calcium 8.4 mg/dL (8.4-10.2); Magnesium 2.7 mg/dL (1.6-2.3); Potassium 5.3 mmol/L (3.5-5.1)
[2021-12-17 13:51] LABS: Basophils % (A) 0 %; Eosinophils % (A) 0 %; HCT 41.3 % (39.0-53.0); Hypochromasia Slight; Lymphocytes # (A) 0.5 k/uL (1.0-4.8); Lymphocytes % (A) 3 %; MCH 28.3 pg (25.0-35.0); MCHC 31.4 g/dL (31.0-37.0); MCV 90.1 fL (80.0-100.0); Mean Platelet Volume 8.3; Monocytes # (A) 0.5 k/uL (0-1.0); Monocytes % (A) 3 %; Neutrophils % (A) 93 %; Platelet Count 251 k/uL (150-450); RBC 4.58 m/uL (4.30-5.90); RDW 14.7 % (11.5-15.5); WBC 15.1 k/uL (3.8-10.6)
--- NOTE | 2021-12-17 14:19 | CT ---
EXAMINATION TYPE: CT abdomen pelvis wo con DATE OF EXAM: 12/17/2021 COMPARISON: 12/09/2021 HISTORY: obstruction vs ilieus CT DLP: 802 mGycm Examination of the solid and hollow viscera is limited given the lack of contrast. FINDINGS: LUNG BASES: No evidence for nodule. Small right pleural effusion with compressive atelectasis. LIVER/GB: The gallbladder is unremarkable. No space-occupying hepatic lesion. PANCREAS: No pancreatic mass identified. No inflammatory process seen. SPLEEN: No evidence for splenomegaly. No intrasplenic lesions seen. ADRENALS: No adrenal nodules identified. No evidence for thickening. KIDNEYS: No evidence for renal mass. No nephrolithiasis. No hydronephrosis. Page catheter is noted w ithin the urinary bladder. BOWEL: Dilated small bowel measuring up to 4.4 cm. Contrast is seen within the mid to distal small jose wel. Obstruction is not excluded. There appears to be zone of transition on axial image 59 of 84 with possible adhesion. Decompression of distal bowel. Appendix is normal. Lymph nodes: No evidence for adenopathy greater than 1 cm. Abdominal aorta: Atheromatous changes seen. No evidence for aneurysm. Genital organs: No significant abnormality. Other: No significant abnormality. IMPRESSION: 1. Dilated small bowel with zone of transition as noted above suspicious for obstruction.
--- NOTE | 2021-12-17 15:15 | P.PN ---
Subjective Progress Note Date: 12/17/21 Principal diagnosis: right-sided pneumonia, presenting sepsis, ileus versus small bowel obstruction Patient seen and examined at bedside. Feeling better today than yesterday, he r emoved his nasogastric tube of his own volition again overnight. He tells me he is passing flatus today, no bowel movement yet. He denies abdominal pain. He is resting comfortably in bed. Laboratory studies today show a modest rising leukocytosis at 15,000, sodium and potassium was slightly high. CO2 is normal range at 26. Repeat computed tomography scan of abdomen and pelvis with oral contrast was just completed, images and report reviewed. Cervix quite distended, small bowels distended up to 4.5 cm or so proximally. There appears to be a transition point low in the pelvis in the neighborhood of the sacral promontory with distal decompression of small bowel and colon. No free air, no free fluid no pneumatosis appreciated. Objective - Vital Signs Vital signs: Vital Signs Temp 98.1 F 12/17/21 12:00 Pulse 100 12/17/21 13:00 Resp 11 L 12/17/21 13:00 BP 125/61 12/17/21 13:00 Pulse Ox 95 12/17/21 13:00 Intake & Output 12/16/21 12/17/21 12/17/21 18:59 06:59 18:59 Intake Total 1050 1100 1440 Output Total 1410 2075 800 Balance -360 -975 640 Intake: IV 1050 1100 240 0.9Ns 140 Dextrose 5% in Water 1, 600 1000 000 ml @ 100 mls/hr IV . Q10H [facility] Rx#:[id number] Piperacillin-Tazobactam 3 100 100 100 .375 gm In Sodium Chloride 0.9% 100 ml @ 25 mls/hr IVPB Q12HR [facility] Rx #:[id number] Sodium Chloride 0.45% 1, 350 000 ml @ 70 mls/hr IV . [id number] [facility] Rx#:[id number] Oral 1200 Output: Urine 1410 2075 800 Other: Voiding Method Indwelling Catheter Indwelling Catheter Indwelling Catheter ABP, PAP, CO, CI - Last Documented Arterial Blood Pressure 66/60 - Exam There is a slight interval increase in abdominal distention with tympany, no tenderness to palpation, no guarding or rebound. - Constitutional General appearance: Present: average body habitus, no acute distress - EENT Eyes: Present: PERRLA ENT: Present: NA/AT - Respiratory Respiratory: bilateral: CTA - Cardiovascular Rhythm: regular - Gastrointestinal General gastrointestinal: Present: decreased bowel sounds, distended - Neurologic Neurologic: Present: CNII-XII intact - Psychiatric Psychiatric: Present: A&O x's 3, appropriate affect, intact judgment & insight - Labs CBC & Chem 7: 12/17/21 12:42 12/17/21 12:42 Labs: Abnormal Lab Results - Last 24 Hours (Table) 12/16/21 12/16/21 12/17/21 Range/Units 17:38 20:37 00:00 WBC (3.8-10.6) k/uL Neutrophils # (1.3-7.7) k/uL Lymphocytes # (1.0-4.8) k/uL Sodium (137-145) mmol/L Potassium (3.5-5.1) mmol/L Chloride (98-107) mmol/L BUN (9-20) mg/dL Creatinine (0.66-1.25) mg/dL Glucose (74-99) mg/dL POC Glucose (mg/dL) 230 H 207 H 203 H (75-99) mg/dL Magnesium (1.6-2.3) mg/dL 12/17/21 12/17/21 12/17/21 Range/Units 06:08 11:19 12:42 WBC (3.8-10.6) k/uL Neutrophils # (1.3-7.7) k/uL Lymphocytes # (1.0-4.8) k/uL Sodium 149 H (137-145) mmol/L Potassium 5.3 H (3.5-5.1) mmol/L Chloride 116 H (98-107) mmol/L BUN 92 H (9-20) mg/dL Creatinine 2.25 H (0.66-1.25) mg/dL Glucose 182 H (74-99) mg/dL POC Glucose (mg/dL) 194 H 156 H (75-99) mg/dL Magnesium 2.7 H (1.6-2.3) mg/dL 12/17/21 Range/Units 12:42 WBC 15.1 H (3.8-10.6) k/uL Neutrophils # 14.0 H (1.3-7.7) k/uL Lymphocytes # 0.5 L (1.0-4.8) k/uL Sodium (137-145) mmol/L Potassium (3.5-5.1) mmol/L Chloride (98-107) mmol/L BUN (9-20) mg/dL Creatinine (0.66-1.25) mg/dL Glucose (74-99) mg/dL POC Glucose (mg/dL) (75-99) mg/dL Magnesium (1.6-2.3) mg/dL - Imaging and Cardiology CT scan - abdomen: report reviewed, image reviewed CT scan - pelvis: report reviewed, image reviewed Assessment and Plan Assessment: 61-year-old gentleman with right-sided pneumonia, presenting degree of sepsis which would appear to be improved compared to initial presentation. Repeat computed tomography scan of abdomen and pelvis today shows findings more consistent with obstruction and ileus with a transition point visualized low in the pelvis. Persistent distention without significant tenderness or signs of peritonitis on exam. I suspect he may have suffered with an aspiration based on aforementioned history. Plan: Options for management of small bowel obstruction were reviewed with the patient. I feel somewhat strongly that he really needs this nasogastric tube in place to give him a chance at successful nonoperative management and to prevent further risk of aspiration pneumonitis and pneumonia. He is definitely at risk for remaining intubated postoperatively if we end up having to pursue a laparotomy. Patient will agree us to replace his nasogastric tube today, keep it to at least moderate continuous suction as a looks like there is quite a bit of enteric succus and gastric distention to deal with.. We'll obtain a flat plate abdominal x-ray tomorrow morning. If there is no passage of contrast into the cecum at that point will likely need to move forward with an operation as the patient is now coming up on hospital day 7 for this issue and associated sequelae. Patient is in agreement. Time with Patient: Greater than 30
[2021-12-17 15:50] LABS: Albumin 2.8 g/dL (3.5-5.0); Total Bilirubin 0.7 mg/dL (0.2-1.3); Total Protein 5.9 g/dL (6.3-8.2)
[2021-12-17] MEDS: DEXTROSE 5% IN WATER 1,000 ML IV SCH (15:53)
--- NOTE | 2021-12-17 16:35 | P.PN ---
Progress Note - Text Progress Note Date: 12/17/21 Chief Complaint: Short of breath This is a 61-year-old patient who follows with Dr. Romero. Chronic stable medical conditions include diabetes, hypertension, hyperlipidemia. previous smoker/-COPD. Patient presented to the ER with increasing shortness of breath. Family informed ER physician that that is not seen in bed on Friday. Since patient has been getting worse. Not getting out of bed and breathing progressively getting worse. Patient on 2 L was saturating 62%. EMS was not able to get a blood pressure. Patient was minimally conscious. It had to be bagged and brought to the hospital. Patient did receive 1 dose of appendectomy. Patient has not been eating or drinking. No fever. Patient on November 28 underwent bronchoscopy and lavage by Dr. Consuelo Ochoa from pulmonary. On the right side patient's found to have extensive purulent secretions filling of the airways. BAL was performed. No mass was noted. Cultures were positive for Gaby albicans. Patient is put on BiPAP. This morning BiPAP set at 14/6. 50%. Patient on levo fed drip. Tired. Admitted with bilateral multilobar pneumonia, IV Zosyn, IV sepsis IV fluids, septic shock and IV levo fed,'s acute COPD exacerbation on DuoNeb steroids, acute hypoxic respiratory failure on BiPAP, acute kidney injury from ATN, acute metabolic acidosis from which she received IV bicarbonate drip. Also acute ileus from sepsis pneumonia for which NG tube to suction started. December 11: ICU: NG tube to suction. BiPAP setting at 14/6 at 50%. Tired. Answering questions. Laying in bed. DuoNeb, IV levo fed, IV Zosyn, sodium bicarbonate drip IV steroids December 12 - December 16 patient was followed by [facility] hospitalists December 17: ICU: NG tube red corticomedullary today. Put back in. Putting out good output. Patient has pus slight flatus. Computed tomography scan done today shows renal obstruction. Seen by surgery. Possible walk tomorrow. Remains on 8 L of nasal cannula. Shortness of breath. Abdomen distended. Telemetry sinus rhythm. Active Medications Acetaminophen (Acetaminophen Tab 325 Mg Tab) 650 mg PO Q4HR PRN PRN Reason: Fever and/or Mild Pain Albuterol/Ipratropium (Ipratropium-Albuterol 3 Ml Neb) 3 ml INHALATION RT-Q4H PRN PRN Reason: Shortness Of Breath Or Wheezing Last Admin: 12/10/21 08:22 Dose: 3 ml Documented by: Albuterol/Ipratropium (Ipratropium-Albuterol 3 Ml Neb) 3 ml INHALATION RT-QID [facility] Last Admin: 12/17/21 15:10 Dose: Not Given Documented by: Bisacodyl (Bisacodyl 5 Mg Tablet.Dr) 10 mg PO DAILY [facility] Last Admin: 12/17/21 11:32 Dose: Not Given Documented by: Budesonide (Budesonide 1 Mg/2 Ml Nebu) 1 mg INHALATION RT-BID [facility] Last Admin: 12/17/21 07:16 Dose: 1 mg Documented by: Enoxaparin Sodium (Enoxaparin 30 Mg/0.3 Ml Syringe) 30 mg SQ DAILY [facility] Last Admin: 12/17/21 11:32 Dose: Not Given Documented by: Formoterol Fumarate (Formoterol Fumarate 20 Mcg/2 Ml Nebu) 20 mcg INHALATION RT-BID [facility] Last Admin: 12/17/21 07:16 Dose: 20 mcg Documented by: Norepinephrine Bitartrate 32 (mg/ Sodium Chloride) 250 mls @ 2.065 mls/hr IV .Q24H [facility]; Protocol Last Admin: 12/16/21 19:59 Dose: Not Given Documented by: Piperacillin Sod/Tazobactam (Sod 3.375 gm/ Sodium Chloride) 100 mls @ 25 mls/hr IVPB Q8HR [facility]; Protocol Last Admin: 12/17/21 15:53 Dose: 25 mls/hr Documented by: Dextrose/Water (Dextrose 5%-Water Iv Soln) 1,000 mls @ 100 mls/hr IV .Q10H [facility] Last Admin: 12/17/21 15:53 Dose: 100 mls/hr Documented by: Insulin Aspart (Insulin Aspart (Novolog) 100 Unit/Ml Vial) 0 unit SQ Q6H [facility]; Protocol Last Admin: 12/17/21 11:34 Dose: 1 unit Documented by: Insulin Detemir (Insulin Detemir (Levemir) 100 Unit/Ml Syr) 10 unit SQ HS [facility] Last Admin: 12/16/21 20:38 Dose: 10 unit Documented by: Methylprednisolone Sodium Succinate (Methylprednisolone Sod Succi 40 Mg/Ml 1 Ml Vial) 40 mg IV Q12HR [facility] Last Admin: 12/17/21 11:32 Dose: Not Given Documented by: Naloxone HCl (Naloxone 0.4 Mg/Ml 1 Ml Vial) 0.2 mg IV Q2M PRN PRN Reason: Opioid Reversal Ondansetron HCl (Ondansetron 4 Mg/2 Ml Vial) 4 mg IVP Q6HR PRN PRN Reason: Nausea And Vomiting Pantoprazole Sodium (Pantoprazole 40 Mg/10 Ml Vial) 40 mg IVP DAILY [facility] Last Admin: 12/17/21 11:32 Dose: Not Given Documented by: Past medical history to include: COPD, diabetes, hypertension, 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 Smoked a pack a day for close to 50 years stopped about 2 years ago. Drinks alcohol very heavily on the weekends to the point of passing out Family history: Reviewed, noncontributory to presentation Physical examination: VITAL SIGNS: 98.1, 100, 18, 134/65, 95% on 8 L GENERAL: laying in bed, short of breath. EYES: Pupils equal. Conjunctiva normal. HEENT: External appearance of nose and ears normal, oral cavity unable to as sess. NECK: JVD unable to assess masses not palpable. HEART: First and second heart sounds are normal; no edema. LUNGS: Respiratory rate increased; diminished breath sounds prolonged expiration. ABDOMEN: Soft, distended nontender, liver spleen not palpable, no masses palpable. PSYCH: Answering questions INVESTIGATIONS, reviewed in the clinical context: December 17: White count 15.1 hemoglobin 13 platelets 251 sodium 149 potassium 5.3. 92 creatinine 2.25 Computed tomography scan abdomen [December 17]: Dilated small bowel measuring up to 4.4 cm. Obstruction not excluded. Zone of transition noted. December 11: White count 19.7 hemoglobin 11.5 platelets 271 potassium 5 BUN 95 creatinine 6.3 to December 10: White count 20 hemoglobin 13.2 platelets 300 potassium 6.4 BUN 68 creatinine 4.61 Admission labs: White count 22.5 hemoglobin 13.9 platelets 299 sodium 136 potassium 5.7 BUN 60 creatinine 5.04 lactic acid 8.1 troponin I 0.063 proBNP [id number] EKG tracing personally reviewed by me-normal sinus rhythm. Rate 90 Chest x-ray film personally reviewed by me-infiltrate especially right base CT chest abdomen pelvis: Patchy area of his consolidation consistent multifocal pneumonia may need the right lower lobe. Dilated small bowel. No transition point. Previous labs: Creatinine on May 2021: 0.88 Assessment and plan: -Severe multilobar pneumonia predominantly right lower lobe, suspect gram- negative organism: Slow to respond IV Zosyn. -Sepsis secondary to pneumonia IV fluids , IV Zosyn -Troponinemia due to hemodynamic mass matched from sepsis. No clinical evidence of acute coronary syndrome -Septic shock: Improved IV fluids. IV levo fed discontinued -Acute COPD exacerbation in a previous smoker: Slow to respond DuoNeb every 4 times a day, IV and inhaled steroids, -Acute severe hypoxic respiratory failure from pneumonia/COPD: Slow to respond BiPAP. Currently on 8 L nasal cannula -Hyperlipidemia Lipitor 80 mg daily at bedtime -Essential hypertension, Hold antihypertensives -Chronic hypoxic respiratory failure from COPD Has 2 L of oxygen at home -Acute hypoxic respiratory failure, from pneumonia, POA: Slow to respond 8 L -Acute medical debility from sepsis pneumonia COPD exacerbation -Acute lactic acidosis from sepsis -Acute kidney injury from ATN from sepsis and prerenal: Slow to respond Creatinine peaked at 6.8. -Acute metabolic acidosis from renal failure: Better Received IV bicarbonate drip. -Acute small bowel obstruction. Not improving. NG tube to suction. Possible surgery tomorrow -Full code ICU. 8 L nasal cannula. IV fluids. IV Zosyn. . DuoNeb. Steroids. Possible surgery tomorrow. Prognosis guarded.
[2021-12-17] MEDS: NOREPINEPHRINE 32 MG in SODIUM CHLORIDE 0.9% 218 ML IV SCH (16:36)
[2021-12-17 17:49] LABS: Glucose,Whole Blood 222 mg/dL (75-99)
[2021-12-17] MEDS: INSULIN DETEMIR (LEVEMIR) 100 UNIT/ML SYR SQ SCH (20:24)
[2021-12-17 23:44] LABS: Glucose,Whole Blood 227 mg/dL (75-99)
[2021-12-18] MEDS: PIPERACILLIN-TAZOBACTAM 3.375 GM in SODIUM CHLORIDE 0.9% 100 ML IVPB SCH ×4 (00:01→23:14)
[2021-12-18] MEDS: INSULIN ASPART (NovoLOG) 100 UNIT/ML VIAL SQ SCH ×4 (00:01→17:49)
[2021-12-18] MEDS: DEXTROSE 5% IN WATER 1,000 ML IV SCH ×6 (00:07→21:05)
[2021-12-18 05:48] LABS: Glucose,Whole Blood 186 mg/dL (75-99)
--- NOTE | 2021-12-18 06:33 | XR ---
EXAMINATION TYPE: XR abdomen acute w cxr DATE OF EXAM: 12/18/2021 CLINICAL HISTORY: Pneumonia. Suspected small bowel obstruction. TECHNIQUE: Single frontal view of chest is obtained. Supine and upright views of the abdomen are acq uired. COMPARISON: CT abdomen and pelvis from yesterday. Chest x-ray 4 days ago.. FINDINGS: New patchy right mid lung opacity. Improved aeration right lung base. Persistent patchy lef t basilar opacity. Cardiac silhouette size appears stable and upper limits of normal. Osseous struc tures are intact. New Nasogastric tube projects below diaphragm. Persistent gaseous dilated small bowel loops localized to the central abdomen with nondistended colon along the periphery. Redemonstration of right-sided femoral venous catheter. Redemonstration of Fole y catheter. No free air. IMPRESSION: 1. Improved aeration right lung base. New right mid lung acute infiltrate and/or atelectasis. Stable left basilar opacity favoring patchy atelectasis. 2. Findings consistent with persistent small bowel obstruction. No significant change from recent CT despite placement of nasogastric tube.
[2021-12-18 08:00] LABS: Calcium 8.8 mg/dL (8.4-10.2); Magnesium 2.6 mg/dL (1.6-2.3); Potassium 5.5 mmol/L (3.5-5.1)
[2021-12-18] MEDS: PANTOPRAZOLE 40 MG/10 ML VIAL IVP SCH (08:32)
[2021-12-18] MEDS: methylPREDNISolone SOD SUCCI 40 MG/ML 1 ML VIAL IV SCH ×2 (08:32→21:11)
[2021-12-18] MEDS: IPRATROPIUM-ALBUTEROL 3 ML NEB INHALATION SCH ×4 (09:34→20:42)
[2021-12-18] MEDS: BUDESONIDE 1 MG/2 ML NEBU INHALATION SCH ×2 (09:34→20:42)
[2021-12-18] MEDS: FORMOTEROL FUMARATE 20 MCG/2 ML NEBU INHALATION SCH ×2 (09:34→20:42)
--- NOTE | 2021-12-18 10:00 | P.PN ---
Subjective Patient is seen in follow-up for acute kidney injury and hypernatremia. Sodium level stable at 149. Creatinine 1.99. Nonoliguric. Denies chest pain or shortness of breath. Currently on 2 L high flow cannula. Blood pressure stable. Receiving D5W. About 1 L output from NG tube overnight. Vital signs are stable. General: Resting in bed. No acute distress. HEENT: On nasal cannula. NG tube noted. LUNGS: Breath sounds decreased. HEART: Rate and Rhythm are regular. ABDOMEN: Soft, nontender. EXTREMITITES: No edema. Objective - Vital Signs Vital signs: Vital Signs Temp 97.7 F 12/18/21 04:00 Pulse 80 12/18/21 09:40 Resp 18 12/18/21 09:40 BP 128/67 12/18/21 09:40 Pulse Ox 89 L 12/18/21 09:40 Intake & Output 12/17/21 12/18/21 12/18/21 18:59 06:59 18:59 Intake Total 1860 1300 100 Output Total 1700 1820 1050 Balance 160 -520 -950 Weight 92 kg Intake: IV 260 100 0.9Ns 160 Dextrose 5% in Water 1, 100 000 ml @ 100 mls/hr IV . Q10H [facility] Rx#:[id number] Piperacillin-Tazobactam 3 100 .375 gm In Sodium Chloride 0.9% 100 ml @ 25 mls/hr IVPB Q12HR [facility] Rx #:[id number] Intake, IV Titration 400 1300 Amount Dextrose 5% in Water 1, 300 1300 000 ml @ 100 mls/hr IV . Q10H [facility] Rx#:[id number] Piperacillin-Tazobactam 3 100 .375 gm In Sodium Chloride 0.9% 100 ml @ 25 mls/hr IVPB Q8HR [facility] Rx# :[id number] Oral 1200 Output: Gastric Drainage 500 900 Urine 1200 1820 150 Other: Voiding Method Indwelling Catheter Indwelling Catheter ABP, PAP, CO, CI - Last Documented Arterial Blood Pressure 66/60 - Labs CBC & Chem 7: 12/17/21 12:42 12/18/21 07:28 Labs: Abnormal Lab Results - Last 24 Hours (Table) 12/17/21 12/17/21 12/17/21 Range/Units 06:08 11:19 12:42 WBC (3.8-10.6) k/uL Neutrophils # (1.3-7.7) k/uL Lymphocytes # (1.0-4.8) k/uL Sodium 149 H (137-145) mmol/L Potassium 5.3 H (3.5-5.1) mmol/L Chloride 116 H (98-107) mmol/L BUN 92 H (9-20) mg/dL Creatinine 2.25 H (0.66-1.25) mg/dL Glucose 182 H (74-99) mg/dL POC Glucose (mg/dL) 194 H 156 H (75-99) mg/dL Magnesium 2.7 H (1.6-2.3) mg/dL AST 90 H (17-59) U/L ALT 166 H (4-49) U/L Total Protein 5.9 L (6.3-8.2) g/dL Albumin 2.8 L (3.5-5.0) g/dL 12/17/21 12/17/21 12/17/21 Range/Units 12:42 17:47 23:42 WBC 15.1 H (3.8-10.6) k/uL Neutrophils # 14.0 H (1.3-7.7) k/uL Lymphocytes # 0.5 L (1.0-4.8) k/uL Sodium (137-145) mmol/L Potassium (3.5-5.1) mmol/L Chloride (98-107) mmol/L BUN (9-20) mg/dL Creatinine (0.66-1.25) mg/dL Glucose (74-99) mg/dL POC Glucose (mg/dL) 222 H 227 H (75-99) mg/dL Magnesium (1.6-2.3) mg/dL AST (17-59) U/L ALT (4-49) U/L Total Protein (6.3-8.2) g/dL Albumin (3.5-5.0) g/dL 12/18/21 12/18/21 Range/Units 05:47 07:28 WBC (3.8-10.6) k/uL Neutrophils # (1.3-7.7) k/uL Lymphocytes # (1.0-4.8) k/uL Sodium 149 H (137-145) mmol/L Potassium 5.5 H (3.5-5.1) mmol/L Chloride 114 H (98-107) mmol/L BUN 79 H (9-20) mg/dL Creatinine 1.99 H (0.66-1.25) mg/dL Glucose 183 H (74-99) mg/dL POC Glucose (mg/dL) 186 H (75-99) mg/dL Magnesium 2.6 H (1.6-2.3) mg/dL AST (17-59) U/L ALT (4-49) U/L Total Protein (6.3-8.2) g/dL Albumin (3.5-5.0) g/dL Assessment and Plan Plan: Assessment: 1. Acute kidney injury mostly prerenal secondary to infection. Improving. Creatinine was 5.04 on admission and peaked at 6.82 - 1.99 today. Creatinine in May 2021 was 0.88. No hydronephrosis noted on CAT scan. 2. Hypernatremia from lack of oral water intake. 3. Pneumonia on antibiotics. 4. Ileus versus bowel obstruction. Has NG tube. Surgery following. Possible surgery today. 5. Diabetes mellitus. 6. Acute hypoxic respiratory failure secondary to pneumonia and COPD. 7. History of alcohol abuse. 8. Mild hyperkalemia secondary to acute kidney injury and hyperglycemia. Plan: Increase D5W to 1 50 mL an hour. Repeat BMP this afternoon. Continue to monitor renal function and urine output. Avoid nephrotoxins. Blood sugar control.
[2021-12-18 11:23] VITALS: BMI 27.5
[2021-12-18] MEDS: ENOXAPARIN 40 MG/0.4 ML SYRINGE SQ SCH (11:39)
[2021-12-18] MEDS: bisacodyL 5 MG TABLET.DR PO SCH (11:41)
--- NOTE | 2021-12-18 11:49 | P.PN ---
Subjective Progress Note Date: 12/18/21 On 12/17/2021, I'm seeing the patient for a follow-up. The patient is awake and alert and communicating. The patient is post acute hypoxic respiratory failure secondary to COPD exacerbation right lower lobe pneumonia/aspiration. The patient also had an acute kidney injury and abdominal distention secondary to an ileus. In terms of the pneumonia, the patient continues to have a congested cough. No follow-up chest x-rays available. Noted the patient is post bronchoscopy that was done by Dr. Ochoa on 11/28/2021 and the cultures were essentially negative for any microbial growth. He has known to grow pseudomonas in the sputum back in 06/22/2021. The patient currently is on IV Zosyn. The patient is also on DuoNeb nebulized treatments around the clock and IV Solu Medrol for malignancy 12 hours. The patient was taken off the BiPAP and the patient is currently on 8 L of oxygen by nasal cannula to maintain a saturation around 97%. At the same time, the patient had developed an ileus. NG tube was initially inserted and the patient put out approximately 2200s of gastric output. Subsequently, they and she output dropped and the patient pulled out his tube today. CAT scan of the abdomen is to follow. No abdominal pain. His abdomen remains slightly distended and tympanic on today's examination. He leans that he is passing flatus for now. The patient has also an acute kidney injury. The sodium level was at 148 and the creatinine was at 2.7 from yesterday with a BUN of 107. Serum bicarbs at 31. Potassium level is at 5.0. Repeat blood work and electrodes are still pending from today. The patient has no specific complaints. IV fluids are currently at KVO. He remains on IV Zosyn. The neck fluid balance over the past 24 hours is been -3.9 m that the patient is producing excellent urine output. The patient remains on bronchodilators. The patient on Levemir insulin along with a sliding scale coverage. No pressors for now. The patient is seen today 12/18/2021 in follow-up in the intensive care unit. He is awake and alert in no acute distress. He did have his nasogastric tube reinserted after he had initially inadvertently pulled out. He's still having distended abdomen. Acute abdomen x-ray revealed persistent small bowel obstruction. No significant change from recent CT despite placement of nasogastric tube. There is improved aeration of the right lung base. Some new mid lung atelectasis. Stable left easily opacity favoring atelectasis. Blood cultures reveal no growth. Sodium 149. Potassium 5.5. Chloride 114. BUN 79. Creatinine 1.99. Glucose 183. He is currently in a -1.3 L balance. He remains on DuoNeb inhalations, Pulmicort and Perforomist inhalations, IV Solu-Medrol. D5 W at 150 ML's per hour. Antibiotics in the form of Zosyn. He is maintaining good O2 saturations in the 90s on 2 L/m per nasal cannula. He's been hemodynamically stable. States he is passing flatus. No bowel movements. Objective - Vital Signs Vital signs: Vital Signs Temp 97.7 F 12/18/21 04:00 Pulse 69 12/18/21 10:50 Resp 16 12/18/21 10:50 BP 139/59 12/18/21 10:10 Pulse Ox 92 L 12/18/21 10:50 Intake & Output 12/17/21 12/18/21 12/18/21 18:59 06:59 18:59 Intake Total 1860 1300 550 Output Total 1700 1820 1340 Balance 160 -520 -790 Weight 92 kg 92 kg Intake: IV 260 550 0.9Ns 160 Dextrose 5% in Water 1, 550 000 ml @ 150 mls/hr IV . Q6H40M [facility] Rx#:[id number] Piperacillin-Tazobactam 3 100 .375 gm In Sodium Chloride 0.9% 100 ml @ 25 mls/hr IVPB Q12HR [facility] Rx #:[id number] Intake, IV Titration 400 1300 Amount Dextrose 5% in Water 1, 300 1300 000 ml @ 150 mls/hr IV . Q6H40M [facility] Rx#:[id number] Piperacillin-Tazobactam 3 100 .375 gm In Sodium Chloride 0.9% 100 ml @ 25 mls/hr IVPB Q8HR [facility] Rx# :[id number] Oral 1200 Output: Gastric Drainage 500 900 Urine 1200 1820 440 Other: Voiding Method Indwelling Catheter Indwelling Catheter ABP, PAP, CO, CI - Last Documented Arterial Blood Pressure 66/60 - Exam GENERAL EXAM: Alert, and 61-year-old male patient, on 2 L nasal cannula, fairly comfortable in no apparent distress. HEAD: Normocephalic. EYES: Normal reaction of pupils, equal size. NOSE: Nasogastric tube secured in place. Clear with pink turbinates. THROAT: No erythema or exudates. NECK: No masses, no JVD. CHEST: No chest wall deformity. LUNGS: Equal air entry with scattered rhonchi, crackles in the bases. CVS: S1 and S2 normal with no audible murmur, regular rhythm. ABDOMEN: Distended. No significant bowel sounds. No guarding or rigidity. SPINE: No scoliosis or deformity SKIN: No rashes CENTRAL NERVOUS SYSTEM: No focal deficits, tone is normal in all 4 extremities. EXTREMITIES: There is no peripheral edema. No clubbing, no cyanosis. Peripheral pulses are intact. - Labs CBC & Chem 7: 12/17/21 12:42 12/18/21 07:28 Labs: Abnormal Lab Results - Last 24 Hours (Table) 12/17/21 12/17/21 12/17/21 Range/Units 12:42 12:42 17:47 WBC 15.1 H (3.8-10.6) k/uL Neutrophils # 14.0 H (1.3-7.7) k/uL Lymphocytes # 0.5 L (1.0-4.8) k/uL Sodium 149 H (137-145) mmol/L Potassium 5.3 H (3.5-5.1) mmol/L Chloride 116 H (98-107) mmol/L BUN 92 H (9-20) mg/dL Creatinine 2.25 H (0.66-1.25) mg/dL Glucose 182 H (74-99) mg/dL POC Glucose (mg/dL) 222 H (75-99) mg/dL Magnesium 2.7 H (1.6-2.3) mg/dL AST 90 H (17-59) U/L ALT 166 H (4-49) U/L Total Protein 5.9 L (6.3-8.2) g/dL Albumin 2.8 L (3.5-5.0) g/dL 12/17/21 12/18/21 12/18/21 Range/Units 23:42 05:47 07:28 WBC (3.8-10.6) k/uL Neutrophils # (1.3-7.7) k/uL Lymphocytes # (1.0-4.8) k/uL Sodium 149 H (137-145) mmol/L Potassium 5.5 H (3.5-5.1) mmol/L Chloride 114 H (98-107) mmol/L BUN 79 H (9-20) mg/dL Creatinine 1.99 H (0.66-1.25) mg/dL Glucose 183 H (74-99) mg/dL POC Glucose (mg/dL) 227 H 186 H (75-99) mg/dL Magnesium 2.6 H (1.6-2.3) mg/dL AST (17-59) U/L ALT (4-49) U/L Total Protein (6.3-8.2) g/dL Albumin (3.5-5.0) g/dL Assessment and Plan Assessment: Acute hypoxemic respiratory failure secondary to COPD exacerbation complicated by primarily right lower lobe pneumonia/questionable aspiration, and possible interstitial edema secondary to ATN/acute kidney injury. Clinically improving and the patient is currently on 2 L of O2 by nasal cannula. The patient remains on IV Zosyn. Acute COPD exacerbation secondary to above Abdominal distention, secondary to small bowel obstruction/ileus, NG tube was reinserted. CAT scan of the abdomen 12/17/2021 revealed dilated small bowel measuring up to 4.4 cm. Contrast is seen within the mid to distal small bowel. Obstruction is not excluded. There appears to be a zone of transition with possible adhesion. Abdominal x-ray today reveals similar findings. Acute sepsis with septic shock. Acute kidney injury/ATN, the patient is producing excellent amount of urine output in the creatinine is also improving, creatinine 1.99 Possible non-ST segment elevation myocardial infarction. History of COPD with chronic hypoxemic respiratory failure. History of hyperlipidemia. History of hypertension. History of diabetes mellitus. History of depression. History of alcohol abuse. Plan: The patient was seen and evaluated CAT scan, abdominal x-ray, chest x-ray and labs reviewed Remains on D5W at 150 ML's per hour Remains on Zosyn Currently on 2 L nasal cannula Remains on bronchodilators, IV Solu-Medrol Lovenox for DVT prophylaxis Nasogastric tube remains in place Surgical recommendations pending for today We'll continue to follow and make further recommendations based on his clinical status I have personally seen and examined the patient, performed the documentation and the assessment and plan as written. Number of minutes spent on the visit: 10. I have personally seen and examined the patient and reviewed the documentation. I performed a joint evaluation with the nurse practitioner in this evaluation was done more than 20 minutes. I fully agree with the documentation above and the plan of care.. The patient was being seen again today in follow-up in the intensive care unit. The patient had NG tube reinserted as the patient was found to have ongoing abdominal distention and ongoing small bowel obstruction based on the follow-up CAT scan of the abdomen that was done on 12/17/2021. Obstruction cannot be completely excluded at the level of the small bowel and the patient is being considered for surgical intervention within the next 24-48 hours especially the patient does not show any signs of improvement. At this point in time, the patient is passing some flatus according to him and the patient has bowel sounds. No emesis. NG tube is in place. Output is quite d iminished pin note that after they really insertion of the NG tube, the patient had a total of 1 L of output from his NG tube immediately. The patient is currently on D5 water at the rate of 150 mL an hour. The patient is not having any significant respiratory distress. The patient remained on DuoNeb nebulized units [id number] and IV Solu Medrol. The patient is also on IV Zosyn. The patient is currently on 2 L of oxygen by nasal cannula with a pulse ox of 94%. The creatinine is improving and scattered about 1.9 and the sodium level is at 149 with a potassium level of 5.5.
[2021-12-18 12:01] LABS: Glucose,Whole Blood 180 mg/dL (75-99)
--- NOTE | 2021-12-18 12:30 | P.PN ---
Subjective Progress Note Date: 12/18/21 Principal diagnosis: right-sided pneumonia, presenting sepsis, ileus versus small bowel obstruction patient seen and examined at bedside. No overnight complaints. Nasogastric tub e was replaced yesterday afternoon with an additional 1000 mL dark bilious aspirate. Patient denies abdominal pain, no reports of nausea or vomiting. Has been up to chair but not ambulatory. Getting tachycardic with position changes up to the 130s, Baseline heart rate in the 90s to 100s. Potassium is high today at 5.5, creatinine has been slowly improving. continues with good urine output via Page. Presently on D5W at 150 mL/h per nephrology orders.repeat BMP pending for this afternoon. Over the course of my visit patient had a moderate to loose bowel movement. chest and abdominal films were obtained this morning, images and report were reviewed. They show a developing right middle lobe bronchus consolidation, improvement in other pulmonary findings, and signs of persistent small bowel obstruction. Objective - Vital Signs Vital signs: Vital Signs Temp 97.7 F 12/18/21 04:00 Pulse 69 12/18/21 10:50 Resp 16 12/18/21 10:50 BP 139/59 12/18/21 10:10 Pulse Ox 92 L 12/18/21 10:50 Intake & Output 12/17/21 12/18/21 12/18/21 18:59 06:59 18:59 Intake Total 1860 1300 550 Output Total 1700 1820 1340 Balance 160 -520 -790 Weight 92 kg 92 kg Intake: IV 260 550 0.9Ns 160 Dextrose 5% in Water 1, 550 000 ml @ 150 mls/hr IV . Q6H40M [facility]Y Rx#:[id number] Piperacillin-Tazobactam 3 100 .375 gm In Sodium Chloride 0.9% 100 ml @ 25 mls/hr IVPB Q12HR [facility] Rx #:[id number] Intake, IV Titration 400 1300 Amount Dextrose 5% in Water 1, 300 1300 000 ml @ 150 mls/hr IV . Q6H40M [facility] Rx#:[id number] Piperacillin-Tazobactam 3 100 .375 gm In Sodium Chloride 0.9% 100 ml @ 25 mls/hr IVPB Q8HR [facility] Rx# :[id number] Oral 1200 Output: Gastric Drainage 500 900 Urine 1200 1820 440 Other: Voiding Method Indwelling Catheter Indwelling Catheter Indwelling Catheter ABP, PAP, CO, CI - Last Documented Arterial Blood Pressure 66/60 - Constitutional General appearance: Present: average body habitus, no acute distress - EENT Eyes: Present: PERRLA ENT: Present: NA/AT - Respiratory Respiratory: bilateral: CTA - Cardiovascular Rhythm: regular - Gastrointestinal Gastrointestinal Comment(s): abdomen is soft, nontender to palpation. Moderate distention with tympany. No guarding or rebound. Slight improvement in distention compared to yesterday. General gastrointestinal: Present: decreased bowel sounds - Neurologic Neurologic: Present: CNII-XII intact - Psychiatric Psychiatric: Present: A&O x's 3 - Labs CBC & Chem 7: 12/17/21 12:42 12/18/21 07:28 Labs: Abnormal Lab Results - Last 24 Hours (Table) 12/17/21 12/17/21 12/17/21 Range/Units 12:42 12:42 17:47 WBC 15.1 H (3.8-10.6) k/uL Neutrophils # 14.0 H (1.3-7.7) k/uL Lymphocytes # 0.5 L (1.0-4.8) k/uL Sodium 149 H (137-145) mmol/L Potassium 5.3 H (3.5-5.1) mmol/L Chloride 116 H (98-107) mmol/L BUN 92 H (9-20) mg/dL Creatinine 2.25 H (0.66-1.25) mg/dL Glucose 182 H (74-99) mg/dL POC Glucose (mg/dL) 222 H (75-99) mg/dL Magnesium 2.7 H (1.6-2.3) mg/dL AST 90 H (17-59) U/L ALT 166 H (4-49) U/L Total Protein 5.9 L (6.3-8.2) g/dL Albumin 2.8 L (3.5-5.0) g/dL 12/17/21 12/18/21 12/18/21 Range/Units 23:42 05:47 07:28 WBC (3.8-10.6) k/uL Neutrophils # (1.3-7.7) k/uL Lymphocytes # (1.0-4.8) k/uL Sodium 149 H (137-145) mmol/L Potassium 5.5 H (3.5-5.1) mmol/L Chloride 114 H (98-107) mmol/L BUN 79 H (9-20) mg/dL Creatinine 1.99 H (0.66-1.25) mg/dL Glucose 183 H (74-99) mg/dL POC Glucose (mg/dL) 227 H 186 H (75-99) mg/dL Magnesium 2.6 H (1.6-2.3) mg/dL AST (17-59) U/L ALT (4-49) U/L Total Protein (6.3-8.2) g/dL Albumin (3.5-5.0) g/dL 12/18/21 Range/Units 11:59 WBC (3.8-10.6) k/uL Neutrophils # (1.3-7.7) k/uL Lymphocytes # (1.0-4.8) k/uL Sodium (137-145) mmol/L Potassium (3.5-5.1) mmol/L Chloride (98-107) mmol/L BUN (9-20) mg/dL Creatinine (0.66-1.25) mg/dL Glucose (74-99) mg/dL POC Glucose (mg/dL) 180 H (75-99) mg/dL Magnesium (1.6-2.3) mg/dL AST (17-59) U/L ALT (4-49) U/L Total Protein (6.3-8.2) g/dL Albumin (3.5-5.0) g/dL - Imaging and Cardiology Chest x-ray: report reviewed, image reviewed Abdominal x-ray: report reviewed, image reviewed Assessment and Plan Assessment: 61-year-old gentleman with right-sided pneumonia, presenting degree of sepsis which would appear to be improved compared to initial presentation. Repeat computed tomography scan of abdomen and pelvis today shows findings more consistent with obstruction and ileus with a transition point visualized low in the pelvis. loose bowel movement today, may be starting to resolve with nonoperative management. No evidence of peritonitis on exam, no complaints of abdominal pain. I suspect he may have suffered with an aspiration based on aforementioned history. hyperkalemia in the setting of improving renal function, he is not on Lasix, unclear as to precise etiology. He is behaving like a patient with modest intravascular volume deficits although he is hypertensive. Nephrology is following. Plan: My initial plan based on the x-ray findings this morning showing persistent obstruction was for for exploratory laparotomy this afternoon. Patient just started having bowel function. Patient's potassium remains elevated and is showing gradual increase. In the absence of abdominal pain or peritonitis on exam it may make more sense to give him another day of hydration, nasogastric decompression and repeat abdominal films tomorrow. Hopefully his potassium will show some improvement, if x-rays don't show passage of contrast through the colon we'll revisit the topic of surgery.patient is pneumonia showing clinical improvement, he is maintaining O2 saturation on 2 L nasal cannula and his x-ray findings on the whole are showing improvement as well. Time with Patient: Greater than 30
--- NOTE | 2021-12-18 13:59 | P.PN ---
Progress Note - Text Progress Note Date: 12/18/21 Chief Complaint: Short of breath This is a 61-year-old patient who follows with Dr. Romero. Chronic stable medical conditions include diabetes, hypertension, hyperlipidemia. previous smoker/-COPD. Patient presented to the ER with increasing shortness of breath. Family informed ER physician that that is not seen in bed on Friday. Since patient has been getting worse. Not getting out of bed and breathing progressively getting worse. Patient on 2 L was saturating 62%. EMS was not able to get a blood pressure. Patient was minimally conscious. It had to be bagged and brought to the hospital. Patient did receive 1 dose of appendectomy. Patient has not been eating or drinking. No fever. Patient on November 28 underwent bronchoscopy and lavage by Dr. Consuelo Ochoa from pulmonary. On the right side patient's found to have extensive purulent secretions filling of the airways. BAL was performed. No mass was noted. Cultures were positive for Gaby albicans. Patient is put on BiPAP. This morning BiPAP set at 14/6. 50%. Patient on levo fed drip. Tired. Admitted with bilateral multilobar pneumonia, IV Zosyn, IV sepsis IV fluids, septic shock and IV levo fed,'s acute COPD exacerbation on DuoNeb steroids, acute hypoxic respiratory failure on BiPAP, acute kidney injury from ATN, acute metabolic acidosis from which she received IV bicarbonate drip. Also acute ileus from sepsis pneumonia for which NG tube to suction started. December 11: ICU: NG tube to suction. BiPAP setting at 14/6 at 50%. Tired. Answering questions. Laying in bed. DuoNeb, IV levo fed, IV Zosyn, sodium bicarbonate drip IV steroids December 12 - December 16 patient was followed by [facility] hospitalists December 17: ICU: NG tube got pulled today. Put back in. Putting out good output. Patient has pus slight flatus. Computed tomography scan done today shows renal obstruction. Seen by surgery. Possible walk tomorrow. Remains on 8 L of nasal cannula. Shortness of breath. Abdomen distended. Telemetry sinus rhythm. December 18: ICU: NG tube remains to suction. About thousand cc overnight. Had a small BM a bit loose today. Abdomen slightly less distended. IV fluids. D5W. Surgery postponed. Oxygen requirement down to 2 L nasal cannula. Active Medications Acetaminophen (Acetaminophen Tab 325 Mg Tab) 650 mg PO Q4HR PRN PRN Reason: Fever and/or Mild Pain Albuterol/Ipratropium (Ipratropium-Albuterol 3 Ml Neb) 3 ml INHALATION RT-Q4H PRN PRN Reason: Shortness Of Breath Or Wheezing Last Admin: 12/10/21 08:22 Dose: 3 ml Documented by: Albuterol/Ipratropium (Ipratropium-Albuterol 3 Ml Neb) 3 ml INHALATION RT-QID [facility] Last Admin: 12/18/21 09:34 Dose: Not Given Documented by: Bisacodyl (Bisacodyl 5 Mg Tablet.Dr) 10 mg PO DAILY [facility] Last Admin: 12/18/21 11:41 Dose: Not Given Documented by: Budesonide (Budesonide 1 Mg/2 Ml Nebu) 1 mg INHALATION RT-BID [facility] Last Admin: 12/18/21 09:34 Dose: Not Given Documented by: Enoxaparin Sodium (Enoxaparin 40 Mg/0.4 Ml Syringe) 40 mg SQ DAILY [facility] Last Admin: 12/18/21 11:39 Dose: 40 mg Documented by: Formoterol Fumarate (Formoterol Fumarate 20 Mcg/2 Ml Nebu) 20 mcg INHALATION RT-BID [facility] Last Admin: 12/18/21 09:34 Dose: Not Given Documented by: Norepinephrine Bitartrate 32 (mg/ Sodium Chloride) 250 mls @ 2.065 mls/hr IV .Q24H [facility]; Protocol Last Admin: 12/17/21 16:36 Dose: Not Given Documented by: Piperacillin Sod/Tazobactam (Sod 3.375 gm/ Sodium Chloride) 100 mls @ 25 mls/hr IVPB Q8HR [facility]; Protocol Last Admin: 12/18/21 08:32 Dose: 25 mls/hr Documented by: Dextrose/Water (Dextrose 5%-Water Iv Soln) 1,000 mls @ 150 mls/hr IV .Q6H40M [facility] Last Admin: 12/18/21 12:55 Dose: Not Given Documented by: Insulin Aspart (Insulin Aspart (Novolog) 100 Unit/Ml Vial) 0 unit SQ Q6H [facility]; Protocol Last Admin: 12/18/21 13:00 Dose: 2 unit Documented by: Insulin Detemir (Insulin Detemir (Levemir) 100 Unit/Ml Syr) 10 unit SQ HS [facility] Last Admin: 12/17/21 20:24 Dose: 10 unit Documented by: Methylprednisolone Sodium Succinate (Methylprednisolone Sod Succi 40 Mg/Ml 1 Ml Vial) 40 mg IV Q12HR [facility] Last Admin: 12/18/21 08:32 Dose: 40 mg Documented by: Naloxone HCl (Naloxone 0.4 Mg/Ml 1 Ml Vial) 0.2 mg IV Q2M PRN PRN Reason: Opioid Reversal Ondansetron HCl (Ondansetron 4 Mg/2 Ml Vial) 4 mg IVP Q6HR PRN PRN Reason: Nausea And Vomiting Pantoprazole Sodium (Pantoprazole 40 Mg/10 Ml Vial) 40 mg IVP DAILY [facility] Last Admin: 12/18/21 08:32 Dose: 40 mg Documented by: Past medical history to include: COPD, diabetes, hypertension, 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 Smoked a pack a day for close to 50 years stopped about 2 years ago. Drinks alcohol very heavily on the weekends to the point of passing out Family history: Reviewed, noncontributory to presentation Physical examination: VITAL SIGNS: 98.7, 71, 17, 156/87, 93% 2 L GENERAL: laying in bed, short of breath. EYES: Pupils equal. Conjunctiva normal. HEENT: External appearance of nose and ears normal, oral cavity unable to assess. NECK: JVD unable to assess masses not palpable. HEART: First and second heart sounds are normal; minimal edema. LUNGS: Respiratory rate increased; diminished breath sounds prolonged expiration. ABDOMEN: Soft, a bit less distended nontender, liver spleen not palpable, no masses palpable. Bowel sounds present PSYCH: Answering questions INVESTIGATIONS, reviewed in the clinical context: December 18: Sodium 149 potassium 5.5 BUN 79 creatinine 1.99 December 17: White count 15.1 hemoglobin 13 platelets 251 sodium 149 potassium 5.3. 92 creatinine 2.25 Computed tomography scan abdomen [December 17]: Dilated small bowel measuring up to 4.4 cm. Obstruction not excluded. Zone of transition noted. December 11: White count 19.7 hemoglobin 11.5 platelets 271 potassium 5 BUN 95 creatinine 6.3 to December 10: White count 20 hemoglobin 13.2 platelets 300 potassium 6.4 BUN 68 creatinine 4.61 Admission labs: White count 22.5 hemoglobin 13.9 platelets 299 sodium 136 potassium 5.7 BUN 60 creatinine 5.04 lactic acid 8.1 troponin I 0.063 proBNP 37961 EKG tracing personally reviewed by me-normal sinus rhythm. Rate 90 Chest x-ray film personally reviewed by me-infiltrate especially right base CT chest abdomen pelvis: Patchy area of his consolidation consistent multifocal pneumonia may need the right lower lobe. Dilated small bowel. No transition point. Previous labs: Creatinine on May 2021: 0.88 Assessment and plan: -Severe multilobar pneumonia predominantly right lower lobe, suspect gram- negative organism: Slow to respond IV Zosyn. -Sepsis secondary to pneumonia IV fluids , IV Zosyn -Troponinemia due to hemodynamic mass matched from sepsis. No clinical evidence of acute coronary syndrome -Septic shock: Improved IV fluids. IV levo fed discontinued -Acute COPD exacerbation in a previous smoker: Slow to respond DuoNeb every 4 times a day, IV and inhaled steroids, -Acute severe hypoxic respiratory failure from pneumonia/COPD: Better BiPAP. Currently on 2 L nasal cannula -Hyperlipidemia Lipitor 80 mg daily at bedtime -Essential hypertension, Hold antihypertensives -Chronic hypoxic respiratory failure from COPD Has 2 L of oxygen at home -Acute medical debility from sepsis pneumonia COPD exacerbation -Acute lactic acidosis from sepsis -Acute kidney injury from ATN from sepsis and prerenal: Improving Creatinine peaked at 6.8. -Acute metabolic acidosis from renal failure: Better Received IV bicarbonate drip. -Acute small bowel obstruction. Slow to respond NG tube to suction. Small BM today -Full code ICU. 2 L nasal cannula. IV fluids. IV Zosyn. . DuoNeb. Steroids. Surgery held for now. Follow electrolytes.
[2021-12-18 17:32] LABS: Calcium 8.2 mg/dL (8.4-10.2); Potassium 5.1 mmol/L (3.5-5.1)
[2021-12-18] MEDS: NOREPINEPHRINE 32 MG in SODIUM CHLORIDE 0.9% 218 ML IV SCH (18:07)
[2021-12-18 20:53] LABS: Glucose,Whole Blood 178 mg/dL (75-99)
[2021-12-18] MEDS: INSULIN DETEMIR (LEVEMIR) 100 UNIT/ML SYR SQ SCH (21:11)
[2021-12-18] MEDS: ENOXAPARIN 30 MG/0.3 ML SYRINGE SQ SCH (23:17)
[2021-12-19 00:04] LABS: Glucose,Whole Blood 176 mg/dL (75-99)
[2021-12-19] MEDS: INSULIN ASPART (NovoLOG) 100 UNIT/ML VIAL SQ SCH ×4 (00:45→17:12)
[2021-12-19] MEDS: DEXTROSE 5% IN WATER 1,000 ML IV SCH ×2 (05:16→12:45)
[2021-12-19 06:05] LABS: Glucose,Whole Blood 207 mg/dL (75-99)
--- NOTE | 2021-12-19 07:04 | XR ---
EXAMINATION TYPE: XR abdomen acute w cxr DATE OF EXAM: 12/19/2021 CLINICAL HISTORY: Pain and distention. Suspected SBO TECHNIQUE: Single frontal view of chest is obtained. Supine and upright views of the abdomen are acq uired. COMPARISON: Chest x-ray with acute abdominal series from [address] abdomen and pelvis 2 days earlier.. FINDINGS: Stable nasogastric tube. Patchy right mid lung opacity and bibasilar opacities redemonstrat ed. Cardiac silhouette size appears stable and upper limits of normal. Osseous structures are intact . Persistent gaseous prominent and dilated small bowel loops greatest in the left mid abdomen with nond istended colon along the periphery. Findings felt improved from one day earlier. Redemonstration of r ight-sided femoral venous catheter. Redemonstration of Page catheter. No free air. IMPRESSION: 1. Persistent right mid lung and bibasilar acute atelectasis and/or infiltrate. No significant change from one day earlier. 2. Some improvement in number of dilated gas-filled small bowel loops suggests improving small bowel obstruction.
[2021-12-19] MEDS: FORMOTEROL FUMARATE 20 MCG/2 ML NEBU INHALATION SCH ×2 (08:08→19:40)
[2021-12-19] MEDS: BUDESONIDE 1 MG/2 ML NEBU INHALATION SCH ×2 (08:08→19:40)
[2021-12-19] MEDS: IPRATROPIUM-ALBUTEROL 3 ML NEB INHALATION SCH ×4 (08:09→19:40)
[2021-12-19] MEDS: methylPREDNISolone SOD SUCCI 40 MG/ML 1 ML VIAL IV SCH ×2 (09:08→20:17)
[2021-12-19] MEDS: ENOXAPARIN 40 MG/0.4 ML SYRINGE SQ SCH (09:08)
[2021-12-19] MEDS: PIPERACILLIN-TAZOBACTAM 3.375 GM in SODIUM CHLORIDE 0.9% 100 ML IVPB SCH ×2 (09:10→16:22)
[2021-12-19] MEDS: PANTOPRAZOLE 40 MG/10 ML VIAL IVP SCH (09:10)
[2021-12-19] MEDS: bisacodyL 5 MG TABLET.DR PO SCH (09:11)
[2021-12-19 09:26] LABS: Basophils % (A) 0 %; Eosinophils # (A) 0.2 k/uL (0-0.7); Eosinophils % (A) 1 %; HCT 39.8 % (39.0-53.0); HGB 12.3 gm/dL (13.0-17.5); Lymphocytes # (A) 1.5 k/uL (1.0-4.8); Lymphocytes % (A) 11 %; MCH 27.6 pg (25.0-35.0); MCHC 30.9 g/dL (31.0-37.0); MCV 89.3 fL (80.0-100.0); Mean Platelet Volume 8.7; Monocytes # (A) 0.9 k/uL (0-1.0); Monocytes % (A) 7 %; Neutrophils # (A) 10.6 k/uL (1.3-7.7); Neutrophils % (A) 79 %; Platelet Count 277 k/uL (150-450); RBC 4.45 m/uL (4.30-5.90); WBC 13.4 k/uL (3.8-10.6)
[2021-12-19 09:47] LABS: Calcium 8.3 mg/dL (8.4-10.2); Potassium 4.5 mmol/L (3.5-5.1)
--- NOTE | 2021-12-19 10:09 | P.PN ---
Subjective Patient is seen in follow-up for acute kidney injury and hypernatremia. Sodium level 144 today. Creatinine 1.68. Nonoliguric. Denies chest pain or shortness of breath. Currently on 1 L high flow cannula. Blood pressure stable. Receiving D5W. Has NG tube per surgery. Vital signs are stable. General: Resting in bed. No acute distress. HEENT: On nasal cannula. NG tube noted. LUNGS: Breath sounds decreased. HEART: Rate and Rhythm are regular. ABDOMEN: Soft, nontender. EXTREMITITES: No edema. Objective - Vital Signs Vital signs: Vital Signs Temp 97.5 F L 12/19/21 04:00 Pulse 82 12/19/21 08:31 Resp 18 12/19/21 04:00 BP 137/68 12/19/21 04:00 Pulse Ox 96 12/19/21 08:09 Intake & Output 12/18/21 12/19/21 12/19/21 18:59 06:59 18:59 Intake Total 1550 200 Output Total 2690 1950 300 Balance -1140 -1750 -300 Weight 92 kg Intake: IV 1550 200 Dextrose 5% in Water 1, 1550 200 000 ml @ 100 mls/hr IV . Q10H ENDY Rx#:[id number] Output: Gastric Drainage 1250 250 300 Urine 1440 1700 Uretheral (Page) 125 Other: Voiding Method Indwelling Catheter Indwelling Catheter # Bowel Movements 1 ABP, PAP, CO, CI - Last Documented Arterial Blood Pressure 66/60 - Labs CBC & Chem 7: 12/19/21 09:08 12/19/21 09:08 Labs: Abnormal Lab Results - Last 24 Hours (Table) 12/18/21 12/18/21 12/18/21 Range/Units 11:59 16:46 20:51 WBC (3.8-10.6) k/uL Hgb (13.0-17.5) gm/dL MCHC (31.0-37.0) g/dL Neutrophils # (1.3-7.7) k/uL Chloride 111 H (98-107) mmol/L BUN 74 H (9-20) mg/dL Creatinine 1.76 H (0.66-1.25) mg/dL Glucose 233 H (74-99) mg/dL POC Glucose (mg/dL) 180 H 178 H (75-99) mg/dL Calcium 8.2 L (8.4-10.2) mg/dL 12/19/21 12/19/21 12/19/21 Range/Units 00:03 06:02 09:08 WBC (3.8-10.6) k/uL Hgb (13.0-17.5) gm/dL MCHC (31.0-37.0) g/dL Neutrophils # (1.3-7.7) k/uL Chloride 113 H (98-107) mmol/L BUN 62 H (9-20) mg/dL Creatinine 1.68 H (0.66-1.25) mg/dL Glucose 167 H (74-99) mg/dL POC Glucose (mg/dL) 176 H 207 H (75-99) mg/dL Calcium 8.3 L (8.4-10.2) mg/dL 12/19/21 Range/Units 09:08 WBC 13.4 H (3.8-10.6) k/uL Hgb 12.3 L (13.0-17.5) gm/dL MCHC 30.9 L (31.0-37.0) g/dL Neutrophils # 10.6 H (1.3-7.7) k/uL Chloride (98-107) mmol/L BUN (9-20) mg/dL Creatinine (0.66-1.25) mg/dL Glucose (74-99) mg/dL POC Glucose (mg/dL) (75-99) mg/dL Calcium (8.4-10.2) mg/dL Assessment and Plan Plan: Assessment: 1. Acute kidney injury mostly prerenal secondary to infection. Improving. Creatinine was 5.04 on admission and peaked at 6.82 - 1.68 today. Creatinine in May 2021 was 0.88. No hydronephrosis noted on CAT scan. 2. Hypernatremia from lack of oral water intake. Sodium level 144 this morning. 3. Pneumonia on antibiotics. 4. Ileus versus bowel obstruction. Has NG tube. Surgery following. 5. Diabetes mellitus. 6. Acute hypoxic respiratory failure secondary to pneumonia and COPD. 7. History of alcohol abuse. 8. Mild hyperkalemia secondary to acute kidney injury and hyperglycemia. Improved. Plan: Maintain D5W. Repeat BMP this afternoon. Continue to monitor renal function and urine output. Avoid nephrotoxins. Blood sugar control.
[2021-12-19 11:41] LABS: Glucose,Whole Blood 178 mg/dL (75-99)
--- NOTE | 2021-12-19 13:29 | P.PN ---
Subjective Progress Note Date: 12/19/21 Principal diagnosis: Acute exacerbation of COPD On 12/17/2021, I'm seeing the patient for a follow-up. The patient is awake and alert and communicating. The patient is post acute hypoxic respiratory failure secondary to COPD exacerbation right lower lobe pneumonia/aspiration. The patient also had an acute kidney injury and abdominal distention secondary to an ileus. In terms of the pneumonia, the patient continues to have a congested cough. No follow-up chest x-rays available. Noted the patient is post bronchoscopy that was done by Dr. Ochoa on 11/28/2021 and the cultures were essentially negative for any microbial growth. He has known to grow pseudomonas in the sputum back in 06/22/2021. The patient currently is on IV Zosyn. The patient is also on DuoNeb nebulized treatments around the clock and IV Solu Medrol for malignancy 12 hours. The patient was taken off the BiPAP and the patient is currently on 8 L of oxygen by nasal cannula to maintain a saturation around 97%. At the same time, the patient had developed an ileus. NG tube was initially inserted and the patient put out approximately 2200s of gastric output. Subsequently, they and she output dropped and the patient pulled out his tube today. CAT scan of the abdomen is to follow. No abdominal pain. His abdomen remains slightly distended and tympanic on today's examination. He leans that he is passing flatus for now. The patient has also an acute kidney injury. The sodium level was at 148 and the creatinine was at 2.7 from yesterday with a BUN of 107. Serum bicarbs at 31. Potassium level is at 5.0. Repeat blood work and electrodes are still pending from today. The patient has no specific complaints. IV fluids are currently at KVO. He remains on IV Zosyn. The neck fluid balance over the past 24 hours is been -3.9 m that the patient is producing excellent urine output. The patient remains on bronchodilators. The patient on Levemir insulin along with a sliding scale co verage. No pressors for now. The patient is seen today 12/18/2021 in follow-up in the intensive care unit. He is awake and alert in no acute distress. He did have his nasogastric tube reinserted after he had initially inadvertently pulled out. He's still having distended abdomen. Acute abdomen x-ray revealed persistent small bowel obstruction. No significant change from recent CT despite placement of nasogastric tube. There is improved aeration of the right lung base. Some new mid lung atelectasis. Stable left easily opacity favoring atelectasis. Blood cultures reveal no growth. Sodium 149. Potassium 5.5. Chloride 114. BUN 79. Creatinine 1.99. Glucose 183. He is currently in a -1.3 L balance. He remains on DuoNeb inhalations, Pulmicort and Perforomist inhalations, IV Solu-Medrol. D5 W at 150 ML's per hour. Antibiotics in the form of Zosyn. He is maintaining good O2 saturations in the 90s on 2 L/m per nasal cannula. He's been hemodynamically stable. States he is passing flatus. No bowel movements. On 12/19/2021 patient seen in follow-up on selective care unit, he is resting in bed, denies any respiratory difficulty, he is on 1 L of oxygen, his pulse ox is 96%, NG tube remains in place and is draining dark green gastric output, there was 1.5 L of gastric output in the last 24 hours according to nursing charting. Abdomen is soft, nontender, patient states he is able to pass some gas, and he was even able to have a bowel movement today. Lung sounds reveal diminished breath sounds at the bases, no rhonchi or wheezing, patient is tolerating ice chips, otherwise he remains nothing by mouth. He is on D5W at a rate of 100 ML per hour. Remains on Zosyn for empiric antibiotic coverage. Blood cultures have shown no growth. Patient has been afebrile, blood pressure is been stable. Chest x-ray showing persistent right midlung and basilar acute, some improvement in the lumbar dilated gas filled small bowel loops suggesting improving small bowel obstruction. Surgical services are following. Objective - Vital Signs Vital signs: Vital Signs Temp 98.2 F 12/19/21 08:00 Pulse 82 12/19/21 08:31 Resp 18 12/19/21 08:00 BP 129/66 12/19/21 08:00 Pulse Ox 96 12/19/21 08:09 Intake & Output 12/18/21 12/19/21 12/19/21 18:59 06:59 18:59 Intake Total 1550 200 0 Output Total 2690 1950 600 Balance -1140 -1750 -600 Weight 92 kg Intake: IV 1550 200 Dextrose 5% in Water 1, 1550 200 000 ml @ 100 mls/hr IV . Q10H [facility] Rx#:[id number] Oral 0 Output: Gastric Drainage 1250 250 300 Urine 1440 1700 300 Uretheral (Page) 125 Other: Voiding Method Indwelling Catheter Indwelling Catheter # Bowel Movements 1 1 ABP, PAP, CO, CI - Last Documented Arterial Blood Pressure 66/60 - Exam GENERAL EXAM: Alert, very pleasant, 61-year-old white male, on 1 L of oxygen pulse ox 96%, NG tube is in place draining dark green gastric output, comfortable in no apparent distress. HEAD: Normocephalic/atraumatic. EYES: Normal reaction of pupils, equal size. Conjunctiva pink, sclera white. NOSE: Clear with pink turbinates. THROAT: No erythema or exudates. NECK: No masses, no JVD, no thyroid enlargement, no adenopathy. CHEST: No chest wall deformity. Symmetrical expansion. LUNGS: Equal air entry with no crackles, wheeze, rhonchi or dullness. CVS: Regular rate and rhythm, normal S1 and S2, no gallops, no murmurs, no rubs ABDOMEN: Soft, nontender. No hepatosplenomegaly, normal bowel sounds, no guarding or rigidity. EXTREMITIES: No clubbing, no edema, no cyanosis, 2+ pulses and upper and lower extremities. MUSCULOSKELETAL: Muscle strength and tone normal. SPINE: No scoliosis or deformity SKIN: No rashes CENTRAL NERVOUS SYSTEM: Alert and oriented -3. No focal deficits, tone is normal in all 4 extremities. PSYCHIATRIC: Alert and oriented -3. Appropriate affect. Intact judgment and insight. - Labs CBC & Chem 7: 12/19/21 09:08 12/19/21 09:08 Labs: Abnormal Lab Results - Last 24 Hours (Table) 12/18/21 12/18/21 12/19/21 Range/Units 16:46 20:51 00:03 WBC (3.8-10.6) k/uL Hgb (13.0-17.5) gm/dL MCHC (31.0-37.0) g/dL Neutrophils # (1.3-7.7) k/uL Chloride 111 H (98-107) mmol/L BUN 74 H (9-20) mg/dL Creatinine 1.76 H (0.66-1.25) mg/dL Glucose 233 H (74-99) mg/dL POC Glucose (mg/dL) 178 H 176 H (75-99) mg/dL Calcium 8.2 L (8.4-10.2) mg/dL 12/19/21 12/19/21 12/19/21 Range/Units 06:02 09:08 09:08 WBC 13.4 H (3.8-10.6) k/uL Hgb 12.3 L (13.0-17.5) gm/dL MCHC 30.9 L (31.0-37.0) g/dL Neutrophils # 10.6 H (1.3-7.7) k/uL Chloride 113 H (98-107) mmol/L BUN 62 H (9-20) mg/dL Creatinine 1.68 H (0.66-1.25) mg/dL Glucose 167 H (74-99) mg/dL POC Glucose (mg/dL) 207 H (75-99) mg/dL Calcium 8.3 L (8.4-10.2) mg/dL 12/19/21 Range/Units 11:39 WBC (3.8-10.6) k/uL Hgb (13.0-17.5) gm/dL MCHC (31.0-37.0) g/dL Neutrophils # (1.3-7.7) k/uL Chloride (98-107) mmol/L BUN (9-20) mg/dL Creatinine (0.66-1.25) mg/dL Glucose (74-99) mg/dL POC Glucose (mg/dL) 178 H (75-99) mg/dL Calcium (8.4-10.2) mg/dL Assessment and Plan Plan: Acute hypoxemic respiratory failure secondary to COPD exacerbation complicated by primarily right lower lobe pneumonia/questionable aspiration, and possible interstitial edema secondary to ATN/acute kidney injury. Clinically improving and the patient is currently on 2 L of O2 by nasal cannula. The patient remains on IV Zosyn. Acute COPD exacerbation secondary to above Abdominal distention, secondary to small bowel obstruction/ileus, NG tube was reinserted. CAT scan of the abdomen 12/17/2021 revealed dilated small bowel measuring up to 4.4 cm. Contrast is seen within the mid to distal small bowel. Obstruction is not excluded. There appears to be a zone of transition with possible adhesion. Abdominal x-ray today reveals similar findings. Acute sepsis with septic shock. Acute kidney injury/ATN, the patient is producing excellent amount of urine output in the creatinine is also improving, creatinine is improving Possible non-ST segment elevation myocardial infarction. History of COPD with chronic hypoxemic respiratory failure. History of hyperlipidemia. History of hypertension. History of diabetes mellitus. History of depression. History of alcohol abuse Plan We'll continue with IV steroids and nebulized bronchodilators until patient is able to take oral medications Antibiotic coverage per surgery No acute events overnight Today's chest x-ray reviewed Provide incentive spirometer, encouraged patient to use it GI and DVT prophylaxis Follow-up labs, electrolytes and renal profile tomorrow I have personally seen and examined the patient, performed the documentation and the assessment and plan as written. Number of minutes spent on the visit: [10] I have personally seen and examined the patient and reviewed the documentation. I performed a joint evaluation with the nurse practitioner in this evaluation was done more than 20 minutes. I fully agree with the documentation above and the plan of care. The patient got transferred out of the intensive care unit. The patient's abdomen remains distended although the patient is passing gas and had a bowel movement. Denies surgeries on the case. Based on those facts, no surgical intervention will be Admitted for today. The patient remains nothing by mouth. The patient on O2 at 1 L nasal cannula and general surgeries on the case. Continue same antibiotic coverage. The creatinine continues to improve and the patient's creatinine is down to 1.68 and the patient has no other specific complaints for now. His cough is congested and the patient is currently on 1 L O2 nasal cannula Time with Patient: Less than 30
--- NOTE | 2021-12-19 14:14 | P.PN ---
Subjective Progress Note Date: 12/19/21 Principal diagnosis: right-sided pneumonia, presenting sepsis, ileus versus small bowel obstruction Patient seen and examined at bedside. Feeling a little bit better today than ye sterday. Orthostatic symptoms are resolving. Nasogastric tube remains in place with around 1000 mL bilious aspirate over the past 24 hours. Had another loose bowel movement today. Denies abdominal pain. Laboratory studies show white blood cell count of 13.4, normalized serum sodium and potassium, normal range CO2. Acute abdominal series from today shows improvement and bowel obstruction, there may be some air and stool present in the colon. Pulmonary findings show some improvement as well. Objective - Vital Signs Vital signs: Vital Signs Temp 98.2 F 12/19/21 08:00 Pulse 82 12/19/21 08:31 Resp 18 12/19/21 08:00 BP 129/66 12/19/21 08:00 Pulse Ox 96 12/19/21 08:09 Intake & Output 12/18/21 12/19/21 12/19/21 18:59 06:59 18:59 Intake Total 1550 200 0 Output Total 2690 1950 600 Balance -1140 -1750 -600 Weight 92 kg Intake: IV 1550 200 Dextrose 5% in Water 1, 1550 200 000 ml @ 100 mls/hr IV . Q10H [facility] Rx#:[id number] Oral 0 Output: Gastric Drainage 1250 250 300 Urine 1440 1700 300 Uretheral (Page) 125 Other: Voiding Method Indwelling Catheter Indwelling Catheter # Bowel Movements 1 1 ABP, PAP, CO, CI - Last Documented Arterial Blood Pressure 66/60 - Constitutional General appearance: Present: no acute distress, obese - EENT Eyes: Present: PERRLA ENT: Present: NA/AT - Respiratory Respiratory: bilateral: CTA - Cardiovascular Rhythm: regular - Gastrointestinal Gastrointestinal Comment(s): Abdomen is soft with improvement in distention compared to yesterday. No guarding or rebound. No tenderness. - Neurologic Neurologic: Present: CNII-XII intact - Psychiatric Psychiatric: Present: A&O x's 3, appropriate affect, intact judgment & insight - Labs CBC & Chem 7: 12/19/21 09:08 12/19/21 09:08 Labs: Abnormal Lab Results - Last 24 Hours (Table) 12/18/21 12/18/21 12/19/21 Range/Units 16:46 20:51 00:03 WBC (3.8-10.6) k/uL Hgb (13.0-17.5) gm/dL MCHC (31.0-37.0) g/dL Neutrophils # (1.3-7.7) k/uL Chloride 111 H (98-107) mmol/L BUN 74 H (9-20) mg/dL Creatinine 1.76 H (0.66-1.25) mg/dL Glucose 233 H (74-99) mg/dL POC Glucose (mg/dL) 178 H 176 H (75-99) mg/dL Calcium 8.2 L (8.4-10.2) mg/dL 12/19/21 12/19/21 12/19/21 Range/Units 06:02 09:08 09:08 WBC 13.4 H (3.8-10.6) k/uL Hgb 12.3 L (13.0-17.5) gm/dL MCHC 30.9 L (31.0-37.0) g/dL Neutrophils # 10.6 H (1.3-7.7) k/uL Chloride 113 H (98-107) mmol/L BUN 62 H (9-20) mg/dL Creatinine 1.68 H (0.66-1.25) mg/dL Glucose 167 H (74-99) mg/dL POC Glucose (mg/dL) 207 H (75-99) mg/dL Calcium 8.3 L (8.4-10.2) mg/dL 12/19/21 Range/Units 11:39 WBC (3.8-10.6) k/uL Hgb (13.0-17.5) gm/dL MCHC (31.0-37.0) g/dL Neutrophils # (1.3-7.7) k/uL Chloride (98-107) mmol/L BUN (9-20) mg/dL Creatinine (0.66-1.25) mg/dL Glucose (74-99) mg/dL POC Glucose (mg/dL) 178 H (75-99) mg/dL Calcium (8.4-10.2) mg/dL - Imaging and Cardiology Chest x-ray: report reviewed, image reviewed Abdominal x-ray: report reviewed, image reviewed Assessment and Plan Assessment: 61-year-old gentleman with right-sided pneumonia, presenting degree of sepsis which would appear to be improved compared to initial presentation. Improving mechanical small bowel obstruction with nonoperative management. loose bowel movement today.. No evidence of peritonitis on exam, no complaints of abdominal pain. I suspect he may have suffered with an aspiration based on aforementioned history. Plan: Continue with nasogastric tube tonight. If he doesn't have any issues by tomorrow morning we can either clamp the nasogastric tube and provide the patient with a trial of clear liquids. If he has no issues with progressive nausea or abdominal distention by tomorrow afternoon the tube could be removed. He was advised that if he has recurrent issues with obstruction after tomorrow we will really need to move forward with surgery. Time with Patient: Greater than 30
[2021-12-19 16:33] LABS: Glucose,Whole Blood 201 mg/dL (75-99)
[2021-12-19 17:25] LABS: Calcium 8.2 mg/dL (8.4-10.2); Potassium 4.9 mmol/L (3.5-5.1)
--- NOTE | 2021-12-19 17:50 | P.PN ---
Progress Note - Text Progress Note Date: 12/19/21 Chief Complaint: Short of breath This is a 61-year-old patient who follows with Dr. Romero. Chronic stable medical conditions include diabetes, hypertension, hyperlipidemia. previous smoker/-COPD. Patient presented to the ER with increasing shortness of breath. Family informed ER physician that that is not seen in bed on Friday. Since patient has been getting worse. Not getting out of bed and breathing progressively getting worse. Patient on 2 L was saturating 62%. EMS was not able to get a blood pressure. Patient was minimally conscious. It had to be bagged and brought to the hospital. Patient did receive 1 dose of appendectomy. Patient has not been eating or drinking. No fever. Patient on November 28 underwent bronchoscopy and lavage by Dr. Consuelo Ochoa from pulmonary. On the right side patient's found to have extensive purulent secretions filling of the airways. BAL was performed. No mass was noted. Cultures were positive for Gaby albicans. Patient is put on BiPAP. This morning BiPAP set at 14/6. 50%. Patient on levo fed drip. Tired. Admitted with bilateral multilobar pneumonia, IV Zosyn, IV sepsis IV fluids, septic shock and IV levo fed,'s acute COPD exacerbation on DuoNeb steroids, acute hypoxic respiratory failure on BiPAP, acute kidney injury from ATN, acute metabolic acidosis from which she received IV bicarbonate drip. Also acute ileus from sepsis pneumonia for which NG tube to suction started. December 11: ICU: NG tube to suction. BiPAP setting at 14/6 at 50%. Tired. Answering questions. Laying in bed. DuoNeb, IV levo fed, IV Zosyn, sodium bicarbonate drip IV steroids December 12 - December 16 patient was followed by [facility] hospitalists December 17: ICU: NG tube got pulled today. Put back in. Putting out good output. Patient has pus slight flatus. Computed tomography scan done today shows renal obstruction. Seen by surgery. Possible walk tomorrow. Remains on 8 L of nasal cannula. Shortness of breath. Abdomen distended. Telemetry sinus rhythm. December 18: ICU: NG tube remains to suction. About thousand cc overnight. Had a small BM a bit loose today. Abdomen slightly less distended. IV fluids. D5W. Surgery postponed. Oxygen requirement down to 2 L nasal cannula. December 19: Moved to the medical floor. NG tube to suction. About 1500 mL drainage overnight. IV fluids. No BM. IV fluids. Being followed by surgery. Abdominal x-ray showing significantly dilated loops of bowel Active Medications Acetaminophen (Acetaminophen Tab 325 Mg Tab) 650 mg PO Q4HR PRN PRN Reason: Fever and/or Mild Pain Albuterol/Ipratropium (Ipratropium-Albuterol 3 Ml Neb) 3 ml INHALATION RT-Q4H PRN PRN Reason: Shortness Of Breath Or Wheezing Last Admin: 12/10/21 08:22 Dose: 3 ml Documented by: Albuterol/Ipratropium (Ipratropium-Albuterol 3 Ml Neb) 3 ml INHALATION RT-QID [facility] Last Admin: 12/19/21 15:25 Dose: 3 ml Documented by: Bisacodyl (Bisacodyl 5 Mg Tablet.Dr) 10 mg PO DAILY [facility] Last Admin: 12/19/21 09:11 Dose: Not Given Documented by: Budesonide (Budesonide 1 Mg/2 Ml Nebu) 1 mg INHALATION RT-BID [facility] Last Admin: 12/19/21 08:08 Dose: 1 mg Documented by: Enoxaparin Sodium (Enoxaparin 40 Mg/0.4 Ml Syringe) 40 mg SQ DAILY [facility] Last Admin: 12/19/21 09:08 Dose: 40 mg Documented by: Formoterol Fumarate (Formoterol Fumarate 20 Mcg/2 Ml Nebu) 20 mcg INHALATION RT-BID [facility] Last Admin: 12/19/21 08:08 Dose: 20 mcg Documented by: Piperacillin Sod/Tazobactam (Sod 3.375 gm/ Sodium Chloride) 100 mls @ 25 mls/hr IVPB Q8HR [facility]; Protocol Last Admin: 12/19/21 16:22 Dose: 25 mls/hr Documented by: Dextrose/Water (Dextrose 5%-Water Iv Soln) 1,000 mls @ 100 mls/hr IV .Q10H [facility] Last Admin: 12/19/21 12:45 Dose: 100 mls/hr Documented by: Insulin Aspart (Insulin Aspart (Novolog) 100 Unit/Ml Vial) 0 unit SQ Q6H [facility]; Protocol Last Admin: 12/19/21 17:12 Dose: 2 unit Documented by: Insulin Detemir (Insulin Detemir (Levemir) 100 Unit/Ml Syr) 10 unit SQ HS [facility] Last Admin: 12/18/21 21:11 Dose: 10 unit Documented by: Methylprednisolone Sodium Succinate (Methylprednisolone Sod Succi 40 Mg/Ml 1 Ml Vial) 40 mg IV Q12HR [facility] Last Admin: 12/19/21 09:08 Dose: 40 mg Documented by: Naloxone HCl (Naloxone 0.4 Mg/Ml 1 Ml Vial) 0.2 mg IV Q2M PRN PRN Reason: Opioid Reversal Ondansetron HCl (Ondansetron 4 Mg/2 Ml Vial) 4 mg IVP Q6HR PRN PRN Reason: Nausea And Vomiting Pantoprazole Sodium (Pantoprazole 40 Mg/10 Ml Vial) 40 mg IVP DAILY [facility] Last Admin: 12/19/21 09:10 Dose: 40 mg Documented by: Past medical history to include: COPD, diabetes, hypertension, 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 Smoked a pack a day for close to 50 years stopped about 2 years ago. Drinks alcohol very heavily on the weekends to the point of passing out Family history: Reviewed, noncontributory to presentation Physical examination: VITAL SIGNS: 99.4, 97, 18, 144/78, 96% room air GENERAL: laying in bed, . EYES: Pupils equal. Conjunctiva normal. HEENT: External appearance of nose and ears normal, NG tube to suction NECK: JVD unable to assess masses not palpable. HEART: First and second heart sounds are normal; minimal edema. LUNGS: Respiratory rate increased; diminished breath sounds prolonged expiration. ABDOMEN: Soft, some distended nontender, liver spleen not palpable, no masses palpable. Bowel sounds present PSYCH: Answering questions INVESTIGATIONS, reviewed in the clinical context: December 19: Sodium 141 potassium 4.9. 60 creatinine 1.78 December 18: Sodium 149 potassium 5.5 BUN 79 creatinine 1.99 December 17: White count 15.1 hemoglobin 13 platelets 251 sodium 149 potassium 5.3. 92 creatinine 2.25 Computed tomography scan abdomen [December 17]: Dilated small bowel measuring up to 4.4 cm. Obstruction not excluded. Zone of transition noted. December 11: White count 19.7 hemoglobin 11.5 platelets 271 potassium 5 BUN 95 creatinine 6.3 to December 10: White count 20 hemoglobin 13.2 platelets 300 potassium 6.4 BUN 68 creatinine 4.61 Admission labs: White count 22.5 hemoglobin 13.9 platelets 299 sodium 136 potassium 5.7 BUN 60 creatinine 5.04 lactic acid 8.1 troponin I 0.063 proBNP 63695 EKG tracing personally reviewed by me-normal sinus rhythm. Rate 90 Chest x-ray film personally reviewed by me-infiltrate especially right base CT chest abdomen pelvis: Patchy area of his consolidation consistent multifocal pneumonia may need the right lower lobe. Dilated small bowel. No transition point. Previous labs: Creatinine on May 2021: 0.88 Assessment and plan: -Severe multilobar pneumonia predominantly right lower lobe, suspect gram- negative organism: Better IV Zosyn. -Sepsis secondary to pneumonia: Better IV fluids , IV Zosyn -Troponinemia due to hemodynamic mass matched from sepsis. No clinical evidence of acute coronary syndrome -Septic shock: Improved IV fluids. IV levo fed discontinued -Acute COPD exacerbation in a previous smoker: Slow to respond DuoNeb every 4 times a day, IV and inhaled steroids, -Acute severe hypoxic respiratory failure from pneumonia/COPD: Better BiPAP. Currently on 2 L nasal cannula -Hyperlipidemia Lipitor 80 mg daily at bedtime -Essential hypertension, Hold antihypertensives -Chronic hypoxic respiratory failure from COPD Has 2 L of oxygen at home -Acute medical debility from sepsis pneumonia COPD exacerbation -Acute lactic acidosis from sepsis -Acute kidney injury from ATN from sepsis and prerenal: Improving Creatinine peaked at 6.8. -Acute metabolic acidosis from renal failure: Better Received IV bicarbonate drip. -Acute small bowel obstruction. Not improving NG tube to suction. Follow with surgery. -Full code ICU. 2 L nasal cannula. IV fluids. IV Zosyn. . DuoNeb. Steroids. Follow with surgery. Discussed with patient.
[2021-12-19 21:07] LABS: Glucose,Whole Blood 198 mg/dL (75-99)
[2021-12-19] MEDS: INSULIN DETEMIR (LEVEMIR) 100 UNIT/ML SYR SQ SCH (21:47)
[2021-12-20 00:05] LABS: Glucose,Whole Blood 238 mg/dL (75-99)
[2021-12-20] MEDS: INSULIN ASPART (NovoLOG) 100 UNIT/ML VIAL SQ SCH ×5 (00:40→23:35)
[2021-12-20] MEDS: PIPERACILLIN-TAZOBACTAM 3.375 GM in SODIUM CHLORIDE 0.9% 100 ML IVPB SCH ×4 (00:41→23:35)
[2021-12-20] MEDS: DEXTROSE 5% IN WATER 1,000 ML IV SCH ×3 (00:41→20:22)
[2021-12-20 05:47] LABS: Glucose,Whole Blood 209 mg/dL (75-99)
[2021-12-20 05:56] LABS: Calcium 8.2 mg/dL (8.4-10.2); Magnesium 2.1 mg/dL (1.6-2.3); Potassium 4.8 mmol/L (3.5-5.1)
[2021-12-20] MEDS: IPRATROPIUM-ALBUTEROL 3 ML NEB INHALATION SCH ×4 (07:32→22:46)
[2021-12-20] MEDS: FORMOTEROL FUMARATE 20 MCG/2 ML NEBU INHALATION SCH ×2 (07:32→22:46)
[2021-12-20] MEDS: BUDESONIDE 1 MG/2 ML NEBU INHALATION SCH ×2 (07:32→22:46)
[2021-12-20] MEDS: PANTOPRAZOLE 40 MG/10 ML VIAL IVP SCH (08:18)
[2021-12-20] MEDS: ENOXAPARIN 40 MG/0.4 ML SYRINGE SQ SCH (08:18)
[2021-12-20] MEDS: methylPREDNISolone SOD SUCCI 40 MG/ML 1 ML VIAL IV SCH (08:19)
--- NOTE | 2021-12-20 09:14 | P.PN ---
Subjective Progress Note Date: 12/20/21 Principal diagnosis: right-sided pneumonia, presenting sepsis, ileus versus small bowel obstruction Patient seen and examined at bedside. No evidence overnight, doing well today. Denies abdominal pain, no complaints of nausea or vomiting. Feeling hungry, admits to loose bowel movements and flatus. Voiding without issue. Been ambulatory. Laboratory studies showed normalizing electrolytes and improving renal function. Objective - Vital Signs Vital signs: Vital Signs Temp 98.6 F 12/20/21 05:20 Pulse 82 12/20/21 07:50 Resp 16 12/20/21 05:20 BP 136/63 12/20/21 05:20 Pulse Ox 94 L 12/20/21 05:20 Intake & Output 12/19/21 12/20/21 12/20/21 18:59 06:59 18:59 Intake Total 1000 Output Total 1340 1525 Balance -340 -1525 Intake: IV 1000 Dextrose 5% in Water 1, 800 000 ml @ 100 mls/hr IV . Q10H [facility] Rx#:[id number] Piperacillin-Tazobactam 3 200 .375 gm In Sodium Chloride 0.9% 100 ml @ 25 mls/hr IVPB Q12HR [facility] Rx #:[id number] Oral 0 Output: Gastric Drainage 500 300 Urine 550 1225 Post Void Residual 290 Other: Voiding Method Urinal Urinal # Bowel Movements 1 1 ABP, PAP, CO, CI - Last Documented Arterial Blood Pressure 66/60 - Constitutional General appearance: Present: average body habitus, no acute distress - EENT Eyes: Present: EOMI, PERRLA ENT: Present: NA/AT - Respiratory Respiratory: bilateral: CTA - Cardiovascular Rhythm: regular - Gastrointestinal Gastrointestinal Comment(s): Absent is soft, nontender to palpation, no guarding rebound or distention. Abdominal exam improved compared to yesterday. - Neurologic Neurologic: Present: CNII-XII intact - Psychiatric Psychiatric: Present: A&O x's 3, appropriate affect, intact judgment & insight - Labs CBC & Chem 7: 12/19/21 09:08 12/20/21 04:26 Labs: Abnormal Lab Results - Last 24 Hours (Table) 12/19/21 12/19/21 12/19/21 Range/Units 09:08 09:08 11:39 WBC 13.4 H (3.8-10.6) k/uL Hgb 12.3 L (13.0-17.5) gm/dL MCHC 30.9 L (31.0-37.0) g/dL Neutrophils # 10.6 H (1.3-7.7) k/uL Chloride 113 H (98-107) mmol/L Carbon Dioxide (22-30) mmol/L BUN 62 H (9-20) mg/dL Creatinine 1.68 H (0.66-1.25) mg/dL Glucose 167 H (74-99) mg/dL POC Glucose (mg/dL) 178 H (75-99) mg/dL Calcium 8.3 L (8.4-10.2) mg/dL 12/19/21 12/19/21 12/19/21 Range/Units 16:31 17:00 21:05 WBC (3.8-10.6) k/uL Hgb (13.0-17.5) gm/dL MCHC (31.0-37.0) g/dL Neutrophils # (1.3-7.7) k/uL Chloride 110 H (98-107) mmol/L Carbon Dioxide 31 H (22-30) mmol/L BUN 60 H (9-20) mg/dL Creatinine 1.78 H (0.66-1.25) mg/dL Glucose 217 H (74-99) mg/dL POC Glucose (mg/dL) 201 H 198 H (75-99) mg/dL Calcium 8.2 L (8.4-10.2) mg/dL 12/20/21 12/20/21 12/20/21 Range/Units 00:03 04:26 05:46 WBC (3.8-10.6) k/uL Hgb (13.0-17.5) gm/dL MCHC (31.0-37.0) g/dL Neutrophils # (1.3-7.7) k/uL Chloride 110 H (98-107) mmol/L Carbon Dioxide (22-30) mmol/L BUN 54 H (9-20) mg/dL Creatinine 1.69 H (0.66-1.25) mg/dL Glucose 212 H (74-99) mg/dL POC Glucose (mg/dL) 238 H 209 H (75-99) mg/dL Calcium 8.2 L (8.4-10.2) mg/dL Assessment and Plan Assessment: 61-year-old gentleman with right-sided pneumonia, presenting degree of sepsis which would appear to be improved compared to initial presentation. Resolving mechanical small bowel obstruction with nonoperative management. Loose bowel movement today. No evidence of peritonitis on exam, no complaints of abdominal pain. Plan: Clamp nasogastric tube, advance to clear liquids this morning. If he doesn't have any issues with abdominal distention, pain, nausea or vomiting by this afternoon nasogastric tube can be removed and will anticipate advancing diet as tolerated tomorrow. If he does have recurrent issues with clamping the nasogastric tube he'll need to be reconnected to suction and at that point we'll be looking at an operation. Time with Patient: Greater than 30
--- NOTE | 2021-12-20 09:38 | P.PN ---
Subjective Patient is seen in follow-up for acute kidney injury and hypernatremia. Sodium level 140 today. Renal function stable. Nonoliguric. Denies chest pain or shortness of breath. Blood pressure stable. Receiving D5W. Has NG tube per surgery. Vital signs are stable. General: Resting in bed. No acute distress. HEENT: On nasal cannula. NG tube noted. LUNGS: Breath sounds decreased. HEART: Rate and Rhythm are regular. ABDOMEN: Soft, nontender. EXTREMITITES: No edema. Objective - Vital Signs Vital signs: Vital Signs Temp 98.6 F 12/20/21 05:20 Pulse 82 12/20/21 07:50 Resp 16 12/20/21 05:20 BP 136/63 12/20/21 05:20 Pulse Ox 94 L 12/20/21 05:20 Intake & Output 12/19/21 12/20/21 12/20/21 18:59 06:59 18:59 Intake Total 1000 Output Total 1340 1525 Balance -340 -1525 Intake: IV 1000 Dextrose 5% in Water 1, 800 000 ml @ 100 mls/hr IV . Q10H [facility] Rx#:[id number] Piperacillin-Tazobactam 3 200 .375 gm In Sodium Chloride 0.9% 100 ml @ 25 mls/hr IVPB Q12HR [facility] Rx #:[id number] Oral 0 Output: Gastric Drainage 500 300 Urine 550 1225 Post Void Residual 290 Other: Voiding Method Urinal Urinal # Bowel Movements 1 1 ABP, PAP, CO, CI - Last Documented Arterial Blood Pressure 66/60 - Labs CBC & Chem 7: 12/19/21 09:08 12/20/21 04:26 Labs: Abnormal Lab Results - Last 24 Hours (Table) 12/19/21 12/19/21 12/19/21 Range/Units 09:08 11:39 16:31 Chloride 113 H (98-107) mmol/L Carbon Dioxide (22-30) mmol/L BUN 62 H (9-20) mg/dL Creatinine 1.68 H (0.66-1.25) mg/dL Glucose 167 H (74-99) mg/dL POC Glucose (mg/dL) 178 H 201 H (75-99) mg/dL Calcium 8.3 L (8.4-10.2) mg/dL 12/19/21 12/19/21 12/20/21 Range/Units 17:00 21:05 00:03 Chloride 110 H (98-107) mmol/L Carbon Dioxide 31 H (22-30) mmol/L BUN 60 H (9-20) mg/dL Creatinine 1.78 H (0.66-1.25) mg/dL Glucose 217 H (74-99) mg/dL POC Glucose (mg/dL) 198 H 238 H (75-99) mg/dL Calcium 8.2 L (8.4-10.2) mg/dL 12/20/21 12/20/21 Range/Units 04:26 05:46 Chloride 110 H (98-107) mmol/L Carbon Dioxide (22-30) mmol/L BUN 54 H (9-20) mg/dL Creatinine 1.69 H (0.66-1.25) mg/dL Glucose 212 H (74-99) mg/dL POC Glucose (mg/dL) 209 H (75-99) mg/dL Calcium 8.2 L (8.4-10.2) mg/dL Assessment and Plan Plan: Assessment: 1. Acute kidney injury mostly prerenal secondary to infection. Improving. Creatinine was 5.04 on admission and peaked at 6.82 - 1.69 today. Creatinine in May 2021 was 0.88. No hydronephrosis noted on CAT scan. 2. Hypernatremia from lack of oral water intake. Sodium level 140 this morning. 3. Pneumonia on antibiotics. 4. Ileus versus bowel obstruction. Has NG tube. Surgery following. 5. Diabetes mellitus. 6. Acute hypoxic respiratory failure secondary to pneumonia and COPD. 7. History of alcohol abuse. 8. Mild hyperkalemia secondary to acute kidney injury and hyperglycemia. Imp roved. Plan: Maintain D5W - decrease rate to 50 mL an hour. Continue to monitor renal function and urine output. Avoid nephrotoxins. Blood sugar control. Diet to be advanced per surgery.
[2021-12-20] MEDS: bisacodyL 5 MG TABLET.DR PO SCH (10:28)
[2021-12-20 11:45] LABS: Glucose,Whole Blood 194 mg/dL (75-99)
--- NOTE | 2021-12-20 13:44 | P.PN ---
Progress Note - Text Progress Note Date: 12/20/21 Chief Complaint: Short of breath This is a 61-year-old patient who follows with Dr. Romero. Chronic stable medical conditions include diabetes, hypertension, hyperlipidemia. previous smoker/-COPD. Patient presented to the ER with increasing shortness of breath. Family informed ER physician that that is not seen in bed on Friday. Since patient has been getting worse. Not getting out of bed and breathing progressively getting worse. Patient on 2 L was saturating 62%. EMS was not able to get a blood pressure. Patient was minimally conscious. It had to be bagged and brought to the hospital. Patient did receive 1 dose of appendectomy. Patient has not been eating or drinking. No fever. Patient on November 28 underwent bronchoscopy and lavage by Dr. Consuelo Ochoa from pulmonary. On the right side patient's found to have extensive purulent secretions filling of the airways. BAL was performed. No mass was noted. Cultures were positive for Gaby albicans. Patient is put on BiPAP. This morning BiPAP set at 14/6. 50%. Patient on levo fed drip. Tired. Admitted with bilateral multilobar pneumonia, IV Zosyn, IV sepsis IV fluids, septic shock and IV levo fed,'s acute COPD exacerbation on DuoNeb steroids, acute hypoxic respiratory failure on BiPAP, acute kidney injury from ATN, acute metabolic acidosis from which she received IV bicarbonate drip. Also acute ileus from sepsis pneumonia for which NG tube to suction started. December 11: ICU: NG tube to suction. BiPAP setting at 14/6 at 50%. Tired. Answering questions. Laying in bed. DuoNeb, IV levo fed, IV Zosyn, sodium bicarbonate drip IV steroids December 12 - December 16 patient was followed by [facility] hospitalists December 17: ICU: NG tube got pulled today. Put back in. Putting out good output. Patient has pus slight flatus. Computed tomography scan done today shows renal obstruction. Seen by surgery. Possible walk tomorrow. Remains on 8 L of nasal cannula. Shortness of breath. Abdomen distended. Telemetry sinus rhythm. December 18: ICU: NG tube remains to suction. About thousand cc overnight. Had a small BM a bit loose today. Abdomen slightly less distended. IV fluids. D5W. Surgery postponed. Oxygen requirement down to 2 L nasal cannula. December 19: Moved to the medical floor. NG tube to suction. About 1500 mL drainage overnight. IV fluids. No BM. IV fluids. Being followed by surgery. Abdominal x-ray showing significantly dilated loops of bowel December 20: Patient is a large BM this morning. NG tube clamped. Started on clear liquids. Active Medications Acetaminophen (Acetaminophen Tab 325 Mg Tab) 650 mg PO Q4HR PRN PRN Reason: Fever and/or Mild Pain Albuterol/Ipratropium (Ipratropium-Albuterol 3 Ml Neb) 3 ml INHALATION RT-Q4H PRN PRN Reason: Shortness Of Breath Or Wheezing Last Admin: 12/10/21 08:22 Dose: 3 ml Documented by: Albuterol/Ipratropium (Ipratropium-Albuterol 3 Ml Neb) 3 ml INHALATION RT-QID [facility] Last Admin: 12/20/21 11:36 Dose: Not Given Documented by: Bisacodyl (Bisacodyl 5 Mg Tablet.Dr) 10 mg PO DAILY [facility] Last Admin: 12/20/21 10:28 Dose: Not Given Documented by: Budesonide (Budesonide 1 Mg/2 Ml Nebu) 1 mg INHALATION RT-BID [facility] Last Admin: 12/20/21 07:32 Dose: 1 mg Documented by: Enoxaparin Sodium (Enoxaparin 40 Mg/0.4 Ml Syringe) 40 mg SQ DAILY [facility] Last Admin: 12/20/21 08:18 Dose: 40 mg Documented by: Formoterol Fumarate (Formoterol Fumarate 20 Mcg/2 Ml Nebu) 20 mcg INHALATION RT-BID [facility] Last Admin: 12/20/21 07:32 Dose: 20 mcg Documented by: Piperacillin Sod/Tazobactam (Sod 3.375 gm/ Sodium Chloride) 100 mls @ 25 mls/hr IVPB Q8HR [facility]; Protocol Last Admin: 12/20/21 10:33 Dose: 25 mls/hr Documented by: Dextrose/Water (Dextrose 5%-Water Iv Soln) 1,000 mls @ 50 mls/hr IV .Q20H [facility] Last Admin: 12/20/21 08:19 Dose: 100 mls/hr Documented by: Insulin Aspart (Insulin Aspart (Novolog) 100 Unit/Ml Vial) 0 unit SQ Q6H [facility]; Protocol Last Admin: 12/20/21 11:48 Dose: 2 unit Documented by: Insulin Detemir (Insulin Detemir (Levemir) 100 Unit/Ml Syr) 10 unit SQ HS [facility] Last Admin: 12/19/21 21:47 Dose: 10 unit Documented by: Naloxone HCl (Naloxone 0.4 Mg/Ml 1 Ml Vial) 0.2 mg IV Q2M PRN PRN Reason: Opioid Reversal Ondansetron HCl (Ondansetron 4 Mg/2 Ml Vial) 4 mg IVP Q6HR PRN PRN Reason: Nausea And Vomiting Pantoprazole Sodium (Pantoprazole 40 Mg/10 Ml Vial) 40 mg IVP DAILY [facility] Last Admin: 12/20/21 08:18 Dose: 40 mg Documented by: Past medical history to include: COPD, diabetes, hypertension, 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 Smoked a pack a day for close to 50 years stopped about 2 years ago. Drinks alcohol very heavily on the weekends to the point of passing out Family history: Reviewed, noncontributory to presentation Physical examination: VITAL SIGNS: 98.2, 96, 18, 1 39 x 62, 92% room air GENERAL: Reclining in bed EYES: Pupils equal. Conjunctiva normal. HEENT: External appearance of nose and ears normal, NG tube clamped NECK: JVD unable to assess masses not palpable. HEART: First and second heart sounds are normal; minimal edema. LUNGS: Respiratory rate increased; diminished breath sounds prolonged expiration. ABDOMEN: Soft, some distended nontender, liver spleen not palpable, no masses palpable. Bowel sounds present PSYCH: Answering questions INVESTIGATIONS, reviewed in the clinical context: December 20: Sodium 140 potassium 4.8 BUN 54 creatinine 1.69 December 19: Sodium 141 potassium 4.9. 60 creatinine 1.78 December 18: Sodium 149 potassium 5.5 BUN 79 creatinine 1.99 December 17: White count 15.1 hemoglobin 13 platelets 251 sodium 149 potassium 5.3. 92 creatinine 2.25 Computed tomography scan abdomen [December 17]: Dilated small bowel measuring up to 4.4 cm. Obstruction not excluded. Zone of transition noted. December 11: White count 19.7 hemoglobin 11.5 platelets 271 potassium 5 BUN 95 creatinine 6.3 to December 10: White count 20 hemoglobin 13.2 platelets 300 potassium 6.4 BUN 68 creatinine 4.61 Admission labs: White count 22.5 hemoglobin 13.9 platelets 299 sodium 136 potassium 5.7 BUN 60 creatinine 5.04 lactic acid 8.1 troponin I 0.063 proBNP 19230 EKG tracing personally reviewed by me-normal sinus rhythm. Rate 90 Chest x-ray film personally reviewed by me-infiltrate especially right base CT chest abdomen pelvis: Patchy area of his consolidation consistent multifocal pneumonia may need the right lower lobe. Dilated small bowel. No transition point. Previous labs: Creatinine on May 2021: 0.88 Assessment and plan: -Severe multilobar pneumonia predominantly right lower lobe, suspect gram-negative organism: Better IV Zosyn. -Sepsis secondary to pneumonia: Better IV fluids , IV Zosyn -Troponinemia due to hemodynamic mass matched from sepsis. No clinical evidence of acute coronary syndrome -Septic shock: Improved IV fluids. IV levo fed discontinued -Acute COPD exacerbation in a previous smoker: Better DuoNeb every 4 times a day, IV and inhaled steroids, -Acute severe hypoxic respiratory failure from pneumonia/COPD: Better BiPAP. Currently on 2 L nasal cannula -Hyperlipidemia Lipitor 80 mg daily at bedtime -Essential hypertension, Hold antihypertensives -Chronic hypoxic respiratory failure from COPD Has 2 L of oxygen at home -Acute medical debility from sepsis pneumonia COPD exacerbation -Acute lactic acidosis from sepsis -Acute kidney injury from ATN from sepsis and prerenal: Improving Creatinine peaked at 6.8. -Acute metabolic acidosis from renal failure: Better Received IV bicarbonate drip. -Acute small bowel obstruction. Improving NG tube clamped. Clear liquids -Full code 2 L nasal cannula. IV fluids. IV Zosyn. . DuoNeb. Steroids. NG tube clamped. Clear liquids.
[2021-12-20 16:33] LABS: Glucose,Whole Blood 223 mg/dL (75-99)
--- NOTE | 2021-12-20 16:33 | P.PN ---
Subjective Progress Note Date: 12/20/21 On 12/17/2021, I'm seeing the patient for a follow-up. The patient is awake and alert and communicating. The patient is post acute hypoxic respiratory failure secondary to COPD exacerbation right lower lobe pneumonia/aspiration. The patient also had an acute kidney injury and abdominal distention secondary to an ileus. In terms of the pneumonia, the patient continues to have a congested cough. No follow-up chest x-rays available. Noted the patient is post bronchoscopy that was done by Dr. Ochoa on 11/28/2021 and the cultures were essentially negative for any microbial growth. He has known to grow pseudomonas in the sputum back in 06/22/2021. The patient currently is on IV Zosyn. The patient is also on DuoNeb nebulized treatments around the clock and IV Solu Medrol for malignancy 12 hours. The patient was taken off the BiPAP and the patient is currently on 8 L of oxygen by nasal cannula to maintain a saturation around 97%. At the same time, the patient had developed an ileus. NG tube was initially inserted and the patient put out approximately 2200s of gastric output. Subsequently, they and she output dropped and the patient pulled out his tube today. CAT scan of the abdomen is to follow. No abdominal pain. His abdomen remains slightly distended and tympanic on today's examination. He leans that he is passing flatus for now. The patient has also an acute kidney injury. The sodium level was at 148 and the creatinine was at 2.7 from yesterday with a BUN of 107. Serum bicarbs at 31. Potassium level is at 5.0. Repeat blood work and electrodes are still pending from today. The patient has no specific complaints. IV fluids are currently at KVO. He remains on IV Z osyn. The neck fluid balance over the past 24 hours is been -3.9 m that the patient is producing excellent urine output. The patient remains on bronchodilators. The patient on Levemir insulin along with a sliding scale coverage. No pressors for now. The patient is seen today 12/18/2021 in follow-up in the intensive care unit. He is awake and alert in no acute distress. He did have his nasogastric tube reinserted after he had initially inadvertently pulled out. He's still having distended abdomen. Acute abdomen x-ray revealed persistent small bowel obstruction. No significant change from recent CT despite placement of nasogastric tube. There is improved aeration of the right lung base. Some new mid lung atelectasis. Stable left easily opacity favoring atelectasis. Blood cultures reveal no growth. Sodium 149. Potassium 5.5. Chloride 114. BUN 79. Creatinine 1.99. Glucose 183. He is currently in a -1.3 L balance. He remains on DuoNeb inhalations, Pulmicort and Perforomist inhalations, IV Solu-Medrol. D5 W at 150 ML's per hour. Antibiotics in the form of Zosyn. He is maintaining good O2 saturations in the 90s on 2 L/m per nasal cannula. He's been hemodynamically stable. States he is passing flatus. No bowel movements. On 12/19/2021 patient seen in follow-up on selective care unit, he is resting in bed, denies any respiratory difficulty, he is on 1 L of oxygen, his pulse ox is 96%, NG tube remains in place and is draining dark green gastric output, there was 1.5 L of gastric output in the last 24 hours according to nursing charting. Abdomen is soft, nontender, patient states he is able to pass some gas, and he was even able to have a bowel movement today. Lung sounds reveal diminished breath sounds at the bases, no rhonchi or wheezing, patient is tolerating ice chips, otherwise he remains nothing by mouth. He is on D5W at a rate of 100 ML per hour. Remains on Zosyn for empiric antibiotic coverage. Blood cultures have shown no growth. Patient has been afebrile, blood pressure is been stable. Chest x-ray showing persistent right midlung and basilar acute, some improvement in the lumbar dilated gas filled small bowel loops suggesting i mproving small bowel obstruction. Surgical services are following. 12/20/2021, the patient is quite stable and the patient is being seen in follow- up. The patient has a which is improving. On today's evaluation, the NG tube is in clamped and the patient is feeling hungry and the patient is also having some loose bowel movements and he is also passing flatus. Based on that, there is a high likely that the patient will not need surgery and will continue our conservative measures of small bowel obstruction management. The patient is a nonoperative case at this point in time in general surgeries on the case. Otherwise, the patient is doing well. No specific complaints. No respiratory difficulties. The patient on 2 L of O2 nasal cannula. Creatinine is stable at 1.6 with a mean of 54 and the sodium level is at 140. The patient remains on IV Zosyn as an empiric antibiotic coverage. The patient on D5 water which is at 50 mL an hour. The patient is also on Lovenox 40 mg subcu 43 prophylaxis. The patient is getting Levemir insulin 10 units daily at bedtime along with a SinuScope coverage. The patient got transferred out of the intensive care unit yesterday. Abdomen is nondistended on today's evaluation Objective - Vital Signs Vital signs: Vital Signs Temp 98.8 F 12/20/21 15:46 Pulse 77 12/20/21 15:49 Resp 18 12/20/21 15:46 BP 119/66 12/20/21 15:46 Pulse Ox 93 L 12/20/21 15:46 Intake & Output 12/19/21 12/20/21 12/20/21 18:59 06:59 18:59 Intake Total 1000 120 Output Total 1340 1525 Balance -340 -1525 120 Intake: IV 1000 Dextrose 5% in Water 1, 800 000 ml @ 100 mls/hr IV . Q10H [facility] Rx#:[id number] Piperacillin-Tazobactam 3 200 .375 gm In Sodium Chloride 0.9% 100 ml @ 25 mls/hr IVPB Q12HR [facility] Rx #:[id number] Oral 0 120 Output: Gastric Drainage 500 300 Urine 550 1225 Post Void Residual 290 Other: Voiding Method Urinal Urinal Urinal # Voids 1 # Bowel Movements 1 1 1 ABP, PAP, CO, CI - Last Documented Arterial Blood Pressure 66/60 - Exam GENERAL EXAM: Alert, very pleasant, 61-year-old white male, on 1 L of oxygen pulse ox 96%, NG tube is in place draining dark green gastric output, comfortable in no apparent distress. HEAD: Normocephalic/atraumatic. EYES: Normal reaction of pupils, equal size. Conjunctiva pink, sclera white. NOSE: Clear with pink turbinates. THROAT: No erythema or exudates. NECK: No masses, no JVD, no thyroid enlargement, no adenopathy. CHEST: No chest wall deformity. Symmetrical expansion. LUNGS: Equal air entry with no crackles, wheeze, rhonchi or dullness. CVS: Regular rate and rhythm, normal S1 and S2, no gallops, no murmurs, no rubs ABDOMEN: Soft, nontender. No hepatosplenomegaly, normal bowel sounds, no guarding or rigidity. The abdomen is less distended compared to yesterday and the patient has positive bowel sounds EXTREMITIES: No clubbing, no edema, no cyanosis, 2+ pulses and upper and lower extremities. MUSCULOSKELETAL: Muscle strength and tone normal. SPINE: No scoliosis or deformity SKIN: No rashes CENTRAL NERVOUS SYSTEM: Alert and oriented -3. No focal deficits, tone is normal in all 4 extremities. PSYCHIATRIC: Alert and oriented -3. Appropriate affect. Intact judgment and insight. - Labs CBC & Chem 7: 12/19/21 09:08 12/20/21 04:26 Labs: Abnormal Lab Results - Last 24 Hours (Table) 12/19/21 12/19/21 12/19/21 Range/Units 16:31 17:00 21:05 Chloride 110 H (98-107) mmol/L Carbon Dioxide 31 H (22-30) mmol/L BUN 60 H (9-20) mg/dL Creatinine 1.78 H (0.66-1.25) mg/dL Glucose 217 H (74-99) mg/dL POC Glucose (mg/dL) 201 H 198 H (75-99) mg/dL Calcium 8.2 L (8.4-10.2) mg/dL 12/20/21 12/20/21 12/20/21 Range/Units 00:03 04:26 05:46 Chloride 110 H (98-107) mmol/L Carbon Dioxide (22-30) mmol/L BUN 54 H (9-20) mg/dL Creatinine 1.69 H (0.66-1.25) mg/dL Glucose 212 H (74-99) mg/dL POC Glucose (mg/dL) 238 H 209 H (75-99) mg/dL Calcium 8.2 L (8.4-10.2) mg/dL 12/20/21 Range/Units 11:43 Chloride (98-107) mmol/L Carbon Dioxide (22-30) mmol/L BUN (9-20) mg/dL Creatinine (0.66-1.25) mg/dL Glucose (74-99) mg/dL POC Glucose (mg/dL) 194 H (75-99) mg/dL Calcium (8.4-10.2) mg/dL Assessment and Plan Plan: Acute hypoxemic respiratory failure secondary to COPD exacerbation complicated by primarily right lower lobe pneumonia/questionable aspiration, , currently stable on 2 L of O2 nasal cannula Acute COPD exacerbation secondary to above, stable, improved, Abdominal distention, secondary to small bowel obstruction/ileus, NG tube was reinserted. CAT scan of the abdomen 12/17/2021 revealed dilated small bowel measuring up to 4.4 cm. Contrast is seen within the mid to distal small bowel. Obstruction is not excluded. There appears to be a zone of transition with possible adhesion. Abdominal x-ray from today shows improvement in the bowel obstruction and NG tube is in place, clamped at this point in time and the patient is passing flatus and passing bowel movement activity. We'll continue our nonsurgical management of small bowel obstruction. Acute kidney injury/ATN, the patient is producing excellent amount of urine output in the creatinine is also improving, creatinine is improving Possible non-ST segment elevation myocardial infarction. History of COPD with chronic hypoxemic respiratory failure. History of hyperlipidemia. History of hypertension. History of diabetes mellitus. History of depression. History of alcohol abuse Plan Keep the NG tube clamped Watch for any signs of gastric distention or emesis may possibly be moved NG tube if the patient is able to tolerate the process Acute abdominal films were noted to show some improvement in the small bowel obstruction and bowel distention Antibiotic coverage per surgery Provide incentive spirometer Monitor renal function and the creatinine is improving Lovenox for DVT prophylaxis General surgeries on the case GI and DVT prophylaxis Follow-up labs, electrolytes and renal profile tomorrow
[2021-12-20 19:34] LABS: Glucose,Whole Blood 203 mg/dL (75-99)
[2021-12-20] MEDS: INSULIN DETEMIR (LEVEMIR) 100 UNIT/ML SYR SQ SCH (20:10)
[2021-12-20 23:34] LABS: Glucose,Whole Blood 185 mg/dL (75-99)
[2021-12-21 05:55] LABS: Glucose,Whole Blood 167 mg/dL (75-99)
[2021-12-21] MEDS: INSULIN ASPART (NovoLOG) 100 UNIT/ML VIAL SQ SCH ×4 (06:17→23:39)
[2021-12-21] MEDS: IPRATROPIUM-ALBUTEROL 3 ML NEB INHALATION SCH ×4 (07:33→19:45)
[2021-12-21] MEDS: BUDESONIDE 1 MG/2 ML NEBU INHALATION SCH ×2 (07:33→19:44)
[2021-12-21] MEDS: FORMOTEROL FUMARATE 20 MCG/2 ML NEBU INHALATION SCH ×2 (07:33→19:45)
[2021-12-21 07:44] LABS: Calcium 8.2 mg/dL (8.4-10.2); Magnesium 1.8 mg/dL (1.6-2.3)
[2021-12-21] MEDS: bisacodyL 5 MG TABLET.DR PO SCH (08:09)
[2021-12-21] MEDS: PANTOPRAZOLE 40 MG/10 ML VIAL IVP SCH (08:13)
[2021-12-21] MEDS: PIPERACILLIN-TAZOBACTAM 3.375 GM in SODIUM CHLORIDE 0.9% 100 ML IVPB SCH (08:13)
[2021-12-21] MEDS: ENOXAPARIN 40 MG/0.4 ML SYRINGE SQ SCH (08:14)
--- NOTE | 2021-12-21 10:08 | P.PN ---
Subjective Patient is seen in follow-up for acute kidney injury and hypernatremia. Sodium level 138 today. Renal function slightly better. Nonoliguric. Denies chest pain or shortness of breath. Blood pressure stable. Receiving D5W. NG tube fell out last night. Tolerating oral intake. Vital signs are stable. General: Resting in bed. No acute distress. HEENT: On nasal cannula. LUNGS: Breath sounds decreased. HEART: Rate and Rhythm are regular. ABDOMEN: Soft, nontender. EXTREMITITES: No edema. Objective - Vital Signs Vital signs: Vital Signs Temp 98.2 F 12/21/21 08:00 Pulse 91 12/21/21 08:00 Resp 18 12/21/21 08:00 BP 122/60 12/21/21 08:00 Pulse Ox 100 12/21/21 08:00 Intake & Output 12/20/21 12/21/21 12/21/21 18:59 06:59 18:59 Intake Total 240 0 Output Total 200 875 Balance 40 -875 0 Intake: Oral 240 0 Output: Gastric Drainage 200 Urine 875 Other: Voiding Method Urinal Urinal Urinal # Voids 1 # Bowel Movements 1 1 ABP, PAP, CO, CI - Last Documented Arterial Blood Pressure 66/60 - Labs CBC & Chem 7: 12/19/21 09:08 12/21/21 06:49 Labs: Abnormal Lab Results - Last 24 Hours (Table) 12/20/21 12/20/21 12/20/21 Range/Units 11:43 16:32 19:32 Chloride (98-107) mmol/L BUN (9-20) mg/dL Creatinine (0.66-1.25) mg/dL Glucose (74-99) mg/dL POC Glucose (mg/dL) 194 H 223 H 203 H (75-99) mg/dL Calcium (8.4-10.2) mg/dL 12/20/21 12/21/21 12/21/21 Range/Units 23:32 05:53 06:49 Chloride 109 H (98-107) mmol/L BUN 41 H (9-20) mg/dL Creatinine 1.50 H (0.66-1.25) mg/dL Glucose 154 H (74-99) mg/dL POC Glucose (mg/dL) 185 H 167 H (75-99) mg/dL Calcium 8.2 L (8.4-10.2) mg/dL Assessment and Plan Plan: Assessment: 1. Acute kidney injury mostly prerenal secondary to infection. Improving. C reatinine was 5.04 on admission and peaked at 6.82 - 1.5 today. Creatinine in May 2021 was 0.88. No hydronephrosis noted on CAT scan. 2. Hypernatremia from lack of oral water intake. Sodium level 138 this morning. 3. Pneumonia on antibiotics. 4. Ileus versus bowel obstruction. Surgery following. 5. Diabetes mellitus. 6. Acute hypoxic respiratory failure secondary to pneumonia and COPD. 7. History of alcohol abuse. 8. Mild hyperkalemia secondary to acute kidney injury and hyperglycemia. Improved. 9. Proteinuria. Nonspecific in the setting of acute kidney injury. Can be fr om underlying diabetes. Further workup outpatient. Plan: Hep-Lock IV fluids. Continue to monitor renal function and urine output. Avoid nephrotoxins. Blood sugar control. Diet per surgery.
[2021-12-21 11:47] LABS: Glucose,Whole Blood 188 mg/dL (75-99)
--- NOTE | 2021-12-21 12:25 | P.PN ---
Progress Note - Text Progress Note Date: 12/21/21 Chief Complaint: Short of breath This is a 61-year-old patient who follows with Dr. Romero. Chronic stable medical conditions include diabetes, hypertension, hyperlipidemia. previous smoker/-COPD. Patient presented to the ER with increasing shortness of breath. Family informed ER physician that that is not seen in bed on Friday. Since patient has been getting worse. Not getting out of bed and breathing progressively getting worse. Patient on 2 L was saturating 62%. EMS was not able to get a blood pressure. Patient was minimally conscious. It had to be bagged and brought to the hospital. Patient did receive 1 dose of appendectomy. Patient has not been eating or drinking. No fever. Patient on November 28 underwent bronchoscopy and lavage by Dr. Consuelo Ochoa from pulmonary. On the right side patient's found to have extensive purulent secretions filling of the airways. BAL was performed. No mass was noted. Cultures were positive for Gaby albicans. Patient is put on BiPAP. This morning BiPAP set at 14/6. 50%. Patient on levo fed drip. Tired. Admitted with bilateral multilobar pneumonia, IV Zosyn, IV sepsis IV fluids, septic shock and IV levo fed,'s acute COPD exacerbation on DuoNeb steroids, acute hypoxic respiratory failure on BiPAP, acute kidney injury from ATN, acute metabolic acidosis from which she received IV bicarbonate drip. Also acute ileus from sepsis pneumonia for which NG tube to suction started. December 11: ICU: NG tube to suction. BiPAP setting at 14/6 at 50%. Tired. Answering questions. Laying in bed. DuoNeb, IV levo fed, IV Zosyn, sodium bicarbonate drip IV steroids December 12 - December 16 patient was followed by [facility] hospitalists December 17: ICU: NG tube got pulled today. Put back in. Putting out good output. Patient has pus slight flatus. Computed tomography scan done today shows renal obstruction. Seen by surgery. Possible walk tomorrow. Remains on 8 L of nasal cannula. Shortness of breath. Abdomen distended. Telemetry sinus rhythm. December 18: ICU: NG tube remains to suction. About thousand cc overnight. Had a small BM a bit loose today. Abdomen slightly less distended. IV fluids. D5W. Surgery postponed. Oxygen requirement down to 2 L nasal cannula. December 19: Moved to the medical floor. NG tube to suction. About 1500 mL drainage overnight. IV fluids. No BM. IV fluids. Being followed by surgery. Abdominal x-ray showing significantly dilated loops of bowel December 20: Patient is a large BM this morning. NG tube clamped. Started on clear liquids. December 21: Had a BM today. On clear liquids. Up in a chair. No abdominal pain. Advanced to full liquids is okay with surgery. Being followed by PT OT. Active Medications Acetaminophen (Acetaminophen Tab 325 Mg Tab) 650 mg PO Q4HR PRN PRN Reason: Fever and/or Mild Pain Albuterol/Ipratropium (Ipratropium-Albuterol 3 Ml Neb) 3 ml INHALATION RT-Q4H PRN PRN Reason: Shortness Of Breath Or Wheezing Last Admin: 12/10/21 08:22 Dose: 3 ml Documented by: Albuterol/Ipratropium (Ipratropium-Albuterol 3 Ml Neb) 3 ml INHALATION RT-QID [facility] Last Admin: 12/21/21 11:15 Dose: 3 ml Documented by: Amoxicillin/Clavulanate Potassium (Amoxic-Pot Clav 875-125mg 1 Each Tab) 1 each PO Q12HR [facility]; Protocol Bisacodyl (Bisacodyl 5 Mg Tablet.Dr) 10 mg PO DAILY [facility] Last Admin: 12/21/21 08:09 Dose: Not Given Documented by: Budesonide (Budesonide 1 Mg/2 Ml Nebu) 1 mg INHALATION RT-BID [facility] Last Admin: 12/21/21 07:33 Dose: 1 mg Documented by: Enoxaparin Sodium (Enoxaparin 40 Mg/0.4 Ml Syringe) 40 mg SQ DAILY [facility] Last Admin: 12/21/21 08:14 Dose: 40 mg Documented by: Formoterol Fumarate (Formoterol Fumarate 20 Mcg/2 Ml Nebu) 20 mcg INHALATION RT-BID [facility] Last Admin: 12/21/21 07:33 Dose: 20 mcg Documented by: Insulin Aspart (Insulin Aspart (Novolog) 100 Unit/Ml Vial) 0 unit SQ Q6H [facility]; Protocol Last Admin: 12/21/21 12:17 Dose: 2 unit Documented by: Insulin Detemir (Insulin Detemir (Levemir) 100 Unit/Ml Syr) 10 unit SQ [facility] Last Admin: 12/20/21 20:10 Dose: 10 unit Documented by: Naloxone HCl (Naloxone 0.4 Mg/Ml 1 Ml Vial) 0.2 mg IV Q2M PRN PRN Reason: Opioid Reversal Ondansetron HCl (Ondansetron 4 Mg/2 Ml Vial) 4 mg IVP Q6HR PRN PRN Reason: Nausea And Vomiting Pantoprazole Sodium (Pantoprazole 40 Mg/10 Ml Vial) 40 mg IVP DAILY [facility] Last Admin: 12/21/21 08:13 Dose: 40 mg Documented by: Past medical history to include: COPD, diabetes, hypertension, 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 Smoked a pack a day for close to 50 years stopped about 2 years ago. Drinks alcohol very heavily on the weekends to the point of passing out Family history: Reviewed, noncontributory to presentation Physical examination: VITAL SIGNS: 98.2, 91, 18, 122/60, 100% room air GENERAL: Sitting up in a chair. Comfortable EYES: Pupils equal. Conjunctiva normal. HEENT: External appearance of nose and ears normal, NG tube clamped NECK: JVD unable to assess masses not palpable. HEART: First and second heart sounds are normal; minimal edema. LUNGS: Respiratory rate increased; diminished breath sounds prolonged expiration. ABDOMEN: Soft, not distended nontender, liver spleen not palpable, no masses palpable. Bowel sounds present PSYCH: AO 3, mood affect normal INVESTIGATIONS, reviewed in the clinical context: December 21: Potassium 4 BUN 41 creatinine 1.50 December 20: Sodium 140 potassium 4.8 BUN 54 creatinine 1.69 December 19: Sodium 141 potassium 4.9. 60 creatinine 1.78 December 18: Sodium 149 potassium 5.5 BUN 79 creatinine 1.99 December 17: White count 15.1 hemoglobin 13 platelets 251 sodium 149 potassium 5.3. 92 creatinine 2.25 Computed tomography scan abdomen [December 17]: Dilated small bowel measuring up to 4.4 cm. Obstruction not excluded. Zone of transition noted. December 11: White count 19.7 hemoglobin 11.5 platelets 271 potassium 5 BUN 95 creatinine 6.3 to December 10: White count 20 hemoglobin 13.2 platelets 300 potassium 6.4 BUN 68 creatinine 4.61 Admission labs: White count 22.5 hemoglobin 13.9 platelets 299 sodium 136 potassium 5.7 BUN 60 creatinine 5.04 lactic acid 8.1 troponin I 0.063 proBNP 50304 EKG tracing personally reviewed by me-normal sinus rhythm. Rate 90 Chest x-ray film personally reviewed by me-infiltrate especially right base CT chest abdomen pelvis: Patchy area of his consolidation consistent multifocal pneumonia may need the right lower lobe. Dilated small bowel. No transition point. Previous labs: Creatinine on May 2021: 0.88 Assessment and plan: -Severe multilobar pneumonia predominantly right lower lobe, suspect gram- negative organism: Better IV Zosyn-changed to by mouth Augmentin. -Sepsis secondary to pneumonia: Better IV fluids , IV Zosyn-changed to Augmentin -Troponinemia due to hemodynamic mass matched from sepsis. No clinical evidence of acute coronary syndrome -Septic shock: Improved IV fluids. IV levo fed discontinued -Acute COPD exacerbation in a previous smoker: Better DuoNeb every 4 times a day, IV and inhaled steroids, -Acute severe hypoxic respiratory failure from pneumonia/COPD: Better BiPAP. Now on room air -Hyperlipidemia Lipitor 80 mg daily at bedtime -Essential hypertension, Hold antihypertensives -Chronic hypoxic respiratory failure from COPD Has 2 L of oxygen at home -Acute medical debility from sepsis pneumonia COPD exacerbation PTOT -Acute lactic acidosis from sepsis -Acute kidney injury from ATN from sepsis and prerenal: Improving Creatinine peaked at 6.8. -Acute metabolic acidosis from renal failure: Better Received IV bicarbonate drip. -Acute small bowel obstruction. Improving NG tube clamped. Clear liquids -Full code On room air. PTOT.. IV fluids. H2 by mouth Augmentin. . DuoNeb. Advance to full liquids okay with surgery.
--- NOTE | 2021-12-21 13:01 | P.PN ---
Subjective Progress Note Date: 12/21/21 On 12/17/2021, I'm seeing the patient for a follow-up. The patient is awake and alert and communicating. The patient is post acute hypoxic respiratory failure secondary to COPD exacerbation right lower lobe pneumonia/aspiration. The patient also had an acute kidney injury and abdominal distention secondary to an ileus. In terms of the pneumonia, the patient continues to have a congested cough. No follow-up chest x-rays available. Noted the patient is post bronchoscopy that was done by Dr. Ochoa on 11/28/2021 and the cultures were essentially negative for any microbial growth. He has known to grow pseudomonas in the sputum back in 06/22/2021. The patient currently is on IV Zosyn. The patient is also on DuoNeb nebulized treatments around the clock and IV Solu Medrol for malignancy 12 hours. The patient was taken off the BiPAP and the patient is currently on 8 L of oxygen by nasal cannula to maintain a saturation around 97%. At the same time, the patient had developed an ileus. NG tube was initially inserted and the patient put out approximately 2200s of gastric output. Subsequently, they and she output dropped and the patient pulled out his tube today. CAT scan of the abdomen is to follow. No abdominal pain. His abdomen remains slightly distended and tympanic on today's examination. He leans that he is passing flatus for now. The patient has also an acute kidney injury. The sodium level was at 148 and the creatinine was at 2.7 from yesterday with a BUN of 107. Serum bicarbs at 31. Potassium level is at 5.0. Repeat blood work and electrodes are still pending from today. The patient has no specific complaints. IV fluids are currently at KVO. He remains on IV Z osyn. The neck fluid balance over the past 24 hours is been -3.9 m that the patient is producing excellent urine output. The patient remains on bronchodilators. The patient on Levemir insulin along with a sliding scale coverage. No pressors for now. The patient is seen today 12/18/2021 in follow-up in the intensive care unit. He is awake and alert in no acute distress. He did have his nasogastric tube reinserted after he had initially inadvertently pulled out. He's still having distended abdomen. Acute abdomen x-ray revealed persistent small bowel obstruction. No significant change from recent CT despite placement of nasogastric tube. There is improved aeration of the right lung base. Some new mid lung atelectasis. Stable left easily opacity favoring atelectasis. Blood cultures reveal no growth. Sodium 149. Potassium 5.5. Chloride 114. BUN 79. Creatinine 1.99. Glucose 183. He is currently in a -1.3 L balance. He remains on DuoNeb inhalations, Pulmicort and Perforomist inhalations, IV Solu-Medrol. D5 W at 150 ML's per hour. Antibiotics in the form of Zosyn. He is maintaining good O2 saturations in the 90s on 2 L/m per nasal cannula. He's been hemodynamically stable. States he is passing flatus. No bowel movements. On 12/19/2021 patient seen in follow-up on selective care unit, he is resting in bed, denies any respiratory difficulty, he is on 1 L of oxygen, his pulse ox is 96%, NG tube remains in place and is draining dark green gastric output, there was 1.5 L of gastric output in the last 24 hours according to nursing charting. Abdomen is soft, nontender, patient states he is able to pass some gas, and he was even able to have a bowel movement today. Lung sounds reveal diminished breath sounds at the bases, no rhonchi or wheezing, patient is tolerating ice chips, otherwise he remains nothing by mouth. He is on D5W at a rate of 100 ML per hour. Remains on Zosyn for empiric antibiotic coverage. Blood cultures have shown no growth. Patient has been afebrile, blood pressure is been stable. Chest x-ray showing persistent right midlung and basilar acute, some improvement in the lumbar dilated gas filled small bowel loops suggesting i mproving small bowel obstruction. Surgical services are following. 12/20/2021, the patient is quite stable and the patient is being seen in follow- up. The patient has a which is improving. On today's evaluation, the NG tube is in clamped and the patient is feeling hungry and the patient is also having some loose bowel movements and he is also passing flatus. Based on that, there is a high likely that the patient will not need surgery and will continue our conservative measures of small bowel obstruction management. The patient is a nonoperative case at this point in time in general surgeries on the case. Otherwise, the patient is doing well. No specific complaints. No respiratory difficulties. The patient on 2 L of O2 nasal cannula. Creatinine is stable at 1.6 with a mean of 54 and the sodium level is at 140. The patient remains on IV Zosyn as an empiric antibiotic coverage. The patient on D5 water which is at 50 mL an hour. The patient is also on Lovenox 40 mg subcu 43 prophylaxis. The patient is getting Levemir insulin 10 units daily at bedtime along with a SinuScope coverage. The patient got transferred out of the intensive care unit yesterday. Abdomen is nondistended on today's evaluation 12/21/2021, the patient is comfortable in sitting up on a chair. NG tube was removed and the patient had 2 bowel movements yesterday. No nausea. No vomiting. No abdominal pain. No chest pain. No respiratory difficulties. He remains on IV Zosyn which will be discontinued and switched to oral Augmentin today. The patient remains on Levemir 10 units daily at bedtime along with NovoLog status care coverage. The patient currently is on room air oxygen with a pulse of 98%. No chest pain. Respiratory difficulties. He is a currently on a full liquid diet. Objective - Vital Signs Vital signs: Vital Signs Temp 98.1 F 12/21/21 12:00 Pulse 108 H 12/21/21 12:00 Resp 16 12/21/21 12:00 BP 106/57 12/21/21 12:00 Pulse Ox 98 12/21/21 12:00 Intake & Output 12/20/21 12/21/21 12/21/21 18:59 06:59 18:59 Intake Total 240 0 Output Total 200 875 Balance 40 -875 0 Intake: Oral 240 0 Output: Gastric Drainage 200 Urine 875 Other: Voiding Method Urinal Urinal Urinal # Voids 1 # Bowel Movements 1 1 ABP, PAP, CO, CI - Last Documented Arterial Blood Pressure 66/60 - Exam GENERAL EXAM: Alert, very pleasant, 61-year-old white male, on room air O2 in the patient's NG tube was removed HEAD: Normocephalic/atraumatic. EYES: Normal reaction of pupils, equal size. Conjunctiva pink, sclera white. NOSE: Clear with pink turbinates. THROAT: No erythema or exudates. NECK: No masses, no JVD, no thyroid enlargement, no adenopathy. CHEST: No chest wall deformity. Symmetrical expansion. LUNGS: Equal air entry with no crackles, wheeze, rhonchi or dullness. CVS: Regular rate and rhythm, normal S1 and S2, no gallops, no murmurs, no rubs ABDOMEN: Soft, nontender. No hepatosplenomegaly, normal bowel sounds, no guarding or rigidity. The abdomen is less distended compared to yesterday and the patient has positive bowel sounds EXTREMITIES: No clubbing, no edema, no cyanosis, 2+ pulses and upper and lower extremities. MUSCULOSKELETAL: Muscle strength and tone normal. SPINE: No scoliosis or deformity SKIN: No rashes CENTRAL NERVOUS SYSTEM: Alert and oriented -3. No focal deficits, tone is normal in all 4 extremities. PSYCHIATRIC: Alert and oriented -3. Appropriate affect. Intact judgment and insight. - Labs CBC & Chem 7: 12/19/21 09:08 12/21/21 06:49 Labs: Abnormal Lab Results - Last 24 Hours (Table) 12/20/21 12/20/21 12/20/21 Range/Units 16:32 19:32 23:32 Chloride (98-107) mmol/L BUN (9-20) mg/dL Creatinine (0.66-1.25) mg/dL Glucose (74-99) mg/dL POC Glucose (mg/dL) 223 H 203 H 185 H (75-99) mg/dL Calcium (8.4-10.2) mg/dL 12/21/21 12/21/21 12/21/21 Range/Units 05:53 06:49 11:45 Chloride 109 H (98-107) mmol/L BUN 41 H (9-20) mg/dL Creatinine 1.50 H (0.66-1.25) mg/dL Glucose 154 H (74-99) mg/dL POC Glucose (mg/dL) 167 H 188 H (75-99) mg/dL Calcium 8.2 L (8.4-10.2) mg/dL Assessment and Plan Plan: Acute hypoxemic respiratory failure secondary to COPD exacerbation complicated by primarily right lower lobe pneumonia/questionable aspiration, , currently stable on room air oxygen and the patient is also improvement COPD stable Acute COPD exacerbation secondary to above, stable, improved, stable on room air oxygen Abdominal distention, secondary to small bowel obstruction/ileus, NG tube was reinserted. CAT scan of the abdomen 12/17/2021 revealed dilated small bowel measuring up to 4.4 cm. Contrast is seen within the mid to distal small bowel. Obstruction is not excluded. There appears to be a zone of transition with possible adhesion. Clinically the patient small bowel obstruction is resolved and the patient's NG tube was removed and the patient is currently on full liquid diet Acute kidney injury/ATN, the patient is producing excellent amount of urine output in the creatinine is also improving, creatinine is improving, and the creatinine is down to 1.5 Possible non-ST segment elevation myocardial infarction. History of COPD with chronic hypoxemic respiratory failure. History of hyperlipidemia. History of hypertension. History of diabetes mellitus. History of depression. History of alcohol abuse Plan Advance diet as tolerated currently on full liquid diet Oral Augmentin Room air oxygen His mobility and ambulate Provide incentive spirometer Monitor renal function and the creatinine is improving Lovenox for DVT prophylaxis General surgeries on the case GI and DVT prophylaxis We'll see the patient on an as-needed basis
--- NOTE | 2021-12-21 15:16 | P.PN ---
Subjective Progress Note Date: 12/21/21 Principal diagnosis: right-sided pneumonia, presenting sepsis, ileus versus small bowel obstruction Patient seen and examined at bedside. Doing well today, feeling better today th an yesterday. Abdominal pain is resolved. Continues with loose bowel movements, voiding without issue, has been ambulatory in the halls. Denies any nausea or vomiting has done well with clear liquids. Feeling hungry. He has been afebrile overnight, may be having some orthostatic symptoms still was mildly tachycardic and relatively hypotensive this afternoon. Saturating well at 98% O2 saturation on room air. Serum electrolyte analysis from this morning shows no concerning findings, potassium and creatinine are normalizing. Objective - Vital Signs Vital signs: Vital Signs Temp 98.1 F 12/21/21 12:00 Pulse 108 H 12/21/21 12:00 Resp 16 12/21/21 12:00 BP 106/57 12/21/21 12:00 Pulse Ox 98 12/21/21 12:00 Intake & Output 12/20/21 12/21/21 12/21/21 18:59 06:59 18:59 Intake Total 240 360 Output Total 200 875 Balance 40 -875 360 Weight 92 kg Intake: Oral 240 360 Output: Gastric Drainage 200 Urine 875 Other: Voiding Method Urinal Urinal Urinal # Voids 1 1 # Bowel Movements 1 1 ABP, PAP, CO, CI - Last Documented Arterial Blood Pressure 66/60 - Constitutional General appearance: Present: average body habitus, no acute distress - EENT Eyes: Present: EOMI, PERRLA ENT: Present: NA/AT - Neck Carotids: bilateral: upstroke normal - Respiratory Respiratory: bilateral: CTA - Cardiovascular Rhythm: regular - Gastrointestinal Gastrointestinal Comment(s): Abdomen is soft, nontender to palpation, no guarding rebound or significant distention. Exam is improved compared to yesterday. - Neurologic Neurologic: Present: CNII-XII intact - Psychiatric Psychiatric: Present: A&O x's 3, appropriate affect, intact judgment & insight - Labs CBC & Chem 7: 12/19/21 09:08 12/21/21 06:49 Labs: Abnormal Lab Results - Last 24 Hours (Table) 12/20/21 12/20/21 12/20/21 Range/Units 16:32 19:32 23:32 Chloride (98-107) mmol/L BUN (9-20) mg/dL Creatinine (0.66-1.25) mg/dL Glucose (74-99) mg/dL POC Glucose (mg/dL) 223 H 203 H 185 H (75-99) mg/dL Calcium (8.4-10.2) mg/dL 12/21/21 12/21/21 12/21/21 Range/Units 05:53 06:49 11:45 Chloride 109 H (98-107) mmol/L BUN 41 H (9-20) mg/dL Creatinine 1.50 H (0.66-1.25) mg/dL Glucose 154 H (74-99) mg/dL POC Glucose (mg/dL) 167 H 188 H (75-99) mg/dL Calcium 8.2 L (8.4-10.2) mg/dL Assessment and Plan Assessment: 61-year-old gentleman with right-sided pneumonia, presenting degree of sepsis has resolved. Resolving mechanical small bowel obstruction with nonoperative management. Loose bowel movement today. No evidence of peritonitis on exam, no complaints of abdominal pain. Plan: Nasogastric tube has been removed, advancing to full liquids today. If no issues overnight will be okay to advance to a regular diet tomorrow. Discharge planning per primary service. Again I reiterated to the patient that if at this point he has recurrent issues with obstruction we'll plan for surgery but so far he seems to be doing quite well. Time with Patient: Greater than 30
[2021-12-21 16:51] LABS: Glucose,Whole Blood 166 mg/dL (75-99)
[2021-12-21] MEDS: SODIUM CHLORIDE 0.9% 1,000 ML IV SCH ×2 (16:52→16:56)
[2021-12-21 20:07] LABS: Glucose,Whole Blood 184 mg/dL (75-99)
[2021-12-21] MEDS: INSULIN DETEMIR (LEVEMIR) 100 UNIT/ML SYR SQ SCH (20:34)
[2021-12-21] MEDS: AMOXIC-POT CLAV 875-125MG 1 EACH TAB PO SCH (20:34)
[2021-12-21 23:27] LABS: Glucose,Whole Blood 177 mg/dL (75-99)
[2021-12-22 05:59] LABS: Glucose,Whole Blood 142 mg/dL (75-99)
[2021-12-22] MEDS: INSULIN ASPART (NovoLOG) 100 UNIT/ML VIAL SQ SCH ×3 (06:07→16:36)
[2021-12-22] MEDS: bisacodyL 5 MG TABLET.DR PO SCH (08:39)
[2021-12-22] MEDS: AMOXIC-POT CLAV 875-125MG 1 EACH TAB PO SCH ×2 (08:39→20:32)
[2021-12-22] MEDS: ENOXAPARIN 40 MG/0.4 ML SYRINGE SQ SCH (08:39)
[2021-12-22] MEDS: SODIUM CHLORIDE 0.9% 1,000 ML IV SCH (08:39)
[2021-12-22] MEDS: BUDESONIDE 1 MG/2 ML NEBU INHALATION SCH ×2 (08:59→19:47)
[2021-12-22] MEDS: FORMOTEROL FUMARATE 20 MCG/2 ML NEBU INHALATION SCH ×2 (08:59→19:47)
[2021-12-22] MEDS: IPRATROPIUM-ALBUTEROL 3 ML NEB INHALATION SCH ×4 (08:59→19:47)
--- NOTE | 2021-12-22 09:10 | P.PN ---
Subjective Patient is seen in follow-up for acute kidney injury and hypernatremia. Morning labs pending. Nonoliguric. Denies chest pain or shortness of breath. Blood pressure stable. Tolerating full liquid diet. Receiving IV fluids per primary team. Vital signs are stable. General: Resting in bed. No acute distress. HEENT: On nasal cannula. LUNGS: Breath sounds decreased. HEART: Rate and Rhythm are regular. ABDOMEN: Soft, nontender. EXTREMITITES: No edema. Objective - Vital Signs Vital signs: Vital Signs Temp 97.9 F 12/22/21 04:30 Pulse 98 12/22/21 04:30 Resp 18 12/22/21 04:30 BP 105/56 12/22/21 04:30 Pulse Ox 95 12/22/21 04:30 Intake & Output 12/21/21 12/22/21 12/22/21 18:59 06:59 18:59 Intake Total 840 Output Total 800 Balance 840 -800 Weight 92 kg Intake: Oral 840 Output: Urine 800 Other: Voiding Method Urinal Urinal # Voids 1 # Bowel Movements 1 ABP, PAP, CO, CI - Last Documented Arterial Blood Pressure 66/60 - Labs CBC & Chem 7: 12/19/21 09:08 12/21/21 06:49 Labs: Abnormal Lab Results - Last 24 Hours (Table) 12/21/21 12/21/21 12/21/21 Range/Units 11:45 16:51 20:06 POC Glucose (mg/dL) 188 H 166 H 184 H (75-99) mg/dL 12/21/21 12/22/21 Range/Units 23:22 05:55 POC Glucose (mg/dL) 177 H 142 H (75-99) mg/dL Assessment and Plan Plan: Assessment: 1. Acute kidney injury mostly prerenal secondary to infection. Improving. Creatinine was 5.04 on admission and peaked at 6.82 - 1.5 yesterday. Creatinine in May 2021 was 0.88. No hydronephrosis noted on CAT scan. 2. Hypernatremia from lack of oral water intake. Resolved. Status post D5 W. 3. Pneumonia on antibiotics. 4. Ileus versus bowel obstruction. Surgery following. 5. Diabetes mellitus. 6. Acute hypoxic respiratory failure secondary to pneumonia and COPD. 7. History of alcohol abuse. 8. Mild hyperkalemia secondary to acute kidney injury and hyperglycemia. Improved. 9. Proteinuria. Nonspecific in the setting of acute kidney injury. Can be from underlying diabetes. Further workup outpatient. Plan: Decrease rate of normal saline to 50 mL an hour. Continue to monitor renal function and urine output. Avoid nephrotoxins. Blood sugar control. Diet per surgery.
[2021-12-22 09:52] LABS: Calcium 8.6 mg/dL (8.4-10.2); Magnesium 1.7 mg/dL (1.6-2.3); Potassium 4.2 mmol/L (3.5-5.1)
[2021-12-22] MEDS: DILTIAZEM ORAL 30 MG TAB PO SCH ×3 (11:22→20:32)
[2021-12-22 11:33] LABS: Glucose,Whole Blood 204 mg/dL (75-99)
--- NOTE | 2021-12-22 13:29 | CA ---
Transthoracic Echo Report Name: Osmani Genao Age: 61 Gender: M : 1960 Exam Date: 12/22/2021 12:20 Exam Location: [facility] [place] [facility] Ht (in): 71 Wt (lb): 202 Ordering Physician: Key Brown Attending/Referring Phys: Editing Clerk Sarah Qureshi RDCS Procedure CPT: Indications: A-tac Cardiac Hx: Coronary artery disease Technical Quality: Technically difficult study Contrast 1: Lumason Total Dose (mL): .25 Contrast 2: Total Dose (mL): MEASUREMENTS (Male / Female) Normal Values 2D ECHO LV Diastolic Diameter PLAX 3.8 cm 4.2 - 5.9 / 3.9 - 5.3 cm LV Systolic Diameter PLAX 1.4 cm IVS Diastolic Thickness 1.2 cm 0.6 - 1.0 / 0.6 - 0.9 cm LVPW Diastolic Thickness 1.5 cm 0.6 - 1.0 / 0.6 - 0.9 cm LV Relative Wall Thickness 0.7 M-MODE Aortic Root Diameter MM 3.4 cm LA Systolic Diameter MM 4.0 cm LA Ao Ratio MM 1.2 MV E Point Septal Separation 2.4 cm AV Cusp Separation MM 2.3 cm DOPPLER AV Peak Velocity 150.8 cm/s AV Peak Gradient 9.1 mmHg MV Area PHT 4.9 cm MR Peak Velocity 116.3 cm/s MR Peak Gradient 5.4 mmHg Mitral E Point Velocity 64.7 cm/s Mitral A Point Velocity 84.6 cm/s Mitral E to A Ratio 0.8 MV Deceleration Time 154.5 ms TR Peak Velocity 152.8 cm/s TR Peak Gradient 9.3 mmHg Right Ventricular Systolic Press 13.9 mmHg FINDINGS Left Ventricle Mildly increased septal wall thickness. Left ventricular ejection fraction is estimated at 55-60_%. Left ventricular cavity size normal. Right Ventricle The right ventricle is normal in size and function. Right Atrium The right atrium is normal in size. Left Atrium The left atrium is normal in size. Mitral Valve Structurally normal mitral valve without significant stenosis or prolapse. There is a trace mitral regurgitation. Aortic Valve Structurally normal aortic valve without significant sclerosis or stenosis. There is no aortic regurgitation. Tricuspid Valve Structurally normal tricuspid valve without significant stenosis. Pulmonary artery systolic pressure is normal. Trace tricuspid regurgitation. Pulmonic Valve Structurally normal pulmonic valve without significant stenosis. There is no pulmonic regurgitation. Pericardium Normal pericardium without effusion. Aorta Normal aortic root dimension. CONCLUSIONS Normal LV systolic function Normal pulmonary pressures No significant valvular heart disease Previewed by: Dr. Christiano Wilder MD (Electronically Signed) Final Date: 22 December 2021 13:28
--- NOTE | 2021-12-22 13:49 | CONS ---
CONSULTATION CHIEF COMPLAINT: Tachycardia. Osmani is a 61-year-old gentleman with history of COPD, [id number] diabetes, hypertension and dyslipidemia who was admitted to hospital primarily with COPD exacerbation and subsequently has had multiple and complex medical problems. He has been in the hospital since December 09. He has had hypoxia, renal insufficiency, sepsis and was in the ICU for SD. I have been consulted because of tachycardia. He seems to be in sinus rhythm with sinus tachycardia, which is what the EKG shows. Heart rates are in the 120s. I am going to start him on a small dose of Cardizem, and the tachycardia may be related to the COPD. Patient has mild nonobstructive coronary artery disease. PAST MEDICAL HISTORY: Significant for insulin-requiring diabetes, COPD, dyslipidemia, diabetes and hypertension. MEDICATIONS: Medications at home included inhalers and nebulizers, metformin, Zestril, Norvasc, famotidine, Lipitor, Tenormin, aspirin, ProAir. ALLERGIES: There are NO KNOWN DRUG ALLERGIES. FAMILY HISTORY: Negative for premature coronary artery disease. SOCIAL HISTORY: Significant for smoking. There is no history of EtOH abuse or drug abuse. REVIEW OF SYSTEMS: HEENT is unremarkable. CARDIAC: As described above. RESPIRATORY: As described above. GI: Negative. GENITOURINARY: Negative. ALLERGY/IMMUNOLOGY: Negative. SKIN: Negative. MUSCULOSKELETAL: Significant for arthritis. PSYCHOSOCIAL: Negative. DERMATOLOGY: Negative. CONSTITUTIONAL: As described above. Rest of the system review is not relevant. PHYSICAL EXAMINATION: Patient is comfortable at rest. Heart rate is elevated. Blood pressure is normal. Chest exam reveals occasional rhonchi bilaterally. Heart exam reveals first and second heart sounds. He has a systolic murmur at the left lower sternal border. Abdomen is soft. Examination of extremities reveals mild edema. Peripheral pulses are felt. LABS: Labs show BUN of 41, creatinine is 1.5. Potassium is 4. Hemoglobin is 12.3. Platelet count is 277. ASSESSMENT: 1. Sinus tachycardia, probably related to chronic obstructive pulmonary disease. I will start the patient on Cardizem. 2. Chronic obstructive pulmonary disease exacerbation. 3. History of coronary artery disease. PLAN: I will obtain a 2D echo, treat the patient with Cardizem, and then see how he does. MMODL / IJN: [id number] /
--- NOTE | 2021-12-22 15:13 | P.PN ---
Subjective Progress Note Date: 12/22/21 Principal diagnosis: right-sided pneumonia, presenting sepsis, ileus versus small bowel obstruction Patient seen and examined at bedside. Feeling better today than yesterday. No complaints of pain, nausea or vomiting. Tolerating full liquids without issue. Starting to feel hungry. He has been ambulatory to the restroom, not really walking the halls. He was seen by cardiology for sinus tachycardia, an echocardiogram was essentially normal. Some medication adjustments are being pursued. Patient denies discrete fever or chills no reported cough. Objective - Vital Signs Vital signs: Vital Signs Temp 99 F 12/22/21 12:00 Pulse 108 H 12/22/21 12:49 Resp 17 12/22/21 12:00 BP 116/57 12/22/21 12:00 Pulse Ox 94 L 12/22/21 12:00 Intake & Output 12/21/21 12/22/21 12/22/21 18:59 06:59 18:59 Intake Total 840 120 Output Total 800 300 Balance 840 -800 -180 Weight 92 kg Intake: Oral 840 120 Output: Urine 800 300 Other: Voiding Method Urinal Urinal # Voids 1 # Bowel Movements 1 ABP, PAP, CO, CI - Last Documented Arterial Blood Pressure 66/60 - Constitutional General appearance: Present: average body habitus, cooperative - EENT Eyes: Present: EOMI ENT: Present: NA/AT - Respiratory Respiratory: bilateral: CTA - Cardiovascular Rhythm: regular - Gastrointestinal Gastrointestinal Comment(s): Abdomen soft nontender to palpation, no guarding rebound or distention. - Psychiatric Psychiatric: Present: A&O x's 3, appropriate affect, intact judgment & insight - Labs CBC & Chem 7: 12/19/21 09:08 12/22/21 08:28 Labs: Abnormal Lab Results - Last 24 Hours (Table) 12/21/21 12/21/21 12/21/21 Range/Units 16:51 20:06 23:22 Chloride (98-107) mmol/L BUN (9-20) mg/dL Creatinine (0.66-1.25) mg/dL Glucose (74-99) mg/dL POC Glucose (mg/dL) 166 H 184 H 177 H (75-99) mg/dL 12/22/21 12/22/21 12/22/21 Range/Units 05:55 08:28 11:32 Chloride 108 H (98-107) mmol/L BUN 27 H (9-20) mg/dL Creatinine 1.41 H (0.66-1.25) mg/dL Glucose 187 H (74-99) mg/dL POC Glucose (mg/dL) 142 H 204 H (75-99) mg/dL Assessment and Plan Assessment: 61-year-old gentleman with right-sided pneumonia, presenting degree of sepsis has resolved. Resolving mechanical small bowel obstruction with nonoperative management. Loose bowel movement today. No evidence of peritonitis on exam, no complaints of abdominal pain. Plan: Advance to regular diet as tolerated, no plans for surgery at present. Discharge planning per admitting service. Time with Patient: Greater than 30
--- NOTE | 2021-12-22 15:52 | P.PN ---
Progress Note - Text Progress Note Date: 12/22/21 Chief Complaint: Short of breath This is a 61-year-old patient who follows with Dr. Romero. Chronic stable medical conditions include diabetes, hypertension, hyperlipidemia. previous smoker/-COPD. Patient presented to the ER with increasing shortness of breath. Family informed ER physician that that is not seen in bed on Friday. Since patient has been getting worse. Not getting out of bed and breathing progressively getting worse. Patient on 2 L was saturating 62%. EMS was not able to get a blood pressure. Patient was minimally conscious. It had to be bagged and brought to the hospital. Patient did receive 1 dose of appendectomy. Patient has not been eating or drinking. No fever. Patient on November 28 underwent bronchoscopy and lavage by Dr. Consuelo Ochoa from pulmonary. On the right side patient's found to have extensive purulent secretions filling of the airways. BAL was performed. No mass was noted. Cultures were positive for Gaby albicans. Patient is put on BiPAP. This morning BiPAP set at 14/6. 50%. Patient on levo fed drip. Tired. Admitted with bilateral multilobar pneumonia, IV Zosyn, IV sepsis IV fluids, septic shock and IV levo fed,'s acute COPD exacerbation on DuoNeb steroids, acute hypoxic respiratory failure on BiPAP, acute kidney injury from ATN, acute metabolic acidosis from which she received IV bicarbonate drip. Also acute ileus from sepsis pneumonia for which NG tube to suction started. December 11: ICU: NG tube to suction. BiPAP setting at 14/6 at 50%. Tired. Answering questions. Laying in bed. DuoNeb, IV levo fed, IV Zosyn, sodium bicarbonate drip IV steroids December 12 - December 16 patient was followed by [facility] hospitalists December 17: ICU: NG tube got pulled today. Put back in. Putting out good output. Patient has pus slight flatus. Computed tomography scan done today shows renal obstruction. Seen by surgery. Possible walk tomorrow. Remains on 8 L of nasal cannula. Shortness of breath. Abdomen distended. Telemetry sinus rhythm. December 18: ICU: NG tube remains to suction. About thousand cc overnight. Had a small BM a bit loose today. Abdomen slightly less distended. IV fluids. D5W. Surgery postponed. Oxygen requirement down to 2 L nasal cannula. December 19: Moved to the medical floor. NG tube to suction. About 1500 mL drainage overnight. IV fluids. No BM. IV fluids. Being followed by surgery. Abdominal x-ray showing significantly dilated loops of bowel December 20: Patient is a large BM this morning. NG tube clamped. Started on clear liquids. December 21: Had a BM today. On clear liquids. Up in a chair. No abdominal pain. Advanced to full liquids is okay with surgery. Being followed by PT OT. December 22: Patient tolerating full liquids. Had a BM. No abdominal pain. Feeling better. Diet being advanced Active Medications Acetaminophen (Acetaminophen Tab 325 Mg Tab) 650 mg PO Q4HR PRN PRN Reason: Fever and/or Mild Pain Last Admin: 12/22/21 08:43 Dose: 650 mg Documented by: Albuterol/Ipratropium (Ipratropium-Albuterol 3 Ml Neb) 3 ml INHALATION RT-Q4H PRN PRN Reason: Shortness Of Breath Or Wheezing Last Admin: 12/10/21 08:22 Dose: 3 ml Documented by: Albuterol/Ipratropium (Ipratropium-Albuterol 3 Ml Neb) 3 ml INHALATION RT-QID [facility] Last Admin: 12/22/21 12:38 Dose: 3 ml Documented by: Amoxicillin/Clavulanate Potassium (Amoxic-Pot Clav 875-125mg 1 Each Tab) 1 each PO Q12HR [facility]; Protocol Last Admin: 12/22/21 08:39 Dose: 1 each Documented by: Bisacodyl (Bisacodyl 5 Mg Tablet.) 10 mg PO DAILY [facility] Last Admin: 12/22/21 08:39 Dose: 10 mg Documented by: Budesonide (Budesonide 1 Mg/2 Ml Nebu) 1 mg INHALATION RT-BID [facility] Last Admin: 12/22/21 08:59 Dose: 1 mg Documented by: Diltiazem HCl (Diltiazem Oral 30 Mg Tab) 30 mg PO TID [facility] Last Admin: 12/22/21 11:22 Dose: 30 mg Documented by: Enoxaparin Sodium (Enoxaparin 40 Mg/0.4 Ml Syringe) 40 mg SQ DAILY [facility] Last Admin: 12/22/21 08:39 Dose: 40 mg Documented by: Formoterol Fumarate (Formoterol Fumarate 20 Mcg/2 Ml Nebu) 20 mcg INHALATION RT-BID [facility] Last Admin: 12/22/21 08:59 Dose: 20 mcg Documented by: Sodium Chloride (Saline 0.9%) 1,000 mls @ 50 mls/hr IV .Q20H [facility] Last Admin: 12/22/21 08:39 Dose: 100 mls/hr Documented by: Insulin Aspart (Insulin Aspart (Novolog) 100 Unit/Ml Vial) 0 unit SQ AC-TID [facility]; Protocol Insulin Detemir (Insulin Detemir (Levemir) 100 Unit/Ml Syr) 10 unit SQ HS [facility] Last Admin: 12/21/21 20:34 Dose: 10 unit Documented by: Naloxone HCl (Naloxone 0.4 Mg/Ml 1 Ml Vial) 0.2 mg IV Q2M PRN PRN Reason: Opioid Reversal Ondansetron HCl (Ondansetron 4 Mg/2 Ml Vial) 4 mg IVP Q6HR PRN PRN Reason: Nausea And Vomiting Past medical history to include: COPD, diabetes, hypertension, 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 Smoked a pack a day for close to 50 years stopped about 2 years ago. Drinks alcohol very heavily on the weekends to the point of passing out Family history: Reviewed, noncontributory to presentation Physical examination: VITAL SIGNS: 98.2, 91, 18, 122/60, 100% room air GENERAL: Laying in bed. Comfortable EYES: Pupils equal. Conjunctiva normal. HEENT: External appearance of nose and ears normal, NG tube clamped NECK: JVD unable to assess masses not palpable. HEART: First and second heart sounds are normal; minimal edema. LUNGS: Respiratory rate increased; diminished breath sounds prolonged expiration. ABDOMEN: Soft, not distended nontender, liver spleen not palpable, no masses palpable. Bowel sounds present PSYCH: AO 3, mood affect normal INVESTIGATIONS, reviewed in the clinical context: December 22: Potassium 4.2 creatinine 1.41 Computed tomography scan abdomen [December 17]: Dilated small bowel measuring up to 4.4 cm. Obstruction not excluded. Zone of transition noted. December 11: White count 19.7 hemoglobin 11.5 platelets 271 potassium 5 BUN 95 creatinine 6.3 to December 10: White count 20 hemoglobin 13.2 platelets 300 potassium 6.4 BUN 68 creatinine 4.61 Admission labs: White count 22.5 hemoglobin 13.9 platelets 299 sodium 136 potassium 5.7 BUN 60 creatinine 5.04 lactic acid 8.1 troponin I 0.063 proBNP 27100 EKG tracing personally reviewed by me-normal sinus rhythm. Rate 90 Chest x-ray film personally reviewed by me-infiltrate especially right base CT chest abdomen pelvis: Patchy area of his consolidation consistent multifocal pneumonia may need the right lower lobe. Dilated small bowel. No transition point. Previous labs: Creatinine on May 2021: 0.88 Assessment and plan: -Severe multilobar pneumonia predominantly right lower lobe, suspect gram- negative organism: Better IV Zosyn- Augmentin. -Sepsis secondary to pneumonia: Better IV fluids , IV Zosyn-changed to Augmentin -Troponinemia due to hemodynamic mass matched from sepsis. No clinical evidence of acute coronary syndrome -Septic shock: Improved IV fluids. IV levo fed discontinued -Acute COPD exacerbation in a previous smoker: Better DuoNeb 4 times a day, IV and inhaled steroids-discontinued, -Acute severe hypoxic respiratory failure from pneumonia/COPD: Better BiPAP. Now on room air -Hyperlipidemia Lipitor 80 mg daily at bedtime -Essential hypertension, Hold antihypertensives -Chronic hypoxic respiratory failure from COPD Has 2 L of oxygen at home -Acute medical debility from sepsis pneumonia COPD exacerbation PTOT -Acute lactic acidosis from sepsis -Acute kidney injury from ATN from sepsis and prerenal: Improving Creatinine peaked at 6.8. -Acute metabolic acidosis from renal failure: Better Received IV bicarbonate drip. -Acute small bowel obstruction. Improving NG tube clamped. Advance to regular diet -Full code On room air. PTOT.. Stop IV fluids. Augmentin. . DuoNeb. Diet advanced.
[2021-12-22 16:32] LABS: Glucose,Whole Blood 181 mg/dL (75-99)
[2021-12-22] MEDS: metFORMIN 500 MG TAB PO SCH (16:36)
[2021-12-22 20:21] LABS: Glucose,Whole Blood 205 mg/dL (75-99)
[2021-12-22] MEDS: INSULIN DETEMIR (LEVEMIR) 100 UNIT/ML SYR SQ SCH (20:32)
[2021-12-23 05:50] LABS: Glucose,Whole Blood 144 mg/dL (75-99)
[2021-12-23] MEDS: metFORMIN 500 MG TAB PO SCH ×2 (06:09→16:36)
[2021-12-23] MEDS: INSULIN ASPART (NovoLOG) 100 UNIT/ML VIAL SQ SCH ×3 (06:09→16:36)
[2021-12-23 08:04] LABS: Calcium 8.5 mg/dL (8.4-10.2); Magnesium 1.6 mg/dL (1.6-2.3); Potassium 4.1 mmol/L (3.5-5.1)
[2021-12-23] MEDS: bisacodyL 5 MG TABLET.DR PO SCH (08:42)
[2021-12-23] MEDS: FORMOTEROL FUMARATE 20 MCG/2 ML NEBU INHALATION SCH ×2 (08:45→21:11)
[2021-12-23] MEDS: ENOXAPARIN 40 MG/0.4 ML SYRINGE SQ SCH (08:45)
[2021-12-23] MEDS: BUDESONIDE 1 MG/2 ML NEBU INHALATION SCH ×2 (08:45→21:11)
[2021-12-23] MEDS: IPRATROPIUM-ALBUTEROL 3 ML NEB INHALATION SCH ×3 (08:45→21:11)
[2021-12-23] MEDS: DILTIAZEM ORAL 30 MG TAB PO SCH (08:45)
[2021-12-23] MEDS: AMOXIC-POT CLAV 875-125MG 1 EACH TAB PO SCH ×2 (08:45→20:01)
--- NOTE | 2021-12-23 10:47 | P.PN ---
Progress Note - Text Progress Note Date: 12/23/21 Chief Complaint: Short of breath This is a 61-year-old patient who follows with Dr. Romero. Chronic stable medical conditions include diabetes, hypertension, hyperlipidemia. previous smoker/-COPD. Patient presented to the ER with increasing shortness of breath. Family informed ER physician that that is not seen in bed on Friday. Since patient has been getting worse. Not getting out of bed and breathing progressively getting worse. Patient on 2 L was saturating 62%. EMS was not able to get a blood pressure. Patient was minimally conscious. It had to be bagged and brought to the hospital. Patient did receive 1 dose of appendectomy. Patient has not been eating or drinking. No fever. Patient on November 28 underwent bronchoscopy and lavage by Dr. Consuelo Ochoa from pulmonary. On the right side patient's found to have extensive purulent secretions filling of the airways. BAL was performed. No mass was noted. Cultures were positive for Gaby albicans. Patient is put on BiPAP. This morning BiPAP set at 14/6. 50%. Patient on levo fed drip. Tired. Admitted with bilateral multilobar pneumonia, IV Zosyn, IV sepsis IV fluids, septic shock and IV levo fed,'s acute COPD exacerbation on DuoNeb steroids, acute hypoxic respiratory failure on BiPAP, acute kidney injury from ATN, acute metabolic acidosis from which she received IV bicarbonate drip. Also acute ileus from sepsis pneumonia for which NG tube to suction started. December 11: ICU: NG tube to suction. BiPAP setting at 14/6 at 50%. Tired. Answering questions. Laying in bed. DuoNeb, IV levo fed, IV Zosyn, sodium bicarbonate drip IV steroids December 12 - December 16 patient was followed by [facility] hospitalists December 17: ICU: NG tube got pulled today. Put back in. Putting out good output. Patient has pus slight flatus. Computed tomography scan done today shows renal obstruction. Seen by surgery. Possible walk tomorrow. Remains on 8 L of nasal cannula. Shortness of breath. Abdomen distended. Telemetry sinus rhythm. December 18: ICU: NG tube remains to suction. About thousand cc overnight. Had a small BM a bit loose today. Abdomen slightly less distended. IV fluids. D5W. Surgery postponed. Oxygen requirement down to 2 L nasal cannula. December 19: Moved to the medical floor. NG tube to suction. About 1500 mL drainage overnight. IV fluids. No BM. IV fluids. Being followed by surgery. Abdominal x-ray showing significantly dilated loops of bowel December 20: Patient is a large BM this morning. NG tube clamped. Started on clear liquids. December 21: Had a BM today. On clear liquids. Up in a chair. No abdominal pain. Advanced to full liquids is okay with surgery. Being followed by PT OT. December 22: Patient tolerating full liquids. Had a BM. No abdominal pain. Feeling better. Diet being advanced December 23: Tolerating regular diet. Had a BM. Breathing better. Up in a chair. Active Medications Acetaminophen (Acetaminophen Tab 325 Mg Tab) 650 mg PO Q4HR PRN PRN Reason: Fever and/or Mild Pain Last Admin: 12/22/21 08:43 Dose: 650 mg Documented by: Albuterol/Ipratropium (Ipratropium-Albuterol 3 Ml Neb) 3 ml INHALATION RT-Q4H PRN PRN Reason: Shortness Of Breath Or Wheezing Last Admin: 12/10/21 08:22 Dose: 3 ml Documented by: Albuterol/Ipratropium (Ipratropium-Albuterol 3 Ml Neb) 3 ml INHALATION RT-QID [facility] Last Admin: 12/23/21 08:45 Dose: 3 ml Documented by: Amoxicillin/Clavulanate Potassium (Amoxic-Pot Clav 875-125mg 1 Each Tab) 1 each PO Q12HR [facility]; Protocol Last Admin: 12/23/21 08:45 Dose: 1 each Documented by: Bisacodyl (Bisacodyl 5 Mg Tablet.) 10 mg PO DAILY [facility] Last Admin: 12/23/21 08:42 Dose: Not Given Documented by: Budesonide (Budesonide 1 Mg/2 Ml Nebu) 1 mg INHALATION RT-BID [facility] Last Admin: 12/23/21 08:45 Dose: 1 mg Documented by: Diltiazem HCl (Diltiazem Oral 30 Mg Tab) 30 mg PO TID [facility] Last Admin: 12/23/21 08:45 Dose: 30 mg Documented by: Enoxaparin Sodium (Enoxaparin 40 Mg/0.4 Ml Syringe) 40 mg SQ DAILY [facility] Last Admin: 12/23/21 08:45 Dose: 40 mg Documented by: Formoterol Fumarate (Formoterol Fumarate 20 Mcg/2 Ml Nebu) 20 mcg INHALATION RT-BID [facility] Last Admin: 12/23/21 08:45 Dose: 20 mcg Documented by: Insulin Aspart (Insulin Aspart (Novolog) 100 Unit/Ml Vial) 0 unit SQ AC-TID [facility]; Protocol Last Admin: 12/23/21 06:09 Dose: 1 unit Documented by: Insulin Detemir (Insulin Detemir (Levemir) 100 Unit/Ml Syr) 10 unit SQ HS [facility] Last Admin: 12/22/21 20:32 Dose: 10 unit Documented by: Metformin HCl (Metformin 500 Mg Tab) 500 mg PO BID-W/MEALS [facility] Last Admin: 12/23/21 06:09 Dose: 500 mg Documented by: Naloxone HCl (Naloxone 0.4 Mg/Ml 1 Ml Vial) 0.2 mg IV Q2M PRN PRN Reason: Opioid Reversal Ondansetron HCl (Ondansetron 4 Mg/2 Ml Vial) 4 mg IVP Q6HR PRN PRN Reason: Nausea And Vomiting Past medical history to include: COPD, diabetes, hypertension, 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 Smoked a pack a day for close to 50 years stopped about 2 years ago. Drinks alcohol very heavily on the weekends to the point of passing out Family history: Reviewed, noncontributory to presentation Physical examination: VITAL SIGNS: 98.9, 100, 19, 133.63, 94% room air GENERAL: Up in a chair. Comfortable EYES: Pupils equal. Conjunctiva normal. HEENT: External appearance of nose and ears normal, NG tube clamped NECK: JVD unable to assess masses not palpable. HEART: First and second heart sounds are normal; minimal edema. LUNGS: Respiratory rate increased; diminished breath sounds ABDOMEN: Soft, not distended nontender, liver spleen not palpable, no masses palpable. Bowel sounds present PSYCH: AO 3, mood affect normal INVESTIGATIONS, reviewed in the clinical context: December 23: Potassium 4.1 BUN 21 creatinine 1.31 December 22: Potassium 4.2 creatinine 1.41 Computed tomography scan abdomen [December 17]: Dilated small bowel measuring up to 4.4 cm. Obstruction not excluded. Zone of transition noted. December 11: White count 19.7 hemoglobin 11.5 platelets 271 potassium 5 BUN 95 creatinine 6.3 to [place] 18: White count 20 hemoglobin 13.2 platelets 300 potassium 6.4 BUN 68 creatinine 4.61 Admission labs: White count 22.5 hemoglobin 13.9 platelets 299 sodium 136 potassium 5.7 BUN 60 creatinine 5.04 lactic acid 8.1 troponin I 0.063 proBNP 69186 EKG tracing personally reviewed by me-normal sinus rhythm. Rate 90 Chest x-ray film personally reviewed by me-infiltrate especially right base CT chest abdomen pelvis: Patchy area of his consolidation consistent multifocal pneumonia may need the right lower lobe. Dilated small bowel. No transition point. Previous labs: Creatinine on May 2021: 0.88 Assessment and plan: -Severe multilobar pneumonia predominantly right lower lobe, suspect gram- negative organism: Better IV Zosyn- Augmentin. -Sepsis secondary to pneumonia: Better IV fluids , IV Zosyn-changed to Augmentin -Troponinemia due to hemodynamic mass matched from sepsis. No clinical evidence of acute coronary syndrome -Septic shock: Improved IV fluids. IV levo fed discontinued -Acute COPD exacerbation in a previous smoker: Better DuoNeb 4 times a day, IV and inhaled steroids-discontinued, -Acute severe hypoxic respiratory failure from pneumonia/COPD: Better BiPAP. Now on room air -Hyperlipidemia Lipitor 80 mg daily at bedtime -Essential hypertension, Hold antihypertensives -Chronic hypoxic respiratory failure from COPD Has 2 L of oxygen at home -Acute medical debility from sepsis pneumonia COPD exacerbation PTOT -Acute lactic acidosis from sepsis -Acute kidney injury from ATN from sepsis and prerenal: Improving Creatinine peaked at 6.8. -Acute metabolic acidosis from renal failure: Better Received IV bicarbonate drip. -Acute small bowel obstruction. Improved NG tube clamped. Tolerating regular diet. Having BMs -Full code On room air. PTOT.. Augmentin. . Cutback frequency of DuoNeb. Increase activity. Hopefully home tomorrow. Chest x-ray and procalcitonin in the morning
[2021-12-23] MEDS ORDERED: DILTIAZEM ORAL 30 MG TAB PO STA (11:44)
--- NOTE | 2021-12-23 11:44 | P.PN ---
Subjective Progress Note Date: 12/23/21 Patient is seen resting comfortably in bed today. He remains sinus rhythm with sinus tachycardia. Patient's heart rate ranges from 100 to 140s. Patient is asymptomatic. He denies increased shortness of breath chest pain or chest pressure. Will increase Cardizem to 60 mg 3 times a day. His echocardiogram showed a normal LV function with an ejection fraction of 55-60% without significant valvular disease Objective - Vital Signs Vital signs: Vital Signs Temp 98.9 F 12/22/21 23:10 Pulse 98 12/23/21 09:10 Resp 18 12/23/21 04:30 BP 110/61 12/23/21 04:30 Pulse Ox 92 L 12/23/21 04:30 Intake & Output 12/22/21 12/23/21 12/23/21 18:59 06:59 18:59 Intake Total 120 720 240 Output Total 300 1100 Balance -180 -380 240 Intake: Oral 120 720 240 Output: Urine 300 1100 Other: Voiding Method Urinal ABP, PAP, CO, CI - Last Documented Arterial Blood Pressure 66/60 - Exam PHYSICAL EXAM: VITAL SIGNS: Reviewed. GENERAL: Well-developed in no acute distress. HEENT: Head is normocephalic. Pupils are equal, round. Sclerae anicteric. Mucous membranes of the mouth are moist. NECK: Supple. No JVD or thyromegaly RESPIRATORY: Respirations even and unlabored. Lungs diminished to auscultation bilaterally. CARDIO: Regular rate and rhythm. S1 and S2 heard. No murmur or gallops. EXTREMITIES: Normal range of motion. No clubbing or cyanosis. Peripheral pulses intact. Negative for bilateral lower extremity edema NEURO: Orientated to person, time, mood is appropriate - Labs CBC & Chem 7: 12/19/21 09:08 12/23/21 06:50 Labs: Abnormal Lab Results - Last 24 Hours (Table) 12/22/21 12/22/21 12/23/21 Range/Units 16:30 20:14 05:48 Chloride (98-107) mmol/L BUN (9-20) mg/dL Creatinine (0.66-1.25) mg/dL Glucose (74-99) mg/dL POC Glucose (mg/dL) 181 H 205 H 144 H (75-99) mg/dL 12/23/21 Range/Units 06:50 Chloride 110 H (98-107) mmol/L BUN 21 H (9-20) mg/dL Creatinine 1.31 H (0.66-1.25) mg/dL Glucose 133 H (74-99) mg/dL POC Glucose (mg/dL) (75-99) mg/dL Assessment and Plan Assessment: Sinus tachycardia probably secondary to chronic obstructive pulmonary disease COPD History of coronary artery disease Plan: Will increase Cardizem to 60 mg 3 times a day for better rate control Continue on telemetry monitoring Continue with other current cardiac medications Further recommendations based on clinical course The above impression and plan of care have been discussed and directed by the signing physician. Key Brown, nurse practitioner, acting as scribe for signing physician.
[2021-12-23 11:45] LABS: Glucose,Whole Blood 163 mg/dL (75-99)
--- NOTE | 2021-12-23 11:45 | P.PN ---
Subjective Patient is seen in follow-up for acute kidney injury and hypernatremia. Renal function improving. Nonoliguric. Denies chest pain or shortness of breath. Blood pressure stable. Tolerating regular diet. Vital signs are stable. General: Resting in bed. No acute distress. HEENT: No JVD. LUNGS: Breath sounds decreased. HEART: Rate and Rhythm are regular. ABDOMEN: Soft, nontender. EXTREMITITES: No edema. Objective - Vital Signs Vital signs: Vital Signs Temp 98.9 F 12/22/21 23:10 Pulse 98 12/23/21 09:10 Resp 18 12/23/21 04:30 BP 110/61 12/23/21 04:30 Pulse Ox 92 L 12/23/21 04:30 Intake & Output 12/22/21 12/23/21 12/23/21 18:59 06:59 18:59 Intake Total 120 720 240 Output Total 300 1100 Balance -180 -380 240 Intake: Oral 120 720 240 Output: Urine 300 1100 Other: Voiding Method Urinal ABP, PAP, CO, CI - Last Documented Arterial Blood Pressure 66/60 - Labs CBC & Chem 7: 12/19/21 09:08 12/23/21 06:50 Labs: Abnormal Lab Results - Last 24 Hours (Table) 12/22/21 12/22/21 12/23/21 Range/Units 16:30 20:14 05:48 Chloride (98-107) mmol/L BUN (9-20) mg/dL Creatinine (0.66-1.25) mg/dL Glucose (74-99) mg/dL POC Glucose (mg/dL) 181 H 205 H 144 H (75-99) mg/dL 12/23/21 Range/Units 06:50 Chloride 110 H (98-107) mmol/L BUN 21 H (9-20) mg/dL Creatinine 1.31 H (0.66-1.25) mg/dL Glucose 133 H (74-99) mg/dL POC Glucose (mg/dL) (75-99) mg/dL Assessment and Plan Plan: Assessment: 1. Acute kidney injury mostly prerenal secondary to infection. Improving. Creatinine was 5.04 on admission and peaked at 6.82 - 1.31 today. Creatinine in May 2021 was 0.88. No hydronephrosis noted on CAT scan. 2. Hypernatremia from lack of oral water intake. Resolved. Status post D5W. 3. Pneumonia on antibiotics. 4. Ileus versus bowel obstruction. Surgery following. 5. Diabetes mellitus. 6. Acute hypoxic respiratory failure secondary to pneumonia and COPD. 7. History of alcohol abuse. 8. Mild hyperkalemia secondary to acute kidney injury and hyperglycemia. Improved. 9. Proteinuria. Nonspecific in the setting of acute kidney injury. Can be from underlying diabetes. Further workup outpatient. Plan: Encouraged oral intake. Continue to monitor renal function and urine output. Avoid nephrotoxins. Blood sugar control. Follow up outpatient 1-2 weeks post discharge.
[2021-12-23] MEDS: MAGNESIUM OXIDE 400 MG TAB PO SCH (12:38)
[2021-12-23 16:12] LABS: Glucose,Whole Blood 155 mg/dL (75-99)
[2021-12-23] MEDS: DILTIAZEM ORAL 60 MG TAB PO SCH ×2 (16:36→20:01)
[2021-12-23 19:55] LABS: Glucose,Whole Blood 189 mg/dL (75-99)
[2021-12-23] MEDS: INSULIN DETEMIR (LEVEMIR) 100 UNIT/ML SYR SQ SCH (20:01)
[2021-12-24 04:59] LABS: Glucose,Whole Blood 163 mg/dL (75-99)
[2021-12-24 05:20] VITALS: RESP 18
[2021-12-24 06:30] LABS: Glucose,Whole Blood 139 mg/dL (75-99)
[2021-12-24] MEDS: metFORMIN 500 MG TAB PO SCH (06:33)
[2021-12-24] MEDS: INSULIN ASPART (NovoLOG) 100 UNIT/ML VIAL SQ SCH ×2 (06:33→12:25)
--- NOTE | 2021-12-24 07:37 | XR ---
EXAMINATION TYPE: XR chest 2V DATE OF EXAM: 12/24/2021 COMPARISON: 12/14/2021 HISTORY: Shortness of breath TECHNIQUE: Frontal and lateral views of the chest are obtained. FINDINGS: Scattered senescent parenchymal changes noted. Hyperinflation compatible with COPD. No evidence for infiltrate. No evidence for atelectasis. Heart size is stable. Mediastinal structures are stable and grossly unremarkable. No evidence for hilar prominence. Degenerative changes dorsal spine. IMPRESSION: 1. No evidence for acute pulmonary disease.
[2021-12-24 07:54] VITALS: BP 119/61; TEMP 98.4
[2021-12-24] MEDS: bisacodyL 5 MG TABLET.DR PO SCH (08:19)
[2021-12-24] MEDS: AMOXIC-POT CLAV 875-125MG 1 EACH TAB PO SCH (08:36)
[2021-12-24] MEDS: MAGNESIUM OXIDE 400 MG TAB PO SCH (08:36)
[2021-12-24] MEDS: ENOXAPARIN 40 MG/0.4 ML SYRINGE SQ SCH (08:36)
[2021-12-24] MEDS: IPRATROPIUM-ALBUTEROL 3 ML NEB INHALATION SCH (08:46)
[2021-12-24] MEDS: BUDESONIDE 1 MG/2 ML NEBU INHALATION SCH (08:46)
[2021-12-24] MEDS: FORMOTEROL FUMARATE 20 MCG/2 ML NEBU INHALATION SCH (08:46)
[2021-12-24] MEDS ORDERED: DILTIAZEM ORAL 30 MG TAB PO SCH (09:00)
[2021-12-24 09:47] LABS: African American GFR (CKD) 64 (>60 ml/min/1.73 sqM); Anion Gap 6 mmol/L; Blood Urea Nitrogen 18 mg/dL (9-20); Calcium 8.5 mg/dL (8.4-10.2); Carbon Dioxide 28 mmol/L (22-30); Chloride 104 mmol/L (98-107); Glucose 169 mg/dL (74-99); Non-African American GFR(CKD) 55 (>60 ml/min/1.73 sqM); Potassium 4.1 mmol/L (3.5-5.1); Sodium 138 mmol/L (137-145)
--- NOTE | 2021-12-24 09:52 | P.PN ---
Subjective Patient is seen in follow-up for acute kidney injury and hypernatremia. Renal function stable. Nonoliguric. Denies chest pain or shortness of breath. Blood pressure stable. Tolerating regular diet. No active complaints. Vital signs are stable. General: Resting in bed. No acute distress. HEENT: No JVD. LUNGS: Breath sounds decreased. HEART: Rate and Rhythm are regular. ABDOMEN: Soft, nontender. EXTREMITITES: No edema. Objective - Vital Signs Vital signs: Vital Signs Temp 98.4 F 12/24/21 07:53 Pulse 98 12/24/21 09:07 Resp 18 12/24/21 08:00 BP 119/61 12/24/21 07:53 Pulse Ox 91 L 12/24/21 07:53 Intake & Output 12/23/21 12/24/21 12/24/21 18:59 06:59 18:59 Intake Total 240 180 Output Total 750 Balance 240 -750 180 Intake: Oral 240 180 Output: Urine 750 Other: Voiding Method Urinal ABP, PAP, CO, CI - Last Documented Arterial Blood Pressure 66/60 - Labs CBC & Chem 7: 12/19/21 09:08 12/24/21 07:50 Labs: Abnormal Lab Results - Last 24 Hours (Table) 12/23/21 12/23/21 12/23/21 Range/Units 11:43 16:10 19:42 Creatinine (0.66-1.25) mg/dL Glucose (74-99) mg/dL POC Glucose (mg/dL) 163 H 155 H 189 H (75-99) mg/dL 12/24/21 12/24/21 12/24/21 Range/Units 04:48 06:19 07:50 Creatinine 1.38 H (0.66-1.25) mg/dL Glucose 169 H (74-99) mg/dL POC Glucose (mg/dL) 163 H 139 H (75-99) mg/dL Assessment and Plan Plan: Assessment: 1. Acute kidney injury mostly prerenal secondary to infection. Improving. Creatinine was 5.04 on admission and peaked at 6.82 - stable at 1.38 today. Creatinine in May 2021 was 0.88. No hydronephrosis noted on CAT scan. 2. Hypernatremia from lack of oral water intake. Resolved. Status post D5W. 3. Pneumonia on antibiotics. 4. Ileus versus bowel obstruction. Surgery following. 5. Diabetes mellitus. 6. Acute hypoxic respiratory failure secondary to pneumonia and COPD. 7. History of alcohol abuse. 8. Mild hyperkalemia secondary to acute kidney injury and hyperglycemia. Improved. 9. Proteinuria. Nonspecific in the setting of acute kidney injury. Can be from underlying diabetes. Further workup outpatient. Plan: Encouraged oral intake. Continue to monitor renal function and urine output. Avoid nephrotoxins. Blood sugar control. Follow up outpatient 1-2 weeks post discharge.
[2021-12-24 11:02] LABS: T4, Free (Free Thyroxine) 1.65 ng/dL (0.78-2.19)
[2021-12-24 11:16] LABS: Glucose,Whole Blood 190 mg/dL (75-99)
--- NOTE | 2021-12-24 11:50 | P.PN ---
Subjective HISTORY OF PRESENTING ILLNESS This is a pleasant 61-year-old male past medical history significant for non- obstructive coronary artery disease (Cardiac catheterization in 2000 revealed 40% stenosis in the proximal RCA), COPD, former nicotine dependence, hypertension, dyslipidemia. He follows in the office with Dr. Wilder. We have been asked to see in consultation for tachycardia. Patient initially presented emergency department with acute hypoxic posterior failure secondary to COPD exacerbation right lower lobe pneumonia/aspiration. Patient also had acute kidney injury abdominal distention secondary to an ileus, was treated with NG tube. Patient is post bronchoscopy that was done by Dr. Ochoa on 11/28/2021. His echocardiogram showed a normal LV function with an ejection fraction of 55- 60% without significant valvular disease Patient seen and examined at bedside, no acute distress. He is up in the chair. His NG tube has been removed for several day snow. He denies any chest pain, shortness of breath, nausea, vomiting. He has improved. He has been in sinus tachycardia HR 90s-120s. He has been started on Cardizem and increase his 60 mg 3 times a day yesterday. His heart rates have improved. But continues to be tachycardic at times. He is on room air. Blood pressure 119/61, heart rate 124, afebrile GENERAL: Well-appearing, well-nourished and in no acute distress. NECK: Supple without JVD or thyromegaly. LUNGS: Breath sounds clear to auscultation bilaterally. Respiration equal and unlabored. No wheezes, rales or rhonchi. HEART: Regular rate and rhythm without murmurs, rubs or gallops. S1 and S2 heard. EXTREMITIES: Normal range of motion, no edema. No clubbing or cyanosis. Peripheral pulses intact. ASSESSMENT Sinus tachycardia, asymptomatic, likely related to ongoing pneumonia, COPD exacerbation Acute hypoxemic respiratory failure COPD exacerbation Abdominal distention, secondary to small bowel obstruction/ileus. NG tube has been removed. No surgical intervention Acute kidney injury Non-obstructive coronary artery disease (Cardiac catheterization in 2000 revealed 40% stenosis in the proximal RCA) Former nicotine dependence Hypertension Dyslipidemia PLAN Patient is improving but still remains tachycardic. Will check TSH. Increase cardizem to 90mg TID Continue cardiac telemetry while inpatient On discharge, follow up outpatient with Dr. Wilder. Nurse Practitioner note has been reviewed, I agree with a documented findings and plan of care. Patient was seen and examined. Objective - Vital Signs Vital signs: Vital Signs Temp 98.4 F 12/24/21 07:53 Pulse 98 12/24/21 09:07 Resp 18 12/24/21 08:00 BP 119/61 12/24/21 07:53 Pulse Ox 95 12/24/21 09:30 Intake & Output 12/23/21 12/24/21 12/24/21 18:59 06:59 18:59 Intake Total 240 180 Output Total 750 Balance 240 -750 180 Intake: Oral 240 180 Output: Urine 750 Other: Voiding Method Urinal ABP, PAP, CO, CI - Last Documented Arterial Blood Pressure 66/60 - Labs CBC & Chem 7: 12/19/21 09:08 12/24/21 07:50 Labs: Abnormal Lab Results - Last 24 Hours (Table) 12/23/21 12/23/21 12/23/21 Range/Units 11:43 16:10 19:42 Creatinine (0.66-1.25) mg/dL Glucose (74-99) mg/dL POC Glucose (mg/dL) 163 H 155 H 189 H (75-99) mg/dL TSH (0.465-4.680) mIU/L 12/24/21 12/24/21 12/24/21 Range/Units 04:48 06:19 07:50 Creatinine 1.38 H (0.66-1.25) mg/dL Glucose 169 H (74-99) mg/dL POC Glucose (mg/dL) 163 H 139 H (75-99) mg/dL TSH 0.433 L (0.465-4.680) mIU/L 12/24/21 Range/Units 11:14 Creatinine (0.66-1.25) mg/dL Glucose (74-99) mg/dL POC Glucose (mg/dL) 190 H (75-99) mg/dL TSH (0.465-4.680) mIU/L
[2021-12-24] MEDS: IPRATROPIUM-ALBUTEROL 3 ML NEB INHALATION PRN (12:01)
[2021-12-24 12:12] VITALS: PULSE 89
--- NOTE | 2021-12-24 16:44 | P.DS ---
Providers Date of admission: 12/09/21 20:15 Expected date of discharge: 12/24/21 Attending physician: Raheem March Consults: 12/09/21 20:15 Consult Physician Stat Consulting Provider: Gabriela Redman Consult Reason/Comments: acute resp failure, CAP with severe sepsis Do you want consulting provider notified?: Already Contacted 12/09/21 23:34 Consult Physician Stat Consulting Provider: Tamela Montgomery Consult Reason/Comments: small bowel obs vs ileus Do you want consulting provider notified?: Yes 12/09/21 23:58 Consult Physician Stat Consulting Provider: Armin Vazquez Consult Reason/Comments: RAYMON Do you want consulting provider notified?: Yes 12/22/21 10:40 Consult Physician Urgent Consulting Provider: Christiano Wilder Consult Reason/Comments: tachycardia Do you want consulting provider notified?: Yes Primary care physician: [facility] Course: Chief Complaint: Short of breath This is a 61-year-old patient who follows with Dr. Romero. Chronic stable medical conditions include diabetes, hypertension, hyperlipidemia. previous smoker/-COPD. Patient presented to the ER with increasing shortness of breath. Family info rmed ER physician that that is not seen in bed on Friday. Since patient has been getting worse. Not getting out of bed and breathing progressively getting worse. Patient on 2 L was saturating 62%. EMS was not able to get a blood pressure. Patient was minimally conscious. It had to be bagged and brought to the hospital. Patient did receive 1 dose of appendectomy. Patient has not been eating or drinking. No fever. Patient on November 28 underwent bronchoscopy and lavage by Dr. Consuelo Ochoa from pulmonary. On the right side patient's found to have extensive purulent secretions filling of the airways. BAL was performed. No mass was noted. Cultures were positive for Gaby albicans. Patient is put on BiPAP. This morning BiPAP set at 14/6. 50%. Patient on levo fed drip. Tired. Admitted with bilateral multilobar pneumonia, IV Zosyn, IV sepsis IV fluids, septic shock and IV levo fed,'s acute COPD exacerbation on DuoNeb steroids, acute hypoxic respiratory failure on BiPAP, acute kidney injury from ATN, acute metabolic acidosis from which she received IV bicarbonate drip. Also acute ileus from sepsis pneumonia for which NG tube to suction started. December 11: ICU: NG tube to suction. BiPAP setting at 14/6 at 50%. Tired. Answering questions. Laying in bed. DuoNeb, IV levo fed, IV Zosyn, sodium bicarbonate drip IV steroids December 12 - December 16 patient was followed by [facility] hospitalists December 17: ICU: NG tube got pulled today. Put back in. Putting out good output. Patient has pus slight flatus. Computed tomography scan done today shows renal obstruction. Seen by surgery. Possible walk tomorrow. Remains on 8 L of nasal cannula. Shortness of breath. Abdomen distended. Telemetry sinus rhythm. December 18: ICU: NG tube remains to suction. About thousand cc overnight. Had a small BM a bit loose today. Abdomen slightly less distended. IV fluids. D5W. Surgery postponed. Oxygen requirement down to 2 L nasal cannula. December 19: Moved to the medical floor. NG tube to suction. About 1500 mL drainage overnight. IV fluids. No BM. IV fluids. Being followed by surgery. Abdominal x-ray showing significantly dilated loops of bowel December 20: Patient is a large BM this morning. NG tube clamped. Started on clear liquids. December 21: Had a BM today. On clear liquids. Up in a chair. No abdominal pain. Advanced to full liquids is okay with surgery. Being followed by PT OT. December 22: Patient tolerating full liquids. Had a BM. No abdominal pain. Feeling better. Diet being advanced December 1: Tolerating regular diet. Had a BM. Breathing better. Up in a chair. December 2: Doing well. Putting diet. No new issues. Ambulating better. Will be going home with family. Past medical history to include: COPD, diabetes, hypertension, 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 Smoked a pack a day for close to 50 years stopped about 2 years ago. Drinks alcohol very heavily on the weekends to the point of passing out Family history: Reviewed, noncontributory to presentation Physical examination: VITAL SIGNS: 98.4, 100, 18, 109/61, 91% room air GENERAL: Up in a chair. Comfortable EYES: Pupils equal. Conjunctiva normal. HEENT: External appearance of nose and ears normal, NG tube clamped NECK: JVD unable to assess masses not palpable. HEART: First and second heart sounds are normal; minimal edema. LUNGS: Respiratory rate increased; diminished breath sounds ABDOMEN: Soft, not distended nontender, liver spleen not palpable, no masses palpable. Bowel sounds present PSYCH: AO 3, mood affect normal INVESTIGATIONS, reviewed in the clinical context: December 24: Potassium 4.1 creatinine 1.38 Computed tomography scan abdomen [December 17]: Dilated small bowel measuring up to 4.4 cm. Obstruction not excluded. Zone of transition noted. Admission labs: White count 22.5 hemoglobin 13.9 platelets 299 sodium 136 potassium 5.7 BUN 60 creatinine 5.04 lactic acid 8.1 troponin I 0.063 proBNP 73152 EKG tracing personally reviewed by me-normal sinus rhythm. Rate 90 Chest x-ray film personally reviewed by me-infiltrate especially right base CT chest abdomen pelvis: Patchy area of his consolidation consistent multifocal pneumonia may need the right lower lobe. Dilated small bowel. No transition point. Previous labs: Creatinine on May 2021: 0.88 Assessment and plan: -Severe multilobar pneumonia predominantly right lower lobe, suspect gram- negative organism: Improved IV Zosyn- Augmentin. Completed course of antibiotic -Sepsis secondary to pneumonia: Better IV fluids , IV Zosyn-changed to Augmentin -Troponinemia due to hemodynamic mass matched from sepsis. No clinical evidence of acute coronary syndrome -Septic shock: Improved IV fluids. IV levo fed discontinued -Acute COPD exacerbation in a previous smoker: Better DuoNeb 4 times a day, IV and inhaled steroids-discontinued, -Acute severe hypoxic respiratory failure from pneumonia/COPD: Better BiPAP. Now on room air -Hyperlipidemia Lipitor 80 mg daily at bedtime -Essential hypertension, Hold antihypertensives -Chronic hypoxic respiratory failure from COPD Has 2 L of oxygen at home -Acute medical debility from sepsis pneumonia COPD exacerbation PTOT -Acute lactic acidosis from sepsis -Acute kidney injury from ATN from sepsis and prerenal: Improving Creatinine peaked at 6.8. Down to 1.38 -Acute metabolic acidosis from renal failure: Better Received IV bicarbonate drip. -Acute small bowel obstruction. Improved NG tube clamped. Tolerating regular diet. Having BMs -Full code Disposition: Home Plan - Discharge Summary Discharge Rx Participant: Yes New Discharge Prescriptions: New Diltiazem Oral [Cardizem*] 90 mg PO TID #120 tab metFORMIN HCL [Glucophage] 1,000 mg PO BID #60 tab Continue Albuterol Sulfate [Proair Hfa] 2 puff INHALATION RT-QID PRN PRN Reason: Shortness Of Breath Famotidine 20 mg PO BID Aspirin EC [Ecotrin Low Dose] 81 mg PO DAILY Ipratropium-Albuterol Nebulize [Duoneb 0.5 mg-3 mg/3 ml Soln] 3 ml INHALATION RT-Q4H PRN PRN Reason: Shortness Of Breath Tiotropium Br/Olodaterol HCl [Stiolto Respimat Inhal Lyndora] 2 puff INHALATION RT-DAILY Ascorbic Acid [Vitamin C] 1,000 mg PO DAILY Cholecalciferol (Vitamin D3) [Vitamin D3 (3000 Iu)] 75 mcg PO DAILY Discontinued Atorvastatin [Lipitor] 80 mg PO HS lisinopriL [Zestril] 2.5 mg PO DAILY Atenolol [Tenormin] 25 mg PO DAILY metFORMIN HCL 500 mg PO BID amLODIPine [Norvasc] 10 mg PO DAILY Discharge Medication List Albuterol Sulfate [Proair Hfa] 2 puff INHALATION RT-QID PRN 08/04/15 [History] Aspirin EC [Ecotrin Low Dose] 81 mg PO DAILY 06/20/21 [History] Ascorbic Acid [Vitamin C] 1,000 mg PO DAILY 11/28/21 [History] Cholecalciferol (Vitamin D3) [Vitamin D3 (3000 Iu)] 75 mcg PO DAILY 11/28/21 [History] Famotidine 20 mg PO BID 11/28/21 [History] Ipratropium-Albuterol Nebulize [Duoneb 0.5 mg-3 mg/3 ml Soln] 3 ml INHALATION RT-Q4H PRN 11/28/21 [History] Tiotropium Br/Olodaterol HCl [Stiolto Respimat Inhal Lyndora] 2 puff INHALATION RT-DAILY 11/28/21 [History] Diltiazem Oral [Cardizem*] 90 mg PO TID #120 tab 12/24/21 [Rx] metFORMIN HCL [Glucophage] 1,000 mg PO BID #60 tab 12/24/21 [Rx] Follow up Appointment(s)/Referral(s): Evangelist Romero DO [Primary Care Provider] - 1-2 days (Office will call to make an appointment if they have a cancellation before your upcoming appointment on January 23. ) [facility], [NON-STAFF] - ([facility] will contact you to schedule a visit) Hugo Ochoa MD [STAFF PHYSICIAN] - 01/02/22 12:30 pm Armin Vazquez DO [STAFF PHYSICIAN] - 01/28/22 1:00 pm Christiano Wilder MD [STAFF PHYSICIAN] - 12/31/21 9:00 am Discharge Disposition: HOME SELF-CARE
== END 2021-12-24 14:10 | disposition home or self-care (01) | DRG 871 ==
LOC: EC 17:27 → 2SICU 20:15 → 3SCARD 12-18 23:01
PROVIDERS: ADMIT Hospitalist; ATTEND Hospitalist
PROC: 02HV33Z Insertion of Infusion Device into Superior Vena Cava, Percutaneous Approach (ICD-10-PCS; principal; 2021-12-09)
PROC: 3E033XZ Introduction of Vasopressor into Peripheral Vein, Percutaneous Approach (ICD-10-PCS; 2021-12-09)
PROC: 0D9670Z Drainage of Stomach with Drainage Device, Via Natural or Artificial Opening (ICD-10-PCS; 2021-12-09)
PROC: 03HY32Z Insertion of Monitoring Device into Upper Artery, Percutaneous Approach (ICD-10-PCS; 2021-12-10)
PROC: 4A133B1 Monitoring of Arterial Pressure, Peripheral, Percutaneous Approach (ICD-10-PCS; 2021-12-10)
PROC: 4A133J1 Monitoring of Arterial Pulse, Peripheral, Percutaneous Approach (ICD-10-PCS; 2021-12-10)
PROC: 5A0945A Assistance with Respiratory Ventilation, 24-96 Consecutive Hours, High Flow/Velocity Cannula (ICD-10-PCS; 2021-12-15)
DX: A41.9 Sepsis, unspecified organism (principal); R65.21 Severe sepsis with septic shock; N17.0 Acute kidney failure with tubular necrosis; I21.4 Non-ST elevation (NSTEMI) myocardial infarction; J69.0 Pneumonitis due to inhalation of food and vomit; J96.21 Acute and chronic respiratory failure with hypoxia; J15.9 Unspecified bacterial pneumonia; E87.0 Hyperosmolality and hypernatremia; E87.1 Hypo-osmolality and hyponatremia; E87.2 Acidosis; J44.0 Chronic obstructive pulmonary disease with (acute) lower respiratory infection; J44.1 Chronic obstructive pulmonary disease with (acute) exacerbation; J98.11 Atelectasis; K56.699 Other intestinal obstruction unspecified as to partial versus complete obstruction; E78.5 Hyperlipidemia, unspecified; E87.5 Hyperkalemia; F17.200 Nicotine dependence, unspecified, uncomplicated; F32.A Depression, unspecified; I10 Essential (primary) hypertension; I25.10 Atherosclerotic heart disease of native coronary artery without angina pectoris; E11.65 Type 2 diabetes mellitus with hyperglycemia; K31.84 Gastroparesis; R00.0 Tachycardia, unspecified; T38.0X5A Adverse effect of glucocorticoids and synthetic analogues, initial encounter; Z79.4 Long term (current) use of insulin; Z79.82 Long term (current) use of aspirin; Z79.899 Other long term (current) drug therapy
CPT/HCPCS: 36415; 36600; 71045; 71046; 71250; 74018; 74022; 74176; 80048; 80053; 81001; 82805; 83036; 83605; 83735; 83880; 84132; 84145; 84439; 84443; 84484; 85025; 85027; 85379; 85610; 85730; 87040; 93005; 93306; 93970; 94640; 94660; 94760; 96365; 96366; 96367; 96375; 99291

== ENCOUNTER → 2022-09-17 | Outpatient (CLI) | payer MEDICARE ==
--- NOTE | 2022-09-17 17:06 | US ---
EXAMINATION TYPE: US kidneys/renal and bladder DATE OF EXAM: 09/17/2022 COMPARISON: NONE CLINICAL HISTORY: 62-year-old male R31.1 BENIGN ESSENTIAL MICROSCOPIC HEMATURIA. TECHNIQUE: Multiple sonographic images of the kidneys and bladder are obtained. FINDINGS: EXAM MEASUREMENTS: Right Kidney: 10.3 x 4.9 x 3.9 cm Left Kidney: 11.0 x 5.3 x 4.4 cm Right Kidney: No hydronephrosis or masses seen Left Kidney: No hydronephrosis or masses seen Bladder: wnl Bilateral Jets seen: Yes IMPRESSION: No hydronephrosis. No specific abnormality seen.
== END | disposition home or self-care (01) ==
LOC: RADUSWWP 13:22
PROVIDERS: ATTEND Urology
DX: R31.1 Benign essential microscopic hematuria (principal)
CPT/HCPCS: 76770

== ENCOUNTER → 2023-04-23 | Outpatient (CLI) | payer MEDICARE ==
[2023-04-23 15:23] LABS: Basophils % (A) 0.9 %; Eosinophils # (A) 0.63 X 10*3/uL (0.04-0.35); Eosinophils % (A) 5.9 %; HCT 39.4 % (39.6-50.0); HGB 12.2 d/dL (13.0-17.0); Lymphocytes # (A) 3.09 X 10*3/uL (0.90-5.00); MCH 27.5 pg (27.0-32.0); MCV 88.9 FL (80.0-97.0); Mean Platelet Volume 10.1 FL (9.5-12.2); Monocytes # (A) 1.08 X 10*3/uL (0.20-1.00); Monocytes % (A) 10.1 %; NRBC Per 100 WBC 0 X 10*3/uL (0.00-0.01); Neutrophils % (A) 53.6 %; Platelet Count 302 X 10*3/uL (140-440); RBC 4.43 X 10*6/uL (4.40-5.60); RDW 15.3 % (11.5-14.5); WBC 10.65 X 10*3/uL (4.50-10.00)
[2023-04-23 15:32] LABS: Appearance,Urine Clear (Clear); Bilirubin,Urine Negative (Negative); Blood,Urine Negative (Negative); Color,Urine Yellow (Yellow); Ketones,Urine Negative (Negative); Nitrite,Urine Negative (Negative); PH, Urine 6.5; Specific Gravity,Urine 1.021 (1.001-1.030)
[2023-04-23 15:55] LABS: % Iron Saturation 23.18 (15.00-50.00); Blood Urea Nitrogen 18.1 mg/dL (9.0-27.0); Calcium 9.4 mg/dL (8.7-10.3); Carbon Dioxide 27.1 mmol/L (21.6-31.8); Chloride 106 mmol/L (96-109); Glucose 139 mg/dL (70-110); Iron 83 UG/DL (65-175); Magnesium 1.8 mg/dL (1.5-2.4); Phosphorus 2.2 mg/dL (2.4-5.1); Potassium 5.2 mmol/L (3.5-5.5); Sodium 144 mmol/L (135-145); Total Iron Binding Capacity 358 UG/DL (228-460); Uric Acid 5.3 mg/dL (3.7-8.7)
[2023-04-23 15:56] LABS: Albumin 4.4 d/dL (3.8-4.9); Ferritin 81.6 ng/mL (22.0-322.0)
== END | disposition home or self-care (01) ==
LOC: LABWHC1 10:20
PROVIDERS: ATTEND Internal Medicine Nephrology
DX: N17.9 Acute kidney failure, unspecified (principal)
CPT/HCPCS: 36415; 80048; 81001; 82040; 82043; 82306; 82570; 82728; 83540; 83550; 83735; 83970; 84100; 84550; 85025

== ENCOUNTER → 2024-04-12 | Outpatient (CLI) | payer MEDICARE ==
--- NOTE | 2024-05-17 12:45 | XR ---
Patient: Osmani Genao J Ordering Physician: Unknown, Unknown ID: [id number] Phone, Pager: Phone: N/A Pager: N/A : [phone] Age/Gender: 63Y, M Primary Location: N/A Procedure: CHEST 2 VIEW Study Date: 04/12/2024 12:42:00 PM EXAMINATION TYPE: XR chest 2V DATE OF EXAM: 04/12/2024 COMPARISON: 12/14/2021 INDICATION: Annual exam TECHNIQUE: Frontal and lateral views of the chest are obtained. FINDINGS: The heart size is normal. The pulmonary vasculature is normal. The lungs are clear. There is hyperinflation and flattening the diaphragms compatible with COPD. May be chronic blunting of left costophrenic angle. IMPRESSION: 1. No acute pulmonary process. 2. COPD
== END | disposition home or self-care (01) ==
LOC: RADXRMAIN 10:41
PROVIDERS: ATTEND Internal Medicine Sleep Medicine
DX: J44.9 Chronic obstructive pulmonary disease, unspecified (principal)
CPT/HCPCS: 71046

== ENCOUNTER → 2024-11-01 | Outpatient (CLI) | payer MEDICARE ==
--- NOTE | 2024-11-01 14:39 | XR ---
EXAMINATION TYPE: XR chest 2V DATE OF EXAM: 11/01/2024 2:29 PM COMPARISON: Chest radiographs from 04/12/2024 CLINICAL INDICATION: Male, 64 years old with history of J18.9, J44.9; H TECHNIQUE: XR chest 2V Frontal and lateral views of the chest. FINDINGS: Lungs/Pleura: There is flattening of the diaphragm with increased lucency of the lungs. No evidence o f pneumothorax, pleural effusion or focal consolidation. Pulmonary vascularity: Unremarkable. Heart/mediastinum: Cardiomediastinal silhouette is unremarkable. Musculoskeletal: No acute osseous pathology. IMPRESSION: 1. No acute cardiopulmonary disease process. 2. COPD changes. [facility], , 11/01/2024 2:37 PM
== END | disposition home or self-care (01) ==
LOC: RADXRMAIN 14:20
PROVIDERS: ATTEND Internal Medicine Sleep Medicine
DX: J44.9 Chronic obstructive pulmonary disease, unspecified (principal); J18.9 Pneumonia, unspecified organism
CPT/HCPCS: 71046